=== PATIENT | male | born 1960 | race Caucasian/White ===

== ENCOUNTER 2022-10-19 16:14 | Inpatient (IN) ==
--- NOTE | 2022-10-19 17:02 | XRay Report ---
XR chest 1V portable HISTORY: 61 years-old Male SOB acute chest pain with shortness of breath COMPARISON: Chest CT 09/19/2022 TECHNIQUE: AP view of the chest FINDINGS: Cardiomediastinal and hilar silhouettes are unchanged. Large right perihilar/right upper lobe mass re demonstrated. There is progressively worsened mixed interstitial and alveolar opacities throughout th e right lung. Emphysema. Mild reticular nodular densities of the left lung are also again noted. Dege nerative changes of the shoulders and spine. IMPRESSION: 1. Large right perihilar/right upper lobe mass redemonstrated. 2. Progressively worsened mixed interstitial and alveolar opacities throughout the right lung likely represents postobstructive pneumonitis. Progressive metastatic disease could appear similarly. 3. Emphysema with mild reticular nodular opacities throughout the left lung again noted. ACT 112: Negative or not required by law. The above report was generated using voice recognition software. It may contain grammatical, syntax o r spelling errors. Electronically signed by: Jose Miguel Tineo M.D. 10/19/2022 5:00 PM
[2022-10-19 17:18] LABS: Basophils # (auto) 0.08 K/uL (0-0.2); Basophils % (auto) 0.6 %; Eosinophils # (auto) 0.04 K/uL (0-0.50); Eosinophils % (auto) 0.3 %; Hemoglobin 15.4 g/dl (14.0-18.0); Immature Granulocytes # (auto) 0.22 K/uL (0.01-0.20); Immature Granulocytes % (auto) 1.7 %; Lymphocytes # (auto) 2.09 K/uL (1.2-3.4); Lymphocytes % (auto) 15.9 %; Mean Corpuscular Hemoglobin 29.2 pg (25.0-34.0); Mean Corpuscular Hgb Conc 32.8 g/dL (32.0-36.0); Mean Corpuscular Volume 89.2 fL (80.0-100.0); Mean Platelet Volume 8.4 fL (9.4-12.4); Monocytes # (auto) 1.19 K/uL (0.11-0.59); Neutrophils # (auto) 9.53 K/uL (1.40-6.50); Neutrophils % (auto) 72.5 %; Platelet Count 378 K/uL (130-400); RDW Coefficient of Variation 13.9 % (11.5-14.5); RDW Standard Deviation 44.7 fL (36.4-46.3); Red Blood Count 5.27 M/uL (4.70-6.10); White Blood Count 13.15 K/ul (4.8-10.8)
[2022-10-19 17:29] LABS: Partial Thromboplastin Ratio 1.1; Prothrombin Time 10.7 Seconds (9.0-12.0)
[2022-10-19 17:32] LABS: Albumin Level 3.4 gm/dl (3.4-5.0); Anion Gap 8 (3-11); Bilirubin,Total 0.3 mg/dl (0.2-1.0); Calcium 9.2 mg/dl (8.5-10.1); Carbon Dioxide 28 mmol/L (21-32); Chloride 107 mmol/L (98-107); Potassium 3.9 mmol/L (3.5-5.1); Sodium 143 mmol/L (136-145)
[2022-10-19 17:34] LABS: Troponin I High Sensitivity 19.7 pg/ml (0-20)
[2022-10-19 17:38] LABS: Alanine Aminotransferase 24 U/L (7-52); Alkaline Phosphatase 116 U/L (34-104); Aspartate Aminotransferase 21 U/L (13-39); BUN Creatinine Ratio 20.3 (10-20); Blood Urea Nitrogen 16 mg/dl (6-23); Est GFR (African American) 112.3 ml/min; Est GFR (Non-African American) 96.9 ml/min; Globulin 3.5 gm/dl (2.5-4.0); Glucose 97 mg/dl (70-99(Fasting)); Total Protein 6.9 gm/dl (6.0-8.3)
[2022-10-19 17:41] LABS: Influenza A virus by PCR Negative (Neg); Influenza B virus by PCR Negative (Neg); RSV by PCR Negative (Neg); SARS CoV2 RNA(COVID-19) Ceph NEGATIVE (Negative)
--- NOTE | 2022-10-19 18:33 | Emergency Department Note ---
Impression & Plan Hypoxia, Abnormal CT scan of lung ED Provider Note NAME: ONDINA RODRÍGUEZ AGE: 61 SEX: M : 1960 ARRIVES VIA: Walk-In INFORMANT: Patient ED PROVIDER(S): Evans Bermeo DO CHIEF COMPLAINT: SOB HPI: Patient is a 61-year-old male with a past medical history of COPD and media stinal adenopathy who presents the ER for shortness of breath. He has had upper respiratory symptoms since August. Has been on antibiotics. Denies any headache or change in vision. No chest pain but does have significant shortness of breath with any kind of movement. Does not wear oxygen at home. Referred in by pulmonology. Has been using his nebulizer at home. Denies any belly pain, nausea, vomiting, or diarrhea. No dysuria, urgency, or frequency. No other exacerbating or remitting factors. He does have a cough and runny nose. He has been taking [id number] medications to help try him up due to the secretions. PAST MEDICAL HISTORY:See Below PAST SURGICAL HISTORY:See Below FAMILY HISTORY:See Below SOCIAL HISTORY:See Below HOME MEDICATIONS:See Below ALLERGIES:See Below VITALS:See Below PHYSICAL EXAMINATION: GENERAL: Sitting up in bed, alert,, slightly ill-appearing, disheveled on nasal cannula EYE EXAM: normal conjunctiva. OROPHARYNX: no exudate, no erythema, lips, buccal mucosa, and tongue normal and mucous membranes are moist NECK: supple, no nuchal rigidity, no adenopathy, non-tender LUNGS: Mild wheezing bilaterally. Normal chest wall mechanics HEART: no murmurs, S1 normal and S2 normal ABDOMEN: abdomen soft, non-tender, normo-active bowel sounds, no masses, no rebound or guarding. UPPER EXTREMITIES: upper extremities are grossly normal. LOWER EXTREMITIES: No pitting edema. Calves are equal bilateral NEURO EXAM: Normal sensorium, cranial nerves II-XII grossly intact, normal sp eech, no gross weakness of arms, no gross weakness of legs. MEDICAL DECISION MAKING: Patient is a 61 male who presents ER for shortness of breath. Upon presentation was found to be hypoxic at 87%. Placed on 2 L nasal cannula. IV was established blood work was obtained. He was given neb treatments. He was given steroids. Labs show leukocytosis 13,000. No significant anemia. INR unremarkable. BMP with LFTs bilirubin and troponin was negative. Flu COVID and RSV was negative. Chest x-ray with a large right infiltrate/mass per my read. Consequently obtained a CT of his chest to see if this is progressed any further. Question mass versus obstructive process with pneumonia and cannot be certain. Patient was covered with cefepime and vancomycin. Updated bedside. External records were reviewed. Discussed with Rosa Lizama for further evaluation admission and work-up. He did remain on 2 L nasal cannula throughout his stay in the ER. Triage Nursing notes reviewed. Limited review of prior medical records performed Vital Signs: reviewed and remarkable for hypoxia Differential diagnosis: Differential diagnoses includes but is not limited to pneumonia, bronchitis, COPD/Asthma exacerbation, pneumothorax, pulmonary embolism, congestive heart failure, acute coronary syndrome ER treatment provided: See below Diagnostics interpreted by me include EKG and cardiac monitoring as listed below: -Cardiac Monitoring: An order was placed for continuous cardiac monitoring. The monitor shows a rate of 101 with sinus rhythm. -ECG: Sinus tachycardia rate of 104 Normal axis No PVCs QTC 415 -Laboratory studies:Interpreted by me as stated above in MDM and shown below. Imaging studies: Xrays: As interpreted by me: Portable AP upright 1 view chest shows large right chest infiltrate/mass CTs show: CT angio of the chest shows a large right mass/infiltrate Consultation(s): Discussed with Dr. Rosa Lizama for further evaluation and preethi tment Procedures:none Critical Care: I have personally spent 32 minutes of critical care time in the direct management of this patient. This includes bedside care, interpretation of diagnostic studies, and testing, discussion with consultants, patient, and family members, and other required patient management activities. This 32 minutes is in excess of all separately billable procedures. Past Med/Surg History Medical History (Updated 10/19/22 @ 21:45 by Evans Bermeo DO) Arthritis COPD (chronic obstructive pulmonary disease) Edema Hypercholesteremia Mass of lung Palpitations Patellofemoral instability of both knees with pain Reflex sympathetic dystrophy Spinal stenosis Surgical History Hx of right knee surgery Social History Smoking Status: Current every day smoker Feels Safe at Home: Yes Allergies Allergies Allergy/AdvReac Type Severity Reaction Status Date / Time cocoa Allergy Mild Rash Verified 10/19/22 20:06 petrolatum,white Allergy Mild Rash Verified 10/19/22 20:06 tetracycline AdvReac Severe Anaphylaxis Verified 10/19/22 20:06 hydrocodone AdvReac Intermediate Hives Verified 10/19/22 20:06 BELLADONNA Allergy Intermediate Hives Uncoded 10/19/22 20:06 OXYCODEONE AdvReac Intermediate Hives Uncoded 10/19/22 20:06 Home Meds Home Medications Medication Instructions Recorded Confirmed alendronate 70 mg tablet 70 mg PO Q7D 09/29/22 10/19/22 atorvastatin 40 mg tablet (Lipitor) 80 mg PO DAILY 09/29/22 10/19/22 bupropion HCl 300 mg 24 hr tablet, 300 mg PO QAM 09/29/22 10/19/22 extended release calcium carbonate 600 mg calcium 600 mg PO DAILY 09/29/22 10/19/22 (1,500 mg) tablet cholecalciferol (vitamin D3) 25 25 mcg PO DAILY 09/29/22 10/19/22 mcg (1,000 unit) capsule gabapentin 100 mg capsule 100 mg PO DAILY 09/29/22 10/19/22 meclizine 25 mg tablet 25 mg PO DAILY PRN .dizzy 09/29/22 10/19/22 omeprazole 40 mg capsule,delayed 40 mg PO DAILY PRN Acid Reflux 09/29/22 10/19/22 release tramadol 50 mg tablet 50 - 100 mg PO Q12 PRN Pain 10/19/22 10/19/22 Results & Data (ED) Vital Signs Vital Signs - 24 hr 10/19/22 16:19 10/19/22 19:43 10/19/22 20:00 Temperature 36.6 C Temperature Source Temporal Artery Scan Pulse Rate 100 H 100 H 101 H Pulse Rate from SpO2 Sensor 92 H 96 H Respiratory Rate 24 22 22 Respiratory Effort / Characteristics Spontaneous Respiratory Depth Normal Blood Pressure 113/51 L 109/65 109/90 Blood Pressure Mean 71 79 96 Pulse Oximetry 88 L 96 92 Oxygen Delivery Method Room Air Nasal Cannula Nasal Cannula Oxygen Flow Rate 5 5 Sepsis Recent Fever Within 48 Hours No Sepsis New/Unexplained Change in Mental Status No Sepsis Action Taken by Nursing No Action Required 10/19/22 20:30 10/19/22 21:01 Temperature Temperature Source Pulse Rate 91 H 101 H Pulse Rate from SpO2 Sensor 86 99 H Respiratory Rate 30 H 26 H Respiratory Effort / Characteristics Respiratory Depth Blood Pressure 106/74 104/81 Blood Pressure Mean 84 88 Pulse Oximetry 91 91 Oxygen Delivery Method Nasal Cannula Nasal Cannula Oxygen Flow Rate 5 5 Sepsis Recent Fever Within 48 Hours Sepsis New/Unexplained Change in Mental Status Sepsis Action Taken by Nursing Laboratory Data 10/19/22 16:47 10/19/22 16:47 Lab Results 10/19/22 10/19/22 10/19/22 Range/Units 16:47 16:47 16:47 WBC 13.15 H (4.8-10.8) K/ul RBC 5.27 (4.70-6.10) M/uL Hgb 15.4 (14.0-18.0) g/dl Hct 47.0 (42.0-52.0) % MCV 89.2 (80.0-100.0) fL MCH 29.2 (25.0-34.0) pg MCHC 32.8 (32.0-36.0) g/dL RDW Std Deviation 44.7 (36.4-46.3) fL RDW Coeff of Kishore 13.9 (11.5-14.5) % Plt Count 378 (130-400) K/uL MPV 8.4 L (9.4-12.4) fL Immature Gran % (Auto) 1.7 % Neut % (Auto) 72.5 % Lymph % (Auto) 15.9 % Bremer % (Auto) 9.0 % Eos % (Auto) 0.3 % Baso % (Auto) 0.6 % Neut # (Auto) 9.53 H (1.40-6.50) K/uL Lymph # (Auto) 2.09 (1.2-3.4) K/uL Bremer # (Auto) 1.19 H (0.11-0.59) K/uL Eos # (Auto) 0.04 (0-0.50) K/uL Baso # (Auto) 0.08 (0-0.2) K/uL Immature Gran # (Auto) 0.22 H (0.01-0.20) K/uL PT 10.7 (9.0-12.0) Seconds INR 1.0 (0.9-1.1) APTT 29.0 (21.0-31.0) Seconds PTT Ratio 1.1 Sodium 143 (136-145) mmol/L Potassium 3.9 (3.5-5.1) mmol/L Chloride 107 (98-107) mmol/L Carbon Dioxide 28 (21-32) mmol/L Anion Gap 8 (3-11) BUN 16 (6-23) mg/dl Creatinine 0.79 (0.6-1.4) mg/dl Est Cr Clr Drug Dosing Not Reportable Est GFR ( Amer) 112.3 ml/min Est GFR (Non-Af Amer) 96.9 ml/min BUN/Creatinine Ratio 20.3 H (10-20) Glucose 97 (70-99(Fasting)) mg/dl Calcium 9.2 (8.5-10.1) mg/dl Magnesium 2.0 (1.7-2.4) mg/dl Total Bilirubin 0.3 (0.2-1.0) mg/dl AST 21 (13-39) U/L ALT 24 (7-52) U/L Alkaline Phosphatase 116 H (34-104) U/L Troponin I High Sens 19.7 (0-20) pg/ml Total Protein 6.9 (6.0-8.3) gm/dl Albumin 3.4 (3.4-5.0) gm/dl Globulin 3.5 (2.5-4.0) gm/dl Albumin/Globulin Ratio 1.0 (0.9-2) SARS-CoV-2 (PCR) (Negative) Influenza Type A (PCR) (Neg) Influenza Type B (PCR) (Neg) RSV (RT-PCR) (Neg) 10/19/22 Range/Units 16:47 WBC (4.8-10.8) K/ul RBC (4.70-6.10) M/uL Hgb (14.0-18.0) g/dl Hct (42.0-52.0) % MCV (80.0-100.0) fL MCH (25.0-34.0) pg MCHC (32.0-36.0) g/dL RDW Std Deviation (36.4-46.3) fL RDW Coeff of Kishore (11.5-14.5) % Plt Count (130-400) K/uL MPV (9.4-12.4) fL Immature Gran % (Auto) % Neut % (Auto) % Lymph % (Auto) % Bremer % (Auto) % Eos % (Auto) % Baso % (Auto) % Neut # (Auto) (1.40-6.50) K/uL Lymph # (Auto) (1.2-3.4) K/uL Bremer # (Auto) (0.11-0.59) K/uL Eos # (Auto) (0-0.50) K/uL Baso # (Auto) (0-0.2) K/uL Immature Gran # (Auto) (0.01-0.20) K/uL PT (9.0-12.0) Seconds INR (0.9-1.1) APTT (21.0-31.0) Seconds PTT Ratio Sodium (136-145) mmol/L Potassium (3.5-5.1) mmol/L Chloride (98-107) mmol/L Carbon Dioxide (21-32) mmol/L Anion Gap (3-11) BUN (6-23) mg/dl Creatinine (0.6-1.4) mg/dl Est Cr Clr Drug Dosing Est GFR ( Amer) ml/min Est GFR (Non-Af Amer) ml/min BUN/Creatinine Ratio (10-20) Glucose (70-99(Fasting)) mg/dl Calcium (8.5-10.1) mg/dl Magnesium (1.7-2.4) mg/dl Total Bilirubin (0.2-1.0) mg/dl AST (13-39) U/L ALT (7-52) U/L Alkaline Phosphatase (34-104) U/L Troponin I High Sens (0-20) pg/ml Total Protein (6.0-8.3) gm/dl Albumin (3.4-5.0) gm/dl Globulin (2.5-4.0) gm/dl Albumin/Globulin Ratio (0.9-2) SARS-CoV-2 (PCR) NEGATIVE (Negative) Influenza Type A (PCR) Negative (Neg) Influenza Type B (PCR) Negative (Neg) RSV (RT-PCR) Negative (Neg) Administered Medications Discontinued Medications Albuterol (Albuterol 0.083% Nebu Soln 3 Ml Vial) 2.5 mg NEB NOW STA; Protocol Stop: 01/26/23 18:38 Last Admin: 10/19/22 19:37 Dose: 2.5 mg Documented By: MICAELA Cefepime HCl (Maxipime) 2,000 mg in 20 mls @ 5 mls/min IV NOW STA; Protocol Stop: 10/19/22 18:38 Last Admin: 10/19/22 19:37 Dose: 5 mls/min Documented By: MICAELA Ioversol (Optiray 320 500ml) 110 ml IV ONCE ONE Stop: 10/19/22 19:10 Last Admin: 10/19/22 19:09 Dose: 110 ml Documented By: SOL Methylprednisolone (Methylprednisolone 40 Mg/Ml Vial) 40 mg IV NOW STA Stop: 10/19/22 18:38 Last Admin: 10/19/22 19:37 Dose: 40 mg Documented By: MICAELA Imaging Data Radiologist's Impression: Chest X-Ray 10/19/22 16:23 XR chest 1V portable HISTORY: 61 years-old Male SOB acute chest pain with shortness of breath COMPARISON: Chest CT 09/19/2022 TECHNIQUE: AP view of the chest FINDINGS: Cardiomediastinal and hilar silhouettes are unchanged. Large right perihila r/right upper lobe mass redemonstrated. There is progressively worsened mixed interstitial and alveolar opacities throughout the right lung. Emphysema. Mild reticular nodular densities of the left lung are also again noted. Degenerative changes of the shoulders and spine. IMPRESSION: 1. Large right perihilar/right upper lobe mass redemonstrated. 2. Progressively worsened mixed interstitial and alveolar opacities throughout the right lung likely represents postobstructive pneumonitis. Progressive metastatic disease could appear similarly. 3. Emphysema with mild reticular nodular opacities throughout the left lung again noted. ACT 112: Negative or not required by law. The above report was generated using voice recognition software. It may contain grammatical, syntax or spelling errors. Electronically signed by: Jose Miguel Tineo M.D. 10/19/2022 5:00 PM Chest CTA 10/19/22 18:35 CHEST CTA for PULMONARY ARTERIES CT DOSE: 466.98 mGy.cm HISTORY: Severe shortness of breath. TECHNIQUE: Multiaxial CT images of the chest were performed following the intravenous administration of contrast to evaluate the pulmonary arteries. Maximal intensity projection images were also obtained. A dose lowering technique was utilized adhering to the principles of ALARA. COMPARISON STUDY: Outside hospital chest CT 09/19/2022. FINDINGS: Limited views of the upper abdomen demonstrate a normal liver and spleen. Prior cholecystectomy. Normal right adrenal gland. A 1.8 cm left adrenal gland nodule is similar to the prior study. There is a new trace right pleural effusion. No pericardial effusion. Mild circumferential thickening of the esophagus. The ascending thoracic aorta measures up to 4 cm in diameter. This remains unchanged. No mediastinal or left hilar lymphadenopathy. The heart is normal in size. The bilateral lower lobe subsegmental pulmonary arteries are nondiagnostic due to the respiratory motion artifact. Otherwise, no filling defects within the remaining pulmonary arteries to suggest a pulmonary embolus. There is mild mass effect within the central right pulmonary arteries. No suspicious lytic or blastic osseous lesions. No pneumothorax. Mild diffuse narrowing and bronchial wall thickening within the proximal right bronchi. The left bronchi appear patent. Emphysema. There are few stable subpleural nodular densities within the left lung with the largest in the left lower lobe on image 122 measuring 3 mm. There is a new 4 mm subpleural nodule within the left lower lobe in image 137. Right lung groundglass and consolidative airspace opacities have progressed. There is also mild interstitial thickening within the right lung. Similar-appearing focal area of consolidation within the right upper lobe on image 186 measuring 6 cm. This could represent a right upper lobe mass. However, this is difficult to characterize due to the extensive right lung consolidation. There is mild soft tissue thickening within the right hilum which surrounds the right central bronchi and right mainstem bronchus. This is similar to the prior study. IMPRESSION: 1. A 6 cm focal area of consolidation within the right upper lobe with soft tissue thickening within the right hilum and surrounding the right mainstem bronchus. This is similar to the prior study and could represent the patient's known lung mass. However, this is difficult to characterize due to the extensive surrounding airspace opacities within the right lung which have progressed. This could be due to posttreatment changes, superimposed pneumonia, or less likely asymmetric pulmonary edema. 2. There is a new trace right pleural effusion. 3. A new 4 mm subpleural nodule within the left lower lobe. Additional subcentimeter nodular densities within the left lung remain stable. 4. Emphysema. 5. Stable 18 mm left adrenal gland nodule. 6. No evidence for a pulmonary embolus. 7. Additional findings as described above. ACT 112: Negative or not required by law. Electronically signed by: Herve Jarvis M.D. 10/19/2022 7:24 PM Discharge Plan Visit Data Chief Complaint: Referred by Doctor Stated Complaint: REF BY DOC, PULSE OX LOW, ED Provider: Evans Bermeo Discharge Problem: Hypoxia, Abnormal CT scan of lung Forms Stand Alone Forms: My [facility] Prescriptions Prescriptions: No Action gabapentin 100 mg capsule 100 mg PO DAILY meclizine 25 mg tablet 25 mg PO DAILY PRN (Reason: .dizzy) alendronate 70 mg tablet 70 mg PO Q7D atorvastatin [Lipitor] 40 mg tablet 80 mg PO DAILY calcium carbonate 600 mg calcium (1,500 mg) tablet 600 mg PO DAILY cholecalciferol (vitamin D3) 25 mcg (1,000 unit) capsule 25 mcg PO DAILY bupropion HCl 300 mg tablet extended release 24 hr 300 mg PO QAM omeprazole 40 mg capsule,delayed release(DR/EC) 40 mg PO DAILY PRN (Reason: Acid Reflux) tramadol 50 mg tablet 50 - 100 mg PO Q12 PRN (Reason: Pain) Referrals Referrals: PCP,NO [Primary Care Provider] -
[2022-10-19] MEDS ORDERED: CEFEPIME 2,000 MG/20 ML VIAL IV STA (18:35)
[2022-10-19] MEDS ORDERED: ALBUTEROL 0.083% NEBU SOLN 3 ML VIAL NEB STA (18:37)
[2022-10-19] MEDS ORDERED: OPTIRAY 320 500ml IV ONE (19:09)
--- NOTE | 2022-10-19 19:26 | CT Scan Report ---
CHEST CTA for PULMONARY ARTERIES CT DOSE: 466.98 mGy.cm HISTORY: Severe shortness of breath. TECHNIQUE: Multiaxial CT images of the chest were performed following the intravenous administration of contrast to evaluate the pulmonary arteries. Maximal intensity projection images were also obtaine d. A dose lowering technique was utilized adhering to the principles of ALARA. COMPARISON STUDY: Outside hospital chest CT 09/19/2022. FINDINGS: Limited views of the upper abdomen demonstrate a normal liver and spleen. Prior cholecystec teresita. Normal right adrenal gland. A 1.8 cm left adrenal gland nodule is similar to the prior study. T here is a new trace right pleural effusion. No pericardial effusion. Mild circumferential thickening of the esophagus. The ascending thoracic aorta measures up to 4 cm in diameter. This remains unchange d. No mediastinal or left hilar lymphadenopathy. The heart is normal in size. The bilateral lower lob e subsegmental pulmonary arteries are nondiagnostic due to the respiratory motion artifact. Otherwise , no filling defects within the remaining pulmonary arteries to suggest a pulmonary embolus. There is mild mass effect within the central right pulmonary arteries. No suspicious lytic or blastic osseous lesions. No pneumothorax. Mild diffuse narrowing and bronchial wall thickening within the proximal r ight bronchi. The left bronchi appear patent. Emphysema. There are few stable subpleural nodular dens ities within the left lung with the largest in the left lower lobe on image 122 measuring 3 mm. There is a new 4 mm subpleural nodule within the left lower lobe in image 137. Right lung groundglass and consolidative airspace opacities have progressed. There is also mild interstitial thickening within t he right lung. Similar-appearing focal area of consolidation within the right upper lobe on image 186 measuring 6 cm. This could represent a right upper lobe mass. However, this is difficult to characte rize due to the extensive right lung consolidation. There is mild soft tissue thickening within the r ight hilum which surrounds the right central bronchi and right mainstem bronchus. This is similar to the prior study. IMPRESSION: 1. A 6 cm focal area of consolidation within the right upper lobe with soft tissue thickening within the right hilum and surrounding the right mainstem bronchus. This is similar to the prior study and c ould represent the patient's known lung mass. However, this is difficult to characterize due to the e xtensive surrounding airspace opacities within the right lung which have progressed. This could be du e to posttreatment changes, superimposed pneumonia, or less likely asymmetric pulmonary edema. 2. There is a new trace right pleural effusion. 3. A new 4 mm subpleural nodule within the left lower lobe. Additional subcentimeter nodular densitie s within the left lung remain stable. 4. Emphysema. 5. Stable 18 mm left adrenal gland nodule. 6. No evidence for a pulmonary embolus. 7. Additional findings as described above. ACT 112: Negative or not required by law. Electronically signed by: Herve Jarvis M.D. 10/19/2022 7:24 PM
--- NOTE | 2022-10-19 19:56 | History & Physical Report ---
Date of Service October 19, 2022 Assessment & Plan (1) Hypoxia: Plan: 61-year-old male with likely COPD (given smoking history, symptoms, prior PFTs are not confirmatory), newly discovered lung mass presenting with progressive dyspnea, cough. Patient hypoxic on room air at 88% today. Does not wear oxygen at home. Presently saturating well at 92% on 5 L nasal cannula. Differential to include COPD exacerbation, pneumonia, right upper lobe lung mass with partial collapse. Admit to medical telemetry Continue supplemental oxygen as needed. Goal saturation 88 to 92% DuoNebs every 4 hours scheduled Albuterol every 2 hours as needed Solu-Medrol 40 mg IV 3 times daily Check procalcitonin Antibiotic coverage with Zosyn for now Flutter valve, incentive spirometry Pulmonary consultation appreciated We will keep patient n.p.o. after midnight in the event of possible procedure in the morning (2) Abnormal CT scan of lung: Plan: Concern for malignancy in the right upper lobe. Patient was scheduled to have a PET scan performed which was canceled due to the weather. He was rescheduled to have the study on 10/26/2022. Family is requesting that he has this performed while inpatient. Pulmonary consultation appreciated (3) Diarrhea: Plan: Patient reports watery diarrhea ongoing for the last several weeks. He was recently on antibiotics. Has a mild elevated white blood cell count = 13.15 Check stool for C. difficile Check stool PCR Hold antimotility agents for now (4) COPD (chronic obstructive pulmonary disease): Plan: Patient with likely COPD. No formal diagnosis as of yet. He does report a 33-39-cqiy-year history. Still actively smoking although has significantly cut down to 1 or 2 cigarettes/day. Patient congratulated on his progress and encouraged to quit tobacco entirely. He does have a nebulizer machine at home which he uses periodically. Does not use home oxygen. DuoNebs every 4 hours scheduled Albuterol every 2 hours as needed Steroids as above Smoking cessation counseling, nicotine patch ordered (5) Hypercholesteremia: Plan: Chronic. Stable on medications. Continue atorvastatin 80 mg p.o. daily (6) Reflex sympathetic dystrophy: Plan: Patient reports having an accident at work 20 years ago. Was diagnosed with reflux sympathetic dystrophy involving his left lower extremity. He has pain, spasms and discoloration intermittently. Continue gabapentin Continue tramadol as needed Patient additionally reports inability to move his right arm. He denies trauma. Has some point tenderness in the anterior shoulder. Check x-ray right shoulder (7) Back pain: Plan: Patient reports longstanding history of spinal stenosis. Does report worsening back pain over the last several weeks which she associates with his increased cough. No neurological deficits Warm compresses, Lidoderm patch Check lumbar x-ray Patient is to have a PET CT performed soon. Is some concern with worsening back pain, likely cancer diagnosis and mild elevation of alkaline phosphatase ( 116) F/E/NLR at 100 mL/h x 2 L, monitor electrolytes and replete as needed, regular diet as tolerated for dinner and n.p.o. after midnight Ppx:JIE stockings for now Codefull Dispoadmit to medical telemetry History of Present Illness Chief Complaint: Shortness of breath, hypoxia Primary Care Provider: NO PCP Anthony Grijalva is a 61-year-old male with history of hyperlipidemia, likely COPD and newly discovered right upper lobe spiculated lung mass presenting with several days of progressive shortness of breath. Patient reports becoming ill in August with URI symptoms which progressed to bronchitis/pneumonia. He was treated with a course of Augmentin and doxycycline as well as nebulizers, steroids and Mucinex. He had a CT scan of the chest performed on 09/19/2022 at [facility] (report is scanned into [employer]) which revealed a 5 cm masslike area of consolidation have suspicious for malignancy in the right hilar region and right upper lobe. Also with areas of postobstructive pneumonia distal to the central lesion involving upper, lower and to a lesser extent right middle lobe. Also noted have a 4.2 cm ascending aortic aneurysm. Patient was seen by pulmonary on 09/29/2022 for follow-up of the lung mass. A PET CT and formal PFTs were recommended. The patient did complete the PFTs at [facility] last week results are -scanned into system. Overall, poor study and repeat evaluation recommended. His PET scan was rescheduled due to the weather and he is to have it performed on 10/26/2022. Patient reports he has had progressive dyspnea on exertion and at times at rest since being ill in August. His dyspnea has been more persistent and severe over the last several days. He did have a doctor's appointment in [place] today and felt very short of breath all day. He took a neb treatment around 10:45 in the morning with no relief. Patient reports a persistent dry cough as well as wheeze and occasional chest tightness. He becomes dyspneic with ambulating short distances. He reports severe lower, right-sided back pain that has been exacerbated by his cough. He also reports persistent diarrhea with episodes of incontinence over the last month and occasional muscle cramps. He does endorse a 35 pound unintentional weight loss over the last 2 months. Additionally, patient reports that he is unable to lift his right arm. While this is troublesome, it has been ongoing for many months. No injury reported. In the ER patient afebrile, tachycardic with heart rate = 100 bpm, blood pressure stable, mildly tachypneic with respiratory rate of 24 saturating 88% on room air. He was placed on supplemental oxygen by nasal cannula presently at 5 L/min with saturations of 92 to 93%. ER course: Cefepime 2 g at 1937 Albuterol 2.5 mg neb Solu-Medrol 40 mg IV Allergies Allergy/AdvReac Type Severity Reaction Status Date / Time cocoa Allergy Mild Rash Verified 10/19/22 20:06 petrolatum,white Allergy Mild Rash Verified 10/19/22 20:06 tetracycline AdvReac Severe Anaphylaxis Verified 10/19/22 20:06 hydrocodone AdvReac Intermediate Hives Verified 10/19/22 20:06 BELLADONNA Allergy Intermediate Hives Uncoded 10/19/22 20:06 OXYCODEONE AdvReac Intermediate Hives Uncoded 10/19/22 20:06 Home Medications Medication Instructions Recorded Confirmed Type alendronate 70 mg tablet 70 mg PO Q7D 09/29/22 09/29/22 History atorvastatin 40 mg tablet (Lipitor) 80 mg PO DAILY 09/29/22 10/19/22 History bupropion HCl 300 mg 24 hr tablet, 300 mg PO QAM 09/29/22 10/19/22 History extended release calcium carbonate 600 mg calcium 600 mg PO DAILY 09/29/22 10/19/22 History (1,500 mg) tablet cholecalciferol (vitamin D3) 25 25 mcg PO DAILY 09/29/22 10/19/22 History mcg (1,000 unit) capsule gabapentin 100 mg capsule 100 mg PO DAILY 09/29/22 10/19/22 History meclizine 25 mg tablet 25 mg PO DAILY PRN .dizzy 09/29/22 10/19/22 History omeprazole 40 mg capsule,delayed 40 mg PO DAILY PRN Acid Reflux 09/29/22 10/19/22 History release tramadol 50 mg tablet 50 - 100 mg PO Q12 PRN Pain 10/19/22 10/19/22 History Past Med/Surg History Medical History (Updated 10/19/22 @ 21:13 by Pina Lizama DO) Arthritis COPD (chronic obstructive pulmonary disease) Edema Hypercholesteremia Mass of lung Palpitations Patellofemoral instability of both knees with pain Reflex sympathetic dystrophy Spinal stenosis Surgical History Hx of right knee surgery Social History Smoking Status: Current every day smoker Feels Safe at Home: Yes Review of Systems Review of Systems: All systems reviewed & are unremarkable except as noted in HPI & below Physical Exam Physical Exam: General: patient , ill in appearance NAD, non-toxic in appearance, AA&O x 4 Skin: warm, dry, intact, no rashes or lesions HEENT: NC/AT, PERRL, EOMI, anicteric sclera, conjunctiva without injection, external ear normal to inspection and nontender, nares patent, moist mucus membranes, dentition intact, no oropharyngeal lesions, neck supple, trachea midline, no LAD, no thyromegaly, no JVD Heart: +S1/S2, regular, no m/r/g Lungs: Diminished breath sounds bilaterally, diffuse end expiratory wheezing, crackles in right middle lung field Abd: +BS, soft, NT/ND, no masses/organomegaly/ascites Ext: warm, 2+ pulses in UE/LE bilaterally, no clubbing/cyanosis or edema Neuro: Patient unable to lift right arm above 90 degrees. No sensory deficits. Remainder of neurological exam unremarkable Results & Data Results & Data ([facility]) Vital Signs (Past 12 Hours) Vital Signs Temp Pulse Resp BP Pulse Ox O2 Del Method 10/19/22 16:19 36.6 C 100 H 24 113/51 L 88 L Room Air Laboratory Results Laboratory Results WBC 13.15 K/ul (4.8-10.8) H 10/19/22 16:47 RBC 5.27 M/uL (4.70-6.10) 10/19/22 16:47 Hgb 15.4 g/dl (14.0-18.0) 10/19/22 16:47 Hct 47.0 % (42.0-52.0) 10/19/22 16:47 MCV 89.2 fL (80.0-100.0) 10/19/22 16:47 MCH 29.2 pg (25.0-34.0) 10/19/22 16:47 MCHC 32.8 g/dL (32.0-36.0) 10/19/22 16:47 RDW Std Deviation 44.7 fL (36.4-46.3) 10/19/22 16:47 RDW Coeff of Kishore 13.9 % (11.5-14.5) 10/19/22 16:47 Plt Count 378 K/uL (130-400) 10/19/22 16:47 MPV 8.4 fL (9.4-12.4) L 10/19/22 16:47 Immature Gran % (Auto) 1.7 % 10/19/22 16:47 Neut % (Auto) 72.5 % 10/19/22 16:47 Lymph % (Auto) 15.9 % 10/19/22 16:47 [place] % (Auto) 9.0 % 10/19/22 16:47 Eos % (Auto) 0.3 % 10/19/22 16:47 Baso % (Auto) 0.6 % 10/19/22 16:47 Neut # (Auto) 9.53 K/uL (1.40-6.50) H 10/19/22 16:47 Lymph # (Auto) 2.09 K/uL (1.2-3.4) 10/19/22 16:47 [place] # (Auto) 1.19 K/uL (0.11-0.59) H 10/19/22 16:47 Eos # (Auto) 0.04 K/uL (0-0.50) 10/19/22 16:47 Baso # (Auto) 0.08 K/uL (0-0.2) 10/19/22 16:47 Immature Gran # (Auto) 0.22 K/uL (0.01-0.20) H 10/19/22 16:47 PT 10.7 Seconds (9.0-12.0) 10/19/22 16:47 INR 1.0 (0.9-1.1) 10/19/22 16:47 APTT 29.0 Seconds (21.0-31.0) 10/19/22 16:47 PTT Ratio 1.1 10/19/22 16:47 Sodium 143 mmol/L (136-145) 10/19/22 16:47 Potassium 3.9 mmol/L (3.5-5.1) 10/19/22 16:47 Chloride 107 mmol/L (98-107) 10/19/22 16:47 Carbon Dioxide 28 mmol/L (21-32) 10/19/22 16:47 Anion Gap 8 (3-11) 10/19/22 16:47 BUN 16 mg/dl (6-23) 10/19/22 16:47 Creatinine 0.79 mg/dl (0.6-1.4) 10/19/22 16:47 Est Cr Clr Drug Dosing Not Reportable 10/19/22 16:47 Est GFR ( Amer) 112.3 ml/min 10/19/22 16:47 Est GFR (Non-Af Amer) 96.9 ml/min 10/19/22 16:47 BUN/Creatinine Ratio 20.3 (10-20) H 10/19/22 16:47 Glucose 97 mg/dl (70-99(Fasting)) 10/19/22 16:47 Calcium 9.2 mg/dl (8.5-10.1) 10/19/22 16:47 Magnesium 2.0 mg/dl (1.7-2.4) 10/19/22 16:47 Total Bilirubin 0.3 mg/dl (0.2-1.0) 10/19/22 16:47 AST 21 U/L (13-39) 10/19/22 16:47 ALT 24 U/L (7-52) 10/19/22 16:47 Alkaline Phosphatase 116 U/L (34-104) H 10/19/22 16:47 Troponin I High Sens 19.7 pg/ml (0-20) 10/19/22 16:47 Total Protein 6.9 gm/dl (6.0-8.3) 10/19/22 16:47 Albumin 3.4 gm/dl (3.4-5.0) 10/19/22 16:47 Globulin 3.5 gm/dl (2.5-4.0) 10/19/22 16:47 Albumin/Globulin Ratio 1.0 (0.9-2) 10/19/22 16:47 SARS-CoV-2 (PCR) NEGATIVE (Negative) 10/19/22 16:47 Influenza Type A (PCR) Negative (Neg) 10/19/22 16:47 Influenza Type B (PCR) Negative (Neg) 10/19/22 16:47 RSV (RT-PCR) Negative (Neg) 10/19/22 16:47 Impressions Chest X-Ray 10/19/22 16:23 XR chest 1V portable HISTORY: 61 years-old Male SOB acute chest pain with shortness of breath COMPARISON: Chest CT 09/19/2022 TECHNIQUE: AP view of the chest FINDINGS: Cardiomediastinal and hilar silhouettes are unchanged. Large right perihilar/right upper lobe mass redemonstrated. There is progressively worsened mixed interstitial and alveolar opacities throughout the right lung. Emphysema. Mild reticular nodular densities of the left lung are also again noted. Degenerative changes of the shoulders and spine. IMPRESSION: 1. Large right perihilar/right upper lobe mass redemonstrated. 2. Progressively worsened mixed interstitial and alveolar opacities throughout the right lung likely represents postobstructive pneumonitis. Progressive metastatic disease could appear similarly. 3. Emphysema with mild reticular nodular opacities throughout the left lung again noted. ACT 112: Negative or not required by law. The above report was generated using voice recognition software. It may contain grammatical, syntax or spelling errors. Electronically signed by: Jose Miguel Tineo M.D. 10/19/2022 5:00 PM Chest CTA 10/19/22 18:35 CHEST CTA for PULMONARY ARTERIES CT DOSE: 466.98 mGy.cm HISTORY: Severe shortness of breath. TECHNIQUE: Multiaxial CT images of the chest were performed following the i ntravenous administration of contrast to evaluate the pulmonary arteries. Maximal intensity projection images were also obtained. A dose lowering technique was utilized adhering to the principles of ALARA. COMPARISON STUDY: Outside hospital chest CT 09/19/2022. FINDINGS: Limited views of the upper abdomen demonstrate a normal liver and spleen. Prior cholecystectomy. Normal right adrenal gland. A 1.8 cm left adrenal gland nodule is similar to the prior study. There is a new trace right pleural effusion. No pericardial effusion. Mild circumferential thickening of the esophagus. The ascending thoracic aorta measures up to 4 cm in diameter. This remains unchanged. No mediastinal or left hilar lymphadenopathy. The heart is normal in size. The bilateral lower lobe subsegmental pulmonary arteries are nondiagnostic due to the respiratory motion artifact. Otherwise, no filling defects within the remaining pulmonary arteries to suggest a pulmonary embolus. There is mild mass effect within the central right pulmonary arteries. No suspicious lytic or blastic osseous lesions. No pneumothorax. Mild diffuse narrowing and bronchial wall thickening within the proximal right bronchi. The left bronchi appear patent. Emphysema. There are few stable subpleural nodular densities within the left lung with the largest in the left lower lobe on image 122 measuring 3 mm. There is a new 4 mm subpleural nodule within the left lower lobe in image 137. Right lung groundglass and consolidative airspace opacities have progressed. There is also mild interstitial thickening within the right lung. Similar-appearing focal area of consolidation within the right upper lobe on image 186 measuring 6 cm. This could represent a right upper lobe mass. However, this is difficult to characterize due to the extensive right lung consolidation. There is mild soft tissue thickening within the right hilum which surrounds the right central bronchi and right mainstem bronchus. This is similar to the prior study. IMPRESSION: 1. A 6 cm focal area of consolidation within the right upper lobe with soft tissue thickening within the right hilum and surrounding the right mainstem bronchus. This is similar to the prior study and could represent the patient's known lung mass. However, this is difficult to characterize due to the extensive surrounding airspace opacities within the right lung which have progressed. This could be due to posttreatment changes, superimposed pneumonia, or less likely asymmetric pulmonary edema. 2. There is a new trace right pleural effusion. 3. A new 4 mm subpleural nodule within the left lower lobe. Additional subcentimeter nodular densities within the left lung remain stable. 4. Emphysema. 5. Stable 18 mm left adrenal gland nodule. 6. No evidence for a pulmonary embolus. 7. Additional findings as described above. ACT 112: Negative or not required by law. Electronically signed by: Herve Jarvis M.D. 10/19/2022 7:24 PM Code Status & VTE Plan VTE Prophylaxis Plan VTE Prophylaxis will be ordered: Yes PG Care Time/CCT Total # of Minutes Spent Total Time Spent with Patient: Total time spent is greater than 50% in coordination of care (as documented) at patient's floor/unit and/or counseling patient: Coding Level of Care Code 63144 INT INP/OBS CARE 3/75MIN Diagnoses Hypoxia R09.[address] scan of lung R91.8 Diarrhea R19.7 COPD (chronic obstructive pulmonary disease) J44.9 Hypercholesteremia E78.00 Reflex sympathetic dystrophy G90.50 Back pain M54.9
[2022-10-19] MEDS ORDERED: ONDANSETRON INJ 2 MG/ML 2 ML VIAL IV PRN (23:36)
[2022-10-19] MEDS ORDERED: ACETAMINOPHEN 325 MG TAB PO PRN (23:36)
[2022-10-20] MEDS ORDERED: PIPERACILLIN/TAZOBACTAM 3.375 GM in DEXTROSE 5% 100 ML IV STA (00:06)
[2022-10-20] MEDS: LACTATED RINGER'S 1,000 ML IV SCH ×2 (00:20→10:43)
[2022-10-20] MEDS: ALBUT/IPRATROP 3MG/0.5MG NEB 3 ML VIAL NEB SCH ×7 (00:24→22:07)
[2022-10-20] MEDS: PIPERACILLIN/TAZOBACTAM 3.375 GM in DEXTROSE 5% 100 ML IV SCH ×3 (06:20→22:03)
--- NOTE | 2022-10-20 07:37 | XRay Report ---
XR lumbar spine 2-3V CLINICAL HISTORY: Increased pain TECHNIQUE: 3 views of the lumbar spine were obtained. Comparison: None available at the time of this dictation. FINDINGS: There is no evidence of an acute fracture. Degenerative changes are seen in the lumbar spine. The ali gnment is normal. Vascular calcifications are noted. IMPRESSION: Degenerative changes as above without acute fracture or subluxation. ACT 112: Negative or not required by law. Electronically signed by: Maximino Erickson M.D. 10/20/2022 7:35 AM
--- NOTE | 2022-10-20 08:19 | XRay Report ---
XR shoulder RT min 2V routine HISTORY: 61 years-old Male unable to move acute pain of the right shoulder COMPARISON: Chest radiograph October 19, 2022 TECHNIQUE: 2 views the right shoulder FINDINGS: Emphysema with large right perihilar/right upper lobe mass and right lung consolidation redemonstrate d. Mild osteoarthritis of the right shoulder. No acute fracture, dislocation or osseous erosion ident ified. IMPRESSION: 1. No acute fracture or dislocation. 2. Please refer to yesterday's CTA of the chest for discussion of the additional intrathoracic findin gs. ACT 112: Negative or not required by law. The above report was generated using voice recognition software. It may contain grammatical, syntax o r spelling errors. Electronically signed by: Jose Miguel Tineo M.D. 10/20/2022 8:18 AM
[2022-10-20 09:02] LABS: Hematocrit (blood only) 38.6 % (42.0-52.0); Hemoglobin 12.7 g/dl (14.0-18.0); Mean Corpuscular Hemoglobin 29.3 pg (25.0-34.0); Mean Corpuscular Hgb Conc 32.9 g/dL (32.0-36.0); Mean Corpuscular Volume 88.9 fL (80.0-100.0); Mean Platelet Volume 8.4 fL (9.4-12.4); Platelet Count 279 K/uL (130-400); RDW Coefficient of Variation 13.7 % (11.5-14.5); RDW Standard Deviation 44.6 fL (36.4-46.3); Red Blood Count 4.34 M/uL (4.70-6.10); White Blood Count 8.34 K/ul (4.8-10.8)
[2022-10-20 09:34] LABS: Bilirubin Direct 0.1 mg/dl (0-0.2); Bilirubin,Total 0.3 mg/dl (0.2-1.0); Calcium 8.7 mg/dl (8.5-10.1); Potassium 3.8 mmol/L (3.5-5.1)
[2022-10-20 09:40] LABS: BUN Creatinine Ratio 20.3 (10-20); Creatinine Clr Calc Pharmacy 112.5 ml/min; Est GFR (African American) 122.5 ml/min; Est GFR (Non-African American) 105.7 ml/min
--- NOTE | 2022-10-20 09:57 | Pulmonary Consultation ---
Date of Consultation October 20, 2022 Assessment & Plan (1) Mass of right lung: We will proceed with bronchoscopy and EBUS to evaluate the mediastinal and hilar lymph nodes for malignancy. We will also perform washings of the right upper lobe to evaluate for infectious etiology. Will need outpatient PET scan. Patient understands the risks and benefits of bronchoscopy and willing to proceed. (2) Mediastinal adenopathy: EBUS planned for today as above. (3) COPD (chronic obstructive pulmonary disease): Continue ICS/LABA/LAMA. Continue as needed DuoNebs. Continue IV Solu-Medrol and transition to prednisone starting tomorrow for short course of 5 to 7 days. (4) Hypoxia: Wean O2 as able to maintain saturations above 90%. Suspect he likely has a chronic O2 need. History of Present Illness Reason for Consultation: Lung mass Attending Physician: Nikolas Leahy MD History of Present Illness 61-year-old male with a past medical history of extensive tobacco abuse who presented to the hospital due to increasing shortness of breath and cough. Patient normally sees Dr. Justice as an outpatient and last was seen September 29. Unfortunately his PET scan was canceled due to poor weather. Patient notes that he has had about a 40 pound weight loss over the past [address] chest this admission reveals a 6 cm focal area of consolidation in the upper lobe on the right and thickening in the right hilum. There is also subcarinal lymphadenopathy present. There does appear to be areas of superimposed pneumonia. Patient was started on Zosyn and methylprednisolone with some improvement of symptoms. MRSA screen negative on admission. Allergies Allergy/AdvReac Type Severity Reaction Status Date / Time belladonna alkaloids Allergy Intermediate Hives Verified 10/20/22 00:04 oxycodone Allergy Intermediate Hives Verified 10/20/22 00:04 cocoa Allergy Mild Rash Verified 10/19/22 20:06 petrolatum,white Allergy Mild Rash Verified 10/19/22 20:06 tetracycline AdvReac Severe Anaphylaxis Verified 10/19/22 20:06 hydrocodone AdvReac Intermediate Hives Verified 10/19/22 20:06 Home Medications Medication Instructions Recorded Confirmed Type alendronate 70 mg tablet 70 mg PO Q7D 09/29/22 10/19/22 History atorvastatin 40 mg tablet (Lipitor) 80 mg PO DAILY 09/29/22 10/19/22 History bupropion HCl 300 mg 24 hr tablet, 300 mg PO QAM 09/29/22 10/19/22 History extended release calcium carbonate 600 mg calcium 600 mg PO DAILY 09/29/22 10/19/22 History (1,500 mg) tablet cholecalciferol (vitamin D3) 25 25 mcg PO DAILY 09/29/22 10/19/22 History mcg (1,000 unit) capsule gabapentin 100 mg capsule 100 mg PO DAILY 09/29/22 10/19/22 History meclizine 25 mg tablet 25 mg PO DAILY PRN .dizzy 09/29/22 10/19/22 History omeprazole 40 mg capsule,delayed 40 mg PO DAILY PRN Acid Reflux 09/29/22 10/19/22 History release tramadol 50 mg tablet 50 - 100 mg PO Q12 PRN Pain 10/19/22 10/19/22 History Patient History Medical History (Updated 10/20/22 @ 10:20 by Nathaniel Birmingham MD) Arthritis COPD (chronic obstructive pulmonary disease) Edema Hypercholesteremia Mass of lung Mass of right lung Palpitations Patellofemoral instability of both knees with pain Reflex sympathetic dystrophy Spinal stenosis Surgical History Hx of right knee surgery Social History Smoking Status: Current every day smoker Cigarettes Per Day: 1; Hx Alcohol Use: No Hx Substance Use: No Preferred Language: Telugu Communication Ability: Effective Guest Attendant Required: No Beliefs That Will Affect Care: None Current Living Situation: Alone Feels Safe at Home: Yes Assistive Devices: Cane, Glasses and Walker Review of Systems 2 Review of Systems: All systems reviewed & are unremarkable except as noted in HPI & below Physical Exam Physical Exam: Constitutional: Patient appears to be of their stated age. Patient is in no apparent distress. Patient is well-developed. Eyes: Pupils are equal round and reactive to light. Conjunctivae are normal. Anicteric sclera. Ears nose, mouth and throat: Mallampati class 2. Normal posterior oropharynx. Uvula is midline. Neck: Trachea is midline. Visual inspection is normal. Respiratory: Rhonchorous in the right upper lobe. Mildly tachypneic. Cardiovascular: Regular rate and rhythm. No murmurs. No edema. Gastrointestinal: Normal bowel sounds, soft, nontender and nondistended. No hepatosplenomegaly noted. Musculoskeletal: No cyanosis. Patient is able to move all extremities. Strength is 5 out of 5 in the upper and lower extremities. Skin: No rashes, warm dry and intact. Neurologic: No obvious focal neurological deficits seen. Psychiatric: Alert and oriented x3 with a euthymic affect. Results & Data Results & Data ([facility]) Vital Signs (Past 12 Hours) Vital Signs Temp Pulse Pulse Pulse Resp BP BP 10/20/22 08:00 36.6 C 86 20 101/61 10/20/22 06:53 84 20 10/19/22 23:33 89 10/20/22 03:08 36.8 C 80 18 111/67 10/20/22 00:25 87 24 10/19/22 23:36 10/19/22 23:37 37.0 C 91 H 20 10/19/22 22:30 87 25 H 126/83 Pulse Ox O2 Del Method O2 Flow Rate 10/20/22 08:00 94 Nasal Cannula 3 10/20/22 06:53 96 Nasal Cannula 4 10/19/22 23:33 10/20/22 03:08 96 Nasal Cannula 3 10/20/22 00:25 97 Nasal Cannula 5 10/19/22 23:36 Nasal Cannula 5 10/19/22 23:37 96 Nasal Cannula 5 10/19/22 22:30 96 Nasal Cannula 6 PG Care Time/CCT Total # of Minutes Spent Total Time Spent with Patient: Total time spent is greater than 50% in coordination of care (as documented) at patient's floor/unit and/or counseling patient: Coding Level of Care Code INP/OBS CONSULT LVL 5, 80 MIN Diagnoses Mass of right lung R91.8 Mediastinal adenopathy R59.0 COPD (chronic obstructive pulmonary disease) J44.9 Hypoxia R09.02
[2022-10-20 10:20] LABS: Total Protein 5.9 gm/dl (6.0-8.3)
[2022-10-20] MEDS: GABAPENTIN 100 MG CAP PO SCH (10:28)
[2022-10-20] MEDS: NICOTINE 7 MG/24 HR TDSY TD SCH ×2 (10:28→16:40)
[2022-10-20] MEDS: buPROPion XL 300 MG TABCR PO SCH (10:28)
[2022-10-20] MEDS: ATORVASTATIN 40 MG TAB PO SCH (10:28)
[2022-10-20] MEDS: LIDOCAINE 5% 1 PATCH TD SCH (10:29)
[2022-10-20] MEDS: methylPREDNISolone 40 MG in SYRINGE 0 ML IV SCH ×3 (10:29→21:11)
[2022-10-20] MEDS ORDERED: LIDOCAINE 2% MPF LOCAL 5 ML VIAL INFIL ONE (13:13)
[2022-10-20] MEDS ORDERED: SUCCINYLCHOLINE 100MG/5ML SYR IV ONE (13:13)
[2022-10-20] MEDS ORDERED: PROPOFOL IV EMULSION 10 MG/ML 20 ML VIAL IV ONE (13:13)
[2022-10-20] MEDS ORDERED: ONDANSETRON INJ 2 MG/ML 2 ML VIAL ONE (13:13)
[2022-10-20] MEDS ORDERED: fentaNYL citrate 100 MCG/2 ML VIAL ONE (13:14)
[2022-10-20] MEDS ORDERED: MIDAZOLAM HCL 1 MG/ML 2ML VIAL ONE (13:14)
[2022-10-20] MEDS ORDERED: KETAMINE 50 MG/5 ML SYRINGE ONE (13:14)
--- NOTE | 2022-10-20 13:19 | History & Physical Bridge Note ---
Date of Service October 20, 2022 History & Physical Bridge Note I have examined the patient, reviewed the History & Physical and in the interval since the performance of the History & Physical I have noted the following changes of clinical significance: no changes noted
[2022-10-20] MEDS ORDERED: fentaNYL citrate 100 MCG/2 ML VIAL IV PRN (13:36)
[2022-10-20] MEDS ORDERED: NALOXONE HCL 0.4 MG/1 ML VIAL/CARP IV PRN (13:36)
[2022-10-20] MEDS ORDERED: PROMETHAZINE HCL 12.5 MG in SODIUM CHLORIDE 0.9% 50 ML IV PRN (13:36)
[2022-10-20] MEDS ORDERED: ONDANSETRON INJ 2 MG/ML 2 ML VIAL IV PRN (13:36)
[2022-10-20] MEDS ORDERED: ePHEDrine sulfate 50 MG/ML AMP IV PRN (13:36)
[2022-10-20] MEDS ORDERED: FLUMAZENIL 0.1 MG/1 ML 10 ML VIAL IV PRN (13:36)
--- NOTE | 2022-10-20 13:36 | Anesthesiology Consultation ---
Date of Service October 20, 2022 Assessment & Plan Chart Review Chart Review: Acceptable Risk for Surgery and Patient NOT seen in Pre Admission Testing Consults Requested medical ASA ASA4 Proposed Anesthesia Anesthesia Type: General Risk / Benefits Reviewed With: PT / POA / Parent / Guardian, Accepts Plan and Informed Consent Obtained History Surgery Operation Date: 10/20/22 09:45 Proposed Procedures p Endobronchial Ultrasound (EBUS) - Nathaniel Birmingham MD Height/Weight Height: 5 ft 7 in Weight: 65.6 kg Allergies Allergy/AdvReac Type Severity Reaction Status Date / Time belladonna alkaloids Allergy Intermediate Hives Verified 10/20/22 00:04 oxycodone Allergy Intermediate Hives Verified 10/20/22 00:04 cocoa Allergy Mild Rash Verified 10/19/22 20:06 petrolatum,white Allergy Mild Rash Verified 10/19/22 20:06 tetracycline AdvReac Severe Anaphylaxis Verified 10/19/22 20:06 hydrocodone AdvReac Intermediate Hives Verified 10/19/22 20:06 Medications Home Medications Medication Instructions Recorded Confirmed Last Taken alendronate 70 mg tablet 70 mg PO Q7D 09/29/22 10/19/22 Unknown atorvastatin 40 mg tablet (Lipitor) 80 mg PO DAILY 09/29/22 10/19/22 Unknown bupropion HCl 300 mg 24 hr tablet, 300 mg PO QAM 09/29/22 10/19/22 Unknown extended release calcium carbonate 600 mg calcium 600 mg PO DAILY 09/29/22 10/19/22 Unknown (1,500 mg) tablet cholecalciferol (vitamin D3) 25 25 mcg PO DAILY 09/29/22 10/19/22 Unknown mcg (1,000 unit) capsule gabapentin 100 mg capsule 100 mg PO DAILY 09/29/22 10/19/22 Unknown meclizine 25 mg tablet 25 mg PO DAILY PRN .dizzy 09/29/22 10/19/22 Unknown omeprazole 40 mg capsule,delayed 40 mg PO DAILY PRN Acid Reflux 09/29/22 10/19/22 Unknown release tramadol 50 mg tablet 50 - 100 mg PO Q12 PRN Pain 10/19/22 10/19/22 Unknown Active Medications Generic Name Dose Route Start Last Admin Trade Name Freq PRN Reason Stop Dose Admin Albuterol 3 ml 10/19/22 23:36 10/20/22 10:33 Albut/Ipratrop 3mg/0.5mg Neb 3 Ml Vial NEB 11/18/22 23:35 3 ml Q4R PRAVEEN Administration Protocol Atorvastatin Calcium 80 mg 10/20/22 09:00 10/20/22 10:28 Atorvastatin 40 Mg Tab PO 11/19/22 08:59 80 mg DAILY PRAVEEN Administration Bupropion HCl 300 mg 10/20/22 09:00 10/20/22 10:28 Bupropion Xl 300 Mg Tabcr PO 11/19/22 08:59 300 mg QAM PRAVEEN Administration Gabapentin 100 mg 10/20/22 09:00 10/20/22 10:28 Gabapentin 100 Mg Cap PO 11/19/22 08:59 100 mg DAILY PRAVEEN Administration Methylprednisolone 40 mg/ 0.64 mls @ 1.5 mls/min 10/20/22 09:00 10/20/22 10:29 Syringe IV 11/19/22 08:59 1.5 mls/min TID PRAVEEN Administration Lactated Ringer's 1,000 mls @ 100 mls/hr 10/19/22 23:36 10/20/22 10:43 Lr IV 10/20/22 19:35 100 mls/hr .Q10H PRAVEEN Administration Piperacillin Sod/Tazobactam 115 mls @ 28.75 mls/hr 10/20/22 06:00 10/20/22 06:20 Sod 3.375 gm/ Dextrose IV 10/27/22 05:59 28.8 mls/hr Q8H PRAVEEN Administration Protocol Lidocaine 1 patch 10/20/22 09:00 10/20/22 10:29 Lidocaine 5% 1 Patch TD 11/19/22 08:59 1 patch QAM PRAVEEN Administration Miscellaneous 1 each 10/20/22 08:59 10/20/22 10:30 Remove Nicoderm Patch N/A 11/19/22 08:58 1 each DAILY@0859 PRAVEEN Administration NPO Date Last Intake of Fluids: 10/19/22 Time Last Intake of Fluids: 20:00 Date Last Intake of Solids: 10/19/22 Time Last Intake of Solids: 20:00 Past Medical History Medical History Arthritis COPD (chronic obstructive pulmonary disease) Edema Hypercholesteremia Mass of lung Mass of right lung Palpitations Patellofemoral instability of both knees with pain Reflex sympathetic dystrophy Spinal stenosis Exercise / Class Metabolic Activity III < 4 Walking/Shop/Light housework Past Surgical History Surgical History Hx of right knee surgery Past Anesthesia History No Hx of Anesthesia Complications and No Family Hx of Anesthesia Complications History of PONV No Hx of PONV and No Hx of Motion Sickness Social History Smoking Status: Current every day smoker tobacco type: cigarettes Smoking cigarettes per day: 1 Do You Dip or Chew Tobacco: No Hx Alcohol Use: No Hx Substance Use: No Physical Exam Vital Signs Last Vital Signs Temp 36.8 C 10/20/22 13:09 Pulse 88 10/20/22 13:09 Resp 22 10/20/22 13:09 BP 118/57 L 10/20/22 13:09 Pulse Ox 63 L 10/20/22 13:09 O2 Del Method 10/20/22 13:09 O2 Flow Rate 3 10/20/22 13:09 Constitutional + cachectic; no acute distress ENMT Mouth: + dentition abnormality, + dental caries, + edentulous, + poor dentition and + loose teeth Thyromental Distance: > or= 3.5 Finger Breadths Mallampati Class: II Neck normal visual inspection, trachea midline and + facial hair; neck extension not limited Respiratory + uses accessory muscles Auscultation: + diminished lung sounds and + crackles coarse BS RUL Cardiovascular Rate/Rhythm: regular rate and regular rhythm Heart Sounds: no murmur Vessels: no carotid bruit Musculoskeletal Spine: normal cervical ROM and no pain with cervical ROM Extremities: + extremities abnormal to inspection (reflex sympathetic dystrophy RUE and B/L LE) and full ROM of extremities Neurologic moves all extremities Motor/Sensory: + sensory deficit (hyperesthetic RUE and B/L LE) Psychiatric Orientation: alert and oriented x 3 Testing Laboratory Results 10/20/22 08:21 10/20/22 08:21 PT 10.7 Seconds (9.0-12.0) 10/19/22 16:47 INR 1.0 (0.9-1.1) 10/19/22 16:47 APTT 29.0 Seconds (21.0-31.0) 10/19/22 16:47 Electrocardiogram Date: 10/19/22 Findings: + ST @ Chest X-Ray Date: 10/19/22 Findings: + other (large right perihilar/RUL mass;emphysema;left lung reticular nodular densities)
[2022-10-20] MEDS ORDERED: PHENYLEPHRINE 100MCG/ML 5ML SYR ONE (13:58)
[2022-10-20] MEDS ORDERED: ePHEDrine sulfate 50 MG/ML SYR ONE (13:58)
--- NOTE | 2022-10-20 14:31 | Procedure Note ---
Procedure Note: Bronchoscopy Procedure PREOPERATIVE DIAGNOSIS: Right hilar mass POSTOPERATIVE DIAGNOSIS: Right hilar mass consistent with malignancy PROCEDURE PERFORMED: Flexible fiberoptic bronchoscopy with bronchoalveolar lavage, transbronchial biopsies, washings of the right upper lobe and EBUS COMPLICATIONS: None. INDICATION: Evaluate for malignancy PROCEDURE: Informed consent obtained prior to the procedure. Timeout done directly prior to the procedure. The patient had a supraglottic airway inserted by the anesthesia staff in the OR and he was under general anesthesia with the OR staff monitoring. The diagnostic bronchoscope was inserted via the vocal cords. Trachea and tali were examined which appeared normal. Bilateral tracheobronchial tree inspection was performed. There appeared to be significant endobronchial tumor in all segments of the right upper lobe with intrinsic and extrinsic compression of the segmental branches. We used a forcep to biopsy this region x2. Rapid onsite pathology was positive for carcinoma. Adequate hemostasis was achieved with 40 mL of cold saline. And then wedged in the right upper lobe and performed a BAL with approximately 80 mL of saline. Approximately 30 mL of fluid was aspirated back. The diagnostic bronchoscope was removed and then the EBUS scope was inserted. I performed a survey of the hilar and mediastinal lymph nodes. The only significant adenopathy I could see was at station 4R and 10 R. I biopsied station 4R which was positive for malignant tissue consistent with metastatic carcinoma. No significant bleeding was encountered. The scope was completely withdrawn. Patient was extubated per anesthesia protocol. Recommendations: Rapid onsite pathology was positive for carcinoma from the right upper lobe mucosal biopsies and station 4R (right paratracheal lymph node) FNA passes. The right upper lobe appears to be infiltrated with tumor. I discussed the case with Dr. Stephanie Lamb of radiation/oncology. Medical oncology consult placed as well. Patient will need an MRI of his brain to evaluate for metastatic disease. Cultures from the bronchoscopy fluid will be sent as well. [facility] Procedure Codes (Charges) Pulmonary/Thoracic Procedure 1: Pulmonary and Thoracic: 16797 Bronchoscopy, w/EBUS 1 or 2 mediastinal Procedure 2: Pulmonary and Thoracic: 33019 Bronchoscopy w bronchial or endobronchial bx Procedure 3: Pulmonary and Thoracic: 65193 Dx bronchoscopy/BAL
[2022-10-20] MEDS: ALBUTEROL 0.083% NEBU SOLN 3 ML VIAL NEB PRN (14:38)
--- NOTE | 2022-10-20 14:52 | Anesthesiology Progress Note ---
Date of Service October 20, 2022 Anesthesia Post Procedure Vital Signs Vital Signs: Temp Pulse Pulse Pulse Resp BP BP 10/20/22 14:45 10/20/22 13:09 36.8 C 88 22 118/57 L 10/20/22 11:36 36.9 C 87 18 100/61 10/20/22 10:33 86 22 10/20/22 08:00 36.6 C 86 20 101/61 10/20/22 06:53 84 20 10/19/22 23:33 89 10/20/22 03:08 36.8 C 80 18 111/67 10/20/22 00:25 87 24 10/19/22 23:36 10/19/22 23:37 37.0 C 91 H 20 10/19/22 22:30 87 25 H 126/83 10/19/22 21:01 101 H 26 H 104/81 10/19/22 20:30 91 H 30 H 106/74 10/19/22 20:00 101 H 22 109/90 10/19/22 19:43 100 H 22 109/65 10/19/22 16:19 36.6 C 100 H 24 113/51 L Pulse Ox O2 Del Method O2 Flow Rate 10/20/22 14:45 Mechanical Vent 10/20/22 13:09 63 L Nasal Cannula 3 10/20/22 11:36 91 Nasal Cannula 3 10/20/22 10:33 94 Nasal Cannula 3 10/20/22 08:00 94 Nasal Cannula 3 10/20/22 06:53 96 Nasal Cannula 4 10/19/22 23:33 10/20/22 03:08 96 Nasal Cannula 3 10/20/22 00:25 97 Nasal Cannula 5 10/19/22 23:36 Nasal Cannula 5 10/19/22 23:37 96 Nasal Cannula 5 10/19/22 22:30 96 Nasal Cannula 6 10/19/22 21:01 91 Nasal Cannula 5 10/19/22 20:30 91 Nasal Cannula 5 10/19/22 20:00 92 Nasal Cannula 5 10/19/22 19:43 96 Nasal Cannula 5 10/19/22 16:19 88 L Room Air Pain Intensity Back: Pain Intensity: 5 Transfer of Care Handoff Completed per policy Notes Mental Status: alert / awake / arousable Patient Amnestic to Procedure: Yes Nausea / Vomiting: adequately controlled Pain: adequately controlled Airway Patency, RR, SpO2: see Notes below (patient has chronic hypoxia 2ndary to his severe COPD and now w/ post obstructive RUL pneumonia 2ndary to cancerous tumor) BP & HR: stable & adequate Hydration State: stable & adequate Anesthetic Complications: no major complications apparent
--- NOTE | 2022-10-20 14:52 | Radiation OncologyConsultation ---
Date of Consultation October 20, 2022 Assessment & Plan (1) Lung cancer: Plan Assessment: Mr. Grijalva is a 61-year-old gentleman who presents with very locally advanced lung cancer ([id number], stage IIIC). The patient is currently symptomatic some shortness of breath and cough. The patient underwent a bronchoscopy today with EBUS FNA and the preliminary diagnosis is for non-small cell lung carcinoma favoring adenocarcinoma as per Dr. Birmingham. MRI of the brain is still pending. We will asked to evaluate the patient with role of external beam radiation therapy. Treatment Options: 1. Definitive chemotherapy and radiation therapy if disease felt to be localized with no evidence of metastatic disease. Less likely option given radiology/pulomonary medicine more leaning to patient having lymphangitic spread. 2. Palliative radiation therapy followed by systemic chemotherapy. 3. Systemic chemotherapy alone. 4. Best supportive care. Plan: 1. Follow-up with patient and biopsy results on Sunday. Anticipate bringing patient down for CT simulation on Sunday if all providers in agreement to proceed with palliative radiation therapy. 2. Appreciate medical oncology input. 3. MRI of Brain. 4. Bone Scan. 5. PET/CT in outpatient setting if staging not complete while patient admitted. 6. Respiratory care as per pulmonary medicine. 7. Patient/medical team instructed to call if any further questions/concerns. History of Present Illness Reason for Consultation: Lung cancer Attending Physician: Nikolas Leahy MD History of Present Illness Patient initially presents with progressive cough. Increase shortness of breath. 09/19/2022. Chest x-ray. Ill-defined area of dense consolidation in the right hilar region suspicious for mass with postobstructive pneumonia in the right upper lobe and right lower lobe. 09/19/2022. CT chest with contrast. 5 cm masslike area of consolidation highly suspicious for malignant disease in the right hilar region and right upper lobe. There are areas of postobstructive pneumonia distal to the central lesion involving upper, lower and to a lesser extent right middle lobe. 4.2 cm ascending aortic aneurysm. 09/19/2022. CT of abdomen/pelvis. No dominant mass or definite metastatic disease in the abdomen or pelvis. There is single short segment narrowing in the transverse colon without obstruction probably peristalsis. Occlusion of right iliac artery at the origin due to chronic atherosclerosis disease. 10/19/2022. Patient admitted to [facility] due to increased shortness of breath. 10/19/2022. Chest x-ray. 1. Large right perihilar/right upper lobe mass redem onstrated. 2. Progressively worsened mixed interstitial and alveolar opacities throughout the right lung likely represents postobstructive pneumonitis. Progressive metastatic disease could appear similarly. 3. Emphysema with mild reticular nodular opacities throughout the left lung again noted. 10/19/2022. Chest CTA. 1. A 6 cm focal area of consolidation within the right upper lobe with soft tissue thickening within the right hilum and surrounding the right mainstem bronchus. This is similar to the prior study and could represent the patient's known lung mass. However, this is difficult to ch aracterize due to the extensive surrounding airspace opacities within the right lung which have progressed. This could be due to posttreatment changes, superimposed pneumonia, or less likely asymmetric pulmonary edema. 2. There is a new trace right pleural effusion. 3. A new 4 mm subpleural nodule within the left lower lobe. Additional subcentimeter nodular densities within the left lung remain stable. 4. Emphysema. 5. Stable 18 mm left adrenal gland nodule. 6. No evidence for a pulmonary embolus. 7. Additional findings as described above. 10/19/2022. Lumbar x-ray. Degenerative changes as above without acute fracture or subluxation. 10/19/2022. Shoulder x-ray. 1. No acute fracture or dislocation. 2. Please refer to yesterday's CTA of the chest for discussion of the additional intrathoracic findings. 10/20/2022. Bronchoscopy with EBUS FNA. "Rapid onsite pathology was positive for carcinoma from the right upper lobe mucosal biopsies and station 4R (right paratracheal lymph node) FNA passes. The right upper lobe appears to be infiltrated with tumor. " Allergies Allergy/AdvReac Type Severity Reaction Status Date / Time belladonna alkaloids Allergy Intermediate Hives Verified 10/20/22 00:04 oxycodone Allergy Intermediate Hives Verified 10/20/22 00:04 cocoa Allergy Mild Rash Verified 10/19/22 20:06 petrolatum,white Allergy Mild Rash Verified 10/19/22 20:06 tetracycline AdvReac Severe Anaphylaxis Verified 10/19/22 20:06 hydrocodone AdvReac Intermediate Hives Verified 10/19/22 20:06 Home Medications Medication Instructions Recorded Confirmed Type alendronate 70 mg tablet 70 mg PO Q7D 09/29/22 10/19/22 History atorvastatin 40 mg tablet (Lipitor) 80 mg PO DAILY 09/29/22 10/19/22 History bupropion HCl 300 mg 24 hr tablet, 300 mg PO QAM 09/29/22 10/19/22 History extended release calcium carbonate 600 mg calcium 600 mg PO DAILY 09/29/22 10/19/22 History (1,500 mg) tablet cholecalciferol (vitamin D3) 25 25 mcg PO DAILY 09/29/22 10/19/22 History mcg (1,000 unit) capsule gabapentin 100 mg capsule 100 mg PO DAILY 09/29/22 10/19/22 History meclizine 25 mg tablet 25 mg PO DAILY PRN .dizzy 09/29/22 10/19/22 History omeprazole 40 mg capsule,delayed 40 mg PO DAILY PRN Acid Reflux 09/29/22 10/19/22 History release tramadol 50 mg tablet 50 - 100 mg PO Q12 PRN Pain 10/19/22 10/19/22 History Patient History Medical History (Updated 10/20/22 @ 14:50 by Tala Lamb MD) Arthritis COPD (chronic obstructive pulmonary disease) Edema Hypercholesteremia Lung cancer Mass of lung Mass of right lung Palpitations Patellofemoral instability of both knees with pain Reflex sympathetic dystrophy Spinal stenosis Surgical History Hx of right knee surgery Social History Smoking Status: Current every day smoker Cigarettes Per Day: 1; Hx Alcohol Use: No Hx Substance Use: No Preferred Language: Romanian Communication Ability: Effective Res Counselor Required: No Beliefs That Will Affect Care: None Current Living Situation: Alone Feels Safe at Home: Yes Assistive Devices: Cane and Nebulizer Review of Systems Review of Systems: Shortness of breath with exertion at rest. Cough. No hemoptysis. Physical Exam Constitutional: WD/WN, vitals as above Respiratory: Auscultation: + breath sounds absent and + diminished lung sounds Skin: no rashes, warm and dry Psychiatric: A+Ox3, euthymic affect
--- NOTE | 2022-10-20 15:08 | Electrocardiogram Report ---
Test Reason : Blood Pressure : / mmHG Vent. Rate : 104 BPM Atrial Rate : 104 BPM P-R Int : 182 ms QRS Dur : 092 ms QT Int : 316 ms P-R-T Axes : 049 014 044 degrees QTc Int : 415 ms Poor data quality, interpretation may be adversely affected Sinus tachycardia Otherwise normal ECG No previous ECGs available Confirmed by Jose Elias Avendaño ([id number]) on 10/20/2022 3:07:29 PM Referred By: REFERRED SELF Confirmed By:Siddhartha Avendaño
--- NOTE | 2022-10-20 18:15 | Hospitalist Progress Note ---
Date of Service October 20, 2022 Assessment & Plan (1) Hypoxia: Plan: 61-year-old male with likely COPD (given smoking history, symptoms, prior PFTs are not confirmatory), newly discovered lung mass presenting with progressive dyspnea, cough. Patient hypoxic on room air at 88% today. Does not wear oxygen at home. Presently saturating well at 92% on 5 L nasal cannula. Differential to include COPD exacerbation, pneumonia, right upper lobe lung mass with partial collapse. Admit to medical telemetry Continue supplemental oxygen as needed. Goal saturation 88 to 92% DuoNebs every 4 hours scheduled Albuterol every 2 hours as needed Solu-Medrol 40 mg IV 3 times daily Check procalcitonin Antibiotic coverage with Zosyn for now Flutter valve, incentive spirometry Pulmonary consultation appreciated He was going for EBUS bronchoscopy for biopsy tomorrow (2) Abnormal CT scan of lung: (3) Diarrhea: Plan: Patient reports watery diarrhea ongoing for the last several weeks. He was recently on antibiotics. Has a mild elevated white blood cell count = 13.15 Check stool for C. difficile Check stool PCR Hold antimotility agents for now (4) COPD (chronic obstructive pulmonary disease): Plan: Patient with likely COPD. No formal diagnosis as of yet. He does report a 39-94-mtlq-year history. Still actively smoking although has significantly cut down to 1 or 2 cigarettes/day. Patient congratulated on his progress and encouraged to quit tobacco entirely. He does have a nebulizer machine at home which he uses periodically. Does not use home oxygen. DuoNebs every 4 hours scheduled Albuterol every 2 hours as needed Steroids as above Smoking cessation counseling, nicotine patch ordered (5) Hypercholesteremia: Plan: Chronic. Stable on medications. Continue atorvastatin 80 mg p.o. daily (6) Reflex sympathetic dystrophy: Plan: Patient reports having an accident at work 20 years ago. Was diagnosed with reflux sympathetic dystrophy involving his left lower extremity. He has pain, spasms and discoloration intermittently. Continue gabapentin Continue tramadol as needed Patient additionally reports inability to move his right arm. He denies trauma. Has some point tenderness in the anterior shoulder. Check x-ray right shoulder (7) Back pain: Plan: Patient reports longstanding history of spinal stenosis. Does report worsening back pain over the last several weeks which she associates with his increased cough. No neurological deficits Warm compresses, Lidoderm patch Check lumbar x-ray Patient is to have a PET CT performed soon. Is some concern with worsening back pain, likely cancer diagnosis and mild elevation of alkaline phosphatase (116) F/E/NLR at 100 mL/h x 2 L, monitor electrolytes and replete as needed, regular diet as tolerated for dinner and n.p.o. after midnight Ppx:JIE stockings for now Codefull Dispoadmit to medical telemetry Admission and Anticipated Discharge Date Admission Date: October 19, 2022 Subjective Patient feels slightly better, combination of possible postobstructive pneumonia and COPD, patient is going for EUS bronchoscopy tomorrow and Physical Exam Physical Exam: General: patient , ill in appearance NAD, non-toxic in appearance, AA&O x 4 Skin: warm, dry, intact, no rashes or lesions HEENT: NC/AT, PERRL, EOMI, anicteric sclera, conjunctiva without injection, external ear normal to inspection and nontender, nares patent, moist mucus membranes, dentition intact, no oropharyngeal lesions, neck supple, trachea midline, no LAD, no thyromegaly, no JVD Heart: +S1/S2, regular, no m/r/g Lungs: Diminished breath sounds bilaterally, diffuse end expiratory wheezing, crackles in right middle lung field Abd: +BS, soft, NT/ND, no masses/organomegaly/ascites Ext: warm, 2+ pulses in UE/LE bilaterally, no clubbing/cyanosis or edema Neuro: Patient unable to lift right arm above 90 degrees. No sensory deficits. Remainder of neurological exam unremarkable Results & Data Results & Data ([facility]) Vital Signs (Past 12 Hours) Vital Signs Temp Pulse Pulse Pulse Pulse Resp BP 10/20/22 17:42 100 H 14 91/56 L 10/20/22 09:38 10/20/22 17:14 98 H 18 103/57 L 10/20/22 16:29 99 H 16 102/58 L 10/20/22 16:34 10/20/22 16:30 36.6 C 97 H 16 114/60 10/20/22 16:28 97 H 10/20/22 15:50 37 C 95 H 22 93/51 L 10/20/22 15:35 101 H 21 90/59 L 10/20/22 15:25 100 H 22 98/53 L 10/20/22 15:05 101 H 21 108/63 10/20/22 14:55 95 H 19 107/63 10/20/22 14:45 97 H 20 114/62 10/20/22 15:15 102 H 21 90/58 L 10/20/22 14:35 88 16 115/62 10/20/22 14:25 36.2 C L 87 17 115/62 10/20/22 14:45 10/20/22 13:09 36.8 C 88 22 118/57 L 10/20/22 11:36 36.9 C 87 18 100/61 10/20/22 10:33 86 22 10/20/22 08:00 36.6 C 86 20 101/61 10/20/22 06:53 84 20 Pulse Ox O2 Del Method O2 Flow Rate 10/20/22 17:42 93 Nasal Cannula 4 10/20/22 09:38 Nasal Cannula 2.5 10/20/22 17:14 91 Nasal Cannula 4 10/20/22 16:29 93 Nasal Cannula 4 10/20/22 16:34 Nasal Cannula 4 10/20/22 16:30 91 Nasal Cannula 3 10/20/22 16:28 10/20/22 15:50 92 Nasal Cannula 4 10/20/22 15:35 93 Nasal Cannula 4 10/20/22 15:25 96 Oxymask 7 10/20/22 15:05 94 Oxymask 11 10/20/22 14:55 92 Oxymask 11 10/20/22 14:45 89 L Nebulizer 10 10/20/22 15:15 95 Oxymask 9 10/20/22 14:35 92 Nasal Cannula 4 10/20/22 14:25 92 Nasal Cannula 4 10/20/22 14:45 Mechanical Vent 10/20/22 13:09 63 L Nasal Cannula 3 10/20/22 11:36 91 Nasal Cannula 3 10/20/22 10:33 94 Nasal Cannula 3 10/20/22 08:00 94 Nasal Cannula 3 10/20/22 06:53 96 Nasal Cannula 4 PG Care Time/CCT Total # of Minutes Spent Total Time Spent with Patient: Total time spent is greater than 50% in coordination of care (as documented) at patient's floor/unit and/or counseling patient: Coding Diagnoses Hypoxia R09.[address] scan of lung R91.8 Diarrhea R19.7 COPD (chronic obstructive pulmonary disease) J44.9 Hypercholesteremia E78.00 Reflex sympathetic dystrophy G90.50 Back pain M54.9
[2022-10-20] MEDS ORDERED: LORazepam 2 MG/1 ML VIAL IV STA (18:39)
[2022-10-20] MEDS ORDERED: GADOBUTROL 65ML VIAL IV ONE (20:26)
[2022-10-20] MEDS ORDERED: COUGH DROP (SUGAR FREE) LOZ 24 LOZ/1 BOX BUCCAL PRN (21:15)
[2022-10-20] MEDS ORDERED: COUGH DROP (SUGAR FREE) LOZ 24 LOZ/1 BOX BUCCAL ONE (21:21)
[2022-10-21] MEDS: ALBUT/IPRATROP 3MG/0.5MG NEB 3 ML VIAL NEB SCH ×4 (02:19→15:10)
[2022-10-21] MEDS: ALBUTEROL 0.083% NEBU SOLN 3 ML VIAL NEB PRN (04:34)
[2022-10-21] MEDS: PIPERACILLIN/TAZOBACTAM 3.375 GM in DEXTROSE 5% 100 ML IV SCH ×3 (05:22→22:01)
[2022-10-21 08:02] LABS: Hematocrit (blood only) 35.9 % (42.0-52.0); Hemoglobin 11.7 g/dl (14.0-18.0); Mean Corpuscular Hemoglobin 29.5 pg (25.0-34.0); Mean Corpuscular Hgb Conc 32.6 g/dL (32.0-36.0); Mean Corpuscular Volume 90.4 fL (80.0-100.0); Mean Platelet Volume 8.5 fL (9.4-12.4); Platelet Count 277 K/uL (130-400); RDW Coefficient of Variation 13.8 % (11.5-14.5); RDW Standard Deviation 45.4 fL (36.4-46.3); Red Blood Count 3.97 M/uL (4.70-6.10); White Blood Count 13.96 K/ul (4.8-10.8)
[2022-10-21 08:31] LABS: Adenovirus F 40/41 PCR Not Detected (NotDetected); Astrovirus PCR Not Detected (NotDetected); Campylobacter PCR Not Detected (NotDetected); Cryptosporidium PCR Not Detected (NotDetected); Cyclospora cayetanensis PCR Not Detected (NotDetected); Entamoeba histolytica PCR Not Detected (NotDetected); Enteroaggregative E.coli(EAEC) Not Detected (NotDetected); Enteropathogenic E.coli (EPEC) Not Detected (NotDetected); Enterotoxigenic E.coli (ETEC) Not Detected (NotDetected); Giardia lamblia PCR Not Detected (NotDetected); Norovirus GI/GII PCR Not Detected (NotDetected); Plesiomonas shigelloides PCR Not Detected (NotDetected); Rotavirus A PCR Not Detected (NotDetected); Salmonella PCR Not Detected (NotDetected); Sapovirus PCR Not Detected (NotDetected); Shiga-like Toxin E.coli (STEC) Not Detected (NotDetected); Shigella/Enteroinvasive E.coli Not Detected (NotDetected); Vibrio cholerae PCR Not Detected (NotDetected); Vibrio species PCR Not Detected (NotDetected); Yersinia enterocolitica PCR Not Detected (NotDetected)
[2022-10-21 08:35] LABS: Calcium 8.6 mg/dl (8.5-10.1); Potassium 3.8 mmol/L (3.5-5.1)
[2022-10-21 08:41] LABS: BUN Creatinine Ratio 21.8 (10-20); Creatinine Clr Calc Pharmacy 92.3 ml/min; Est GFR (African American) 112.9 ml/min; Est GFR (Non-African American) 97.4 ml/min
--- NOTE | 2022-10-21 08:44 | Oncology Consultation ---
Date of Consultation October 21, 2022 Assessment & Plan (1) Lung cancer: (2) Mediastinal adenopathy: (3) Brain metastasis: Plan Pleasant 61-year-old gentleman with right lung mass who presented with worsening shortness of breath and cough. Preliminary pathology from bronchoscopy/EBUS with biopsy concerning for adenocarcinoma of the lungs. Based on CT chest findings, he appears to have extensive disease with mild pleural effusion, left lung nodule. Also, brain MRI from yesterday revealed temporal lobe lesion suggestive of metastasis.He has been evaluated by radiation oncology with plan for possible palliative radiation to the chest to help alleviate respiratory symptoms. -Agree with plan from radiation oncology for palliative chest radiation. May also benefit from RT to solitary brain lesion. -Outpatient PET/CT as scheduled on 10/26/2022. -Will await results from molecular/PD-L1 testing on tumor sample which will determine appropriate treatment options in the setting of stage IV disease Thank you for this consult. Oncology will continue following patient while in the hospital. Please feel free to call if you have any further questions History of Present Illness Reason for Consultation: Lung cancer Attending Physician: Nikolas Leahy MD History of Present Illness Very pleasant 61-year-old gentleman who was recently diagnosed with adenocarcinoma of the lung and presented to the ER at [facility] on 10/19/2022 with complaints of worsening shortness of breath. He states that he developed cough and shortness of breath around August, for which she was evaluated by his PCP who obtained chest x-ray on 09/19/2022 which revealed ill-defined area of dense consolidation in the right hilar region suspicious for mass with postobstructive pneumonia in the right upper lobe and right lower lobe. CT chest on 09/19/2022 revealed 5 cm masslike area of consolidation highly suspicious for malignant disease in the right hilar region and right upper lobe. CT abdomen and pelvis on 09/19/2022 revealed 1 cm low- density nodule in the left adrenal gland presumably adenoma with no dominant mass or definite metastatic disease in the abdomen or pelvis. He presented to the ER at [facility] on 10/19/2022 with worsening shortness of breath. CTA chest on 10/19/2022 revealed 6 cm focal area of consolidation within right upper lobe with soft tissue thickening within the right hilum and surrounding mainstem bronchus, new trace right pleural effusion, new 4 mm subpleural nodule within left lower lobe, additional subcentimeter nodular densities, stable 80 mm left adrenal gland nodule. Bronchoscopy/EBUS was performed on 10/20/2022 with preliminary pathology suggestive of adenocarcinoma of the lung. Brain MRI obtained on 10/20/2022 revealed 1 cm enhancing focus within the cortex of the left temporal lobe with associated vasogenic edema. Complains of cough and shortness of breath. Also complains of occasional chest discomfort and weight loss. He denies abdominal pain, nausea, vomiting, headaches, dizziness, blurry vision or any other issues Allergies Allergy/AdvReac Type Severity Reaction Status Date / Time belladonna alkaloids Allergy Intermediate Hives Verified 10/20/22 00:04 oxycodone Allergy Intermediate Hives Verified 10/20/22 00:04 cocoa Allergy Mild Rash Verified 10/19/22 20:06 petrolatum,white Allergy Mild Rash Verified 10/19/22 20:06 tetracycline AdvReac Severe Anaphylaxis Verified 10/19/22 20:06 hydrocodone AdvReac Intermediate Hives Verified 10/19/22 20:06 Home Medications Medication Instructions Recorded Confirmed Type alendronate 70 mg tablet 70 mg PO Q7D 09/29/22 10/19/22 History atorvastatin 40 mg tablet (Lipitor) 80 mg PO DAILY 09/29/22 10/19/22 History bupropion HCl 300 mg 24 hr tablet, 300 mg PO QAM 09/29/22 10/19/22 History extended release calcium carbonate 600 mg calcium 600 mg PO DAILY 09/29/22 10/19/22 History (1,500 mg) tablet cholecalciferol (vitamin D3) 25 25 mcg PO DAILY 09/29/22 10/19/22 History mcg (1,000 unit) capsule gabapentin 100 mg capsule 100 mg PO DAILY 09/29/22 10/19/22 History meclizine 25 mg tablet 25 mg PO DAILY PRN .dizzy 09/29/22 10/19/22 History omeprazole 40 mg capsule,delayed 40 mg PO DAILY PRN Acid Reflux 09/29/22 10/19/22 History release tramadol 50 mg tablet 50 - 100 mg PO Q12 PRN Pain 10/19/22 10/19/22 History Patient History Medical History (Updated 10/21/22 @ 10:33 by Irina Diaz MD) Arthritis COPD (chronic obstructive pulmonary disease) Edema Hypercholesteremia Lung cancer Mass of lung Mass of right lung Metabolic brain disease Palpitations Patellofemoral instability of both knees with pain Reflex sympathetic dystrophy Spinal stenosis Surgical History Hx of right knee surgery Social History Smoking Status: Current every day smoker Cigarettes Per Day: 1; Hx Alcohol Use: No Hx Substance Use: No Preferred Language: Libyan Communication Ability: Effective Pecan Picker Required: No Beliefs That Will Affect Care: None Current Living Situation: Alone Feels Safe at Home: Yes Assistive Devices: Cane and Nebulizer Review of Systems Review of Systems: All systems reviewed & are unremarkable except as noted in HPI & below Physical Exam Constitutional: WD/WN, vitals as above Eyes: PERRL, conjunctivae normal, anicteric sclerae ENMT: external ear and nose normal, oropharynx normal Respiratory: Crepitations in the entire right lung. Cardiovascular: RRR, no murmur, no edema Musculoskeletal: no cyanosis or clubbing, extremities motor strength 5/5 Results & Data ([facility]) Vital Signs (Past 12 Hours) Vital Signs Temp Pulse Pulse Resp BP Pulse Ox O2 Del Method 10/21/22 07:39 36.6 C 95 H 23 101/58 L 95 Nasal Cannula 10/21/22 07:17 81 10/21/22 07:08 84 16 93 Nasal Cannula 10/21/22 04:00 36.8 C 84 18 104/59 L 94 Nasal Cannula 10/21/22 04:35 96 H 93 Nasal Cannula 10/20/22 23:40 91 H 10/20/22 23:23 16 10/20/22 23:15 36.8 C 97 H 22 102/64 95 Nasal Cannula 10/20/22 21:15 Nasal Cannula O2 Flow Rate 10/21/22 07:39 10/21/22 07:17 10/21/22 07:08 4 10/21/22 04:00 4 10/21/22 04:35 4 10/20/22 23:40 10/20/22 23:23 10/20/22 23:15 3.0 10/20/22 21:15 3
--- NOTE | 2022-10-21 09:04 | Magnetic Resonance Report ---
MRI OF THE BRAIN WITHOUT AND WITH IV CONTRAST CLINICAL HISTORY: Lung cancer. Evaluate for metastatic disease. COMPARISON STUDY: No previous studies for comparison. TECHNIQUE: Utilizing a 1.5 Juliane magnet and dedicated coil, multiplanar, multiecho imaging of the br ain was performed pre and postcontrast administration. IV administration of 6.5 mL of Gadavist contr ast was uneventful. Thin cut T1 post contrast imaging was performed. FINDINGS: There are no foci of restricted diffusion to suggest acute infarct. No acute intracranial h emorrhage, midline shift or mass effect is present. Ventricular system is unremarkable. Basal cistern s are patent. There are no extra-axial collections. Flow-voids for the major intracranial vessels are present. There is a 1 cm subpleural parenchymal nodule within the atrium of the left lateral ventric le on axial T1 postcontrast image 53 of 134. This does not enhance. This follows signal characteristi cs of toscano matter and favors a focus of toscano matter heterotopia. Note is made of a 1 cm enhancing foc us within the cortex of the left temporal lobe on axial image 38 of 134. There is an associated 1.6 c m focus of vasogenic edema. No additional enhancing lesions are identified. Small white matter T2 hyp erintense foci favor mild small vessel disease. 2 cm T1 hypointense focus within the superior medial left parietal bone shown on sagittal T1 sequence image 14 of 22 is noted. This is indeterminate. IMPRESSION: 1. 1 cm enhancing focus within the cortex of the left temporal lobe with associated vasogenic edema. Given the clinical history, a metastasis is favored. A primary brain neoplasm is also within the diff erential although considered less likely. 2. No additional enhancing intracranial lesions. 3. No evidence for acute infarct. ACT 112: Negative or not required by law. Electronically signed by: Preston Barber M.D. 10/21/2022 9:02 AM
[2022-10-21] MEDS: LIDOCAINE 5% 1 PATCH TD SCH (09:06)
[2022-10-21] MEDS: NICOTINE 7 MG/24 HR TDSY TD SCH (09:06)
[2022-10-21] MEDS: buPROPion XL 300 MG TABCR PO SCH (09:07)
[2022-10-21] MEDS: GABAPENTIN 100 MG CAP PO SCH (09:07)
[2022-10-21] MEDS: methylPREDNISolone 40 MG in SYRINGE 0 ML IV SCH ×2 (09:07→14:53)
[2022-10-21] MEDS: ATORVASTATIN 40 MG TAB PO SCH (09:07)
--- NOTE | 2022-10-21 10:30 | Pulmonology Progress Note ---
Date of Service October 21, 2022 Assessment & Plan (1) Mass of right lung: Plan: Status post bronchoscopy and EBUS 10/20/2022. Prelim pathology concerning for non-small cell lung cancer with metastatic disease to the right paratracheal lymph node. He effectively has N2 disease. Radiation oncology and medical oncology consults placed. MRI brain concerning for a 1 cm enhancing lesion within the cortex of the left temporal lobe associated with vasogenic edema. Patient already on systemic corticosteroids. Will inform medical oncology of these findings. I do not feel that he is a surgical candidate for resection, but will work-up will be needed as an outpatient including complete PFTs and PET/CT. (2) Mediastinal adenopathy: Plan: Station 4R lymph node positive for malignancy. (3) COPD (chronic obstructive pulmonary disease): Plan: Continue ICS/LABA/LAMA. Continue as needed DuoNebs. Continue short course of steroids. (4) Hypoxia: Plan: Wean O2 as able to maintain saturations above 90%. Suspect he likely has a chronic O2 need. (5) Metabolic brain disease: Plan: Area of vasogenic edema and 1 cm lesion noted in the left temporal lobe. Continue IV steroids. Recommend palliative care consultation. Plan No further input from pulmonology at this time. Will need follow-up with medical oncology, radiation oncology and palliative care as an outpatient. Admission and Anticipated Discharge Date Admission Date: October 19, 2022 Subjective Patient seen and examined. He seems to have a worsening tremor. He notes that he has had trouble sleeping the past 2 days. He does have a cough, but does not bring up any phlegm. He denies any fevers or chills. No chest pain. No hemoptysis. Review of Systems Review of Systems: All systems reviewed & are unremarkable except as noted in HPI & below Physical Exam Physical Exam: Constitutional: Patient appears to be of their stated age. Patient is in no apparent distress. Patient is well-developed. Eyes: Pupils are equal round and reactive to light. Conjunctivae are normal. Anicteric sclera. Ears nose, mouth and throat: Mallampati class 2. Normal posterior oropharynx. Uvula is midline. Neck: Trachea is midline. Visual inspection is normal. Respiratory: Rhonchorous in the right upper lobe. Mildly tachypneic. Cardiovascular: Regular rate and rhythm. No murmurs. No edema. Gastrointestinal: Normal bowel sounds, soft, nontender and nondistended. No hepatosplenomegaly noted. Musculoskeletal: No cyanosis. Patient is able to move all extremities. Strength is 5 out of 5 in the upper and lower extremities. Skin: No rashes, warm dry and intact. Neurologic: No obvious focal neurological deficits seen. Psychiatric: Alert and oriented x3 with a euthymic affect. Results & Data Results & Data ([facility]) Vital Signs (Past 12 Hours) Vital Signs Temp Pulse Pulse Resp BP Pulse Ox O2 Del Method 10/21/22 07:12 Nasal Cannula 10/21/22 07:39 36.6 C 95 H 23 101/58 L 95 Nasal Cannula 10/21/22 07:17 81 10/21/22 07:08 84 16 93 Nasal Cannula 10/21/22 04:00 36.8 C 84 18 104/59 L 94 Nasal Cannula 10/21/22 04:35 96 H 93 Nasal Cannula 10/20/22 23:40 91 H 10/20/22 23:23 16 10/20/22 23:15 36.8 C 97 H 22 102/64 95 Nasal Cannula O2 Flow Rate 10/21/22 07:12 3 10/21/22 07:39 10/21/22 07:17 10/21/22 07:08 4 10/21/22 04:00 4 10/21/22 04:35 4 10/20/22 23:40 10/20/22 23:23 10/20/22 23:15 3.0 PG Care Time/CCT Total # of Minutes Spent Total Time Spent with Patient: Total time spent is greater than 50% in coordination of care (as documented) at patient's floor/unit and/or counseling patient: Coding Level of Care Code 85288 SUB INP/OBS CARE 3/50MIN Diagnoses Mass of right lung R91.8 Mediastinal adenopathy R59.0 COPD (chronic obstructive pulmonary disease) J44.9 Hypoxia R09.02 Metabolic brain disease G93.41
--- NOTE | 2022-10-21 18:12 | Hospitalist Progress Note ---
Date of Service October 21, 2022 Assessment & Plan (1) Non-small cell cancer of right lung: Plan: Right upper lobe lung mass status post bronchoscopy and EBUS with biopsy With COPD, postobstructive pneumonia and hypoxic respiratory failure Preliminary pathology report is consistent with non-small cell cancer on right lung Left lung has a subpleural nodule, moreover patient has mediastinal lymphadenopathy CT of brain showed left temporal lobe possible metastasis with vasogenic edema Patient not a candidate for curative treatment including surgery, patient is to go with palliative treatment, discussed with hematology oncology patient needs to follow-up for outpatient PET scan Patient is going for the simulation CT on Sunday for radiation treatment (2) Brain metastasis: Plan: Plan as mentioned above (3) COPD (chronic obstructive pulmonary disease): Plan: COPD. No formal diagnosis as of yet. He does report a 85-30-cjrn-year history. Still actively smoking although has significantly cut down to 1 or 2 cigarettes/day No wheezing on exam, switch to DuoNebs to as needed switch to oral steroids (4) Diarrhea: Plan: Improving (5) Reflex sympathetic dystrophy: Plan: Patient reports having an accident at work 20 years ago. Was diagnosed with reflux sympathetic dystrophy involving his left lower extremity. He has pain, spasms and discoloration intermittently. Continue gabapentin Continue tramadol as needed Present on Admission?: Yes (6) Back pain: Plan: Patient reports longstanding history of spinal stenosis. Does report worsening back pain over the last several weeks which she associates with his increased cough. No neurological deficits Warm compresses, Lidoderm patch Spoke with forestry consultant oncologist there is no need for MRI if the pain is not severe and patient does not have focal weakness, PET scan which will be performed outpatient cardiac Admission and Anticipated Discharge Date Admission Date: October 19, 2022 Subjective Status post bronchoscopy and EBUS on 10/20 2022 preliminary pathology is consistent for non-small cell lung cancer with mediastinal lymphadenopathy and metastatic disease to right paratracheal lymph node, MRI of the brain is concerning for a 1 cm enhancing lesion with the cortex of the left temporal lobe associated with vasogenic edema Physical Exam Constitutional: WD/WN, vitals as above + cachectic; no acute distress Eyes: PERRL, conjunctivae normal, anicteric sclerae ENMT: Mouth: + dentition abnormality, + dental caries, + edentulous, + poor dentition and + loose teeth Mallampati Class: II Neck: normal visual inspection, trachea midline and + facial hair; neck extension not limited Respiratory: + uses accessory muscles Auscultation: + breath sounds absent, + diminished lung sounds and + crackles Cardiovascular: RRR, no murmur, no edema Rate/Rhythm: regular rate and regular rhythm Heart Sounds: no murmur Vessels: no carotid bruit Musculoskeletal: no cyanosis or clubbing, extremities motor strength 5/5 Spine: normal cervical ROM and no pain with cervical ROM Extremities: + extremities abnormal to inspection (reflex sympathetic dystrophy RUE and B/L LE) and full ROM of extremities Skin: no rashes, warm and dry Neurologic: moves all extremities Motor/Sensory: + sensory deficit (hyperesthetic RUE and B/L LE) Psychiatric: A+Ox3, euthymic affect Orientation: alert and oriented x 3 Results & Data Results & Data ([facility]) Vital Signs (Past 12 Hours) Vital Signs Temp Pulse Pulse Resp BP Pulse Ox O2 Del Method 10/21/22 15:02 86 10/21/22 15:59 36.7 C 84 24 118/56 L 92 Nasal Cannula 10/21/22 15:11 83 20 93 Nasal Cannula 10/21/22 12:12 36.6 C 90 17 117/59 L 95 Nasal Cannula 10/21/22 11:30 79 20 92 Nasal Cannula 10/21/22 07:12 Nasal Cannula 10/21/22 07:39 36.6 C 95 H 23 101/58 L 95 Nasal Cannula 10/21/22 07:17 81 10/21/22 07:08 84 16 93 Nasal Cannula O2 Flow Rate 10/21/22 15:02 10/21/22 15:59 10/21/22 15:11 4 10/21/22 12:12 10/21/22 11:30 4 10/21/22 07:12 3 10/21/22 07:39 10/21/22 07:17 10/21/22 07:08 4 PG Care Time/CCT Total # of Minutes Spent Total Time Spent with Patient: Total time spent is greater than 50% in coordination of care (as documented) at patient's floor/unit and/or counseling patient: Coding Level of Care Code 12980 SUB INP/OBS CARE 3/50MIN Diagnoses Non-small cell cancer of right lung C34.91 Brain metastasis C79.31 COPD (chronic obstructive pulmonary disease) J44.9 Diarrhea R19.7 Reflex sympathetic dystrophy G90.50 Back pain M54.9
[2022-10-21] MEDS ORDERED: ALBUT/IPRATROP 3MG/0.5MG NEB 3 ML VIAL NEB PRN (18:26)
[2022-10-21] MEDS: dexAMETHasone 4 MG TAB PO SCH (19:42)
[2022-10-22] MEDS: dexAMETHasone 4 MG TAB PO SCH ×5 (00:23→23:11)
[2022-10-22] MEDS: MELATONIN 3 MG TAB PO PRN ×2 (01:04→22:26)
[2022-10-22] MEDS: traMADol HCL 50 MG TABLET PO PRN (03:44)
[2022-10-22] MEDS: DICLOFENAC SOD 1% GEL 100 GM TUBE EXT SCH ×4 (04:54→20:49)
[2022-10-22] MEDS: PIPERACILLIN/TAZOBACTAM 3.375 GM in DEXTROSE 5% 100 ML IV SCH ×2 (06:02→13:35)
[2022-10-22] MEDS: NICOTINE 7 MG/24 HR TDSY TD SCH (07:51)
[2022-10-22 08:09] LABS: Hemoglobin 12.1 g/dl (14.0-18.0); Mean Corpuscular Hemoglobin 29.4 pg (25.0-34.0); Mean Corpuscular Hgb Conc 32.7 g/dL (32.0-36.0); Mean Platelet Volume 8.4 fL (9.4-12.4); Platelet Count 276 K/uL (130-400); RDW Standard Deviation 46.4 fL (36.4-46.3); Red Blood Count 4.11 M/uL (4.70-6.10); White Blood Count 14.73 K/ul (4.8-10.8)
[2022-10-22] MEDS: buPROPion XL 300 MG TABCR PO SCH (08:25)
[2022-10-22] MEDS: GABAPENTIN 100 MG CAP PO SCH (08:25)
[2022-10-22] MEDS: LIDOCAINE 5% 1 PATCH TD SCH (08:25)
[2022-10-22] MEDS: ATORVASTATIN 40 MG TAB PO SCH (08:25)
--- NOTE | 2022-10-22 09:42 | Hematology/Oncology Prog Note ---
Date of Service October 22, 2022 Assessment & Plan (1) Non-small cell cancer of right lung: (2) Brain metastasis: (3) COPD (chronic obstructive pulmonary disease): Plan -Given his complaints of lower back pain, would recommend either bone scan or MRI lumbar spine to rule out metastatic disease as he would benefit from palliative radiation treatment if he is found to have metastatic disease in the spine -Continue steroids for brain metastasis -Follow-up with radiation oncology tomorrow palliative radiation treatment to the chest as well as possible palliative RT to brain lesion -Await results of molecular/PD-L1 testing which will determine systemic treatment options -PET/CT outpatient as scheduled on 10/28/2022 Admission and Anticipated Discharge Date Admission Date: October 19, 2022 Subjective Complaining of lower back pain. Otherwise denies any new issues Review of Systems Review of Systems: All systems reviewed & are unremarkable except as noted in Subjective Results & Data ([facility]) Vital Signs (Past 12 Hours) Vital Signs Temp Pulse Pulse Resp BP Pulse Ox O2 Del Method 10/22/22 07:44 Nasal Cannula 10/22/22 08:10 36.7 C 84 18 98/60 L 92 Nasal Cannula 10/22/22 07:00 73 10/22/22 03:04 36.6 C 78 20 124/59 L 97 Nasal Cannula 10/21/22 23:09 77 10/21/22 22:56 36.8 C 75 16 114/60 96 Nasal Cannula O2 Flow Rate 10/22/22 07:44 3 10/22/22 08:10 3 10/22/22 07:00 10/22/22 03:04 4 10/21/22 23:09 10/21/22 22:56 2
[2022-10-22 11:17] LABS: BUN Creatinine Ratio 22.7 (10-20); Calcium 8.7 mg/dl (8.5-10.1); Creatinine Clr Calc Pharmacy 109.9 ml/min; Est GFR (African American) 120.9 ml/min; Est GFR (Non-African American) 104.3 ml/min; Potassium 4.2 mmol/L (3.5-5.1)
--- NOTE | 2022-10-22 17:08 | Hospitalist Progress Note ---
Date of Service October 22, 2022 Assessment & Plan (1) Non-small cell cancer of right lung: Plan: Right upper lobe lung mass status post bronchoscopy and EBUS with biopsy With COPD, postobstructive pneumonia and hypoxic respiratory failure Preliminary pathology report is consistent with non-small cell cancer on right lung Left lung has a subpleural nodule, moreover patient has mediastinal lymphadenopathy CT of brain showed left temporal lobe possible metastasis with vasogenic edema Patient not a candidate for curative treatment including surgery, palliative treatment, discussed with hematology oncology patient needs to follow-up for outpatient PET scan Severe back pain discussed with oncology recommend to proceed with bone scan, order placed Patient is going for the simulation CT on Sunday for radiation treatment provides optimum set-up accuracy for patients who will be receiving radiation therapy. Patient seems very anxious started on Xanax, patient lives by himself, he supports only include 2 sisters, his son lives in [place] but no contact due to family issues, first passed second (2) Brain metastasis: Plan: Plan as mentioned above Will discuss with oncology tomorrow about vasogenic edema and how long patient needs to be on Decadron (3) COPD (chronic obstructive pulmonary disease): Plan: COPD. No formal diagnosis as of yet. He does report a 81-38-mfav-year history. Still actively smoking although has significantly cut down to 1 or 2 cigarettes/day No wheezing on exam, switch to DuoNebs to as needed switch to oral steroids DC telemetry, downgrade to MedSurg (4) Diarrhea: Plan: Improving (5) Reflex sympathetic dystrophy: Plan: Patient reports having an accident at work 20 years ago. Was diagnosed with reflux sympathetic dystrophy involving his left lower extremity. He has pain, spasms and discoloration intermittently. Continue gabapentin Continue tramadol as needed (6) Back pain: Plan: Patient reports longstanding history of spinal stenosis. Does report worsening back pain over the last several weeks which she associates with his increased cough. No neurological deficits Warm compresses, Lidoderm patch -Discussed with leadership development consultant oncologist recommend to proceed with bone scan orders placed Admission and Anticipated Discharge Date Admission Date: October 19, 2022 Subjective Complaining of lower back pain as well as chest palpitation patient significantly anxious and nervous Physical Exam Constitutional: WD/WN, vitals as above + cachectic; no acute distress Eyes: PERRL, conjunctivae normal, anicteric sclerae ENMT: Mouth: + dentition abnormality, + dental caries, + edentulous, + poor dentition and + loose teeth Mallampati Class: II Neck: normal visual inspection, trachea midline and + facial hair; neck extension not limited Respiratory: + uses accessory muscles Auscultation: + breath sounds absent, + diminished lung sounds and + crackles Cardiovascular: RRR, no murmur, no edema Rate/Rhythm: regular rate and regular rhythm Heart Sounds: no murmur Vessels: no carotid bruit Musculoskeletal: no cyanosis or clubbing, extremities motor strength 5/5 Spine: normal cervical ROM and no pain with cervical ROM Extremities: + extremities abnormal to inspection (reflex sympathetic dystrophy RUE and B/L LE) and full ROM of extremities Skin: no rashes, warm and dry Neurologic: moves all extremities Motor/Sensory: + sensory deficit (hyperesthetic RUE and B/L LE) Psychiatric: A+Ox3, euthymic affect Orientation: alert and oriented x 3 Results & Data Results & Data ([facility]) Vital Signs (Past 12 Hours) Vital Signs Temp Pulse Pulse Resp BP Pulse Ox O2 Del Method 10/22/22 16:28 96 H 10/22/22 15:45 36.7 C 89 23 93/66 L 92 Nasal Cannula 10/22/22 13:48 86 20 93 Nasal Cannula 10/22/22 11:46 36.6 C 93 H 19 104/53 L 91 Nasal Cannula 10/22/22 07:44 Nasal Cannula 10/22/22 08:10 36.7 C 84 18 98/60 L 92 Nasal Cannula 10/22/22 07:00 73 O2 Flow Rate 10/22/22 16:28 10/22/22 15:45 3 10/22/22 13:48 3 10/22/22 11:46 10/22/22 07:44 3 10/22/22 08:10 3 10/22/22 07:00 PG Care Time/CCT Total # of Minutes Spent Total Time Spent with Patient: Total time spent is greater than 50% in coordination of care (as documented) at patient's floor/unit and/or counseling patient: Coding Level of Care Code 33872 SUB INP/OBS CARE 3/50MIN Diagnoses Non-small cell cancer of right lung C34.91 Brain metastasis C79.31 COPD (chronic obstructive pulmonary disease) J44.9 Diarrhea R19.7 Reflex sympathetic dystrophy G90.50 Back pain M54.9
[2022-10-22] MEDS: ALPRAZolam 0.5 MG TABLET PO PRN (22:26)
[2022-10-23] MEDS: traMADol HCL 50 MG TABLET PO PRN (00:09)
[2022-10-23] MEDS: dexAMETHasone 4 MG TAB PO SCH ×4 (06:03→23:08)
[2022-10-23] MEDS: AMOXICILLIN/CLAVULANATE 875 MG TAB PO SCH ×2 (08:02→17:10)
[2022-10-23] MEDS: ATORVASTATIN 40 MG TAB PO SCH (08:03)
[2022-10-23] MEDS: GABAPENTIN 100 MG CAP PO SCH (08:03)
[2022-10-23] MEDS: buPROPion XL 300 MG TABCR PO SCH (08:03)
[2022-10-23] MEDS: LIDOCAINE 5% 1 PATCH TD SCH (08:03)
[2022-10-23] MEDS: NICOTINE 7 MG/24 HR TDSY TD SCH (08:04)
[2022-10-23] MEDS: DICLOFENAC SOD 1% GEL 100 GM TUBE EXT SCH ×3 (08:04→20:58)
--- NOTE | 2022-10-23 08:27 | Radiation Oncology Progress Nt ---
Date of Service October 23, 2022 Assessment & Plan (1) Non-small cell cancer of right lung: Plan Mr. Rodríguez is a 61-year-old gentleman who presents with very locally advanced lung cancer ([id number], stage IIIC). The patient is improved today in regards to shortness of breath and cough. The patient underwent a bronchoscopy today with EBUS FNA and the preliminary diagnosis is for non-small cell lung carcinoma favoring adenocarcinoma as per Dr. Birmingham. Final path report is pending. MRI of the brain revealed a 9 mm lesion of the left temporal lobe. We discussed CT simulation to begin urgent treatment to the chest. Patient is in favor of proceeding with treatment to the chest. We discussed sequential treatment then to leave brain lesion. We will schedule him for CT simulation today. Consent will be obtained by Dr. Lamb when he comes to our office. CT without contrast. ATTENDING ADDENDUM: I agree with the note documented by the midlevel provider. Also, please refer to my initial consultation from last week. Assessment: Mr. Rodríguez is a 61-year-old gentleman who presents with metastatic lung cancer. He has very advanced disease involving the right lung with likely lymphangitic spread and is currently symptomatic with cough and shortness of breath. Additionally, he was found to have a solitary brain metastasis. The rest of his work-up is currently being completed. The patient was seen by medical oncology was discussed completion of staging work-up and consideration for systemic therapy. Plan: 1. CT simulation for treatment planning for palliative radiation therapy to right chest. Plan for 5 fractions. First fraction to be delivered tomorrow. 2. Plan for fractionated stereotactic radiosurgery for treatment of brain metastasis following completion of radiation therapy to chest. CT simulation to follow. 3. We will follow-up on the results from bone scan and staging work-up. If patient does have metastatic disease corresponding to an area of pain, this can be treated with palliative radiation therapy. 4. Appreciate medical oncology input. 5. We will continue to follow the patient and document as needed. 6. Please call us with any further questions or concerns. Admission and Anticipated Discharge Date Admission Date: October 19, 2022 Subjective Patient is sitting comfortably in bed today. Currently is not experiencing any cough. He stated that he was to have a CT of the abdomen pelvis on Sunday and that was canceled. He stated that for his chest CT there was an IV infiltrate. He also felt warm when iodine was placed. He is scheduled to have a bone scan today. MRI of the brain has revealed a lesion in the left caodaism 9 mm in size. He has had follow-up with medical oncology. Due to lower back pain and MRI of the lumbar spine has been ordered. Review of Systems Review of Systems: As previous. With movement discomfort of the lower back. Physical Exam Constitutional: WD/WN, vitals as above Respiratory: Auscultation: + breath sounds absent and + diminished lung sounds Skin: no rashes, warm and dry Psychiatric: A+Ox3, euthymic affect Results & Data ([facility]) Vital Signs (Past 12 Hours) Vital Signs Temp Pulse Resp BP Pulse Ox O2 Del Method O2 Flow Rate 10/23/22 07:53 36.5 C 78 18 124/62 95 Nasal Cannula 3 10/22/22 23:00 Nasal Cannula 3 10/22/22 22:19 36.7 C 93 H 18 122/73 94 Nasal Cannula Diagnostic Findings [facility], [id number] Magnetic Resonance Report Patient: ONDINA RODRÍGUEZAdmit Date: 10/19/22#: [id number]: [id number] Z[address] STAcct ID:[id number]: Date: 1960[facility] Zip: [place] [address]Fnu: 61Location: 2ESex: MRoom/Bed: [id number] Phy: Nikolas Leahy, MDDiagnosis: SOBPri Phy: Mary Fay Date: 10/20/22Fa Phy:Interpreting Phy: Preston Barber [facility] Phy: Pina Lizama D.O. Ordering Phy: Nathaniel Birmingham MD cc: ~ MRI OF THE BRAIN WITHOUT AND WITH IV CONTRAST CLINICAL HISTORY: Lung cancer. Evaluate for metastatic disease. COMPARISON STUDY: No previous studies for comparison. TECHNIQUE: Utilizing a 1.5 Juliane magnet and dedicated coil, multiplanar, multiecho imaging of the brain was performed pre and postcontrast administration . IV administration of 6.5 mL of Gadavist contrast was uneventful. Thin cut T1 post contrast imaging was performed. FINDINGS: There are no foci of restricted diffusion to suggest acute infarct. No acute intracranial hemorrhage, midline shift or mass effect is present. Ventricular system is unremarkable. Basal cisterns are patent. There are no extra-axial collections. Flow-voids for the major intracranial vessels are present. There is a 1 cm subpleural parenchymal nodule within the atrium of the left lateral ventricle on axial T1 postcontrast image 53 of 134. This does not enhance. This follows signal characteristics of toscano matter and favors a focus of toscano matter heterotopia. Note is made of a 1 cm enhancing focus within the cortex of the left temporal lobe on axial image 38 of 134. There is an associated 1.6 cm focus of vasogenic edema. No additional enhancing lesions are identified. Small white matter T2 hyperintense foci favor mild small vessel disease. 2 cm T1 hypointense focus within the superior medial left parietal bone shown on sagittal T1 sequence image 14 of 22 is noted. This is indeterminate. IMPRESSION: 1. 1 cm enhancing focus within the cortex of the left temporal lobe with associated vasogenic edema. Given the clinical history, a metastasis is favored. A primary brain neoplasm is also within the differential although considered less likely. 2. No additional enhancing intracranial lesions. 3. No evidence for acute infarct. ACT 112: Negative or not required by law. Electronically signed by: Preston Barber M.D. 10/21/2022 9:02 AM Dictated: 10/20/222040Transcribed: 10/20/222050 I spent [15] minutes in preparation for this follow up evaluation including reviewing all the clinical records, reviewing laboratory studies, pathology reports and imaging results. I spent [20] minutes with direct face to face interaction with the patient and/or family including performing a physical exam and answering all questions. I spent [10] minutes documenting this patient's visit.
--- NOTE | 2022-10-23 14:17 | Nuclear Medicine Report ---
NM bone scan whole body HISTORY: 61 years-old Male back pain to evaluate for metastasis screening study in a patient with ba ck pain and history of lung cancer COMPARISON: Brain MRI 10/20/2022, CT chest 10/19/2022 TECHNIQUE: Anterior and posterior whole body planar scintigraphic bone scan images were obtained foll owing the intravenous administration of 22.04 mCi technetium 99 MDP administered via the left upper e xtremity. FINDINGS: Physiologic distribution of tracer activity within the kidneys, renal collecting systems, urinary leilani dder and soft tissues. Mild degenerative multifocal periarticular uptake. Soft tissue uptake within t he left forearm may be artifactual or secondary to injection site. No scintigraphic evidence of skele feliciano metastasis. IMPRESSION: No scintigraphic evidence of skeletal metastasis. ACT 112: Negative or not required by law. The above report was generated using voice recognition software. It may contain grammatical, syntax o r spelling errors. Electronically signed by: Jose Miguel Tineo M.D. 10/23/2022 2:16 PM
[2022-10-23] MEDS: MELATONIN 3 MG TAB PO PRN (20:58)
--- NOTE | 2022-10-23 22:44 | Hospitalist Progress Note ---
Date of Service October 23, 2022 Assessment & Plan (1) Non-small cell cancer of right lung: Plan: Right upper lobe lung mass status post bronchoscopy and EBUS with biopsy With COPD, postobstructive pneumonia and hypoxic respiratory failure Preliminary pathology report is consistent with non-small cell cancer on right lung Left lung has a subpleural nodule, moreover patient has mediastinal lymphadenopathy CT of brain showed left temporal lobe possible metastasis with vasogenic edema Patient not a candidate for curative treatment including surgery, palliative treatment, discussed with hematology oncology patient needs to follow-up for outpatient PET scan Severe back pain discussed with oncology recommend to proceed with bone scan, order placed s/p simulation CT on Sunday for radiation treatment provides optimum set-up accuracy for patients who will be receiving radiation therapy. Patient seems very anxious started on Xanax, patient lives by himself, he supports only include 2 sisters, his son lives in [place] but no contact due to family issues, first passed second -status post bone scan negative (2) Brain metastasis: Plan: Plan as mentioned above Continue oral Decadron (3) COPD (chronic obstructive pulmonary disease): Plan: COPD. No formal diagnosis as of yet. He does report a 57-81-zjfx-year history. Still actively smoking although has significantly cut down to 1 or 2 cigarettes/day No wheezing on exam, switch to DuoNebs to as needed switch to oral steroids DC telemetry, downgrade to MedSurg (4) Diarrhea: Plan: Improving (5) Reflex sympathetic dystrophy: Plan: Patient reports having an accident at work 20 years ago. Was diagnosed with reflux sympathetic dystrophy involving his left lower extremity. He has pain, spasms and discoloration intermittently. Continue gabapentin Continue tramadol as needed (6) Back pain: Plan: Patient reports longstanding history of spinal stenosis. Does report worsening back pain over the last several weeks which she associates with his increased cough. No neurological deficits Warm compresses, Lidoderm patch -Bone scan no evidence of metastasis, no focal weakness on exam Admission and Anticipated Discharge Date Admission Date: October 19, 2022 Subjective Bone scan showed no evidence of metastasis, patient had CT simulation today, pending PT /OT, possible discharge tomorrow Physical Exam Constitutional: WD/WN, vitals as above + cachectic; no acute distress Eyes: PERRL, conjunctivae normal, anicteric sclerae ENMT: Mouth: + dentition abnormality, + dental caries, + edentulous, + poor dentition and + loose teeth Mallampati Class: II Neck: normal visual inspection, trachea midline and + facial hair; neck extension not limited Respiratory: + uses accessory muscles Auscultation: + breath sounds absent, + diminished lung sounds and + crackles Cardiovascular: RRR, no murmur, no edema Rate/Rhythm: regular rate and regular rhythm Heart Sounds: no murmur Vessels: no carotid bruit Musculoskeletal: no cyanosis or clubbing, extremities motor strength 5/5 Spine: normal cervical ROM and no pain with cervical ROM Extremities: + extremities abnormal to inspection (reflex sympathetic dystrophy RUE and B/L LE) and full ROM of extremities Skin: no rashes, warm and dry Neurologic: moves all extremities Motor/Sensory: + sensory deficit (hyperesthetic RUE and B/L LE) Psychiatric: A+Ox3, euthymic affect Orientation: alert and oriented x 3 Results & Data Results & Data ([facility]) Vital Signs (Past 12 Hours) Vital Signs Temp Pulse Pulse Resp BP Pulse Ox O2 Del Method 10/23/22 22:08 36.5 C 81 18 127/64 97 Nasal Cannula 10/23/22 20:31 Nasal Cannula 10/23/22 15:44 36.6 C 92 H 18 143/78 H 93 Nasal Cannula 10/23/22 11:01 Nasal Cannula O2 Flow Rate 10/23/22 22:08 3 10/23/22 20:31 3 10/23/22 15:44 3 10/23/22 11:01 3 PG Care Time/CCT Total # of Minutes Spent Total Time Spent with Patient: Total time spent is greater than 50% in coordination of care (as documented) at patient's floor/unit and/or counseling patient: Coding Level of Care Code 87497 SUB INP/OBS CARE 2/35MIN Diagnoses Non-small cell cancer of right lung C34.91 Brain metastasis C79.31 COPD (chronic obstructive pulmonary disease) J44.9 Diarrhea R19.7 Reflex sympathetic dystrophy G90.50 Back pain M54.9
[2022-10-24] MEDS: dexAMETHasone 4 MG TAB PO SCH ×4 (05:49→23:31)
[2022-10-24] MEDS: LIDOCAINE 5% 1 PATCH TD SCH (09:03)
[2022-10-24] MEDS: buPROPion XL 300 MG TABCR PO SCH (09:06)
[2022-10-24] MEDS: GABAPENTIN 100 MG CAP PO SCH (09:06)
[2022-10-24] MEDS: AMOXICILLIN/CLAVULANATE 875 MG TAB PO SCH ×2 (09:06→17:19)
[2022-10-24] MEDS: DICLOFENAC SOD 1% GEL 100 GM TUBE EXT SCH ×3 (09:07→20:30)
[2022-10-24] MEDS: NICOTINE 7 MG/24 HR TDSY TD SCH (09:07)
[2022-10-24] MEDS: ATORVASTATIN 40 MG TAB PO SCH (09:07)
[2022-10-24] MEDS: ALPRAZolam 0.5 MG TABLET PO PRN (13:31)
--- NOTE | 2022-10-24 17:43 | Hematology/Oncology Prog Note ---
Date of Service October 24, 2022 Assessment & Plan (1) Non-small cell cancer of right lung: (2) Brain metastasis: Plan Pleasant gentleman recently diagnosed with adenocarcinoma of the lung with brain metastasis. Recently started palliative radiation treatment to the lung. We will plan to see him in oncology clinic upon discharge from hospital to discuss systemic treatment options Admission and Anticipated Discharge Date Admission Date: October 19, 2022 Subjective He denies any new complaints. Bone scan was negative for metastatic disease in the bone. Started palliative radiation treatment to the chest today Review of Systems Review of Systems: All systems reviewed & are unremarkable except as noted in Subjective Results & Data ([facility]) Vital Signs (Past 12 Hours) Vital Signs Temp Pulse Resp BP Pulse Ox O2 Del Method O2 Flow Rate 10/24/22 15:54 36.5 C 93 H 18 100/62 92 Nasal Cannula 3 10/24/22 11:18 36.8 C 95 H 14 137/88 95 Nasal Cannula 3 10/24/22 08:50 Nasal Cannula 3 10/24/22 07:46 36.8 C 83 12 136/67 96 Nasal Cannula
--- NOTE | 2022-10-24 17:44 | Hospitalist Progress Note ---
Date of Service October 24, 2022 Assessment & Plan (1) Non-small cell cancer of right lung: Plan: Right upper lobe lung mass status post bronchoscopy and EBUS with biopsy With COPD, postobstructive pneumonia and hypoxic respiratory failure Preliminary pathology report is consistent with non-small cell cancer on right lung Left lung has a subpleural nodule, moreover patient has mediastinal lymphadenopathy CT of brain showed left temporal lobe possible metastasis with vasogenic edema Patient not a candidate for curative treatment including surgery, palliative treatment, discussed with hematology oncology patient needs to follow-up for outpatient PET scan Severe back pain discussed with oncology recommend to proceed with bone scan, order placed s/p simulation CT on Sunday for radiation treatment provides optimum set-up accuracy for patients who will be receiving radiation therapy. Patient seems very anxious started on Xanax, patient lives by himself, he supports only include 2 sisters, his son lives in [place] but no contact due to family issues, first passed second -status post bone scan negative, the patient had his first radiation therapy today, refused working with PT and OT today requested to come back tomorrow, challenging case in terms of placement and simultaneously continue diagnostic work-up and follow-up therapeutic treatment (2) Brain metastasis: Plan: Plan as mentioned above Continue oral Decadron (3) COPD (chronic obstructive pulmonary disease): Plan: COPD. No formal diagnosis as of yet. He does report a 22-45-qwtd-year history. Still actively smoking although has significantly cut down to 1 or 2 cigarettes/day No wheezing on exam, switch to DuoNebs to as needed switch to oral steroids DC telemetry, downgrade to MedSurg (4) Diarrhea: Plan: Improving (5) Reflex sympathetic dystrophy: Plan: Patient reports having an accident at work 20 years ago. Was diagnosed with reflux sympathetic dystrophy involving his left lower extremity. He has pain, spasms and discoloration intermittently. Continue gabapentin Continue tramadol as needed (6) Back pain: Plan: Patient reports longstanding history of spinal stenosis. Does report worsening back pain over the last several weeks which she associates with his increased cough. No neurological deficits Warm compresses, Lidoderm patch -Bone scan no evidence of metastasis, no focal weakness on exam Patient had MRI of the LS spine report a year ago and according to him showed a spinal stenosis Admission and Anticipated Discharge Date Admission Date: October 19, 2022 Subjective The patient has first set of radiation therapy today, patient is ready to be discharged pending OT and PT evaluation, apparently he refused working with PT and OT, discussed with the case therapist at this is a challenging case given patient lives alone has currently multiple comorbidity extremely weak and most likely need rehab placement, however rehab placement can interfere with his cancer management/treatment, Physical Exam Constitutional: WD/WN, vitals as above + cachectic; no acute distress Eyes: PERRL, conjunctivae normal, anicteric sclerae ENMT: Mouth: + dentition abnormality, + dental caries, + edentulous, + poor de ntition and + loose teeth Mallampati Class: II Neck: normal visual inspection, trachea midline and + facial hair; neck extension not limited Respiratory: + uses accessory muscles Auscultation: + breath sounds absent, + diminished lung sounds and + crackles Cardiovascular: RRR, no murmur, no edema Rate/Rhythm: regular rate and regular rhythm Heart Sounds: no murmur Vessels: no carotid bruit Musculoskeletal: no cyanosis or clubbing, extremities motor strength 5/5 Spine: normal cervical ROM and no pain with cervical ROM Extremities: + extremities abnormal to inspection (reflex sympathetic dystrophy RUE and B/L LE) and full ROM of extremities Skin: no rashes, warm and dry Neurologic: moves all extremities Motor/Sensory: + sensory deficit (hyperesthetic RUE and B/L LE) Psychiatric: A+Ox3, euthymic affect Orientation: alert and oriented x 3 Results & Data Results & Data ([facility]) Vital Signs (Past 12 Hours) Vital Signs Temp Pulse Resp BP Pulse Ox O2 Del Method O2 Flow Rate 10/24/22 15:54 36.5 C 93 H 18 100/62 92 Nasal Cannula 3 10/24/22 11:18 36.8 C 95 H 14 137/88 95 Nasal Cannula 3 10/24/22 08:50 Nasal Cannula 3 10/24/22 07:46 36.8 C 83 12 136/67 96 Nasal Cannula PG Care Time/CCT Total # of Minutes Spent Total Time Spent with Patient: Total time spent is greater than 50% in coordination of care (as documented) at patient's floor/unit and/or counseling patient: Coding Level of Care Code 20891 SUB INP/OBS CARE 3/50MIN Diagnoses Non-small cell cancer of right lung C34.91 Brain metastasis C79.31 COPD (chronic obstructive pulmonary disease) J44.9 Diarrhea R19.7 Reflex sympathetic dystrophy G90.50 Back pain M54.9
[2022-10-25] MEDS: dexAMETHasone 4 MG TAB PO SCH ×2 (05:26→13:29)
[2022-10-25] MEDS: ATORVASTATIN 40 MG TAB PO SCH (07:50)
[2022-10-25] MEDS: GABAPENTIN 100 MG CAP PO SCH (07:50)
[2022-10-25] MEDS: NICOTINE 7 MG/24 HR TDSY TD SCH (07:51)
[2022-10-25] MEDS: DICLOFENAC SOD 1% GEL 100 GM TUBE EXT SCH (07:52)
[2022-10-25] MEDS: buPROPion XL 300 MG TABCR PO SCH (07:54)
[2022-10-25] MEDS: AMOXICILLIN/CLAVULANATE 875 MG TAB PO SCH (09:27)
[2022-10-25] MEDS: LIDOCAINE 5% 1 PATCH TD SCH (09:30)
--- NOTE | 2022-10-25 17:09 | Discharge Summary ---
Date of Service October 25, 2022 Admission HPI Per Admitting Provider Anthony Grijalva is a 61-year-old male with history of hyperlipidemia, likely COPD and newly discovered right upper lobe spiculated lung mass presenting with several days of progressive shortness of breath. Patient reports becoming ill in August with URI symptoms which progressed to bronchitis/pneumonia. He was treated with a course of Augmentin and doxycycline as well as nebulizers, steroids and Mucinex. He had a CT scan of the chest performed on 09/19/2022 at [facility] (report is scanned into [employer]) which revealed a 5 cm masslike area of consolidation have suspicious for malignancy in the right hilar region and right upper lobe. Also with areas of postobstructive pneumonia distal to the central lesion involving upper, lower and to a lesser extent right middle lobe. Also noted have a 4.2 cm ascending aortic aneurysm. Patient was seen by pulmonary on 09/29/2022 for follow-up of the lung mass. A PET CT and formal PFTs were recommended. The patient did complete the PFTs at [facility] last week results are -scanned into system. Overall, poor study and repeat evaluation recommended. His PET scan was rescheduled due to the weather and he is to have it performed on 10/26/2022. Patient reports he has had progressive dyspnea on exertion and at times at rest since being ill in August. His dyspnea has been more persistent and severe over the last several days. He did have a doctor's appointment in [place] today and felt very short of breath all day. He took a neb treatment around 10:45 in the morning with no relief. Patient reports a persistent dry cough as well as wheeze and occasional chest tightness. He becomes dyspneic with ambulating short distances. He reports severe lower, right-sided back pain that has been exacerbated by his cough. He also reports persistent diarrhea with episodes of incontinence over the last month and occasional muscle cramps. He does endorse a 35 pound unintentional weight loss over the last 2 months. Additionally, patient reports that he is unable to lift his right arm. While this is troublesome, it has been ongoing for many months. No injury reported. In the ER patient afebrile, tachycardic with heart rate = 100 bpm, blood pressure stable, mildly tachypneic with respiratory rate of 24 saturating 88% on room air. He was placed on supplemental oxygen by nasal cannula presently at 5 L/min with saturations of 92 to 93%. ER course: Cefepime 2 g at 1937 Albuterol 2.5 mg neb Solu-Medrol 40 mg IV Principal Diagnosis metastatic lung cancer Discharge Exam The patient is awake, alert and oriented 3, well developed and well nourished, normocephalic and atraumatic, lying in bed and in no acute distress. HEENT--PERRL, EOMI, mucous membranes and oropharynx mildly dry Neck--supple. No JVD. No bruits. Thyroid normal, trachea midline, no adenopathy. Heart--normal S1 and S2. No murmurs, rubs or gallops. Lungs--clear bilaterally, no respiratory distress, no accessory muscle use. Abdomen--normal bowel sounds and soft. Mild epigastric and left sided abdominal pain Extremities--no cyanosis or clubbing. No edema. Dermatologic--normal skin turgor, normal color, no abnormal lymph nodes, no rash. Neurologic--cranial nerves II through XII grossly intact. Rheumatologic--normal range of motion. Psychiatric--normal affect. Discharge Data Allergies Allergy/AdvReac Type Severity Reaction Status Date / Time belladonna alkaloids Allergy Intermediate Hives Verified 10/20/22 00:04 oxycodone Allergy Intermediate Hives Verified 10/20/22 00:04 cocoa Allergy Mild Rash Verified 10/19/22 20:06 petrolatum,white Allergy Mild Rash Verified 10/19/22 20:06 tetracycline AdvReac Severe Anaphylaxis Verified 10/19/22 20:06 hydrocodone AdvReac Intermediate Hives Verified 10/19/22 20:06 Consultations 10/19/22 18:37 ED Decision to Admit Stat 10/19/22 23:36 Consult Pulmonology Routine 10/20/22 14:20 Consult Oncology Routine Consult Radiation Oncology Routine Procedures Performed Operation Date: 10/20/22 09:45 Actual Procedures p Endobronchial Ultrasound, Bronchoscopy with biopsy, Transbronchial Needle Aspiration - Nathaniel Birmingham MD Ordered Studies 10/19/22 18:35 CT angio chest PE protocol Stat 10/20/22 16:23 MR brain wo/w con Routine 10/23/22 08:31 CT guide rad therapy chest Routine Hospital Course (1) Non-small cell cancer of right lung: Right upper lobe lung mass status post bronchoscopy and EBUS with biopsy With COPD, postobstructive pneumonia and hypoxic respiratory failure Preliminary pathology report is consistent with non-small cell cancer on right lung Left lung has a subpleural nodule, moreover patient has mediastinal lymphadenopathy CT of brain showed left temporal lobe possible metastasis with vasogenic edema Patient not a candidate for curative treatment including surgery, palliative treatment, discussed with hematology oncology patient needs to follow-up for outpatient PET scan Severe back pain discussed with oncology recommend to proceed with bone scan, order placed s/p simulation CT on Sunday for radiation treatment provides optimum set-up accuracy for patients who will be receiving radiation therapy. Patient seems very anxious started on Xanax, patient lives by himself, he supports only include 2 sisters, his son lives in [place] but no contact due to family issues, first passed second -status post bone scan negative, the patient had his first radiation therapy He will continue his palliative radiation therapy outpatient (2) Brain metastasis: Plan as mentioned above Continue oral Decadron (3) COPD (chronic obstructive pulmonary disease): COPD. No formal diagnosis as of yet. He does report a 56-78-giaj-year history. Still actively smoking although has significantly cut down to 1 or 2 cigarettes/day No wheezing on exam, switch to DuoNebs to as needed switch to oral steroids DC telemetry, downgrade to MedSurg (4) Diarrhea: Improving (5) Reflex sympathetic dystrophy: Patient reports having an accident at work 20 years ago. Was diagnosed with reflux sympathetic dystrophy involving his left lower extremity. He has pain, spasms and discoloration intermittently. Continue gabapentin Continue tramadol as needed (6) Back pain: Patient reports longstanding history of spinal stenosis. Does report worsening back pain over the last several weeks which she associates with his increased cough. No neurological deficits Warm compresses, Lidoderm patch -Bone scan no evidence of metastasis, no focal weakness on exam Patient had MRI of the LS spine report a year ago and according to him showed a spinal stenosis Plan d/c home Total Time Total Time Spent Total Time Spent (In Minutes): 35 Discharge Plan Discharge Items Patient Disposition: Home - Self-Care Reason For Visit: SOB Discharge Diagnosis: metastatic lung cancer Activity: Resume your previous activity Non-emergency contact: Primary Care Provider and Oncologist Call non-emergency contact if: you have any medication questions Follow-up/Referrals: Landry Fay [Other] Irina Diaz MD [Physician] - 11/06/22 1:30 pm Diet: Regular Addtl Attending Provider Instructions: please make appointment to follow up with your oncologist Pending Studies at Discharge: No Stand-Alone Forms: My [facility], Smoking Cessation Medications and DC Order Prescriptions: New amoxicillin-pot clavulanate 875-125 mg Tablet 1 tab PO BIDM 10 Days Qty: 20 0RF Continued gabapentin 100 mg capsule 100 mg PO QPM alendronate 70 mg tablet 70 mg PO Q7D atorvastatin [Lipitor] 40 mg tablet 80 mg PO QPM calcium carbonate 600 mg calcium (1,500 mg) tablet 600 mg PO BID cholecalciferol (vitamin D3) 25 mcg (1,000 unit) capsule 25 mcg PO DAILY bupropion HCl 300 mg tablet extended release 24 hr 450 mg PO QAM Rx Instructions: patient states he has been weaning his dose down R/T side effects omeprazole 40 mg capsule,delayed release(DR/EC) 40 mg PO DAILY prednisone 10 mg tablet 50 mg PO DAILY meloxicam 15 mg tablet 15 mg PO DAILY Mucinex 1,200 mg tablet extended release 12hr 1,200 mg PO BID Discontinued meclizine 25 mg tablet 25 mg PO DAILY PRN (Reason: .dizzy) tramadol 50 mg tablet 50 - 100 mg PO Q12 PRN (Reason: Pain) Discharge Orders: Discharge Order (Routine); Ordered 10/25/22 Ordered By: Alexandro Gilbert/Other Patient Handouts: Radiation Therapy Treatment, Radiation Short Term Side Effects, Radiation Therapy: Your Daily Life Admission Data Admit Date/Time: 10/19/22 19:55 Attending Provider: Alexandro Dinero Admit Provider: Pina Lizama Primary Care Provider: Landry Fay Other Providers: Pina Lizama ; Nathaniel Birmingham ; Irina Diaz ; Tala Lamb Other Interventions: Discharge Summary Assessment (RN) Last Done: 10/25/22 12:38 Coding Level of Care Code HOSP INP/OBS DISCH >30 MIN Diagnoses Non-small cell cancer of right lung C34.91 Brain metastasis C79.31 COPD (chronic obstructive pulmonary disease) J44.9 Diarrhea R19.7 Reflex sympathetic dystrophy G90.50 Back pain M54.9 Time Spent (min) 35
== END 2022-10-25 13:31 | disposition home or self-care (01) | DRG 167 ==
LOC: ED 16:14 → SUATTDRO 19:55 → 2W 19:55 → 2E 10-20 16:10 → 3W 10-22 22:12

== ENCOUNTER 2022-10-30 16:34 | Observation (INO) ==
--- NOTE | 2022-10-30 16:57 | History & Physical Report ---
Date of Service October 30, 2022 Assessment & Plan (1) Non-small cell cancer of right lung: Plan: Confusion, tachycardia suspect 2/2 taking 10 mg cyclobenzaprine twice for the first time - leukocytosis 16.47 - chest x-ray: Mass redemonstrated consistent with known neoplasm. Reticular nodular thickening in right lung? Lymphangitic spread versus asymmetric pulmonary edema versus posttreatment change No sodium, potassium, creatinine derangements. Creatinine at baseline is normal and admitting creatinine 0.89 TSH normal COVID test pending Procalcitonin pending Afebrile UA pending EKG: Sinus tachycardia, nonspecific ST segment changes in lateral leads. Clinically without chest pain. QTc 434. High-sensitivity troponin trended normal on admission, given EKG changes will trend. Clinically without chest pain in ER Spinal stenosis, chronic back pain, reflex dystrophy Patient had a episode of reflux and pathetic dystrophy of left lower extremity following a work accident 20 years ago. He continues to have pain, spasms, and intermittent discoloration. Patient reports that he does not think he has had a lumbar MRI recently. Has had multiple MRIs as outpatient has discussed an epidural pain pump, has had injections in the past and has been able to defer the pump but pain has been worsening Patient does endorse some leg weakness and a history of spinal stenosis as well. No MRI of the lumbar spine is available for review, will reobtain for concern of worsening stenosis contributing to spasm/pain/weakness rating down through the legs Consult pain management Continue gabapentin, tramadol Hold cyclobenzaprine given code purple and episode of confusion shortly after taking Lidoderm Warm compresses as needed No bony metastasis noted on prior imaging Lovenox for DVT prophylaxis temporarily delayed in case epidural injection can be pursued the patient's severe Estephania Non-small cell cancer of the right lung with brain metastasis - 10/20/22 RUL Endobronchial Biopsy: Non-small cell lung cancer, 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 FISH/IHC pending - Bone Scan 10/23/22: No scintigraphic evidence of skeletal metastasis. - MRI-B: 1. 1 cm enhancing focus within the cortex of the left temporal lobe with associated vasogenic edema. Given the clinical history, a metastasis is favored. A primary brain neoplasm is also within the differential although considered less likely. 2. No additional enhancing intracranial lesions. 3. No evidence for acute infarct. - CTA Chest 10/19/22: 1. A 6 cm focal area of consolidation within the right upper lobe with soft tissue thickening within the right hilum and surrounding the right mainstem bronchus. This is similar to the prior study and could represent the patient's known lung mass. However, this is difficult to characterize due to the extensive surrounding airspace opacities within the right lung which have progressed. This could be due to posttreatment changes, superimposed pneumonia, or less likely asymmetric pulmonary edema. 2. There is a new trace right pleural effusion. 3. A new 4 mm subpleural nodule within the left lower lobe. Additional subcentimeter nodular densities within the left lung remain stable. 4. Emphysema. 5. Stable 18 mm left adrenal gland nodule. 6. No evidence for a pulmonary embolus. Could not get smiluation due to pain today per pt - NOt on dexamethasone or prednisone since last discharge COPD Presumed, no formal PFTs. Is with a 11-91-vptz-year history DuoNebs as needed DVT PPx: Lovenox after epidural inj eval CODE STATUS: Full Diet: Regular Dispo: Med/Tele, St changes (2) Brain metastasis: (3) Hypercholesteremia: (4) COPD (chronic obstructive pulmonary disease): (5) Mediastinal adenopathy: History of Present Illness Primary Care Provider: NO PCP Mr. Grijalva is a 61-year-old male with a past medical history of hyperlipidemia, COPD, non-small cell cancer of the right lung recently admitted for shortness of breath discharged 10/25/2022 after a right upper lobe mass status post bronchoscopy and EBUS showed an S CC. Patient presented to the [facility] for simulation and radiation treatment; SEGUN was called at that time as patient was tachycardic, confused, and disoriented after taking 2 doses of cyclobenzaprine 10 mg that morning. Patient continued his session following initial evaluation at the [facility], but due to continuing to feel poorly was not able to return home. Took gabapentin last night, made him feel sleepy/a little loopy last night. Tried cyclobenzaprine this mornign 10mg x2, very confused. Reports he subsequently felt better as the day went on and no longer feels confused. He notes his memory is poor at baseline. 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 He reports he also has spinal stenosis and has discussed a spinal stimulator in the past, but had not yet pursued this. He feels his spasms are similar to prior, but much worse than they normally are. He also has low mid back pain at time of presentation. He reports his strength is okay in both feet, but the spasms cause him a lot of pain and can make ambulation difficult. He thinks he feels a little weaker than normal today. He has not had any infectious symptoms including fever, chills, sweats, dysuria, cough. He reports his main concern is the pain from his spasms. He reports because of this he took the gabapentin last night and cyclobenzaprine twice, and did not have a therapeutic effect let alone the confusion caused. Patient is seen at bedside, family has gone home for the evening at time of discussion. Had a long discussion regarding CODE STATUS, patient notes he has jokingly said that staff could use the practice and has been full code, and he knows that this is what his sisters would want for him. Reflecting on his current level of illness and life he reports that he has lived a good 61 years, but has a lot of illness and pain currently. He reports that if he were to become so ill he would rather may be brought straight to the premature" then necessarily have CPR performed. Discussed that CPR has an approximate 20% success rate, and generally requires at least temporary intubation although beyond that the picture of success is difficult to predict. Patient reports he understands this, and knows that while his sister is disagree and would probably want something different for him but he would prefer not to have resuscitation performed if he were to become so ill that he clinically /his heart and or breathing stopped. With this in mind we will reflect DNR/DNI status. While intermittently forgetful patient does expressed a good understanding of his medical condition and illness, treatment options moving forward, expresses an understanding of the risk/benefits of certain treatments and has capacity for decision-making at bedside. Allergies Allergy/AdvReac Type Severity Reaction Status Date / Time belladonna alkaloids Allergy Intermediate Hives Verified 10/30/22 15:16 oxycodone Allergy Intermediate Hives Verified 10/30/22 15:16 cocoa Allergy Mild Rash Verified 10/30/22 15:16 petrolatum,white Allergy Mild Rash Verified 10/30/22 15:16 tetracycline AdvReac Severe Anaphylaxis Verified 10/30/22 15:16 hydrocodone AdvReac Intermediate Hives Verified 10/30/22 15:16 Home Medications Medication Instructions Recorded Confirmed Type bupropion HCl 300 mg 24 hr tablet, 450 mg PO QAM 09/29/22 10/30/22 History extended release alendronate 70 mg tablet 70 mg PO Q7D 10/30/22 10/30/22 History amoxicillin 875 mg-potassium 1 tab PO BIDM 10/30/22 History clavulanate 125 mg tablet atorvastatin 80 mg tablet 80 mg PO QPM 10/30/22 10/30/22 History bupropion HCl 150 mg 24 hr tablet, 150 mg PO QAM 10/30/22 10/30/22 History extended release calcium carbonate 600 mg calcium 600 mg PO BID 10/30/22 10/30/22 History (1,500 mg) tablet cholecalciferol (vitamin D3) 25 25 mcg PO DAILY 10/30/22 10/30/22 History mcg (1,000 unit) capsule gabapentin 100 mg capsule 100 mg PO QPM 10/30/22 10/30/22 History guaifenesin 1,200 mg tablet, 1,200 mg PO BID 10/30/22 10/30/22 History extended release 12 hr (Mucinex) meloxicam 15 mg tablet 15 mg PO DAILY 10/30/22 10/30/22 History omeprazole 40 mg capsule,delayed 40 mg PO DAILY 10/30/22 10/30/22 History release prednisone 10 mg tablet 50 mg PO DAILY 10/30/22 10/30/22 History Past Med/Surg History Medical History (Updated 10/30/22 @ 00:07 by Erika Zuñiga) Arthritis COPD (chronic obstructive pulmonary disease) Edema Hypercholesteremia Lung cancer Mass of lung Mass of right lung Metabolic brain disease Palpitations Patellofemoral instability of both knees with pain Reflex sympathetic dystrophy Spinal stenosis Surgical History Hx of right knee surgery Social History Smoking Status: Current every day smoker Tobacco Type: Cigarettes Cigarettes Per Day: 1; Hx Alcohol Use: No Hx Substance Use: No Preferred Language: Pashto Communication Ability: Effective [employer] Required: No Beliefs That Will Affect Care: None Current Living Situation: Alone Feels Safe at Home: Yes Assistive Devices: Cane and Nebulizer Review of Systems Review of Systems: All systems reviewed & are unremarkable except as noted in HPI & below Physical Exam 2 Physical Exam: General: A&Ox3. NAD. Cooperative. Frail, cachectic. HEENT: Atraumatic, normocephalic. Vision/hearing grossly intact. Pulm: CTAB A&P. -wheezes, -rales, -rhonchi. Symmetrical chest rise. No increased work of breathing. No respiratory distress. Cardiac: Regular, tachycardic. Radial pulses intact and symmetrical. Abdominal: Nontender, nonditended, soft. BS present. Extremities: Hip flexion 4/5 bilaterally, ankle dorsiflexion/plantarflexion intact. Intermittent spasms. Tender palpation at the midline lumbar spine, frequently curling into hip flexed position to help reduce pain. Sensation to soft touch is intact in his feet bilaterally. PG Care Time/CCT Total # of Minutes Spent Total Time Spent with Patient: Total time spent is greater than 50% in coordination of care (as documented) at patient's floor/unit and/or counseling patient: Coding Level of Care Code 95809 INT INP/OBS CARE MIN Diagnoses Non-small cell cancer of right lung C34.91 Brain metastasis C79.31 Hypercholesteremia E78.00 COPD (chronic obstructive pulmonary disease) J44.9 Mediastinal adenopathy R59.0
--- NOTE | 2022-10-30 17:29 | Emergency Department Note ---
Impression & Plan Non-small cell cancer of right lung, Reflex sympathetic dystrophy, Breathlessness, Muscle spasm of back ED Provider Note Provider: Landry Guy MD DATE OF SERVICE: 10/30/2022 CHIEF COMPLAINT: Spasms, shortness of breath HISTORY OF PRESENT ILLNESS: Patient is a 61-year-old gentleman history of recently diagnosed lung cancer longtime smoker presenting here today after a code purple outside the cancer center. Patient was coming for radiation treatment today. Was here in the hospital last week. Has been having some difficulty at home and having worsening spasms. Reports underlying history of reflux sympathetic dystrophy and has chronic spasm issues but he states now that seems to be worsening. Had some improvement with epidural injections in the back done by a pain group out of [place]. Denies recent trauma. Denies significant fever but states he had worsening spasms gets very short of breath with this. Denies significant chest pain or significant abdominal pain though states he does try to get in a good position when the spasms happen now but more recently involving the left leg over the past year rather than several decades of pain mainly just in the right leg. Patient and patient's sister is at bedside endorse the patient's been undergoing a lot of stress and anxiety regarding the recent cancer diagnosis as well. Has missed some radiation treatments related to this. Did try some baclofen earlier which did not seem to affect symptoms much. There are some question if he was a little bit confused earlier during the midst of one of the spasms. No significant trauma reported. PAST MEDICAL HISTORY: As noted above MEDICATIONS: Reviewed home medications currently receiving radiation therapy SOCIAL HISTORY: Smoker PHYSICAL EXAM: GENERAL: alert and oriented in no acute distress on stretcher although intermittently anxious on the bed Head: normocephalic and atraumatic EYES: No injection, discharge or icterus. NECK: Trachea midline. Supple. ENT: Mucous membranes pink and moist. LUNGS: Airway patent. No retractions. Breath sounds clear with good air entry bilaterally. HEART: Regular tachycardic rate and rhythm. No chest wall tenderness ABDOMEN: Soft and non-tender, without guarding or rebound. SKIN: Acyanotic, warm, dry, without rashes EXTREMITIES: Without swelling, tenderness or deformity NEUROLOGICAL: No focal deficits. Some longstanding mild chronic aphasia. No facial droop or slurred speech. Normal strength and tone in the extremities. Sensation to gross touch normal. Intermittently with spasms causing him to tense up on the bed in the position. EK bpm sinus tachycardia. No PVC. No acute ST segment elevation or depression with a QTc of 434. CONTINUOUS CARDIAC MONITORING: was ordered and showed a heart rate of 100s-120s bpm in sinus tachycardia Patient's laboratory studies and imaging reviewed. Differential includes Vasovagal event, dehydration, infection, hypoglycemia, electrolyte abnormalities, cardiac sources, intracerebral event, pulmonary embolism, seizure, toxicologic, neurologic, as well as other pathologies. IMPRESSION/MEDICAL DECISION MAKIN-year-old gentleman history of recently diagnosed lung cancer coming after having back spasms and some transient confusion with reported shortness of breath outside the cancer center when coming for radiation treatment today. Recently diagnosed and recently hospital reviewed the recent records. Patient evidently not doing so well at home and having worsening spasms. History of reflex sympathetic dystrophy and states has had chronic issues over the past year more in the left leg but chronically in the right leg. Has been worsening recently. Baclofen did not help much prior to arrival though he is not the best historian. Has some underlying aphasia at times and word blocking which family states has been an ongoing issue, worsened recently with the stress and anxiety of his cancer diagnosis. No significant trauma reported. Denies other significant drug usage. Basic labs obtained here as well as chest x-ray. Labs not indicative of large pneumonia and the chest x-ray my review and radiology report question some radiation changes to the right upper lung mass but in this clinical context I doubt a significant pneumonia. Somewhat tachycardic here some decreased intake has been reported. Negative COVID. TSH within normal limits. No significant transaminitis. Normal renal function. No anemia. Slight leukocytosis but recently on steroids. Patient does report that he had some transient hallucinations with the steroids. Did review recent brain MRI from the recent admission with evidence of a mass noted on this likely related to his cancer. Again do not see evidence of acute CVA at this time. Blood pressure has been somewhat tenuous but again believe likely related to decreased intake. Not having new significant focal deficit moving his lower extremities at this point. Intermittently having some spasms of the leg and the back. Symptoms are improving on reevaluation and low suspicion that he is suffering from an acute PE given the reported history and his improvement in. Troponins negative and I doubt acute ACS. Question if the spasms and pain exacerbated by his recent illness and the radiation treatment. Breathing again is improved at this time as the spasms have abated some. Given that has not been doing well and having missed treatments due to these for symptom control discussed further care here at the hospital. Hospitalist was contacted. DIAGNOSIS: Non-small cell lung cancer, reflux sympathetic dystrophy, spasms, shortness of breath DISPOSITION: Hospitalist will evaluate Patient was agreeable with this plan. Past Med/Surg History Medical History (Updated 10/30/22 @ 21:00 by Landry Guy M.D.) Arthritis COPD (chronic obstructive pulmonary disease) Edema Hypercholesteremia Lung cancer Mass of lung Mass of right lung Metabolic brain disease Palpitations Patellofemoral instability of both knees with pain Reflex sympathetic dystrophy Spinal stenosis Surgical History Hx of right knee surgery Social History Smoking Status: Current every day smoker Tobacco Type: Cigarettes Cigarettes Per Day: 1; Hx Alcohol Use: No Hx Substance Use: No Preferred Language: Ukrainian Communication Ability: Effective Nutrition Services Aide Required: No Beliefs That Will Affect Care: None Current Living Situation: Alone Feels Safe at Home: Yes Assistive Devices: Cane and Nebulizer Allergies Allergies Allergy/AdvReac Type Severity Reaction Status Date / Time belladonna alkaloids Allergy Intermediate Hives Verified 10/30/22 15:16 oxycodone Allergy Intermediate Hives Verified 10/30/22 15:16 cocoa Allergy Mild Rash Verified 10/30/22 15:16 petrolatum,white Allergy Mild Rash Verified 10/30/22 15:16 tetracycline AdvReac Severe Anaphylaxis Verified 10/30/22 15:16 hydrocodone AdvReac Intermediate Hives Verified 10/30/22 15:16 Home Meds Home Medications Medication Instructions Recorded Confirmed bupropion HCl 300 mg 24 hr tablet, 300 mg PO QAM 09/29/22 10/30/22 extended release alendronate 70 mg tablet 70 mg PO Q7D 10/30/22 10/30/22 atorvastatin 80 mg tablet 80 mg PO QPM 10/30/22 10/30/22 bupropion HCl 150 mg 24 hr tablet, 150 mg PO QAM 10/30/22 10/30/22 extended release calcium carbonate 600 mg calcium 600 mg PO BID 10/30/22 10/30/22 (1,500 mg) tablet cholecalciferol (vitamin D3) 25 25 mcg PO DAILY 10/30/22 10/30/22 mcg (1,000 unit) capsule gabapentin 100 mg capsule 100 mg PO QPM 10/30/22 10/30/22 meloxicam 15 mg tablet 15 mg PO DAILY 10/30/22 10/30/22 omeprazole 40 mg capsule,delayed 40 mg PO DAILY 10/30/22 10/30/22 release Results & Data (ED) Vital Signs Vital Signs - 24 hr 10/30/22 16:50 10/30/22 19:15 Temperature 36.7 C Temperature Source Temporal Artery Scan Pulse Rate 113 H Pulse Rate [Apical] 107 H Respiratory Rate 18 20 Respiratory Effort / Characteristics Non-Labored Spontaneous Respiratory Depth Normal Respiratory Pattern Regular Blood Pressure 97/57 L Blood Pressure [Left Arm] 87/64 L Blood Pressure Mean 70 Blood Pressure Mean [Left Arm] 71 Pulse Oximetry 91 91 Oxygen Delivery Method Room Air Room Air Sepsis Recent Fever Within 48 Hours No Sepsis New/Unexplained Change in Mental Status No Sepsis Action Taken by Nursing No Action Required Laboratory Data 10/30/22 17:35 10/30/22 17:35 Lab Results 10/30/22 10/30/22 10/30/22 Range/Units 17:35 17:35 17:35 WBC 16.47 H (4.8-10.8) K/ul RBC 5.50 (4.70-6.10) M/uL Hgb 16.3 (14.0-18.0) g/dl Hct 49.0 (42.0-52.0) % MCV 89.1 (80.0-100.0) fL MCH 29.6 (25.0-34.0) pg MCHC 33.3 (32.0-36.0) g/dL RDW Std Deviation 47.8 H (36.4-46.3) fL RDW Coeff of Kishore 14.8 H (11.5-14.5) % Plt Count 303 (130-400) K/uL MPV 8.7 L (9.4-12.4) fL Immature Gran % (Auto) 1.4 % Neut % (Auto) 73.3 % Lymph % (Auto) 10.1 % Hodgeman % (Auto) 14.6 % Eos % (Auto) 0.2 % Baso % (Auto) 0.4 % Neut # (Auto) 12.08 H (1.40-6.50) K/uL Lymph # (Auto) 1.67 (1.2-3.4) K/uL Hodgeman # (Auto) 2.40 H (0.11-0.59) K/uL Eos # (Auto) 0.03 (0-0.50) K/uL Baso # (Auto) 0.06 (0-0.2) K/uL Immature Gran # (Auto) 0.23 H (0.01-0.20) K/uL Sodium 139 (136-145) mmol/L Potassium 4.2 (3.5-5.1) mmol/L Chloride 106 (98-107) mmol/L Carbon Dioxide 24 (21-32) mmol/L Anion Gap 9 (3-11) BUN 17 (6-23) mg/dl Creatinine 0.89 (0.6-1.4) mg/dl Est Cr Clr Drug Dosing Not Reportable Est GFR ( Amer) 107.0 ml/min Est GFR (Non-Af Amer) 92.3 ml/min BUN/Creatinine Ratio 19.1 (10-20) Glucose 106 H (70-99(Fasting)) mg/dl Calcium 9.1 (8.5-10.1) mg/dl Magnesium 1.9 (1.7-2.4) mg/dl Total Bilirubin 0.5 (0.2-1.0) mg/dl AST 24 (13-39) U/L ALT 45 (7-52) U/L Alkaline Phosphatase 110 H (34-104) U/L Total Creatine Kinase 43 (30-223) U/L Troponin I High Sens 10.5 (0-20) pg/ml Total Protein 6.8 (6.0-8.3) gm/dl Albumin 3.3 L (3.4-5.0) gm/dl Globulin 3.5 (2.5-4.0) gm/dl Albumin/Globulin Ratio 0.9 (0.9-2) TSH 2.419 (0.300-4.500) uIu/ml SARS-CoV-2, RNA, NAAT (NEGATIVE) 10/30/22 Range/Units Unknown WBC (4.8-10.8) K/ul RBC (4.70-6.10) M/uL Hgb (14.0-18.0) g/dl Hct (42.0-52.0) % MCV (80.0-100.0) fL MCH (25.0-34.0) pg MCHC (32.0-36.0) g/dL RDW Std Deviation (36.4-46.3) fL RDW Coeff of Kishore (11.5-14.5) % Plt Count (130-400) K/uL MPV (9.4-12.4) fL Immature Gran % (Auto) % Neut % (Auto) % Lymph % (Auto) % Hodgeman % (Auto) % Eos % (Auto) % Baso % (Auto) % Neut # (Auto) (1.40-6.50) K/uL Lymph # (Auto) (1.2-3.4) K/uL Hodgeman # (Auto) (0.11-0.59) K/uL Eos # (Auto) (0-0.50) K/uL Baso # (Auto) (0-0.2) K/uL Immature Gran # (Auto) (0.01-0.20) K/uL Sodium (136-145) mmol/L Potassium (3.5-5.1) mmol/L Chloride (98-107) mmol/L Carbon Dioxide (21-32) mmol/L Anion Gap (3-11) BUN (6-23) mg/dl Creatinine (0.6-1.4) mg/dl Est Cr Clr Drug Dosing Est GFR ( Amer) ml/min Est GFR (Non-Af Amer) ml/min BUN/Creatinine Ratio (10-20) Glucose (70-99(Fasting)) mg/dl Calcium (8.5-10.1) mg/dl Magnesium (1.7-2.4) mg/dl Total Bilirubin (0.2-1.0) mg/dl AST (13-39) U/L ALT (7-52) U/L Alkaline Phosphatase (34-104) U/L Total Creatine Kinase (30-223) U/L Troponin I High Sens (0-20) pg/ml Total Protein (6.0-8.3) gm/dl Albumin (3.4-5.0) gm/dl Globulin (2.5-4.0) gm/dl Albumin/Globulin Ratio (0.9-2) TSH (0.300-4.500) uIu/ml SARS-CoV-2, RNA, NAAT NEGATIVE (NEGATIVE) Administered Medications Tramadol HCl (Tramadol Hcl 50 Mg Tablet) 50 mg PO Q6H PRN PRN Reason: Pain Stop: 11/29/22 19:16 Last Admin: 10/30/22 20:45 Dose: 50 mg Documented By: KT Imaging Data Radiologist's Impression: Chest X-Ray 10/30/22 17:18 XR chest 1V portable CLINICAL HISTORY: Weakness. Lung cancer. COMPARISON STUDY: Chest CT October 19, 2022. FINDINGS: Right upper lobe mass-like opacity is again noted. Asymmetric reticulonodular interstitial thickening within the right lung has mildly progressed. There is right lung volume loss with elevation of the right hemidiaphragm. This is unchanged. No consolidation within the left lung is present. No pneumothorax or pleural effusion is identified. IMPRESSION: 1. Redemonstration of the right upper lobe mass-like opacity consistent with known neoplasm. 2. Increase in reticulonodular interstitial thickening within the right lung. This could reflect lymphangitic spread of tumor, asymmetric pulmonary edema or posttreatment change. ACT 112: Negative or not required by law. Electronically signed by: Preston Barber M.D. 10/30/2022 6:21 PM Discharge Plan Visit Data Chief Complaint: Anxiety Stated Complaint: UNCONTROL PAIN,ANXIETY, REF BY DOC ED Provider: Landry Guy Discharge Problem: Non-small cell cancer of right lung, Reflex sympathetic dystrophy, Breathlessness, Muscle spasm of back Patient Disposition: Being Evaluated by Hospitalist Forms Stand Alone Forms: My [facility], Suicide Prevention Resources Prescriptions Prescriptions: No Action bupropion HCl 300 mg tablet extended release 24 hr 300 mg PO QAM Rx Instructions: patient states he has been weaning his dose down R/T side effects alendronate 70 mg tablet 70 mg PO Q7D Label Comments: has not been taking calcium carbonate 600 mg calcium (1,500 mg) tablet 600 mg PO BID Label Comments: has not been taking cholecalciferol (vitamin D3) 25 mcg (1,000 unit) capsule 25 mcg PO DAILY Label Comments: has not been taking gabapentin 100 mg capsule 100 mg PO QPM Label Comments: has not been taking as prescribed omeprazole 40 mg capsule,delayed release(DR/EC) 40 mg PO DAILY Label Comments: has not been taking meloxicam 15 mg tablet 15 mg PO DAILY Label Comments: has not been taking atorvastatin 80 mg tablet 80 mg PO QPM bupropion HCl 150 mg tablet extended release 24 hr 150 mg PO QAM Rx Instructions: take along with 300mg Referrals Referrals: PCP,NO [Primary Care Provider] -
[2022-10-30 17:57] LABS: Basophils # (auto) 0.06 K/uL (0-0.2); Basophils % (auto) 0.4 %; Eosinophils # (auto) 0.03 K/uL (0-0.50); Eosinophils % (auto) 0.2 %; Hemoglobin 16.3 g/dl (14.0-18.0); Immature Granulocytes # (auto) 0.23 K/uL (0.01-0.20); Immature Granulocytes % (auto) 1.4 %; Lymphocytes # (auto) 1.67 K/uL (1.2-3.4); Lymphocytes % (auto) 10.1 %; Mean Corpuscular Hemoglobin 29.6 pg (25.0-34.0); Mean Corpuscular Hgb Conc 33.3 g/dL (32.0-36.0); Mean Corpuscular Volume 89.1 fL (80.0-100.0); Mean Platelet Volume 8.7 fL (9.4-12.4); Monocytes % (auto) 14.6 %; Neutrophils # (auto) 12.08 K/uL (1.40-6.50); Neutrophils % (auto) 73.3 %; Platelet Count 303 K/uL (130-400); RDW Coefficient of Variation 14.8 % (11.5-14.5); RDW Standard Deviation 47.8 fL (36.4-46.3); White Blood Count 16.47 K/ul (4.8-10.8)
[2022-10-30 18:14] LABS: Alanine Aminotransferase 45 U/L (7-52); Albumin Globulin Ratio 0.9 (0.9-2); Albumin Level 3.3 gm/dl (3.4-5.0); Alkaline Phosphatase 110 U/L (34-104); Anion Gap 9 (3-11); Aspartate Aminotransferase 24 U/L (13-39); BUN Creatinine Ratio 19.1 (10-20); Bilirubin,Total 0.5 mg/dl (0.2-1.0); Blood Urea Nitrogen 17 mg/dl (6-23); Calcium 9.1 mg/dl (8.5-10.1); Carbon Dioxide 24 mmol/L (21-32); Chloride 106 mmol/L (98-107); Creatine Kinase 43 U/L (30-223); Est GFR (Non-African American) 92.3 ml/min; Globulin 3.5 gm/dl (2.5-4.0); Glucose 106 mg/dl (70-99(Fasting)); Magnesium 1.9 mg/dl (1.7-2.4); Potassium 4.2 mmol/L (3.5-5.1); Sodium 139 mmol/L (136-145); Total Protein 6.8 gm/dl (6.0-8.3)
[2022-10-30 18:18] LABS: Troponin I High Sensitivity 10.5 pg/ml (0-20)
--- NOTE | 2022-10-30 18:23 | XRay Report ---
XR chest 1V portable CLINICAL HISTORY: Weakness. Lung cancer. COMPARISON STUDY: Chest CT October 19, 2022. FINDINGS: Right upper lobe mass-like opacity is again noted. Asymmetric reticulonodular interstitial thickening within the right lung has mildly progressed. There is right lung volume loss with elevatio n of the right hemidiaphragm. This is unchanged. No consolidation within the left lung is present. No pneumothorax or pleural effusion is identified. IMPRESSION: 1. Redemonstration of the right upper lobe mass-like opacity consistent with known neoplasm. 2. Increase in reticulonodular interstitial thickening within the right lung. This could reflect lymp hangitic spread of tumor, asymmetric pulmonary edema or posttreatment change. ACT 112: Negative or not required by law. Electronically signed by: Preston Barber M.D. 10/30/2022 6:21 PM
[2022-10-30] MEDS: traMADol HCL 50 MG TABLET PO PRN (20:45)
[2022-10-30] MEDS ORDERED: LACTATED RINGER'S 500 ML IV SCH (21:48)
[2022-10-30] MEDS: ACETAMINOPHEN 325 MG TAB PO SCH (22:27)
[2022-10-30] MEDS: LIDOCAINE 5% 1 PATCH TD SCH (22:29)
[2022-10-30] MEDS: GABAPENTIN 100 MG CAP PO SCH (22:35)
[2022-10-30] MEDS ORDERED: BENZONATATE 100 MG CAPSULE PO PRN (23:10)
[2022-10-30] MEDS: hydrOXYzine HCl 25 MG TAB PO PRN (23:45)
[2022-10-31] MEDS: ACETAMINOPHEN 325 MG TAB PO SCH ×4 (06:38→23:42)
[2022-10-31] MEDS: traMADol HCL 50 MG TABLET PO PRN ×3 (06:39→20:34)
[2022-10-31] MEDS: buPROPion XL 150 MG TABCR PO SCH (07:46)
--- NOTE | 2022-10-31 08:12 | Electrocardiogram Report ---
Test Reason : Blood Pressure : / mmHG Vent. Rate : 121 BPM Atrial Rate : 121 BPM P-R Int : 168 ms QRS Dur : 090 ms QT Int : 306 ms P-R-T Axes : 055 018 068 degrees QTc Int : 434 ms Sinus tachycardia Biatrial enlargement Abnormal ECG When compared with ECG of 19-OCT-2022 16:40, HR has increased by 17 bpm Confirmed by Felipe Sharpe ([id number]) on 10/31/2022 8:11:57 AM Referred By: Provider Outside Confirmed By:Felipe Sharpe
--- NOTE | 2022-10-31 09:17 | Magnetic Resonance Report ---
MR OF THE LUMBAR SPINE WITHOUT IV CONTRAST CLINICAL HISTORY: Low back pain. Lower extremity muscle spasms. Spinal stenosis. History of lung canc er. COMPARISON STUDY: Lumbar spine radiographs dated 10/19/2022. Abdominal CT dated 09/19/2022. TECHNIQUE: MRI of the lumbar spine is performed utilizing various T1 and T2-weighted sequences in the axial and sagittal planes. IV contrast was not administered for this examination. FINDINGS: Lumbar spine: There is a mild acute to subacute superior endplate compression deformity of L3 with as sociated marrow edema. No retropulsed fragments are seen. Vertebral body height is otherwise maintain ed throughout the lumbar spine. Alignment is preserved. There is straightening of the lumbar lordosis . Small anterior osteophytes are seen throughout. Ill-defined T1 hypointense lesions with mild marrow edema are seen in the L1 and L2 vertebral bodies. These measure up to 2.3 cm and are highly suspicio us for metastatic disease. There is also a lesion within the right lamina of L1 seen on axial image # 14. A T1 hyperintense lesion within the body of T12 may represent a hemangioma. The transverse and sp inous processes appear intact. There is no evidence of spondylolysis. Intervertebral discs: Degenerative disc desiccation is seen throughout the lumbar spine. There is mil [id number] loss of height at L5-S1. Spinal cord: The visualized spinal cord is normal in morphology and signal intensity. The conus medul ramandeep terminates at the L1-L2 interspace. The nerve roots of the cauda equina are normal in morpholog y. L1-L2: Unremarkable. L2-L3: The central canal is clear. Predominantly facet arthropathy contributes to mild right neural f oraminal stenosis. L3-L4: Unremarkable. L4-L5: There is minimal posterior disc bulge. The central canal is clear. Mild facet arthropathy is o f no consequence. The neural foramina are patent. L5-S1: There is broad-based posterior disc bulge which abuts the transiting nerve roots. Lateral disc bulge contributes to bilateral subarticular stenosis and may abut the exiting bilateral L5 nerve zeeshan ts. In conjunction with facet arthropathy there is mild left and [id number] right neural forami nal stenosis. Sacrum: The visualized sacrum is normal in morphology and signal intensity. Soft tissues: The paraspinous soft tissues are normal as imaged. The retroperitoneal structures are g rossly unremarkable but incompletely evaluated. IMPRESSION: 1. There are ill-defined T1 hypointense lesions within the bodies of L1 and L2. Given the cancer hist ory these are highly suspicious for metastatic disease. There is also a lesion within the right jossue a of L1. 2. There is an acute to subacute mild superior endplate compression fracture of L3 with associated ma rrow edema. Given suspected metastatic disease this may be pathologic. 3. There are no retropulsed fragments or central canal stenosis. 4. Mild spondylotic change as above. See discussion for detailed level by level analysis. Dictated: 10/31/2022 8:49 AM Transcribed: 10/31/2022 9:11 AM Clementina [id number] Electronically signed by: Aniket Ryan M.D. 10/31/2022 9:14 AM
--- NOTE | 2022-10-31 14:10 | Consultation ---
Date of Consultation October 31, 2022 Assessment & Plan (1) Lumbar compression fracture: Dr. Rose has reviewed imaging. Ondina Is a 61-year-old gentleman with non- small cell lung carcinoma with metastatic disease at the lumbar L1 and L2 levels and acute L3 superior endplate compression fracture most likely pathologic. We Have discussed his acute L3 compression fracture with the patient. We have discussed options including conservative treatment which will be bracing and a weight lifting restriction of 5 pounds. The other option would be surgical intervention in the form of an L3 kyphoplasty. Risk, benefits, pros cons and alternatives were outlined for both. He would like to discuss with his family. He will let us know later on and how he would like to proceed. He understands surgical intervention would not address his known RSD affecting his lower extremities, degenerative disc disease, spinal stenosis. It is purely for pain control of his lower back pain. History of Present Illness Reason for Consultation: L3 fracture Attending Physician: Alexandro Dinero MD History of Present Illness This is a 61-year-old gentleman with non-small cell lung carcinoma with that we are asked to see in consultation regarding L3 superior endplate fracture possibly pathologic. He states he has had back pain for several weeks. No specific accident, trauma, fall. No new radicular pain, paresthesia, numbness. He has known RSD of the right lower extremity and now since the summer is about affecting his left lower extremity. Typically at home he ambulates with a cane. Denies any bowel or bladder changes. He currently describes severe spasms in his lower back. Allergies Allergy/AdvReac Type Severity Reaction Status Date / Time belladonna alkaloids Allergy Intermediate Hives Verified 10/30/22 15:16 oxycodone Allergy Intermediate Hives Verified 10/30/22 15:16 cocoa Allergy Mild Rash Verified 10/30/22 15:16 petrolatum,white Allergy Mild Rash Verified 10/30/22 15:16 tetracycline AdvReac Severe Anaphylaxis Verified 10/30/22 15:16 hydrocodone AdvReac Intermediate Hives Verified 10/30/22 15:16 Home Medications Medication Instructions Recorded Confirmed Type bupropion HCl 300 mg 24 hr tablet, 300 mg PO QAM 09/29/22 10/30/22 History extended release alendronate 70 mg tablet 70 mg PO Q7D 10/30/22 10/30/22 History atorvastatin 80 mg tablet 80 mg PO QPM 10/30/22 10/30/22 History bupropion HCl 150 mg 24 hr tablet, 150 mg PO QAM 10/30/22 10/30/22 History extended release calcium carbonate 600 mg calcium 600 mg PO BID 10/30/22 10/30/22 History (1,500 mg) tablet cholecalciferol (vitamin D3) 25 25 mcg PO DAILY 10/30/22 10/30/22 History mcg (1,000 unit) capsule gabapentin 100 mg capsule 100 mg PO QPM 10/30/22 10/30/22 History meloxicam 15 mg tablet 15 mg PO DAILY 10/30/22 10/30/22 History omeprazole 40 mg capsule,delayed 40 mg PO DAILY 10/30/22 10/30/22 History release Patient History Medical History Arthritis COPD (chronic obstructive pulmonary disease) Edema Hypercholesteremia Lung cancer Mass of lung Mass of right lung Metabolic brain disease Palpitations Patellofemoral instability of both knees with pain Reflex sympathetic dystrophy Spinal stenosis Surgical History Hx of right knee surgery Social History Smoking Status: Current some day smoker Tobacco Type: Cigarettes Cigarettes Per Day: 1; Hx Alcohol Use: No Hx Substance Use: No Preferred Language: Macedonian Communication Ability: Effective 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 Beliefs That Will Affect Care: None Current Living Situation: Alone Current Living Situation Comment: Lives on 1st floor of [facility] Feels Safe at Home: Yes Safety Concerns: Feels Safe At This Time Assistive Devices: Cane and Walker Review of Systems Review of Systems: All systems reviewed & are unremarkable except as noted in HPI & below Physical Exam Physical Exam: He sitting in bed in no acute distress Alert and orient x3 Negative tension signs bilaterally Negative logrolling bilaterally Motor testing is 5/5 bilateral EHL, dorsiflexion, plantarflexion, quad sets, hamstrings, hip flexors, hip abductor's and hip adductor's Modest tenderness to palpation at the midline lower lumbar spine Constitutional: + thin Eyes: normal visual wallis by confrontation ENMT: external ear and nose normal, oropharynx normal Neck: normal visual inspection Respiratory: normal respiratory effort Cardiovascular: Extremities: normal capillary refill Gastrointestinal (Abdomen): Inspection/Auscultation: abdomen normal to inspection Musculoskeletal: Extremities: extremities normal to inspection Skin: no rashes, warm and dry Neurologic: normal touch/pain/proprioception and moves all extremities Psychiatric: A+Ox3, euthymic affect Results & Data ([facility]) Vital Signs (Past 12 Hours) Vital Signs Temp Pulse Resp BP Pulse Ox O2 Del Method O2 Flow Rate 10/31/22 11:13 35.6 C L 94 H 18 92/53 L 93 Nasal Cannula 1 10/31/22 08:15 Nasal Cannula 1 10/31/22 04:00 36.7 C 85 18 106/65 96 Nasal Cannula 2 Diagnostic Findings [place], [place] [phone] Magnetic Resonance Report Patient:ONDINA RODRÍGUEZ Admit Date:10/30/22 MR#:[id number] Address1:[address] [place] [address] Acct ID:[id number] Address2: Date:[address] [facility] Zip:[place] [address] Age:61 Location: Sex:M Room/Bed:[facility] Att Phy:Alexandro Dinero MD Diagnosis:BACK PAIN Thais Phy:PCP,NO Service Date:10/30/22 Fam Phy: Interpreting Phy:Aniket Ryan MDAdmit Phy:Fred Beckford MD Ordering Phy:Fred Beckford MD cc: ~ MR OF THE LUMBAR SPINE WITHOUT IV CONTRAST CLINICAL HISTORY: Low back pain. Lower extremity muscle spasms. Spinal stenosis. History of lung cancer. COMPARISON STUDY: Lumbar spine radiographs dated 10/19/2022. Abdominal CT dated 09/19/2022. TECHNIQUE: MRI of the lumbar spine is performed utilizing various T1 and T2-w eighted sequences in the axial and sagittal planes. IV contrast was not administered for this examination. FINDINGS: Lumbar spine: There is a mild acute to subacute superior endplate compression deformity of L3 with associated marrow edema. No retropulsed fragments are seen. Vertebral body height is otherwise maintained throughout the lumbar spine. Alignment is preserved. There is straightening of the lumbar lordosis. Small anterior osteophytes are seen throughout. Ill-defined T1 hypointense lesions with mild marrow edema are seen in the L1 and L2 vertebral bodies. These measure up to 2.3 cm and are highly suspicious for metastatic disease. There is also a lesion within the right lamina of L1 seen on axial image #14. A T1 hyperintense lesion within the body of T12 may represent a hemangioma. The transverse and spinous processes appear intact. There is no evidence of spondylolysis. Intervertebral discs: Degenerative disc desiccation is seen throughout the lumbar spine. There is mtja-el-cgnvjxwu loss of height at L5-S1. Spinal cord: The visualized spinal cord is normal in morphology and signal intensity. The conus medullaris terminates at the L1-L2 interspace. The nerve roots of the cauda equina are normal in morphology. L1-L2: Unremarkable. L2-L3: The central canal is clear. Predominantly facet arthropathy contributes to mild right neural foraminal stenosis. L3-L4: Unremarkable. L4-L5: There is minimal posterior disc bulge. The central canal is clear. Mild facet arthropathy is of no consequence. The neural foramina are patent. L5-S1: There is broad-based posterior disc bulge which abuts the transiting nerve roots. Lateral disc bulge contributes to bilateral subarticular stenosis and may abut the exiting bilateral L5 nerve roots. In conjunction with facet arthropathy there is mild left and bnrm-gg-ymsohrdu right neural foraminal stenosis. Sacrum: The visualized sacrum is normal in morphology and signal intensity. Soft tissues: The paraspinous soft tissues are normal as imaged. The retroperitoneal structures are grossly unremarkable but incompletely evaluated. IMPRESSION: 1. There are ill-defined T1 hypointense lesions within the bodies of L1 and L2. Given the cancer history these are highly suspicious for metastatic disease. There is also a lesion within the right lamina of L1. 2. There is an acute to subacute mild superior endplate compression fracture of L3 with associated marrow edema. Given suspected metastatic disease this may be pathologic. 3. There are no retropulsed fragments or central canal stenosis. 4. Mild spondylotic change as above. See discussion for detailed level by level analysis. Dictated: 10/31/2022 8:49 AM Transcribed: 10/31/2022 9:11 AM Clementina [id number] Darling Electronically signed by: Aniket Ryan M.D. 10/31/2022 9:14 AM Dictated:10/31/22 0849 Transcribed: 10/31/22 0911 [facility] [place] [phone] Nuclear Medicine Report Patient:ONDINA RODRÍGUEZ Admit Date:10/19/22 MR#:[id number] Address1:[address] [facility] Acct ID:[id number] Address2: Date:[address] [facility] Zip:[place] [address] Age:61 Location:3W Sex:M Room/Bed:[facility] Att Phy:Nikolas Leahy MD Diagnosis:SOB Thais Phy:Landry Fay Service Date:10/23/22 Fam Phy: Interpreting Phy:Jose Miguel TineoAdmit Phy:Pina Lizama D.O. Ordering Phy:Nikolas Leahy MD cc: ~ NM bone scan whole body HISTORY: 61 years-old Male back pain to evaluate for metastasis screening study in a patient with back pain and history of lung cancer COMPARISON: Brain MRI 10/20/2022, CT chest 10/19/2022 TECHNIQUE: Anterior and posterior whole body planar scintigraphic bone scan images were obtained following the intravenous administration of 22.04 mCi technetium 99 MDP administered via the left upper extremity. FINDINGS: Physiologic distribution of tracer activity within the kidneys, renal collecting systems, urinary bladder and soft tissues. Mild degenerative multifocal periarticular uptake. Soft tissue uptake within the left forearm may be artifactual or secondary to injection site. No scintigraphic evidence of sk eletal metastasis. IMPRESSION: No scintigraphic evidence of skeletal metastasis. ACT 112: Negative or not required by law. The above report was generated using voice recognition software. It may contain grammatical, syntax or spelling errors. Electronically signed by: Jose Miugel Tineo M.D. 10/23/2022 2:16 PM Dictated:10/23/221412 Transcribed: 10/23/22 141
--- NOTE | 2022-10-31 15:29 | Hospitalist Progress Note ---
Date of Service October 31, 2022 Assessment & Plan (1) Non-small cell cancer of right lung: Plan: (Non-small cell cancer of right lung: Right upper lobe lung mass status post bronchoscopy and EBUS with biopsy Preliminary pathology report is consistent with non-small cell cancer on right lung Left lung has a subpleural nodule, moreover patient has mediastinal lymphadenopathy CT of brain showed left temporal lobe possible metastasis with vasogenic edema Patient not a candidate for curative treatment including surgery, palliative treatment, discussed with hematology oncology patient needs to follow-up for outpatient PET scan Severe back pain discussed with oncology recommend to proceed with bone scan, order placed Currently undergoing palliative radiation therapy Presented to the hospital according rad onc because he couldnt toerated therapy yesterday Patient denied he was confused (2) Lumbar compression fracture: Plan: Patient has a long history of back pain from lunbar stenosis, however complanied of worsening back pain and spasm This made him take extra doses of flexeril without relief MRI shows evidence of L3 compression fracture and also likley metastsic lesions on L1 and L2 Spine surgery on consult, may need brace (3) Brain metastasis: (4) Hypercholesteremia: (5) COPD (chronic obstructive pulmonary disease): (6) Mediastinal adenopathy: (7) Muscle spasm of back: Plan continue hospitalization DNR/DNI Admission and Anticipated Discharge Date Admission Date: October 30, 2022 Subjective patient seen and examined, alert, oriented Review of Systems Review of Systems: All systems reviewed are negative, apart from the ones contained in the history. Physical Exam Physical Exam: The patient is awake, alert and oriented 3, well developed and well nourished, normocephalic and atraumatic, lying in bed and in no acute distress. HEENT--PERRL, EOMI, mucous membranes and oropharynx mildly dry Neck--supple. No JVD. No bruits. Thyroid normal, trachea midline, no adenopathy. Heart--normal S1 and S2. No murmurs, rubs or gallops. Lungs--clear bilaterally, no respiratory distress, no accessory muscle use. Abdomen--normal bowel sounds and soft. Mild epigastric and left sided abdominal pain Extremities--no cyanosis or clubbing. No edema. Dermatologic--normal skin turgor, normal color, no abnormal lymph nodes, no rash. Neurologic--cranial nerves II through XII grossly intact. Rheumatologic--normal range of motion. Psychiatric--normal affect. Results & Data Results & Data ([facility]) Vital Signs (Past 12 Hours) Vital Signs Temp Pulse Resp BP Pulse Ox O2 Del Method O2 Flow Rate 10/31/22 11:13 96.1 F L 94 H 18 92/53 L 93 Nasal Cannula 1 10/31/22 08:15 Nasal Cannula 1 10/31/22 04:00 98.1 F 85 18 106/65 96 Nasal Cannula 2 PG Care Time/CCT Total # of Minutes Spent Total Time Spent with Patient: Total time spent is greater than 50% in coordination of care (as documented) at patient's floor/unit and/or counseling patient: Coding Level of Care Code 22292 SUB INP/OBS CARE 2/35MIN Diagnoses Non-small cell cancer of right lung C34.91 Lumbar compression fracture S32.000A Brain metastasis C79.31 Hypercholesteremia E78.00 COPD (chronic obstructive pulmonary disease) J44.9 Mediastinal adenopathy R59.0 Muscle spasm of back M62.830 Time Spent (min) 35
[2022-10-31] MEDS: LIDOCAINE 5% 1 PATCH TD SCH (20:35)
[2022-10-31] MEDS: GABAPENTIN 100 MG CAP PO SCH (20:35)
[2022-11-01 00:15] LABS: Appearance Urine Clear (Clear); Bilirubin Urine Negative (Negative); Blood Urine Negative (Negative); Color Urine Dark Yellow; Glucose Urine UA Negative (Negative); Ketones Urine Negative (Negative); Leukocyte Esterase Urine Negative (Negative); Nitrite Urine Negative (Negative); Protein Urine Negative (Negative); Specific Gravity Urine 1.028 (1.000-1.030); Urobilinogen Urine Negative (Negative); pH Urine 5.5 (4.5-7.5)
[2022-11-01] MEDS: traMADol HCL 50 MG TABLET PO PRN ×4 (05:15→23:09)
[2022-11-01] MEDS: ACETAMINOPHEN 325 MG TAB PO SCH ×4 (05:16→23:23)
[2022-11-01] MEDS: buPROPion XL 150 MG TABCR PO SCH (07:35)
[2022-11-01 09:15] LABS: Hematocrit (blood only) 44.8 % (42.0-52.0); Hemoglobin 14.8 g/dl (14.0-18.0); Mean Corpuscular Hemoglobin 29.5 pg (25.0-34.0); Mean Corpuscular Volume 89.4 fL (80.0-100.0); Mean Platelet Volume 8.5 fL (9.4-12.4); Platelet Count 266 K/uL (130-400); RDW Coefficient of Variation 14.9 % (11.5-14.5); RDW Standard Deviation 47.9 fL (36.4-46.3); Red Blood Count 5.01 M/uL (4.70-6.10); White Blood Count 13.83 K/ul (4.8-10.8)
[2022-11-01 09:32] LABS: BUN Creatinine Ratio 19.4 (10-20); Calcium 8.7 mg/dl (8.5-10.1); Creatinine Clr Calc Pharmacy 94.9 ml/min; Est GFR (African American) 116.7 ml/min; Est GFR (Non-African American) 100.7 ml/min; Potassium 4.3 mmol/L (3.5-5.1)
--- NOTE | 2022-11-01 11:56 | Hospitalist Progress Note ---
Date of Service November 01, 2022 Assessment & Plan (1) Non-small cell cancer of right lung: Plan: (Non-small cell cancer of right lung: Right upper lobe lung mass status post bronchoscopy and EBUS with biopsy Preliminary pathology report is consistent with non-small cell cancer on right lung Left lung has a subpleural nodule, moreover patient has mediastinal lymphadenopathy CT of brain showed left temporal lobe possible metastasis with vasogenic edema Patient not a candidate for curative treatment including surgery, palliative treatment, discussed with hematology oncology patient needs to follow-up for outpatient PET scan Severe back pain discussed with oncology recommend to proceed with bone scan, order placed Currently undergoing palliative radiation therapy (2) Lumbar compression fracture: Plan: Patient has a long history of back pain from lunbar stenosis, however complanied of worsening back pain and spasm This made him take extra doses of flexeril without relief MRI shows evidence of L3 compression fracture and also likley metastsic lesions on L1 and L2 Spine surgery on consult, may need TLSO brace The lesions may also need to be biopsied for definitive diagnosis He was scheduled for outpatient PET/Scan on 10/26 ,but couldnt do it since he is getting radiation therapy (3) Brain metastasis: Plan: A solitary met was seen on brain MRI Oncology aware awaiting molecular study reslt regarding modality of treatment may benefit from palliative radiation. Will start him on dexa because of suggestion of surrounding vasogenic edema (4) Hypercholesteremia: (5) COPD (chronic obstructive pulmonary disease): (6) Mediastinal adenopathy: (7) Muscle spasm of back: Plan continue hospitalization DNR/DNI Admission and Anticipated Discharge Date Admission Date: October 30, 2022 Subjective patient seen and examined, alert, oriented Review of Systems Review of Systems: All systems reviewed are negative, apart from the ones contained in the history. Physical Exam Physical Exam: The patient is awake, alert and oriented 3, well developed and well nourished, normocephalic and atraumatic, lying in bed and in no acute distress. HEENT--PERRL, EOMI, mucous membranes and oropharynx mildly dry Neck--supple. No JVD. No bruits. Thyroid normal, trachea midline, no adenopathy. Heart--normal S1 and S2. No murmurs, rubs or gallops. Lungs--clear bilaterally, no respiratory distress, no accessory muscle use. Abdomen--normal bowel sounds and soft. Mild epigastric and left sided abdominal pain Extremities--no cyanosis or clubbing. No edema. Dermatologic--normal skin turgor, normal color, no abnormal lymph nodes, no rash. Neurologic--cranial nerves II through XII grossly intact. Rheumatologic--normal range of motion. Psychiatric--normal affect. Results & Data Results & Data ([facility]) Vital Signs (Past 12 Hours) Vital Signs Temp Pulse Pulse Resp BP BP Pulse Ox 11/01/22 11:32 98.1 F 107 H 19 98/66 L 92 11/01/22 10:55 11/01/22 10:55 11/01/22 08:00 97.9 F 86 20 95/66 L 94 11/01/22 07:57 84 11/01/22 04:16 108/66 11/01/22 02:58 98.1 F 66 16 94/63 L 91 10/31/22 23:58 103 H O2 Del Method O2 Flow Rate 11/01/22 11:32 Nasal Cannula 2 11/01/22 10:55 Room Air 11/01/22 10:55 Nasal Cannula 2 11/01/22 08:00 Room Air 11/01/22 07:57 11/01/22 04:16 11/01/22 02:58 Nasal Cannula 1 10/31/22 23:58 PG Care Time/CCT Total # of Minutes Spent Total Time Spent with Patient: Total time spent is greater than 50% in coordination of care (as documented) at patient's floor/unit and/or counseling patient: Coding Level of Care Code 31896 SUB INP/OBS CARE 2/35MIN Diagnoses Non-small cell cancer of right lung C34.91 Lumbar compression fracture S32.000A Brain metastasis C79.31 Hypercholesteremia E78.00 COPD (chronic obstructive pulmonary disease) J44.9 Mediastinal adenopathy R59.0 Muscle spasm of back M62.830 Time Spent (min) 35
--- NOTE | 2022-11-01 12:00 | Orthopedic Progress Note ---
Date of Service November 01, 2022 Assessment & Plan (1) Lumbar compression fracture: Plan: Again I have reviewed conservative options i.e. bracing versus surgical intervention in the form of kyphoplasty with Mr. Grijalva. He is still wavering on which avenue to proceed with. We have discussed then to start with conservative treatment. I have ordered an LSO brace to be worn at all times except for bathing and when in a seated position. No lifting greater than 5 p ounds. Ambulate ad rancho. with the brace on. My understanding is they are considering considering radiation therapy to the lesions found in his lumbar spine. Bone scans and PET scans are at the discre tion of the oncology team. Admission and Anticipated Discharge Date Admission Date: October 30, 2022 Subjective Patient's back pain is unchanged. He has discussed options with his family. No decision has been made. Review of Systems Review of Systems: All systems reviewed & are unremarkable except as noted in HPI & below Physical Exam Physical Exam: Alert and orient x3 No acute distress Tender to palpation of the midline lower lumbar spine Results & Data ([facility]) Vital Signs (Past 12 Hours) Vital Signs Temp Pulse Pulse Resp BP BP Pulse Ox 11/01/22 11:32 36.7 C 107 H 19 98/66 L 92 11/01/22 10:55 11/01/22 10:55 11/01/22 08:00 36.6 C 86 20 95/66 L 94 11/01/22 07:57 84 11/01/22 04:16 108/66 11/01/22 02:58 36.7 C 66 16 94/63 L 91 10/31/22 23:58 103 H O2 Del Method O2 Flow Rate 11/01/22 11:32 Nasal Cannula 2 11/01/22 10:55 Room Air 11/01/22 10:55 Nasal Cannula 2 11/01/22 08:00 Room Air 11/01/22 07:57 11/01/22 04:16 11/01/22 02:58 Nasal Cannula 1 10/31/22 23:58
[2022-11-01] MEDS: GABAPENTIN 100 MG CAP PO SCH (20:47)
[2022-11-01] MEDS: LIDOCAINE 5% 1 PATCH TD SCH (20:48)
[2022-11-01] MEDS: ALBUT/IPRATROP 3MG/0.5MG NEB 3 ML VIAL NEB PRN (23:46)
[2022-11-01] MEDS ORDERED: POLYETHYLENE (MIRALAX) 17 GM PACK PO PRN (23:51)
[2022-11-01] MEDS ORDERED: DOCUSATE SODIUM/SENNA 50/8.6MG TAB PO PRN (23:52)
[2022-11-02] MEDS: ACETAMINOPHEN 325 MG TAB PO SCH ×4 (05:34→22:45)
[2022-11-02 07:31] LABS: Hematocrit (blood only) 44.5 % (42.0-52.0); Hemoglobin 14.9 g/dl (14.0-18.0); Mean Corpuscular Hemoglobin 29.9 pg (25.0-34.0); Mean Corpuscular Hgb Conc 33.5 g/dL (32.0-36.0); Mean Corpuscular Volume 89.4 fL (80.0-100.0); Mean Platelet Volume 8.8 fL (9.4-12.4); Platelet Count 243 K/uL (130-400); RDW Standard Deviation 48.2 fL (36.4-46.3); Red Blood Count 4.98 M/uL (4.70-6.10); White Blood Count 12.48 K/ul (4.8-10.8)
[2022-11-02 08:06] LABS: BUN Creatinine Ratio 17.2 (10-20); Calcium 8.8 mg/dl (8.5-10.1); Creatinine Clr Calc Pharmacy 78.2 ml/min; Est GFR (Non-African American) 93.2 ml/min; Potassium 4.6 mmol/L (3.5-5.1)
[2022-11-02] MEDS: buPROPion HCl 75 MG TABLET PO SCH (08:29)
[2022-11-02] MEDS ORDERED: DOCUSATE SODIUM/SENNA 50/8.6MG TAB PO SCH (09:00)
--- NOTE | 2022-11-02 13:11 | Hospitalist Progress Note ---
Date of Service November 02, 2022 Assessment & Plan (1) Non-small cell cancer of right lung: Plan: (Non-small cell cancer of right lung: Right upper lobe lung mass status post bronchoscopy and EBUS with biopsy Preliminary pathology report is consistent with non-small cell cancer on right lung Left lung has a subpleural nodule, moreover patient has mediastinal lymphadenopathy CT of brain showed left temporal lobe possible metastasis with vasogenic edema Patient not a candidate for curative treatment including surgery, palliative treatment, discussed with hematology oncology patient needs to follow-up for outpatient PET scan Severe back pain discussed with oncology recommend to proceed with bone scan, order placed Currently undergoing palliative radiation therapy (2) Lumbar compression fracture: Plan: Patient has a long history of back pain from lumbar stenosis, however complained of worsening back pain and spasm This made him take extra doses of flexeril without relief MRI shows evidence of L3 compression fracture and also likely metastasis lesions on L1 and L2 Spine surgery on consult Will also consult Oncology in view of the new lumbar lesions He was offered Kyphoplasty or Brace. patient still hasn't made up his mind If he wants Kyphoplasty, then spine surgery will take a biopsy of the new lesions seen on L1 ans L2 He was scheduled for outpatient PET/Scan on 10/26 ,but couldn't do it since he is getting radiation therapy (3) Brain metastasis: Plan: A solitary met was seen on brain MRI Oncology aware awaiting molecular study reslt regarding modality of treatment may benefit from palliative radiation. Will start him on dexa because of suggestion of surrounding vasogenic edema (4) Hypercholesteremia: (5) COPD (chronic obstructive pulmonary disease): (6) Mediastinal adenopathy: (7) Muscle spasm of back: Plan continue hospitalization DNR/DNI Admission and Anticipated Discharge Date Admission Date: October 30, 2022 Subjective patient seen and examined, still undecided if he wants conservative LTSO brace of kyphoplasty Review of Systems Review of Systems: All systems reviewed are negative, apart from the ones contained in the history. Physical Exam Physical Exam: The patient is awake, alert and oriented 3, well developed and well nourished, normocephalic and atraumatic, lying in bed and in no acute distress. HEENT--PERRL, EOMI, mucous membranes and oropharynx mildly dry Neck--supple. No JVD. No bruits. Thyroid normal, trachea midline, no adenopathy. Heart--normal S1 and S2. No murmurs, rubs or gallops. Lungs--clear bilaterally, no respiratory distress, no accessory muscle use. Abdomen--normal bowel sounds and soft. Mild epigastric and left sided abdominal pain Extremities--no cyanosis or clubbing. No edema. Dermatologic--normal skin turgor, normal color, no abnormal lymph nodes, no rash. Neurologic--cranial nerves II through XII grossly intact. Rheumatologic--normal range of motion. Psychiatric--normal affect. Results & Data Results & Data ([facility]) Vital Signs (Past 12 Hours) Vital Signs Temp Pulse Pulse Resp BP BP Pulse Ox 11/02/22 11:40 97.7 F 96 H 18 95/64 L 93 11/02/22 11:09 89 11/02/22 11:05 11/02/22 08:27 97.9 F 95 H 18 96/63 L 91 11/02/22 03:08 106/70 11/02/22 03:00 98.1 F 98 H 18 86/58 L 93 O2 Del Method O2 Flow Rate 11/02/22 11:40 Nasal Cannula 2 11/02/22 11:09 11/02/22 11:05 Nasal Cannula 2 11/02/22 08:27 Nasal Cannula 2 11/02/22 03:08 11/02/22 03:00 Nasal Cannula 2 PG Care Time/CCT Total # of Minutes Spent Total Time Spent with Patient: Total time spent is greater than 50% in coordination of care (as documented) at patient's floor/unit and/or counseling patient: Coding Level of Care Code 58071 SUB INP/OBS CARE 2/35MIN Diagnoses Non-small cell cancer of right lung C34.91 Lumbar compression fracture S32.000A Brain metastasis C79.31 Hypercholesteremia E78.00 COPD (chronic obstructive pulmonary disease) J44.9 Mediastinal adenopathy R59.0 Muscle spasm of back M62.830 Time Spent (min) 35
[2022-11-02] MEDS: guaiFENesin/DEXTROM SYRUP 200MG/20MG 10ML UDC PO PRN (16:39)
[2022-11-02] MEDS: traMADol HCL 50 MG TABLET PO PRN ×2 (17:34→23:57)
[2022-11-02] MEDS: ALBUT/IPRATROP 3MG/0.5MG NEB 3 ML VIAL NEB PRN (19:58)
[2022-11-02] MEDS: GABAPENTIN 100 MG CAP PO SCH (20:12)
[2022-11-02] MEDS: LIDOCAINE 5% 1 PATCH TD SCH (20:16)
[2022-11-03] MEDS: ACETAMINOPHEN 325 MG TAB PO SCH ×4 (04:17→23:10)
[2022-11-03] MEDS: traMADol HCL 50 MG TABLET PO PRN (05:59)
--- NOTE | 2022-11-03 06:07 | Consultation ---
Date of Consultation November 02, 2022 Assessment & Plan (1) Non-small cell cancer of right lung: Patient has significant disease just within the thorax including his primary mass, pathologic adenopathy and what may already be lymphangitic spread within the lung parenchyma. This is accompanied by [employer] metastasis and now what appears to be lumbar metastatic disease despite the negative bone scan. Staging is cT4 cN2 cM1c / IVB. Histology is adenosquamous. [employer] indicate PD-L1 score 0% and no genomic alterations of Garcia-TRK or HER2 With multiorgan metastases he is certainly not a candidate for attempted "curative" therapy and with poor performance status there would be some question as to whether it is appropriate to proceed with anything more than pure palliative therapy. Hopefully, however, his performance status is somewhat reversible with treatment of the acute discomfort and back issues he has. Nevertheless, approach to his overall care would need to be more one focused on disease and symptom stabilization carefully balancing the toxicities of therapy against what may be somewhat limited returns in the long run. In that context, it was determined that sequential radiation and then potential systemic therapy was more appropriate than combined chemoradiation. He has just completed radiation to the chest and has relatively stable pulmonary function and symptomatology. He will require Stabilizing SRS to the brain but this can be delivered in only 3 fractions and that will begin this week. I have asked radiation oncology to review his lumbar spine as I think he would be a good candidate for hypofractionated stabilizing radiation to that as well especially since he has trouble wearing back brace. I would anticipate no more than 10 fractions for that though final determination of appropriate treatment will be determined by Dr. Lamb As to systemic therapy options, I will defer to Dr. Diaz for final determination. With the limited genomics available there are no targeted therapy options and he would not be a candidate for monotherapy with ICI. Although good performance status patients might still be treated with a combination of immune checkpoint hypnotherapy with dual cytotoxic therapy, it is not clear that his performance status can improve to that level and even if so, with PDL1 0% disease the contribution of ICI is somewhat more marginal. If he can get to a performance status 2 level, he could be considered for dual cytotoxic's. Given the mixed adenosquamous histology, Taxol/carboplatinum combinations might be a choice that would offer efficacy for both subtypes. (2) Metabolic brain disease: Mental status changes with that she presented see more likely pharmacologic induced to the relatively limited metastatic disease there. They have already improved with streamlining of medications. SRS to the brain will be given soon Plan 1. Immediate issues are to optimize his pain management and back stabilization. He may have trouble wearing the back brace, palliative radiation may be particularly important 2. There are no indications for acute systemic therapy. Rather, he should complete radiation as an in- or outpatient as appropriate and then reassess with Dr. Diaz as to what his performance status would tolerate along with philosophical discussion of what he would like terms of parameters. He is scheduled to see her in our offices next week and if discharged can follow then Otherwise I will ask her to touch base with him as an inpatient if he is still in the hospital when she returns 3. Palliative care consultation might help to integrate optimal medication management with some of those fundamental discussions about parameters of care 4 Ongoing input from orthopedics can optimize incorporation of bracing, vertebroplasty, or other stabilizing options as indicated. 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 Recently diagnosed non-small cell lung cancer presenting as right mass, mediastinal adenopathy, [employer] metastasis, and now what appears to be lumbar spine metastases. Bronchoscopic biopsy shows a histology consistent with an adenosquamous cell carcinoma. Specimen was limited but sufficient to indicate that this process is PDL1 0% and does not express Garcia-TRK or HER2 genomic alterations. There is currently insufficient tissue to do other testing. Patient has just completed palliative chest radiation which was the initial plan of care. He was readmitted with mental status changes and acute back discomfort. Imaging of the latter does show changes consistent with metastatic disease despite a recently negative bone scan. Currently the patient seems to have recovered good mental status, he still is in some moderate pain and is having some trouble wearing his back brace. He is able to ambulate to the restroom. Allergies Allergy/AdvReac Type Severity Reaction Status Date / Time belladonna alkaloids Allergy Intermediate Hives Verified 10/30/22 15:16 oxycodone Allergy Intermediate Hives Verified 10/30/22 15:16 cocoa Allergy Mild Rash Verified 10/30/22 15:16 petrolatum,white Allergy Mild Rash Verified 10/30/22 15:16 tetracycline AdvReac Severe Anaphylaxis Verified 10/30/22 15:16 hydrocodone AdvReac Intermediate Hives Verified 10/30/22 15:16 Home Medications Medication Instructions Recorded Confirmed Type bupropion HCl 300 mg 24 hr tablet, 300 mg PO QAM 09/29/22 10/30/22 History extended release alendronate 70 mg tablet 70 mg PO Q7D 10/30/22 10/30/22 History atorvastatin 80 mg tablet 80 mg PO QPM 10/30/22 10/30/22 History bupropion HCl 150 mg 24 hr tablet, 150 mg PO QAM 10/30/22 10/30/22 History extended release calcium carbonate 600 mg calcium 600 mg PO BID 10/30/22 10/30/22 History (1,500 mg) tablet cholecalciferol (vitamin D3) 25 25 mcg PO DAILY 10/30/22 10/30/22 History mcg (1,000 unit) capsule gabapentin 100 mg capsule 100 mg PO QPM 10/30/22 10/30/22 History meloxicam 15 mg tablet 15 mg PO DAILY 10/30/22 10/30/22 History omeprazole 40 mg capsule,delayed 40 mg PO DAILY 10/30/22 10/30/22 History release Patient History Medical History Arthritis COPD (chronic obstructive pulmonary disease) Edema Hypercholesteremia Lung cancer Mass of lung Mass of right lung Metabolic brain disease Palpitations Patellofemoral instability of both knees with pain Reflex sympathetic dystrophy Spinal stenosis Surgical History Hx of right knee surgery Social History Smoking Status: Current some day smoker Tobacco Type: Cigarettes Cigarettes Per Day: 1; Hx Alcohol Use: No Hx Substance Use: No Preferred Language: Gabonese Communication Ability: Effective Card Stripper Required: No Beliefs That Will Affect Care: None Current Living Situation: Alone Current Living Situation Comment: Lives on 1st floor of 2 story house Feels Safe at Home: Yes Assistive Devices: Cane and Walker Physical Exam Physical Exam: Patient is in bed, ECOG performance status is 3, pain level is still 5 out of 10. He is alert and seems appropriate in responses. Vital signs are stable. He is not tachypneic and lung seems stable at this time without stridor cardiac rhythm is regular He has at least he has at least moderately preserved strength in the lower extremities Results & Data ([facility]) Vital Signs (Past 12 Hours) Vital Signs Temp Pulse Pulse Resp BP Pulse Ox O2 Del Method 11/03/22 04:00 36.6 C 89 18 99/59 L 96 Nasal Cannula 11/02/22 22:50 37.0 C 99 H 18 101/63 93 Nasal Cannula 11/02/22 23:13 104 H 11/02/22 19:58 110 H 18 92 Nasal Cannula 11/02/22 20:09 36.7 C 110 H 18 104/67 92 Nasal Cannula O2 Flow Rate 11/03/22 04:00 2 11/02/22 22:50 2 11/02/22 23:13 11/02/22 19:58 2 11/02/22 20:09 2 Laboratory Results Laboratory Results - last 24 hr 11/02/22 11/02/22 06:57 06:57 WBC 12.48 H RBC 4.98 Hgb 14.9 Hct 44.5 MCV 89.4 MCH 29.9 MCHC 33.5 RDW Std Deviation 48.2 H RDW Coeff of Kishore 15.0 H Plt Count 243 MPV 8.8 L Sodium 141 Potassium 4.6 Chloride 107 Carbon Dioxide 28 Anion Gap 6 BUN 15 Creatinine 0.87 Est Cr Clr Drug Dosing 78.2 Est GFR ( Amer) 108.0 Est GFR (Non-Af Amer) 93.2 BUN/Creatinine Ratio 17.2 Glucose 86 Calcium 8.8 Diagnostic Findings Chest X-Ray 10/30/22 17:18 XR chest 1V portable CLINICAL HISTORY: Weakness. Lung cancer. COMPARISON STUDY: Chest CT October 19, 2022. FINDINGS: Right upper lobe mass-like opacity is again noted. Asymmetric reticulonodular interstitial thickening within the right lung has mildly progressed. There is right lung volume loss with elevation of the right hemidiaphragm. This is unchanged. No consolidation within the left lung is present. No pneumothorax or pleural effusion is identified. IMPRESSION: 1. Redemonstration of the right upper lobe mass-like opacity consistent with known neoplasm. 2. Increase in reticulonodular interstitial thickening within the right lung. This could reflect lymphangitic spread of tumor, asymmetric pulmonary edema or posttreatment change. ACT 112: Negative or not required by law. Electronically signed by: Preston Barber M.D. 10/30/2022 6:21 PM Lumbar Spine MRI 10/30/22 21:48 MR OF THE LUMBAR SPINE WITHOUT IV CONTRAST CLINICAL HISTORY: Low back pain. Lower extremity muscle spasms. Spinal stenosis. History of lung cancer. COMPARISON STUDY: Lumbar spine radiographs dated 10/19/2022. Abdominal CT dated 09/19/2022. TECHNIQUE: MRI of the lumbar spine is performed utilizing various T1 and T2- weighted sequences in the axial and sagittal planes. IV contrast was not administered for this examination. FINDINGS: Lumbar spine: There is a mild acute to subacute superior endplate compression deformity of L3 with associated marrow edema. No retropulsed fragments are seen. Vertebral body height is otherwise maintained throughout the lumbar spine. Alignment is preserved. There is straightening of the lumbar lordosis. Small anterior osteophytes are seen throughout. Ill-defined T1 hypointense lesions with mild marrow edema are seen in the L1 and L2 vertebral bodies. These measure up to 2.3 cm and are highly suspicious for metastatic disease. There is also a lesion within the right lamina of L1 seen on axial image #14. A T1 hyperintense lesion within the body of T12 may represent a hemangioma. The transverse and spinous processes appear intact. There is no evidence of spondylolysis. Intervertebral discs: Degenerative disc desiccation is seen throughout the lumbar spine. There is efuf-[id number]-[id number] loss of height at L5-S1. Spinal cord: The visualized spinal cord is normal in morphology and signal intensity. The conus medullaris terminates at the L1-L2 interspace. The nerve roots of the cauda equina are normal in morphology. L1-L2: Unremarkable. L2-L3: The central canal is clear. Predominantly facet arthropathy contributes to mild right neural foraminal stenosis. L3-L4: Unremarkable. L4-L5: There is minimal posterior disc bulge. The central canal is clear. Mild facet arthropathy is of no consequence. The neural foramina are patent. L5-S1: There is broad-based posterior disc bulge which abuts the transiting nerve roots. Lateral disc bulge contributes to bilateral subarticular stenosis and may abut the exiting bilateral L5 nerve roots. In conjunction with facet arthropathy there is mild left and [id number] right neural foraminal stenosis. Sacrum: The visualized sacrum is normal in morphology and signal intensity. Soft tissues: The paraspinous soft tissues are normal as imaged. The retroperitoneal structures are grossly unremarkable but incompletely evaluated. IMPRESSION: 1. There are ill-defined T1 hypointense lesions within the bodies of L1 and L2. Given the cancer history these are highly suspicious for metastatic disease. There is also a lesion within the right lamina of L1. 2. There is an acute to subacute mild superior endplate compression fracture of L3 with associated marrow edema. Given suspected metastatic disease this may be pathologic. 3. There are no retropulsed fragments or central canal stenosis. 4. Mild spondylotic change as above. See discussion for detailed level by level analysis. Dictated: 10/31/2022 8:49 AM Transcribed: 10/31/2022 9:11 AM Clementina [id number] [email or web address] Electronically signed by: Aniket Ryan M.D. 10/31/2022 9:14 AM PG Care Time/CCT Total # of Minutes Spent Total Time Spent with Patient: Total time spent is greater than 50% in coordination of care (as documented) at patient's floor/unit and/or counseling patient: Coding Level of Care Code INP/OBS CONSULT LVL 3, 45 MIN Diagnoses Non-small cell cancer of right lung C34.91 Metabolic brain disease G93.41
[2022-11-03 07:15] LABS: Hematocrit (blood only) 42.5 % (42.0-52.0); Hemoglobin 14.4 g/dl (14.0-18.0); Mean Corpuscular Hemoglobin 29.8 pg (25.0-34.0); Mean Corpuscular Hgb Conc 33.9 g/dL (32.0-36.0); Mean Platelet Volume 8.5 fL (9.4-12.4); Platelet Count 248 K/uL (130-400); RDW Standard Deviation 47.5 fL (36.4-46.3); Red Blood Count 4.83 M/uL (4.70-6.10); White Blood Count 10.35 K/ul (4.8-10.8)
[2022-11-03 07:34] LABS: Calcium 8.7 mg/dl (8.5-10.1); Potassium 4.3 mmol/L (3.5-5.1)
[2022-11-03 07:40] LABS: BUN Creatinine Ratio 16.7 (10-20); Creatinine Clr Calc Pharmacy 88.2 ml/min; Est GFR (African American) 112.9 ml/min; Est GFR (Non-African American) 97.4 ml/min
--- NOTE | 2022-11-03 08:25 | Radiation OncologyConsultation ---
Date of Consultation November 03, 2022 Assessment & Plan (1) Metastatic adenocarcinoma to bone: This is a 61-year-old gentleman with known metastatic adenocarcinoma of the lung. 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 ([id number]. Stage IV) he was hospitalized due to shortness of breath and cough. He underwent bronchoscopy with EBUS. FNA showed a diagnosis of non-small cell carcinoma favoring adenocarcinoma. He had an MRI which showed a solitary lesion of the left temporal lobe. 10/24/2022-11/01/2022. 5 fractions of palliative radiation therapy were given to the chest. He received 2000 cGy. While on treatment he developed intractable pain was admitted. Metastatic disease has been found in the lumbar spine as well as compression fracture. We will have him brought to our office for CT simulation with plans to give palliative treatment to the lumbar spine. Plan for 5 fractions. We will then simulate him for treatment to the brain lesion. This will be SBRT and will be given in 3 fractions. This has been reviewed with the patient. He is in agreement to undergo his CT simulation. Pending review of our schedule this will be today or Sunday. CT simulation of the lumbar spine. He will begin treatment when the treatment plans are complete. Plan to begin urgently for palliation of pain. Plan ATTENDING ADDENDUM: Assessment: Mr. Rodríguez is a 61-year-old gentleman who presents with metastatic lung cancer. The patient has locally advanced disease involving his lung for which he recently completed a course of palliative radiation therapy (2000 cGy, 5 fractions, 11/01/2022). Unfortunately, the patient was readmitted to the hospital due to multiple medical issues including lower back pain. The patient did have an MRI of the lumbar spine which does reveal metastatic disease involving the lumbar spine. Additionally, the patient does have a known solitary brain metastasis. Dr. Scott from medical oncology has evaluated the patient and has recommended consideration for palliative radiation therapy for his lumbar spine and brain. Dr. Scott does plan to consider systemic therapy in the outpatient setting. We have been asked to evaluate the patient regarding further palliative radiation therapy. Recommendation: Sequential treatment for the lumbar spine (5 fractions) followed by SBRT for his brain metastasis (3 fractions). Plan: 1. CT simulation today for treatment planning for radiation therapy. Plan to start radiation therapy for treatment of lumbar spine on Sunday. Patient does not need to remain in the hospital for radiation therapy however he will be brought down for treatment if he is still admitted to the hospital. 2. Following completion of radiation therapy lumbar spine, we will consider CT simulation for treatment planning for his brain metastasis. Treatment planning and treatment delivery for brain metastasis can be done concurrently as systemic therapy. 3. Follow-up with medical oncology in the outpatient setting. 4. Continue current pain management as per primary medical team. 5. Patient and family encouraged to call us with any further questions or concerns. Rationale/Explanation of Treatment: I have explained the indications, alternatives, benefits, risks and side effects of radiation therapy to the abdomen. I have explained the most common side effects including but are not limited to skin erythema, skin break down, hair loss, fibrosis, telengectesia, adhesion development, radiation pneumonitis, rib and bone fracture, renal failure, kidney disease, liver disease, liver failure, bowel obstruction, bowel perforation, urinary symptoms, nausea, vomiting, diarrhea, spinal cord myelopathy, anemia, fatigue and development of secondary malignancy. I also discussed that male patients may have issues with erections (potency) and infertility issues depending on their age and area of treatment. I have explained the CT simulation process and treatment planning. I explained what to expect before, during and after treatment on a regular basis. I have explained to the patient that there is an increased risk of overlap from the previous course of radiation therapy and the current course of radiation therapy which can increase the risk of all acute and late side effects of radiation therapy. History of Present Illness Reason for Consultation: Recommendations for radiation therapy to the lumbar spine. Requesting Physician: Dr. Dinero/Dr. Scott Attending Physician: Aelxandro Dinero MD History of Present Illness Patient initially presents with progressive cough. Increase shortness of breath. 09/19/2022. Chest x-ray. Ill-defined area of dense consolidation in the right hilar region suspicious for mass with postobstructive pneumonia in the right upper lobe and right lower lobe. 09/19/2022. CT chest with contrast. 5 cm masslike area of consolidation highly suspicious for malignant disease in the right hilar region and right upper lobe. There are areas of postobstructive pneumonia distal to the central lesion involving upper, lower and to a lesser extent right middle lobe. 4.2 cm ascending aortic aneurysm. 09/19/2022. CT of abdomen/pelvis. No dominant mass or definite metastatic disease in the abdomen or pelvis. There is single short segment narrowing in the transverse colon without obstruction probably peristalsis. Occlusion of right iliac artery at the origin due to chronic atherosclerosis disease. 10/19/2022. Patient admitted to [facility] due to increased shortness of breath. 10/19/2022. Chest x-ray. 1. Large right perihilar/right upper lobe mass redemonstrated. 2. Progressively worsened mixed interstitial and alveolar opacities throughout the right lung likely represents postobstructive pneumonitis. Progressive metastatic disease could appear similarly. 3. Emphysema with mild reticular nodular opacities throughout the left lung again noted. 10/19/2022. Chest CTA. 1. A 6 cm focal area of consolidation within the right upper lobe with soft tissue thickening within the right hilum and surrounding the right mainstem bronchus. This is similar to the prior study and could represent the patient's known lung mass. However, this is difficult to characterize due to the extensive surrounding airspace opacities within the right lung which have progressed. This could be due to posttreatment changes, superimposed pneumonia, or less likely asymmetric pulmonary edema. 2. There is a new trace right pleural effusion. 3. A new 4 mm subpleural nodule within the left lower lobe. Additional subcentimeter nodular densities within the left lung remain stable. 4. Emphysema. 5. Stable 18 mm left adrenal gland nodule. 6. No evidence for a pulmonary embolus. 7. Additional findings as described above. 10/19/2022. Lumbar x-ray. Degenerative changes as above without acute fracture or subluxation. 10/19/2022. Shoulder x-ray. 1. No acute fracture or dislocation. 2. Please refer to CTA of the chest for discussion of the additional intrathoracic findings. 10/20/2022. MRI of the brain. 1 cm enhancing focus within the cortex of the left temporal lobe with associated vasogenic edema. Given the clinical history, a metastasis is favored. Primary brain lesion considered less likely. 10/20/2022. Bronchoscopy with EBUS FNA. "Rapid onsite pathology was positive for carcinoma from the right upper lobe mucosal biopsies and station 4R (right paratracheal lymph node) FNA passes. The right upper lobe appears to be infiltrated with tumor. " 10/24/2022-11/01/2022. 5 fractions of palliative radiation therapy to the chest. 10/25/2022. Hospital discharge. 10/30/2022. Readmission due to intractable back pain. Patient was in our office and unable to receive his treatment on 10/30/2022. He was having severe back pain with spasms. He had spoke to the primary care provider who phoned in a prescription for Flexeril. He took 1 and 2 hours later took another at their direction. When he came into our office he had difficulty getting out of the car and a code purple was initiated. He was able to get out of the car. In our office he continued to have frequent back spasms. He was confused and agitated. He was therefore taken to the emergency room. 10/30/2022. MRI of the lumbar spine. There are ill-defined T1 hypointense lesions within the bodies of L1 and L2. Highly suspicious of metastatic disease. There is also lesion in the right lamina of L1. There is an acute to subacute mild superior endplate compression fracture of L3 with associated marrow edema. Suspected metastatic disease. Patient completed his radiation therapy to the chest as an inpatient. Dr. Scott spoke with Dr. Lamb about the sequence of treatment. To help improve with his back discomfort. We will plan for palliative radiation therapy to the lumbar spine. He continues to have significant pain giving a pain level of 10 in the lower back. Allergies Allergy/AdvReac Type Severity Reaction Status Date / Time belladonna alkaloids Allergy Intermediate Hives Verified 10/30/22 15:16 oxycodone Allergy Intermediate Hives Verified 10/30/22 15:16 cocoa Allergy Mild Rash Verified 10/30/22 15:16 petrolatum,white Allergy Mild Rash Verified 10/30/22 15:16 tetracycline AdvReac Severe Anaphylaxis Verified 10/30/22 15:16 hydrocodone AdvReac Intermediate Hives Verified 10/30/22 15:16 Home Medications Medication Instructions Recorded Confirmed Type bupropion HCl 300 mg 24 hr tablet, 300 mg PO QAM 09/29/22 10/30/22 History extended release alendronate 70 mg tablet 70 mg PO Q7D 10/30/22 10/30/22 History atorvastatin 80 mg tablet 80 mg PO QPM 10/30/22 10/30/22 History bupropion HCl 150 mg 24 hr tablet, 150 mg PO QAM 10/30/22 10/30/22 History extended release calcium carbonate 600 mg calcium 600 mg PO BID 10/30/22 10/30/22 History (1,500 mg) tablet cholecalciferol (vitamin D3) 25 25 mcg PO DAILY 10/30/22 10/30/22 History mcg (1,000 unit) capsule gabapentin 100 mg capsule 100 mg PO QPM 10/30/22 10/30/22 History meloxicam 15 mg tablet 15 mg PO DAILY 10/30/22 10/30/22 History omeprazole 40 mg capsule,delayed 40 mg PO DAILY 10/30/22 10/30/22 History release Patient History Medical History Arthritis COPD (chronic obstructive pulmonary disease) Edema Hypercholesteremia Lung cancer Mass of lung Mass of right lung Metabolic brain disease Palpitations Patellofemoral instability of both knees with pain Reflex sympathetic dystrophy Spinal stenosis Surgical History Hx of right knee surgery Social History Smoking Status: Current some day smoker Tobacco Type: Cigarettes Cigarettes Per Day: 1; Hx Alcohol Use: No Hx Substance Use: No Preferred Language: Puerto Rican Communication Ability: Effective Import Coordinator Required: No Beliefs That Will Affect Care: None Current Living Situation: Alone Current Living Situation Comment: Lives on 1st floor of 2 story house Feels Safe at Home: Yes Assistive Devices: Cane and Walker Review of Systems Constitutional: + fatigue Eyes: no diplopia and no discharge Respiratory: + cough and + dyspnea (With exertion.) Cardiovascular: no chest pain at rest Gastrointestinal: + constipation Genitourinary: no dysuria Musculoskeletal: See history of present illness Neurologic: History of present illness Psychiatric: + anxiety (Improved compared to day of admission) Physical Exam Constitutional: WD/WN, vitals as above ENMT: Ears: no hearing impairment Neck: trachea midline, no thyromegaly Respiratory: no respiratory distress Auscultation: + diminished lung sounds; no wheezes Cardiovascular: RRR, no murmur, no edema Gastrointestinal (Abdomen): normal bowel sounds, soft, nontender, no hepatospl enomegaly Musculoskeletal: Tenderness of lower back. Skin: no rashes, warm and dry Neurologic: Good strength and coordination of upper and lower extremities. Psychiatric: A+Ox3, euthymic affect Results (Rad Onc) Pathology Results: were reviewed and pertinent findings noted in HPI [facility], [id number] Magnetic Resonance Report Patient: ONDINA RODRÍGUEZAdmit Date: 10/30/22MR#: [id number]: [id number] STAcct ID:[id number]: Date: 1960[facility] Zip: [place], [place] [address]Kod: 61Location: 2NSex: MRoom/Bed: [id number] Phy: Alexandro Dinero, MDDiagnosis: BACK PAINPri Phy: PCP,NOService Date: 10/30/22Fam Phy:Interpreting Phy: Aniket Ryan MDAdmit Phy: Fred Beckford MD Ordering Phy: Fred Beckford MD cc: ~ MR OF THE LUMBAR SPINE WITHOUT IV CONTRAST CLINICAL HISTORY: Low back pain. Lower extremity muscle spasms. Spinal stenosis. History of lung cancer. COMPARISON STUDY: Lumbar spine radiographs dated 10/19/2022. Abdominal CT dated 09/19/2022. TECHNIQUE: MRI of the lumbar spine is performed utilizing various T1 and T2- weighted sequences in the axial and sagittal planes. IV contrast was not administered for this examination. FINDINGS: Lumbar spine: There is a mild acute to subacute superior endplate compression deformity of L3 with associated marrow edema. No retropulsed fragments are seen. Vertebral body height is otherwise maintained throughout the lumbar spine. Alignment is preserved. There is straightening of the lumbar lordosis. Small anterior osteophytes are seen throughout. Ill-defined T1 hypointense lesions with mild marrow edema are seen in the L1 and L2 vertebral bodies. These measure up to 2.3 cm and are highly suspicious for metastatic disease. There is also a lesion within the right lamina of L1 seen on axial image #14. A T1 hyperintense lesion within the body of T12 may represent a hemangioma. The transverse and spinous processes appear intact. There is no evidence of spondylolysis. Intervertebral discs: Degenerative disc desiccation is seen throughout the lumbar spine. There is blas-yh-vkajhvxz loss of height at L5-S1. Spinal cord: The visualized spinal cord is normal in morphology and signal intensity. The conus medullaris terminates at the L1-L2 interspace. The nerve roots of the cauda equina are normal in morphology. L1-L2: Unremarkable. L2-L3: The central canal is clear. Predominantly facet arthropathy contributes to mild right neural foraminal stenosis. L3-L4: Unremarkable. L4-L5: There is minimal posterior disc bulge. The central canal is clear. Mild facet arthropathy is of no consequence. The neural foramina are patent. L5-S1: There is broad-based posterior disc bulge which abuts the transiting nerve roots. Lateral disc bulge contributes to bilateral subarticular stenosis and may abut the exiting bilateral L5 nerve roots. In conjunction with facet arthropathy there is mild left and [id number]-gw-[id number] right neural foraminal stenosis. Sacrum: The visualized sacrum is normal in morphology and signal intensity. Soft tissues: The paraspinous soft tissues are normal as imaged. The retroperitoneal structures are grossly unremarkable but incompletely evaluated. IMPRESSION: 1. There are ill-defined T1 hypointense lesions within the bodies of L1 and L2. Given the cancer history these are highly suspicious for metastatic disease. There is also a lesion within the right lamina of L1. 2. There is an acute to subacute mild superior endplate compression fracture of L3 with associated marrow edema. Given suspected metastatic disease this may be pathologic. 3. There are no retropulsed fragments or central canal stenosis. 4. Mild spondylotic change as above. See discussion for detailed level by level analysis. Dictated: 10/31/2022 8:49 AM Transcribed: 10/31/2022 9:11 AM Clementina [id number] [email or web address]_Jagruti Electronically signed by: Aniket Ryan M.D. 10/31/2022 9:14 AM Time Spent Midlevel I spent [10] minutes in preparation for this follow up evaluation including reviewing all the clinical records, reviewing laboratory studies, pathology reports and imaging results. I spent [20] minutes with direct face to face interaction with the patient and/or family including performing a physical exam and answering all questions. I spent [15] minutes documenting this patient's visit. Attending I spent 5 minutes in preparation for this follow up evaluation including reviewing all the clinical records, reviewing laboratory studies, pathology reports and imaging results. I spent 10 minutes with direct face to face interaction with the patient and/or family including performing a physical exam and answering all questions. I spent 5 minutes documenting this patient's visit.
[2022-11-03] MEDS: buPROPion HCl 75 MG TABLET PO SCH (08:59)
--- NOTE | 2022-11-03 11:40 | Hospitalist Progress Note ---
Date of Service November 03, 2022 Assessment & Plan (1) Non-small cell cancer of right lung: Plan: (Non-small cell cancer of right lung: Right upper lobe lung mass status post bronchoscopy and EBUS with biopsy Preliminary pathology report is consistent with non-small cell cancer on right lung Left lung has a subpleural nodule, moreover patient has mediastinal lymphadenopathy CT of brain showed left temporal lobe possible metastasis with vasogenic edema Patient not a candidate for curative treatment including surgery, palliative treatment, discussed with hematology oncology patient needs to follow-up for outpatient PET scan Currently undergoing palliative radiation therapy (2) Lumbar compression fracture: Plan: Patient has a long history of back pain from lumbar stenosis, however complained of worsening back pain and spasm This made him take extra doses of flexeril without relief, so he presented to the hospital MRI shows evidence of L3 compression fracture and also likely metastasis lesions on L1 and L2 Spine surgery and Oncology on consult, appreciate recs He was offered Kyphoplasty or Brace. patient still hasn't made up his mind If he wants Kyphoplasty, then spine surgery will take a biopsy of the new lesions seen on L1 ans L2 He was scheduled for outpatient PET/Scan on 10/26 ,but couldn't do it since he is getting radiation therapy Rad onc has been consulted, plan for palliative radiation (3) Brain metastasis: Plan: A solitary met was seen on brain MRI Oncology aware awaiting molecular study reslt regarding modality of treatment may benefit from palliative radiation. Will start him on dexa because of suggestion of surrounding vasogenic edema Rad onc consulted, plan for palliative radiation (4) Acute encephalopathy: Plan: Likely acute metabolic encephalopathy due to the effect of medication Patient now back to baseline (5) Hypercholesteremia: (6) COPD (chronic obstructive pulmonary disease): (7) Mediastinal adenopathy: (8) Muscle spasm of back: Plan continue hospitalization DNR/DNI Admission and Anticipated Discharge Date Admission Date: October 30, 2022 Subjective patient seen and examined, still undecided if he wants conservative LTSO brace of kyphoplasty, but his confusion has lifted Review of Systems Review of Systems: All systems reviewed are negative, apart from the ones contained in the history. Physical Exam Physical Exam: The patient is awake, alert and oriented 3, well developed and well nourished, normocephalic and atraumatic, lying in bed and in no acute distress. HEENT--PERRL, EOMI, mucous membranes and oropharynx mildly dry Neck--supple. No JVD. No bruits. Thyroid normal, trachea midline, no adenopathy. Heart--normal S1 and S2. No murmurs, rubs or gallops. Lungs--clear bilaterally, no respiratory distress, no accessory muscle use. Abdomen--normal bowel sounds and soft. Mild epigastric and left sided abdominal pain Extremities--no cyanosis or clubbing. No edema. Dermatologic--normal skin turgor, normal color, no abnormal lymph nodes, no rash. Neurologic--cranial nerves II through XII grossly intact. Rheumatologic--normal range of motion. Psychiatric--normal affect. Results & Data Results & Data ([facility]) Vital Signs (Past 12 Hours) Vital Signs Temp Pulse Pulse Resp BP BP Pulse Ox 11/03/22 11:16 97.0 F L 100 H 18 89/53 L 92 11/03/22 09:21 11/03/22 07:26 91 H 11/03/22 07:24 97.9 F 89 18 92/58 L 92 11/03/22 04:00 97.9 F 89 18 99/59 L 96 O2 Del Method O2 Flow Rate 11/03/22 11:16 Nasal Cannula 1 11/03/22 09:21 Nasal Cannula 2 11/03/22 07:26 11/03/22 07:24 Nasal Cannula 3 11/03/22 04:00 Nasal Cannula 2 PG Care Time/CCT Total # of Minutes Spent Total Time Spent with Patient: Total time spent is greater than 50% in coordination of care (as documented) at patient's floor/unit and/or counseling patient: Coding Level of Care Code 51581 SUB INP/OBS CARE 2/35MIN Diagnoses Non-small cell cancer of right lung C34.91 Lumbar compression fracture S32.000A Brain metastasis C79.31 Acute encephalopathy G93.40 Hypercholesteremia E78.00 COPD (chronic obstructive pulmonary disease) J44.9 Mediastinal adenopathy R59.0 Muscle spasm of back M62.830 Time Spent (min) 35
[2022-11-03] MEDS: guaiFENesin/DEXTROM SYRUP 200MG/20MG 10ML UDC PO PRN (12:19)
[2022-11-03] MEDS: MIDODRINE HCL 2.5 MG TAB PO SCH (16:58)
[2022-11-03] MEDS: LIDOCAINE 5% 1 PATCH TD SCH (20:08)
[2022-11-04] MEDS: ACETAMINOPHEN 325 MG TAB PO SCH ×4 (05:52→23:20)
[2022-11-04] MEDS: MIDODRINE HCL 2.5 MG TAB PO SCH ×3 (08:40→17:56)
[2022-11-04] MEDS: buPROPion HCl 75 MG TABLET PO SCH (08:40)
[2022-11-04] MEDS: traMADol HCL 50 MG TABLET PO PRN ×2 (08:43→19:46)
[2022-11-04] MEDS: guaiFENesin/DEXTROM SYRUP 200MG/20MG 10ML UDC PO PRN (08:46)
[2022-11-04 09:38] LABS: Hematocrit (blood only) 42.9 % (42.0-52.0); Hemoglobin 14.2 g/dl (14.0-18.0); Mean Corpuscular Hemoglobin 29.5 pg (25.0-34.0); Mean Corpuscular Hgb Conc 33.1 g/dL (32.0-36.0); Mean Corpuscular Volume 89.2 fL (80.0-100.0); Mean Platelet Volume 8.8 fL (9.4-12.4); Platelet Count 240 K/uL (130-400); RDW Coefficient of Variation 14.8 % (11.5-14.5); RDW Standard Deviation 47.8 fL (36.4-46.3); Red Blood Count 4.81 M/uL (4.70-6.10); White Blood Count 10.16 K/ul (4.8-10.8)
[2022-11-04 09:57] LABS: BUN Creatinine Ratio 15.7 (10-20); Calcium 8.6 mg/dl (8.5-10.1); Creatinine Clr Calc Pharmacy 100.3 ml/min; Est GFR (African American) 118.1 ml/min; Est GFR (Non-African American) 101.9 ml/min; Potassium 3.7 mmol/L (3.5-5.1)
--- NOTE | 2022-11-04 11:42 | Hospitalist Progress Note ---
Date of Service November 04, 2022 Assessment & Plan (1) Non-small cell cancer of right lung: Plan: (Non-small cell cancer of right lung: Right upper lobe lung mass status post bronchoscopy and EBUS with biopsy Preliminary pathology report is consistent with non-small cell cancer on right lung Left lung has a subpleural nodule, moreover patient has mediastinal lymphadenopathy CT of brain showed left temporal lobe possible metastasis with vasogenic edema Patient not a candidate for curative treatment including surgery Currently undergoing palliative radiation therapy He will follow his oncologist outpatient (2) Lumbar compression fracture: Plan: Patient has a long history of back pain from lumbar stenosis, however complained of worsening back pain and spasm This made him take extra doses of flexeril without relief, so he presented to the hospital MRI shows evidence of L3 compression fracture and also likely metastasis lesions on L1 and L2 Spine surgery and Oncology on consult, appreciate recs He was offered Kyphoplasty or Brace. patient still hasn't made up his mind If he wants Kyphoplasty, then spine surgery will take a biopsy of the new lesions seen on L1 ans L2 He was scheduled for outpatient PET/Scan on 10/26 ,but couldn't do it since he is getting radiation therapy Rad onc has been consulted, plan for palliative radiation to his spine He will follow his oncologist outpatient (3) Brain metastasis: Plan: A solitary met was seen on brain MRI Oncology aware awaiting molecular study reslt regarding modality of treatment may benefit from palliative radiation. Will start him on dexa because of suggestion of surrounding vasogenic edema Rad onc consulted, plan for palliative radiation (4) Acute encephalopathy: Plan: Likely acute metabolic encephalopathy due to the effect of medication Patient now back to baseline (5) Hypercholesteremia: (6) COPD (chronic obstructive pulmonary disease): (7) Mediastinal adenopathy: (8) Muscle spasm of back: Plan continue hospitalization DNR/DNI Admission and Anticipated Discharge Date Admission Date: October 30, 2022 Subjective patient seen and examined, still undecided if he wants conservative LTSO brace or kyphoplasty, he is open to palliative radiation to his spine Review of Systems Review of Systems: All systems reviewed are negative, apart from the ones contained in the history. Physical Exam Physical Exam: The patient is awake, alert and oriented 3, well developed and well nourished, normocephalic and atraumatic, lying in bed and in no acute distress. HEENT--PERRL, EOMI, mucous membranes and oropharynx mildly dry Neck--supple. No JVD. No bruits. Thyroid normal, trachea midline, no adenopathy. Heart--normal S1 and S2. No murmurs, rubs or gallops. Lungs--clear bilaterally, no respiratory distress, no accessory muscle use. Abdomen--normal bowel sounds and soft. Mild epigastric and left sided abdominal pain Extremities--no cyanosis or clubbing. No edema. Dermatologic--normal skin turgor, normal color, no abnormal lymph nodes, no rash. Neurologic--cranial nerves II through XII grossly intact. Rheumatologic--normal range of motion. Psychiatric--normal affect. Results & Data Results & Data ([facility]) Vital Signs (Past 12 Hours) Vital Signs Temp Pulse Pulse Resp BP BP Pulse Ox 11/04/22 11:26 104 H 11/04/22 08:00 11/04/22 07:45 97.7 F 91 H 20 107/67 94 11/04/22 07:19 92 H 11/04/22 02:40 98.4 F 89 16 98/61 L 98 O2 Del Method O2 Flow Rate 11/04/22 11:26 11/04/22 08:00 Nasal Cannula 2 11/04/22 07:45 Nasal Cannula 3 11/04/22 07:19 11/04/22 02:40 Nasal Cannula 2 PG Care Time/CCT Total # of Minutes Spent Total Time Spent with Patient: Total time spent is greater than 50% in coordination of care (as documented) at patient's floor/unit and/or counseling patient: Coding Level of Care Code 71300 SUB INP/OBS CARE 2/35MIN Diagnoses Non-small cell cancer of right lung C34.91 Lumbar compression fracture S32.000A Brain metastasis C79.31 Acute encephalopathy G93.40 Hypercholesteremia E78.00 COPD (chronic obstructive pulmonary disease) J44.9 Mediastinal adenopathy R59.0 Muscle spasm of back M62.830 Time Spent (min) 35
[2022-11-04] MEDS: LIDOCAINE 5% 1 PATCH TD SCH (19:46)
[2022-11-04] MEDS: hydrOXYzine HCl 25 MG TAB PO PRN (20:47)
[2022-11-05] MEDS: ACETAMINOPHEN 325 MG TAB PO SCH ×4 (05:37→22:27)
[2022-11-05] MEDS: MIDODRINE HCL 2.5 MG TAB PO SCH ×3 (07:42→15:55)
[2022-11-05] MEDS: buPROPion HCl 75 MG TABLET PO SCH (07:42)
--- NOTE | 2022-11-05 12:02 | Hospitalist Progress Note ---
Date of Service November 05, 2022 Assessment & Plan (1) Non-small cell cancer of right lung: Plan: (Non-small cell cancer of right lung: Right upper lobe lung mass status post bronchoscopy and EBUS with biopsy Preliminary pathology report is consistent with non-small cell cancer on right lung Left lung has a subpleural nodule, moreover patient has mediastinal lymphadenopathy CT of brain showed left temporal lobe possible metastasis with vasogenic edema Patient not a candidate for curative treatment including surgery Currently undergoing palliative radiation therapy He will follow his oncologist outpatient (2) Lumbar compression fracture: Plan: Patient has a long history of back pain from lumbar stenosis, however complained of worsening back pain and spasm This made him take extra doses of flexeril without relief, so he presented to the hospital MRI shows evidence of L3 compression fracture and also likely metastasis lesions on L1 and L2 Spine surgery and Oncology on consult, appreciate recs He was offered Kyphoplasty or Brace. patient still hasn't made up his mind If he wants Kyphoplasty, then spine surgery will take a biopsy of the new lesions seen on L1 ans L2 He was scheduled for outpatient PET/Scan on 10/26 ,but couldn't do it since he is getting radiation therapy Rad onc has been consulted, plan for palliative radiation to his spine Said his pain is under good control He will follow his oncologist outpatient, has an appointment on Monday 11/06 (3) Brain metastasis: Plan: A solitary met was seen on brain MRI Oncology aware awaiting molecular study reslt regarding modality of treatment may benefit from palliative radiation. Will start him on dexa because of suggestion of surrounding vasogenic edema Rad onc consulted, plan for palliative radiation (4) Acute encephalopathy: Plan: Likely acute metabolic encephalopathy due to the effect of medication Patient now back to baseline (5) Hypercholesteremia: (6) COPD (chronic obstructive pulmonary disease): (7) Mediastinal adenopathy: (8) Muscle spasm of back: Plan hopefully d/c tomorrow DNR/DNI Admission and Anticipated Discharge Date Admission Date: October 30, 2022 Subjective patient seen and examined, still undecided if he wants conservative LTSO brace or kyphoplasty, he is open to palliative radiation to his spine, said his pain is under good control Review of Systems Review of Systems: All systems reviewed are negative, apart from the ones contained in the history. Physical Exam Physical Exam: The patient is awake, alert and oriented 3, well developed and well nourished, normocephalic and atraumatic, lying in bed and in no acute distress. HEENT--PERRL, EOMI, mucous membranes and oropharynx mildly dry Neck--supple. No JVD. No bruits. Thyroid normal, trachea midline, no adenopathy. Heart--normal S1 and S2. No murmurs, rubs or gallops. Lungs--clear bilaterally, no respiratory distress, no accessory muscle use. Abdomen--normal bowel sounds and soft. Mild epigastric and left sided abdominal pain Extremities--no cyanosis or clubbing. No edema. Dermatologic--normal skin turgor, normal color, no abnormal lymph nodes, no rash. Neurologic--cranial nerves II through XII grossly intact. Rheumatologic--normal range of motion. Psychiatric--normal affect. Results & Data Results & Data ([facility]) Vital Signs (Past 12 Hours) Vital Signs Temp Pulse Pulse Resp BP Pulse Ox O2 Del Method 11/05/22 11:31 97.9 F 96 H 18 100/63 94 Nasal Cannula 11/05/22 07:23 Nasal Cannula 11/05/22 07:16 98.2 F 96 H 18 98/64 L 90 Nasal Cannula 11/05/22 07:03 95 H O2 Flow Rate 11/05/22 11:31 3 11/05/22 07:23 2 11/05/22 07:16 3 11/05/22 07:03 PG Care Time/CCT Total # of Minutes Spent Total Time Spent with Patient: Total time spent is greater than 50% in coordination of care (as documented) at patient's floor/unit and/or counseling patient: Coding Level of Care Code 32679 SUB INP/OBS CARE 2/35MIN Diagnoses Non-small cell cancer of right lung C34.91 Lumbar compression fracture S32.000A Brain metastasis C79.31 Acute encephalopathy G93.40 Hypercholesteremia E78.00 COPD (chronic obstructive pulmonary disease) J44.9 Mediastinal adenopathy R59.0 Muscle spasm of back M62.830 Time Spent (min) 35
[2022-11-05] MEDS: LIDOCAINE 5% 1 PATCH TD SCH (19:27)
[2022-11-05] MEDS: traMADol HCL 50 MG TABLET PO PRN (19:28)
[2022-11-05] MEDS: hydrOXYzine HCl 25 MG TAB PO PRN (19:28)
[2022-11-06 06:01] LABS: Hematocrit (blood only) 44.8 % (42.0-52.0); Mean Corpuscular Hemoglobin 29.6 pg (25.0-34.0); Mean Corpuscular Hgb Conc 33.5 g/dL (32.0-36.0); Mean Corpuscular Volume 88.5 fL (80.0-100.0); Mean Platelet Volume 8.5 fL (9.4-12.4); Platelet Count 211 K/uL (130-400); RDW Coefficient of Variation 14.6 % (11.5-14.5); RDW Standard Deviation 46.8 fL (36.4-46.3); Red Blood Count 5.06 M/uL (4.70-6.10); White Blood Count 9.73 K/ul (4.8-10.8)
[2022-11-06] MEDS: ACETAMINOPHEN 325 MG TAB PO SCH ×2 (06:06→11:54)
[2022-11-06 06:13] LABS: BUN Creatinine Ratio 19.5 (10-20); Calcium 8.7 mg/dl (8.5-10.1); Creatinine Clr Calc Pharmacy 87.5 ml/min; Est GFR (African American) 113.5 ml/min; Est GFR (Non-African American) 97.9 ml/min; Potassium 4.1 mmol/L (3.5-5.1)
[2022-11-06] MEDS: MIDODRINE HCL 2.5 MG TAB PO SCH ×3 (09:01→17:14)
[2022-11-06] MEDS: buPROPion HCl 75 MG TABLET PO SCH (09:01)
[2022-11-06] MEDS: traMADol HCL 50 MG TABLET PO PRN (10:06)
--- NOTE | 2022-11-06 13:39 | Discharge Summary ---
Date of Service November 06, 2022 Admission HPI Per Admitting Provider Mr. Grijalva is a 61-year-old male with a past medical history of hyperlipidemia, COPD, non-small cell cancer of the right lung recently admitted for shortness of breath discharged 10/25/2022 after a right upper lobe mass status post bronchoscopy and EBUS showed an S CC. Patient presented to the [facility] for simulation and radiation treatment; COVID was called at that time as patient was tachycardic, confused, and disoriented after taking 2 doses of cyclobenzaprine 10 mg that morning. Patient continued his session [facility], but due to cont inuing to feel poorly was not able to return home. Took gabapentin last night, made him feel sleepy/a little loopy last night. Tried cyclobenzaprine this mornign 10mg x2, very confused. Reports he s ubsequently felt better as the day went on and no longer feels confused. He notes his memory is poor at baseline. 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 He reports he also has spinal stenosis and has discussed a spinal stimulator in the past, but had not yet pursued this. He feels his spasms are similar to prior, but much worse than they normally are. He also has low mid back pain at time of presentation. He reports his strength is okay in both feet, but the spasms cause him a lot of pain and can make ambulation difficult. He thinks he feels a little weaker than normal today. He has not had any infectious symptoms including fever, chills, sweats, dysuria, cough. He reports his main concern is the pain from his spasms. He reports because of this he took the gabapentin last night and cyclobenzaprine twice, and did not have a therapeutic effect let alone the confusion caused. Patient is seen at bedside, family has gone home for the evening at time of discussion. Had a long discussion regarding CODE STATUS, patient notes he has jokingly said that staff could use the practice and has been full code, and he knows that this is what his sisters would want for him. Reflecting on his current level of illness and life he reports that he has lived a good 61 years, but has a lot of illness and pain currently. He reports that if he were to become so ill he would rather may be brought straight to the premature" then necessarily have CPR performed. Discussed that CPR has an approximate 20% success rate, and generally requires at least temporary intubation although beyond that the picture of success is difficult to predict. Patient reports he understands this, and knows that while his sister is disagree and would probably want something different for him but he would prefer not to have resuscitation performed if he were to become so ill that he clinically /his heart and or breathing stopped. With this in mind we will reflect DNR/DNI status. While intermittently forgetful patient does expressed a good understanding of his medical condition and illness, treatment options moving forward, expresses an understanding of the risk/benefits of certain treatments and has capacity for decision-making at bedside. Principal Diagnosis back pain, metastatic cancer Discharge Exam The patient is awake, alert and oriented 3, well developed and well nourished, normocephalic and atraumatic, lying in bed and in no acute distress. HEENT--PERRL, EOMI, mucous membranes and oropharynx mildly dry Neck--supple. No JVD. No bruits. Thyroid normal, trachea midline, no adeno adal. Heart--normal S1 and S2. No murmurs, rubs or gallops. Lungs--clear bilaterally, no respiratory distress, no accessory muscle use. Abdomen--normal bowel sounds and soft. Mild epigastric and left sided abdominal pain Extremities--no cyanosis or clubbing. No edema. Dermatologic--normal skin turgor, normal color, no abnormal lymph nodes, no rash. Neurologic--cranial nerves II through XII grossly intact. Rheumatologic--normal range of motion. Psychiatric--normal affect. Discharge Data Allergies Allergy/AdvReac Type Severity Reaction Status Date / Time belladonna alkaloids Allergy Intermediate Hives Verified 10/30/22 15:16 oxycodone Allergy Intermediate Hives Verified 10/30/22 15:16 cocoa Allergy Mild Rash Verified 10/30/22 15:16 petrolatum,white Allergy Mild Rash Verified 10/30/22 15:16 tetracycline AdvReac Severe Anaphylaxis Verified 10/30/22 15:16 hydrocodone AdvReac Intermediate Hives Verified 10/30/22 15:16 Consultations 10/30/22 19:01 ED Decision to Admit Stat 10/31/22 09:30 Consult Orthopedic Surgery Routine 11/02/22 11:30 Consult Oncology Routine 11/03/22 08:20 Consult Radiation Oncology Routine Ordered Studies 10/30/22 21:48 MR lumbar spine wo con Urgent 11/03/22 09:57 CT guide rad therapy chest Routine Hospital Course (1) Non-small cell cancer of right lung: (Non-small cell cancer of right lung: Right upper lobe lung mass status post bronchoscopy and EBUS with biopsy Preliminary pathology report is consistent with non-small cell cancer on right lung Left lung has a subpleural nodule, moreover patient has mediastinal lymphadenopathy CT of brain showed left temporal lobe possible metastasis with vasogenic edema Patient not a candidate for curative treatment including surgery Currently undergoing palliative radiation therapy He will follow his oncologist outpatient (2) Lumbar compression fracture: Patient has a long history of back pain from lumbar stenosis, however complained of worsening back pain and spasm This made him take extra doses of flexeril without relief, so he presented to the hospital MRI shows evidence of L3 compression fracture and also likely metastasis lesions on L1 and L2 Spine surgery and Oncology on consult, appreciate recs He was offered Kyphoplasty or Brace. patient still hasn't made up his mind If he wants Kyphoplasty, then spine surgery will take a biopsy of the new lesions seen on L1 ans L2 He was scheduled for outpatient PET/Scan on 10/26 ,but couldn't do it since he is getting radiation therapy Rad onc has been consulted, plan for palliative radiation to his spine Said his pain is under good control He will follow his oncologist outpatient, has an appointment on Monday 11/06 (3) Brain metastasis: A solitary met was seen on brain MRI Oncology aware awaiting molecular study reslt regarding modality of treatment may benefit from palliative radiation. Will start him on dexa because of suggestion of surrounding vasogenic edema Rad onc consulted, plan for palliative radiation (4) Acute encephalopathy: Likely acute metabolic encephalopathy due to the effect of medication Patient now back to baseline (5) Hypercholesteremia: (6) COPD (chronic obstructive pulmonary disease): (7) Mediastinal adenopathy: (8) Muscle spasm of back: Plan d/c today to follow up with oncology tomorrow DNR/DNI Total Time Total Time Spent Total Time Spent (In Minutes): 35 Discharge Plan Discharge Items Patient Disposition: Home - Self-Care Reason For Visit: BACK PAIN Discharge Diagnosis: back pain, metastatic cancer Activity: Per Instructions section Lifting: Gradually increase as tolerated Non-emergency contact: Primary Care Provider and Oncologist Call non-emergency contact if: you have any medication questions Follow-up/Referrals: Tala Lamb MD [Physician] - (Please return to Radiation Oncology on February 14, 2023 at 2:15pm for a follow up regarding the radiation that you received. To change follow up date/time, please call [phone]) PCP,NO [Primary Care Provider] - Diet: Regular Addtl Attending Provider Instructions: please follow up with your Oncology appointment tomorrow. Also follow up with radiation oncology Pending Studies at Discharge: No Stand-Alone Forms: My [employer], Smoking Cessation Medications and DC Order Prescriptions: New bupropion HCl 75 mg Tablet 75 mg PO QAM 30 Days Qty: 30 0RF midodrine 2.5 mg Tablet 5 mg PO TID@0800,1200,1700 30 Days Qty: 30 0RF Continued alendronate 70 mg tablet 70 mg PO Q7D Label Comments: has not been taking calcium carbonate 600 mg calcium (1,500 mg) tablet 600 mg PO BID Label Comments: has not been taking cholecalciferol (vitamin D3) 25 mcg (1,000 unit) capsule 25 mcg PO DAILY Label Comments: has not been taking gabapentin 100 mg capsule 100 mg PO QPM Label Comments: has not been taking as prescribed omeprazole 40 mg capsule,delayed release(DR/EC) 40 mg PO DAILY Label Comments: has not been taking meloxicam 15 mg tablet 15 mg PO DAILY Label Comments: has not been taking atorvastatin 80 mg tablet 80 mg PO QPM Discontinued bupropion HCl 300 mg tablet extended release 24 hr 300 mg PO QAM Rx Instructions: patient states he has been weaning his dose down R/T side effects bupropion HCl 150 mg tablet extended release 24 hr 150 mg PO QAM Rx Instructions: take along with 300mg Discharge Orders: Discharge Order (Routine); Ordered 11/06/22 Ordered By: Alexandro Dinero Admission Data Admit Date/Time: 10/30/22 19:16 Attending Provider: Alexandro Dinero Admit Provider: Fred Beckford Primary Care Provider: PCP,NO Other Providers: Fred Beckford ; Prosper Rose ; Walter Sctot ; Bruno Lamb. Other Interventions: Discharge Summary Assessment (RN) Last Done: 11/06/22 11:28 Coding Level of Care Code HOSP INP/OBS DISCH >30 MIN Diagnoses Non-small cell cancer of right lung C34.91 Lumbar compression fracture S32.000A Brain metastasis C79.31 Acute encephalopathy G93.40 Hypercholesteremia E78.00 COPD (chronic obstructive pulmonary disease) J44.9 Mediastinal adenopathy R59.0 Muscle spasm of back M62.830 Time Spent (min) 35
[2022-11-06] MEDS ORDERED: ONDANSETRON INJ 2 MG/ML 2 ML VIAL IV STA (13:56)
== END 2022-11-06 17:45 | disposition home or self-care (01) | DRG 542 ==
LOC: ED 16:34 → 2N 19:16 → SUATTDRO 19:16 → INTOOBSV 19:16 → 2N 21:03

== ENCOUNTER 2022-11-30 14:52 | Inpatient (IN) ==
[2022-11-30] MEDS ORDERED: ALBUTEROL 0.083% NEBU SOLN 3 ML VIAL NEB STA (15:05)
[2022-11-30] MEDS ORDERED: SODIUM CHLORIDE 0.9% 1000ML 2,000 ML IV ONE (15:14)
[2022-11-30] MEDS ORDERED: CEFEPIME 2,000 MG/20 ML VIAL IV STA (15:14)
--- NOTE | 2022-11-30 15:17 | XRay Report ---
XR chest 1V portable CLINICAL HISTORY: Sepsis TECHNIQUE: Single frontal radiograph of the chest was obtained. Comparison: Comparison is made to chest radiograph 11/07/[address] radiation therapy 10/23/2022 FINDINGS: No lines and tubes are seen. Calcified aortic knob is seen. Atelectasis is seen in the right lung. Pr eviously noted alveolar opacities appear somewhat improved however interstitial opacities remain. Rig ht upper lobe mass is better seen on CT. IMPRESSION: Right lung interstitial opacities are seen. Overall airspace opacities are improved from prior radiog raph. The left lung is clear. ACT 112: Negative or not required by law. Electronically signed by: Maximino Erickson M.D. 11/30/2022 3:16 PM
[2022-11-30 15:37] LABS: iSTAT Creatinine 0.7 mg/dl (0.6-1.3)
[2022-11-30 15:49] LABS: Basophils # (auto) 0.03 K/uL (0-0.2); Basophils % (auto) 0.3 %; Eosinophils # (auto) 0.01 K/uL (0-0.50); Eosinophils % (auto) 0.1 %; Hemoglobin 14.1 g/dl (14.0-18.0); Immature Granulocytes # (auto) 0.08 K/uL (0.01-0.20); Immature Granulocytes % (auto) 0.8 %; Lymphocytes # (auto) 0.63 K/uL (1.2-3.4); Lymphocytes % (auto) 6.6 %; Mean Corpuscular Hemoglobin 29.7 pg (25.0-34.0); Mean Corpuscular Hgb Conc 33.6 g/dL (32.0-36.0); Mean Corpuscular Volume 88.4 fL (80.0-100.0); Mean Platelet Volume 8.6 fL (9.4-12.4); Monocytes # (auto) 1.65 K/uL (0.11-0.59); Monocytes % (auto) 17.2 %; Neutrophils # (auto) 7.21 K/uL (1.40-6.50); Platelet Count 183 K/uL (130-400); RDW Coefficient of Variation 15.2 % (11.5-14.5); RDW Standard Deviation 49.1 fL (36.4-46.3); Red Blood Count 4.75 M/uL (4.70-6.10); White Blood Count 9.61 K/ul (4.8-10.8)
--- NOTE | 2022-11-30 15:49 | Emergency Department Note ---
Impression & Plan Respiratory failure, Mass of right lung, Sepsis, COVID-19, Acute hypotension ED Provider Note NAME: ONDINA RODRÍGUEZ AGE: 62 SEX: M : 1960 ARRIVES VIA: Walk-In INFORMANT: Patient ED PROVIDER(S): Evans Bermeo DO CHIEF COMPLAINT: shortness of breath and fever HPI: Patient is a 62-year-old male who presents the ER with a past medical history of metastatic adenocarcinoma cough, congestion, shortness of breath and a fever. He was scheduled to have chemo tomorrow and was referred and when talking with him with fevers as high as 102. Denies any belly pain, nausea, vomiting, or diarrhea. No dysuria, urgency, or frequency. No swelling of the legs. No other exacerbating or remitting factors. He does admit to a runny nose as well which just started over the past couple days with the congestion PAST MEDICAL HISTORY:See Below PAST SURGICAL HISTORY:See Below FAMILY HISTORY:See Below SOCIAL HISTORY:See Below HOME MEDICATIONS:See Below ALLERGIES:See Below VITALS:See Below PHYSICAL EXAMINATION: GENERAL: Sitting up in bed, alert, Ill-appearing, cachectic on nasal cannula EYE EXAM: normal conjunctiva. OROPHARYNX: mucous membranes are dry NECK: supple, no nuchal rigidity, no adenopathy, non-tender LUNGS: diminished bilaterally. Normal chest wall mechanics HEART: tachycardic, S1 normal and S2 normal ABDOMEN: abdomen soft, non-tender, normo-active bowel sounds, no masses, no rebound or guarding. UPPER EXTREMITIES: upper extremities are grossly normal. LOWER EXTREMITIES: No pitting edema. calfs are equal bilaterally NEURO EXAM: Normal sensorium, cranial nerves II-XII grossly intact, normal speech, no gross weakness of arms, no gross weakness of legs. MEDICAL DECISION MAKING: patient is a 62-year-old male with a past medical history of metastatic lung cancer who has not received chemo therapy yet who presents to the ER for fevers of 102 at home. IVs were established blood work was obtained. He was found to be tachycardic with a heart rate in the 120s, hypotensive with systolics in the 70s and hypoxic with a pulse ox of 80%. Labs showed no significant leukocytosis or anemia. VBG with a pH of 7.4 and a CO2 of 37. BMP with a mild hyponatremia at 134. Creatinine at 0.79. Lactate was significantly elevated at 5. Mild transaminitis. Bilirubin was appropriate. Troponin and Pro-Justice normal. Bio fire positive for COVID. CT angio of the chest was performed and actually shows some improvement in comparison to previous. He was given 3 L of IV fluids while in the ER in combination with IV cefepime upon arrival initially as he was hypotensive hypoxic tachycardic with a fever at home. Case was discussed with Dr. True Green. Systolic pressures did improve to the 90s. Upon review of his previous chart this does appear to be his baseline. External records reviewed. Patient was admitted to the hospital for further work-up. he remained on 10 L via OxyMask throughout his stay in the ER. Heart rate fif trend down to the 90s and he was feeling better. Triage Nursing notes reviewed. Limited review of prior medical records performed Vital Signs: reviewed and remarkable for tachycardic, hypotensive, hypoxic Differential diagnosis: Differential diagnoses includes but is not limited to pneumonia, bronchitis, COPD/Asthma exacerbation, pneumothorax, pulmonary embolism, congestive heart failure, acute coronary syndrome ER treatment provided: See below Diagnostics interpreted by me include EKG and cardiac monitoring as listed below: -Cardiac Monitoring: An order was placed for continuous cardiac monitoring. The monitor shows a rate of 122 with sinus rhythm. -ECG: sinus tachycardia rate of 123 Normal axis Poor baseline QTc 432 -Laboratory studies:Interpreted by me as stated above in MDM and shown below. Imaging studies: Xrays: As interpreted by me: portable AP upright 1 view of the chest shows right lung infiltrate CTs show: CT angio of the chest shows no PE and improving infiltrates Consultation(s): As described in [facility] Procedures:none Critical Care: I have personally spent 55 minutes of critical care time in the direct management of this patient. This includes bedside care, interpretation of diagnostic studies, and testing, discussion with consultants, patient, and family members, and other required patient management activities. This 55 minutes is in excess of all separately billable procedures. 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 Reflex sympathetic dystrophy Spinal stenosis Surgical History Hx of right knee surgery Social History Smoking Status: Former smoker Tobacco Type: Cigarettes Cigarettes Per Day: 1; Hx Alcohol Use: No Hx Substance Use: No Preferred Language: Slovak Communication Ability: Effective Visual Impairment: No Limitations Service Liaison Representative Required: No Beliefs That Will Affect Care: None Current Living Situation: Alone Current Living Situation Comment: Lives on 1st floor of 2 story house Feels Safe at Home: Yes Assistive Devices: Cane and Walker Allergies Allergies Allergy/AdvReac Type Severity Reaction Status Date / Time tetracycline Allergy Severe Anaphylaxis Verified 11/30/22 15:31 belladonna alkaloids Allergy Intermediate Hives Verified 11/30/22 15:31 cocoa Allergy Intermediate Rash Verified 11/30/22 15:31 hydrocodone Allergy Intermediate Hives Verified 11/30/22 15:31 oxycodone Allergy Intermediate Hives Verified 11/30/22 15:31 petrolatum,white Allergy Intermediate Rash Verified 11/30/22 15:31 Home Meds Home Medications Medication Instructions Recorded Confirmed alendronate 70 mg tablet 70 mg PO Q7D 10/30/22 11/30/22 atorvastatin 80 mg tablet 80 mg PO QPM 10/30/22 11/30/22 calcium carbonate 600 mg calcium 600 mg PO BID 10/30/22 11/30/22 (1,500 mg) tablet cholecalciferol (vitamin D3) 25 25 mcg PO DAILY 10/30/22 11/30/22 mcg (1,000 unit) capsule gabapentin 100 mg capsule 100 mg PO QPM 10/30/22 11/30/22 meloxicam 15 mg tablet 15 mg PO DAILY 10/30/22 11/30/22 omeprazole 40 mg capsule,delayed 40 mg PO DAILY 10/30/22 11/30/22 release bupropion HCl 300 mg 24 hr tablet, 300 mg PO DAILY 11/30/22 11/30/22 extended release dexamethasone 4 mg tablet 4 mg PO BID 11/30/22 11/30/22 folic acid 1 mg tablet 1 mg PO DAILY 11/30/22 11/30/22 meclizine 25 mg chewable tablet 25 mg PO BID PRN Dizziness 11/30/22 11/30/22 olanzapine 2.5 mg tablet 2.5 mg PO DAILY 11/30/22 11/30/22 ondansetron HCl 8 mg tablet 8 mg PO Q8H PRN NAUSEA/VOMITING 11/30/22 11/30/22 prochlorperazine maleate 10 mg 10 mg PO Q6H PRN NAUSEA/VOMITING 11/30/22 11/30/22 tablet tramadol 50 mg tablet 50 - 100 mg PO TID PRN Pain 11/30/22 11/30/22 Previous Rx's Medication Instructions Recorded midodrine 2.5 mg tablet 5 mg PO TID@0800,1200,1700 30 days 11/06/22 #30 tabs Oxygen Home #1 ea 11/20/22 Results & Data (ED) Vital Signs Vital Signs - 24 hr 11/30/22 14:54 11/30/22 15:14 11/30/22 15:16 Temperature 36.5 C 36.4 C Temperature Source Temporal Artery Scan Oral Pulse Rate 120 H Pulse Rate [Apical] 118 H Pulse Rhythm [Apical] Regular Respiratory Rate 30 H 30 H Respiratory Effort / Characteristics Spontaneous Labored Short of Breath Respiratory Depth Deep Respiratory Pattern Tachypnea Blood Pressure 94/57 L Blood Pressure [Right Arm] 95/71 L Blood Pressure Mean 69 Blood Pressure Mean [Right Arm] 79 Blood Pressure Position Sitting Blood Pressure Position [Right Arm] Lying Pulse Oximetry 92 90 90 Oxygen Delivery Method Nasal Cannula Oxymask Oxymask Oxygen Flow Rate 10 11 11 Sepsis Recent Fever Within 48 Hours Yes Sepsis New/Unexplained Change in Mental Status No Sepsis Action Taken by Nursing No Action Required 11/30/22 15:17 11/30/22 16:05 11/30/22 16:39 Temperature Temperature Source Pulse Rate 114 H Pulse Rate [Apical] 103 H 104 H Pulse Rhythm [Apical] Respiratory Rate 20 25 H Respiratory Effort / Characteristics Non-Labored Spontaneous Labored SOB on Exertion Respiratory Depth Deep Respiratory Pattern Tachypnea Blood Pressure Blood Pressure [Right Arm] 82/46 L Blood Pressure Mean Blood Pressure Mean [Right Arm] 58 Blood Pressure Position Blood Pressure Position [Right Arm] Lying Pulse Oximetry 93 96 Oxygen Delivery Method Oxymask Nebulizer Oxygen Flow Rate 8 7 Sepsis Recent Fever Within 48 Hours Sepsis New/Unexplained Change in Mental Status Sepsis Action Taken by Nursing 11/30/22 18:15 Temperature Temperature Source Pulse Rate Pulse Rate [Apical] 95 H Pulse Rhythm [Apical] Respiratory Rate 23 Respiratory Effort / Characteristics Spontaneous Respiratory Depth Normal Respiratory Pattern Tachypnea Blood Pressure Blood Pressure [Right Arm] 82/43 L Blood Pressure Mean Blood Pressure Mean [Right Arm] 56 Blood Pressure Position Blood Pressure Position [Right Arm] Pulse Oximetry 98 Oxygen Delivery Method Oxymask Oxygen Flow Rate 11 Sepsis Recent Fever Within 48 Hours Sepsis New/Unexplained Change in Mental Status Sepsis Action Taken by Nursing Laboratory Data 11/30/22 15:24 11/30/22 15:24 Lab Results 11/30/22 11/30/22 11/30/22 Range/Units 15:24 15:24 15:24 WBC 9.61 (4.8-10.8) K/ul RBC 4.75 (4.70-6.10) M/uL Hgb 14.1 (14.0-18.0) g/dl POC Hgb (14.0-18.0) g/dl Hct 42.0 (42.0-52.0) % POC Hct (42-52) % MCV 88.4 (80.0-100.0) fL MCH 29.7 (25.0-34.0) pg MCHC 33.6 (32.0-36.0) g/dL RDW Std Deviation 49.1 H (36.4-46.3) fL RDW Coeff of Kishore 15.2 H (11.5-14.5) % Plt Count 183 (130-400) K/uL MPV 8.6 L (9.4-12.4) fL Immature Gran % (Auto) 0.8 % Neut % (Auto) 75.0 % Lymph % (Auto) 6.6 % Russell % (Auto) 17.2 % Eos % (Auto) 0.1 % Baso % (Auto) 0.3 % Neut # (Auto) 7.21 H (1.40-6.50) K/uL Lymph # (Auto) 0.63 L (1.2-3.4) K/uL Russell # (Auto) 1.65 H (0.11-0.59) K/uL Eos # (Auto) 0.01 (0-0.50) K/uL Baso # (Auto) 0.03 (0-0.2) K/uL Immature Gran # (Auto) 0.08 (0.01-0.20) K/uL VBG pH (7.36-7.41) VBG pCO2 (38-50) mmHg VBG pO2 mmHg VBG HCO3 mmol/L VBG O2 Saturation % VBG Base Excess mEq/L POC Sodium (135-144) mmol/L Sodium 134 L (136-145) mmol/L POC Potassium (3.3-5.0) mmol/L Potassium 4.0 (3.5-5.1) mmol/L POC Chloride (101-112) mmol/L Chloride 100 (98-107) mmol/L Carbon Dioxide 24 (21-32) mmol/L POC Total CO2 (24-31) mmol/L Anion Gap 10 (3-11) POC Anion Gap (16-25) mmol/L POC BUN (7-18) mg/dl BUN 19 (6-23) mg/dl Creatinine 0.79 (0.6-1.4) mg/dl POC Creatinine (0.6-1.3) mg/dl Est Cr Clr Drug Dosing 92.4 ml/min Est GFR ( Amer) 111.5 ml/min Est GFR (Non-Af Amer) 96.2 ml/min BUN/Creatinine Ratio 24.1 H (10-20) Glucose 105 H (70-99(Fasting)) mg/dl POC Glucose (other) (70-99) mg/dl Lactate 5.1 H* (0.4-2.0) mmol/L Calcium 8.8 (8.5-10.1) mg/dl POC Ioniz Calcium Ruth Ann (1.12-1.32) mmol/l Magnesium 1.9 (1.7-2.4) mg/dl Total Bilirubin 0.8 (0.2-1.0) mg/dl Direct Bilirubin 0.1 (0-0.2) mg/dl AST 49 H (13-39) U/L ALT 69 H (7-52) U/L Alkaline Phosphatase 109 H (34-104) U/L Troponin I High Sens 9.5 (0-20) pg/ml Total Protein 7.0 (6.0-8.3) gm/dl Albumin 3.3 L (3.4-5.0) gm/dl Procalcitonin (0-0.5) ng/ml Adenovirus (PCR) (NotDetected) B. pertussis DNA (PCR) (NotDetected) B.parapertussis DNA PCR (NotDetected) C. pneumoniae DNA (PCR) (NotDetected) Coronavirus OC43 (PCR) (NotDetected) Coronavirus HKU1 (PCR) (NotDetected) Coronavirus 229E (PCR) (NotDetected) SARS-CoV-2 (PCR) (NotDetected) Coronavirus NL63 (PCR) (NotDetected) Human Metapneumovir PCR (NotDetected) Influenza Type A (PCR) (NotDetected) Influenza Type B (PCR) (NotDetected) M. pneumoniae (PCR) (NotDetected) Parainfluenza 1 (PCR) (NotDetected) Parainfluenza 2 (PCR) (NotDetected) Parainfluenza 3 (PCR) (NotDetected) Parainfluenza 4 (PCR) (NotDetected) RSV (PCR) (NotDetected) Entero/Rhino (PCR) (NotDetected) 11/30/22 11/30/22 11/30/22 Range/Units 15:24 15:25 15:26 WBC (4.8-10.8) K/ul RBC (4.70-6.10) M/uL Hgb (14.0-18.0) g/dl POC Hgb 15.0 (14.0-18.0) g/dl Hct (42.0-52.0) % POC Hct 44 (42-52) % MCV (80.0-100.0) fL MCH (25.0-34.0) pg MCHC (32.0-36.0) g/dL RDW Std Deviation (36.4-46.3) fL RDW Coeff of Kishore (11.5-14.5) % Plt Count (130-400) K/uL MPV (9.4-12.4) fL Immature Gran % (Auto) % Neut % (Auto) % Lymph % (Auto) % Russell % (Auto) % Eos % (Auto) % Baso % (Auto) % Neut # (Auto) (1.40-6.50) K/uL Lymph # (Auto) (1.2-3.4) K/uL Russell # (Auto) (0.11-0.59) K/uL Eos # (Auto) (0-0.50) K/uL Baso # (Auto) (0-0.2) K/uL Immature Gran # (Auto) (0.01-0.20) K/uL VBG pH 7.42 H (7.36-7.41) VBG pCO2 37 L (38-50) mmHg VBG pO2 27 mmHg VBG HCO3 24 mmol/L VBG O2 Saturation < 60.0 % VBG Base Excess -0.2 mEq/L POC Sodium 134 L (135-144) mmol/L Sodium (136-145) mmol/L POC Potassium 4.0 (3.3-5.0) mmol/L Potassium (3.5-5.1) mmol/L POC Chloride 99 L (101-112) mmol/L Chloride (98-107) mmol/L Carbon Dioxide (21-32) mmol/L POC Total CO2 20 L (24-31) mmol/L Anion Gap (3-11) POC Anion Gap 20.0 (16-25) mmol/L POC BUN 19 H (7-18) mg/dl BUN (6-23) mg/dl Creatinine (0.6-1.4) mg/dl POC Creatinine 0.7 (0.6-1.3) mg/dl Est Cr Clr Drug Dosing ml/min Est GFR ( Amer) ml/min Est GFR (Non-Af Amer) ml/min BUN/Creatinine Ratio (10-20) Glucose (70-99(Fasting)) mg/dl POC Glucose (other) 109 H (70-99) mg/dl Lactate (0.4-2.0) mmol/L Calcium (8.5-10.1) mg/dl POC Ioniz Calcium Ruth Ann 1.00 L (1.12-1.32) mmol/l Magnesium (1.7-2.4) mg/dl Total Bilirubin (0.2-1.0) mg/dl Direct Bilirubin (0-0.2) mg/dl AST (13-39) U/L ALT (7-52) U/L Alkaline Phosphatase (34-104) U/L Troponin I High Sens (0-20) pg/ml Total Protein (6.0-8.3) gm/dl Albumin (3.4-5.0) gm/dl Procalcitonin 0.30 (0-0.5) ng/ml Adenovirus (PCR) (NotDetected) B. pertussis DNA (PCR) (NotDetected) B.parapertussis DNA PCR (NotDetected) C. pneumoniae DNA (PCR) (NotDetected) Coronavirus OC43 (PCR) (NotDetected) Coronavirus HKU1 (PCR) (NotDetected) Coronavirus 229E (PCR) (NotDetected) SARS-CoV-2 (PCR) (NotDetected) Coronavirus NL63 (PCR) (NotDetected) Human Metapneumovir PCR (NotDetected) Influenza Type A (PCR) (NotDetected) Influenza Type B (PCR) (NotDetected) M. pneumoniae (PCR) (NotDetected) Parainfluenza 1 (PCR) (NotDetected) Parainfluenza 2 (PCR) (NotDetected) Parainfluenza 3 (PCR) (NotDetected) Parainfluenza 4 (PCR) (NotDetected) RSV (PCR) (NotDetected) Entero/Rhino (PCR) (NotDetected) 11/30/22 11/30/22 Range/Units 17:42 Unknown WBC (4.8-10.8) K/ul RBC (4.70-6.10) M/uL Hgb (14.0-18.0) g/dl POC Hgb (14.0-18.0) g/dl Hct (42.0-52.0) % POC Hct (42-52) % MCV (80.0-100.0) fL MCH (25.0-34.0) pg MCHC (32.0-36.0) g/dL RDW Std Deviation (36.4-46.3) fL RDW Coeff of Kishore (11.5-14.5) % Plt Count (130-400) K/uL MPV (9.4-12.4) fL Immature Gran % (Auto) % Neut % (Auto) % Lymph % (Auto) % Russell % (Auto) % Eos % (Auto) % Baso % (Auto) % Neut # (Auto) (1.40-6.50) K/uL Lymph # (Auto) (1.2-3.4) K/uL Russell # (Auto) (0.11-0.59) K/uL Eos # (Auto) (0-0.50) K/uL Baso # (Auto) (0-0.2) K/uL Immature Gran # (Auto) (0.01-0.20) K/uL VBG pH (7.36-7.41) VBG pCO2 (38-50) mmHg VBG pO2 mmHg VBG HCO3 mmol/L VBG O2 Saturation % VBG Base Excess mEq/L POC Sodium (135-144) mmol/L Sodium (136-145) mmol/L POC Potassium (3.3-5.0) mmol/L Potassium (3.5-5.1) mmol/L POC Chloride (101-112) mmol/L Chloride (98-107) mmol/L Carbon Dioxide (21-32) mmol/L POC Total CO2 (24-31) mmol/L Anion Gap (3-11) POC Anion Gap (16-25) mmol/L POC BUN (7-18) mg/dl BUN (6-23) mg/dl Creatinine (0.6-1.4) mg/dl POC Creatinine (0.6-1.3) mg/dl Est Cr Clr Drug Dosing ml/min Est GFR ( Amer) ml/min Est GFR (Non-Af Amer) ml/min BUN/Creatinine Ratio (10-20) Glucose (70-99(Fasting)) mg/dl POC Glucose (other) (70-99) mg/dl Lactate 3.7 H* (0.4-2.0) mmol/L Calcium (8.5-10.1) mg/dl POC Ioniz Calcium Ruth Ann (1.12-1.32) mmol/l Magnesium (1.7-2.4) mg/dl Total Bilirubin (0.2-1.0) mg/dl Direct Bilirubin (0-0.2) mg/dl AST (13-39) U/L ALT (7-52) U/L Alkaline Phosphatase (34-104) U/L Troponin I High Sens (0-20) pg/ml Total Protein (6.0-8.3) gm/dl Albumin (3.4-5.0) gm/dl Procalcitonin (0-0.5) ng/ml Adenovirus (PCR) Not Detected (NotDetected) B. pertussis DNA (PCR) Not Detected (NotDetected) B.parapertussis DNA PCR Not Detected (NotDetected) C. pneumoniae DNA (PCR) Not Detected (NotDetected) Coronavirus OC43 (PCR) Not Detected (NotDetected) Coronavirus HKU1 (PCR) Not Detected (NotDetected) Coronavirus 229E (PCR) Not Detected (NotDetected) SARS-CoV-2 (PCR) DETECTED A* (NotDetected) Coronavirus NL63 (PCR) Not Detected (NotDetected) Human Metapneumovir PCR Not Detected (NotDetected) Influenza Type A (PCR) Not Detected (NotDetected) Influenza Type B (PCR) Not Detected (NotDetected) M. pneumoniae (PCR) Not Detected (NotDetected) Parainfluenza 1 (PCR) Not Detected (NotDetected) Parainfluenza 2 (PCR) Not Detected (NotDetected) Parainfluenza 3 (PCR) Not Detected (NotDetected) Parainfluenza 4 (PCR) Not Detected (NotDetected) RSV (PCR) Not Detected (NotDetected) Entero/Rhino (PCR) Not Detected (NotDetected) Administered Medications Discontinued Medications Albuterol (Albuterol 0.083% Nebu Soln 3 Ml Vial) 10 mg NEB NOW STA; Protocol Stop: 11/30/22 15:06 Last Admin: 11/30/22 16:02 Dose: 10 mg Documented By: AMIE Sodium Chloride (Nss 1000ml) 2,000 mls @ 999 mls/hr IV .Q2H1M ONE Stop: 11/30/22 17:14 Last Infusion: 11/30/22 17:51 Dose: 0 mls/hr Documented By: Admin: 11/30/22 15:49 Dose: 999 mls/hr Documented By: NEAL Cefepime HCl (Maxipime) 2,000 mg in 20 mls @ 5 mls/min IV NOW STA; Protocol Stop: 11/30/22 15:17 Last Admin: 11/30/22 15:50 Dose: 5 mls/min Documented By: NEAL Sodium Chloride (Nss 1000ml) 1,000 mls @ 999 mls/hr IV .Q1H1M ONE Stop: 11/30/22 17:59 Last Admin: 11/30/22 17:36 Dose: 999 mls/hr Documented By: NEAL Ioversol (Optiray 320 500ml) 105 ml IV ONCE ONE Stop: 11/30/22 17:29 Last Admin: 11/30/22 17:28 Dose: 105 ml Documented By: GLEN Methylprednisolone (Methylprednisolone 40 Mg/Ml Vial) 40 mg IV NOW STA Stop: 11/30/22 15:06 Last Admin: 11/30/22 15:50 Dose: 40 mg Documented By: NEAL Imaging Data Radiologist's Impression: Chest X-Ray 11/30/22 15:04 XR chest 1V portable CLINICAL HISTORY: Sepsis TECHNIQUE: Single frontal radiograph of the chest was obtained. Comparison: Comparison is made to chest radiograph 11/07/[address] radiation therapy 10/23/2022 FINDINGS: No lines and tubes are seen. Calcified aortic knob is seen. Atelectasis is seen in the right lung. Previously noted alveolar opacities appear somewhat improved however interstitial opacities remain. Right upper lobe mass is better seen on CT. IMPRESSION: Right lung interstitial opacities are seen. Overall airspace opacities are improved from prior radiograph. The left lung is clear. ACT 112: Negative or not required by law. Electronically signed by: Maximino Erickson M.D. 11/30/2022 3:16 PM Chest CTA 11/30/22 16:13 CT angio chest PE protocol CLINICAL HISTORY: hypoxic tachy sob TECHNIQUE: Multidetector row helical CT of the chest was performed with angiographic protocol. Coronal and sagittal reformations were obtained. Coronal and sagittal MIPS were obtained from the axial data set and were submitted for review. Automated dose lowering techniques and/or adjustment according to patient size were utilized for this exam. CT DOSE: 360.82 mGy.cm Comparison: Comparison is made to CT radiation therapy 10/19/2022 FINDINGS: Lungs and pleura: Marked emphysema is seen. There are numerous foci of consolidation and interstitial thickening. Previously noted right upper lung mass appears somewhat less masslike on today's exam, measuring 21 mm in craniocaudal dimension, compared to 36 mm in prior exam. There is also a 10 mm pulmonary nodule in the left lower lobe which previously measured 3 mm. There is a small right pleural effusion which may be reactive. Heart and pericardium: Heart size is normal. No pericardial effusion. Vessels: No evidence of pulmonary embolism. Ascending aorta measures 42 mm in diameter, enlarged from prior exam. Mediastinum and hugo: There is a 9 mm left lower paratracheal lymph node which was not well-seen on prior exam. Chest wall and lower neck: Unremarkable. Abdomen: There is thickening of the left adrenal gland which is similar to prior exam. Patient is status post cholecystectomy. Bones: Degenerative changes in the thoracic spine. IMPRESSION: 1. No pulmonary embolus is seen. 2. Prominent consolidation with post radiation changes. The large masslike lesion in the right upper lobe appears somewhat decreased in size from prior exam. Consolidation in the right lower lobe is unchanged as is interstitial thickening of the right lung. 3. There is a 2 mm pulmonary nodule in the left lower lobe, enlarged from prior, metastatic disease cannot be excluded. 4. New 9 mm left lower paratracheal lymph node. 5. Additional findings as above. ACT 112: Negative or not required by law. Electronically signed by: Maximino Erickson M.D. 11/30/2022 5:55 PM Discharge Plan Visit Data Chief Complaint: Referred by Doctor Stated Complaint: LOW O2, REF BY CHEMO/RADIATION,FEVER ED Provider: Evans Bermeo Discharge Problem: Respiratory failure, Mass of right lung, Sepsis, COVID-19, Acute hypotension Forms Stand Alone Forms: [facility] Prescriptions Prescriptions: No Action (DME) Oxygen Home Liters Per Minute See Rx Instructions .MEDSUPPLY Qty: 1 0RF Rx Instructions: Face mask, humidification alendronate 70 mg tablet 70 mg PO Q7D Patient Comments: has not been taking calcium carbonate 600 mg calcium (1,500 mg) tablet 600 mg PO BID Patient Comments: has not been taking cholecalciferol (vitamin D3) 25 mcg (1,000 unit) capsule 25 mcg PO DAILY Patient Comments: has not been taking gabapentin 100 mg capsule 100 mg PO QPM Patient Comments: has not been taking as prescribed omeprazole 40 mg capsule,delayed release(DR/EC) 40 mg PO DAILY Patient Comments: has not been taking meloxicam 15 mg tablet 15 mg PO DAILY Patient Comments: has not been taking Rx Instructions: REFILLED 10/12/22 FOR 30 TABS/30 DAYS. atorvastatin 80 mg tablet 80 mg PO QPM midodrine 2.5 mg Tablet 5 mg PO TID@0800,1200,1700 30 Days Qty: 30 0RF Rx Instructions: 11/06/22 ORDERED FOR 5 DAYS, NOT SURE STILL ON THIS MED ondansetron HCl 8 mg tablet 8 mg PO Q8H PRN (Reason: NAUSEA/VOMITING) prochlorperazine maleate 10 mg tablet 10 mg PO Q6H PRN (Reason: NAUSEA/VOMITING) olanzapine 2.5 mg tablet 2.5 mg PO DAILY Rx Instructions: ORDERED 11/28/22 FOR 16 DAYS/16 TABLETS tramadol 50 mg tablet 50 - 100 mg PO TID PRN (Reason: Pain) dexamethasone 4 mg tablet 4 mg PO BID Rx Instructions: DID NOT START YET. folic acid 1 mg tablet 1 mg PO DAILY Rx Instructions: DID NOT START YET meclizine 25 mg tablet,chewable 25 mg PO BID PRN (Reason: Dizziness) bupropion HCl 300 mg tablet extended release 24 hr 300 mg PO DAILY Referrals Referrals: Evans Ro MD [Primary Care Provider] -
[2022-11-30 15:53] LABS: Base Excess VBG -0.2 mEq/L; HCO3 VBG 24 mmol/L; Oxygen Saturation VBG < 60.0 %; PCO2 VBG 37 mmHg (38-50); PO2 VBG 27 mmHg; pH VBG 7.42 (7.36-7.41)
[2022-11-30 16:01] LABS: Albumin Level 3.3 gm/dl (3.4-5.0); BUN Creatinine Ratio 24.1 (10-20); Bilirubin Direct 0.1 mg/dl (0-0.2); Bilirubin,Total 0.8 mg/dl (0.2-1.0); Calcium 8.8 mg/dl (8.5-10.1); Creatinine Clr Calc Pharmacy 92.4 ml/min; Est GFR (African American) 111.5 ml/min; Est GFR (Non-African American) 96.2 ml/min; Magnesium 1.9 mg/dl (1.7-2.4)
[2022-11-30 16:06] LABS: Troponin I High Sensitivity 9.5 pg/ml (0-20)
[2022-11-30] MEDS ORDERED: SODIUM CHLORIDE 0.9% 1000ML 1,000 ML IV ONE (16:59)
[2022-11-30] MEDS ORDERED: OPTIRAY 320 500ml IV ONE (17:28)
--- NOTE | 2022-11-30 17:57 | CT Scan Report ---
CT angio chest PE protocol CLINICAL HISTORY: hypoxic tachy sob TECHNIQUE: Multidetector row helical CT of the chest was performed with angiographic protocol. Ta l and sagittal reformations were obtained. Coronal and sagittal MIPS were obtained from the axial lucretia a set and were submitted for review. Automated dose lowering techniques and/or adjustment according to patient size were utilized for this exam. CT DOSE: 360.82 mGy.cm Comparison: Comparison is made to CT radiation therapy 10/19/2022 FINDINGS: Lungs and pleura: Marked emphysema is seen. There are numerous foci of consolidation and interstitial thickening. Previously noted right upper lung mass appears somewhat less masslike on today's exam, m easuring 21 mm in craniocaudal dimension, compared to 36 mm in prior exam. There is also a 10 mm pulm onary nodule in the left lower lobe which previously measured 3 mm. There is a small right pleural ef fusion which may be reactive. Heart and pericardium: Heart size is normal. No pericardial effusion. Vessels: No evidence of pulmonary embolism. Ascending aorta measures 42 mm in diameter, enlarged from prior exam. Mediastinum and hugo: There is a 9 mm left lower paratracheal lymph node which was not well-seen on p rior exam. Chest wall and lower neck: Unremarkable. Abdomen: There is thickening of the left adrenal gland which is similar to prior exam. Patient is sta tus post cholecystectomy. Bones: Degenerative changes in the thoracic spine. IMPRESSION: 1. No pulmonary embolus is seen. 2. Prominent consolidation with post radiation changes. The large masslike lesion in the right upper lobe appears somewhat decreased in size from prior exam. Consolidation in the right lower lobe is un changed as is interstitial thickening of the right lung. 3. There is a 2 mm pulmonary nodule in the left lower lobe, enlarged from prior, metastatic disease cannot be excluded. 4. New 9 mm left lower paratracheal lymph node. 5. Additional findings as above. ACT 112: Negative or not required by law. Electronically signed by: Maximino Erickson M.D. 11/30/2022 5:55 PM
[2022-11-30] MEDS ORDERED: VANCOMYCIN CONSULT ACTIVE PRN (18:07)
[2022-11-30 18:11] LABS: Adenovirus PCR Not Detected (NotDetected); Bordetella parapertussis PCR Not Detected (NotDetected); Bordetella pertussis PCR Not Detected (NotDetected); Chlamydia pneumoniae PCR Not Detected (NotDetected); Coronavirus 229E PCR Not Detected (NotDetected); Coronavirus HKU1 PCR Not Detected (NotDetected); Coronavirus NL63 PCR Not Detected (NotDetected); Coronavirus OC43PCR Not Detected (NotDetected); Human Metapneumovirus PCR Not Detected (NotDetected); Influenza A PCR Not Detected (NotDetected); Influenza B PCR Not Detected (NotDetected); Mycoplasma pneumoniae PCR Not Detected (NotDetected); Parainfluenza Virus 1 PCR Not Detected (NotDetected); Parainfluenza Virus 2 PCR Not Detected (NotDetected); Parainfluenza Virus 3 PCR Not Detected (NotDetected); Parainfluenza Virus 4 PCR Not Detected (NotDetected); Respiratory Syncytial VirusPCR Not Detected (NotDetected); Rhinovirus/Enterovirus PCR Not Detected (NotDetected)
[2022-11-30] MEDS ORDERED: VANCOMYCIN HCL 1,250 MG in SODIUM CHLORIDE 0.9% 500 ML IV ONE (18:15)
--- NOTE | 2022-11-30 18:17 | History & Physical Report ---
Date of Service November 30, 2022 Assessment & Plan (1) Hypotension: Plan: -Admit to the ICU -The patient is currently afebrile, hypotensive, and currently stable on 11L/min on oxymask -The patient's initial workup in the ED was without an obvious source of infection, lactate elevated at 5 with repeat at 3.7 after 3L NSS bolus, found to be Covid 19 positive on full respiratory biofire -UA is currently in process along with random cortisol level -Will obtain CT of the abd/pelvis w/IV con for further evaluation as he has been constipated for a week -S/P Cefepime in the ED, will continue Cefepime and add Vancomycin and Flagyl for now until his workup is complete -Follow-up with UA which is currently in process -Will give 10 mg midodrine STAT -Will have nursing staff place Olivo cath for better I's and O's -Continue to monitor on tele and pulse oximetry -BL SCD's for DVT PPX at this time until CT of the abd/pelvis is complete (2) COVID-19: Plan: -Found to be positive on full resp biofire obtained in the ED -S/P 40 mg IV methylprednisolone which is equivalent to 7.5 mg Dexamethasone >Will defer continued steroid treatment to the ICU at this time but the patient is currently covered today for Covid 19 pneumonia -S/P 10 mg Albuterol nebulizer treatment, continue with DuoNebs scheduled QID -Incentive spirometry, flutter therapy, robitussin for cough -Prn O2 to keep SpO2 between 88-92% (3) Lactate blood increase: Plan: -Initial lactate elevated at 5.1, down to 3.7 S/P 3L NSS bolus -Likely due to his hypotension and poor perfusion -Will order repeat lactate with reflex if still greater than 2 (4) Elevated LFTs: Plan: -AST at 49, ALT at 69, Alk phos at 109, all increased compared to 11/28/22 -Unclear etiology at this time but the differential includes the beginning of shock liver, his acute viral illness, hepatitis, or possible new mets to the liver -FU on CT of the abd/pelvis w/con for further assessment (5) Acute on chronic respiratory failure with hypoxia: Plan: -See Covid-19 (6) Non-small cell cancer of right lung: Plan: -With mets to the brain and lumbar spine -Currently receiving radiation therapy to the chest and spine with plans to start on brain mets in the near future -Currently seeing Oncology to coordinate chemotherapy but has not yet started or received a Mediport (7) Reflex sympathetic dystrophy: Plan: -Stable -Will defer continuing Gabapentin and tramadol to the ICU as he is currently unstable Plan The patient was discussed with Dr. Green at the time of the admission History of Present Illness Chief Complaint: SOB and fever Primary Care Provider: Evans Ro MD Mr. Grijalva is a 61-year-old male with a past medical history of non-small cell cancer of the right lung with metastases to the brain and lumbar spine S/P radiation therapy to the chest with plans to initiate chemotherapy in the near future, hyperlipidemia, COPD on baseline 3L NC, and reflex sympathetic dystrophy, who presented to the [facility] ED on 11/30/22 with complaints of fevers, chills, and increased SOB. In the ED the patient was found to be afebrile, with soft BP's of 94/57, and hypoxic on his baseline 3L NC. Labs were remarkable for a WBC WNL, neutrophil count of 7.21, platelets of 183, initial VBG showing a pH of 7.42, pCO2 of 37, and pO2 of 27, stable cr of 0.79 with sodium of 134, glucose of 105, AG of 10 wit bicarb of 20, initial lactate of 5.1, ionized calcium of 1.00, AST of 49, ALT of 69, alk phos of 109 (all increased since 11/28/22), procal of 0.30, and covid 19 positive. UA and random cortisol were in process at the time of the admission. Chest xray was read as "Right lung interstitial opacities are seen. Overall airspace opacities are improved from prior radiograph. The left lung is clear.". CTA of the chest was read as "1. No pulmonary embolus is seen. 2. Prominent consolidation with post radiation changes. The large masslike lesion in the right upper lobe appears somewhat decreased in size from prior exam. Consolidation in the right lower lobe is unchanged as is interstitial thickening of the right lung. 3. There is a 2 mm pulmonary nodule in the left lower lobe, enlarged from prior, metastatic disease cannot be excluded. 4. New 9 mm left lower paratracheal lymph node. 5. Additional findings as above.". In the ED the patient received an initial 2L NSS bolus and was then given a 3rd prior to admission, cefepime, albuterol, and 40 mg IV methylprednisolone. After initial treatment in the ED the patient's BP initially remained stable and his repeat lactate was noted to be 3.7. At the time of admission the patient's blood pressure began to fall with systolics in the 80's. At the time of the exam the patient was lying in bed in no acute distress but appears acutely ill. He states that last night he started to develop fevers as high as 101, chills, and increased SOB and oxygen requirements. He states that he has yet to start chemotherapy but is in the process of starting the process, he has received radiation therapy to his chest and spine. He is in the process of setting up radiation therapy for his brain metastases. He is unsure of his new medications as his sisters mainly help organize them. He denies recent sick contacts, chest pain, change in sputum production dysuria, hematuria, LE swelling and recent trauma. When asked, he states that he has not urinated since arriving to the ED around noon. He has not had a bowel movement in the past week and feels as though his abdomen is full but denies severe abdominal pain. We had another long discussion regarding code status. While he thinks his sisters will be upset with his decision he still wishes to be a DNR/DNI. However, he would want a trial of vasopressors if needed. We discussed the patient with the sugar boiler extrusion operator (Dr. Birmingham) who accepted the patient to the ICU. Please refer to Dr. Green's attestation for any changes to the treatment plan Allergies Allergy/AdvReac Type Severity Reaction Status Date / Time tetracycline Allergy Severe Anaphylaxis Verified 11/30/22 15:31 belladonna alkaloids Allergy Intermediate Hives Verified 11/30/22 15:31 cocoa Allergy Intermediate Rash Verified 11/30/22 15:31 hydrocodone Allergy Intermediate Hives Verified 11/30/22 15:31 oxycodone Allergy Intermediate Hives Verified 11/30/22 15:31 petrolatum,white Allergy Intermediate Rash Verified 11/30/22 15:31 Home Medications Medication Instructions Recorded Confirmed Type alendronate 70 mg tablet 70 mg PO Q7D 10/30/22 11/30/22 History atorvastatin 80 mg tablet 80 mg PO QPM 10/30/22 11/30/22 History calcium carbonate 600 mg calcium 600 mg PO BID 10/30/22 11/30/22 History (1,500 mg) tablet cholecalciferol (vitamin D3) 25 25 mcg PO DAILY 10/30/22 11/30/22 History mcg (1,000 unit) capsule gabapentin 100 mg capsule 100 mg PO QPM 10/30/22 11/30/22 History meloxicam 15 mg tablet 15 mg PO DAILY 10/30/22 11/30/22 History omeprazole 40 mg capsule,delayed 40 mg PO DAILY 10/30/22 11/30/22 History release midodrine 2.5 mg tablet 5 mg PO TID@0800,1200,1700 30 days 11/06/22 11/30/22 Rx #30 tabs Oxygen Home #1 ea 11/20/22 Rx bupropion HCl 300 mg 24 hr tablet, 300 mg PO DAILY 11/30/22 11/30/22 History extended release dexamethasone 4 mg tablet 4 mg PO BID 11/30/22 11/30/22 History folic acid 1 mg tablet 1 mg PO DAILY 11/30/22 11/30/22 History meclizine 25 mg chewable tablet 25 mg PO BID PRN Dizziness 11/30/22 11/30/22 History olanzapine 2.5 mg tablet 2.5 mg PO DAILY 11/30/22 11/30/22 History ondansetron HCl 8 mg tablet 8 mg PO Q8H PRN NAUSEA/VOMITING 11/30/22 11/30/22 History prochlorperazine maleate 10 mg 10 mg PO Q6H PRN NAUSEA/VOMITING 11/30/22 11/30/22 History tablet tramadol 50 mg tablet 50 - 100 mg PO TID PRN Pain 11/30/22 11/30/22 History Past Med/Surg History Medical History (Updated 12/01/22 @ 08:36 by Nathaniel Birmingham MD) Adrenal insufficiency Arthritis COPD (chronic obstructive pulmonary disease) Edema Hypercholesteremia Lung cancer Mass of lung Mass of right lung Metabolic brain disease Palpitations Patellofemoral instability of both knees with pain Reflex sympathetic dystrophy Spinal stenosis Surgical History Hx of right knee surgery Social History Smoking Status: Former smoker Tobacco Type: Cigarettes Cigarettes Per Day: 1; Hx Alcohol Use: No Hx Substance Use: No Preferred Language: Maltese Communication Ability: Effective Visual Impairment: No Limitations Medical Sales Consultant Required: No Beliefs That Will Affect Care: None Current Living Situation: Alone Current Living Situation Comment: Lives on 1st floor of 2 story house Other Information That Helps Us Care for You: No Feels Safe at Home: Yes Safety Concerns: Feels Safe At This Time Assistive Devices: Cane and Walker Review of Systems Review of Systems: Denies current headache, changes in vision, hearing, taste, and smell, chest pain, abdominal pain, nausea, vomiting, hematemesis, melena, dysuria, hematuria, and recent falls. All systems have been reviewed and are otherwise negative. Physical Exam Physical Exam: Physical Exam: General: In no acute distress, cachectic, the patient appears ill HEENT: Normocephalic, atraumatic, no scleral icterus, pupils around round, symmetrical, and reactive to light, dry mucus membranes, trachea midline, no thyromegaly Chest/Pulm: No respiratory distress symmetrical chest expansion, Rhonchi noted in the right upper and lower lobes, expiratory wheezing noted in all other lung wlalis Cardiac: Tachycardic rate, regular rhythm, no murmurs noted Abdomen: Negative for ascites and bruising, hyperactive bowel sounds, soft, non-tender to palpation throughout Musculoskeletal: No acute trauma, baseline spasticity of the upper and lower extremities noted Extremities: Radial, dorsalis pedis, and posterior tibial pulses are intact and symmetrical, no edema noted in the BL LE's Skin: Warm, dry, no rashes , lesions, or scars noted Neuro: Alert and oriented to person, place, month, year, and president, no focal defects, CN II-XII tested and intact, Psych: No acute distress, calm and cooperative during the exam Results & Data Results & Data ([facility]) Vital Signs (Past 12 Hours) Vital Signs Temp Pulse Pulse Resp BP BP Pulse Ox 11/30/22 16:39 104 H 25 H 82/46 L 96 11/30/22 16:05 103 H 20 93 11/30/22 15:17 114 H 11/30/22 15:16 36.4 C 118 H 30 H 95/71 L 90 11/30/22 15:14 90 11/30/22 14:54 36.5 C 120 H 30 H 94/57 L 92 O2 Del Method O2 Flow Rate 11/30/22 16:39 Nebulizer 7 11/30/22 16:05 Oxymask 8 11/30/22 15:17 11/30/22 15:16 Oxymask 11 11/30/22 15:14 Oxymask 11 11/30/22 14:54 Nasal Cannula 10 Laboratory Results Abnormal lab results 11/30/22 11/30/22 11/30/22 Range/Units 15:24 15:24 15:24 RDW Std Deviation 49.1 H (36.4-46.3) fL RDW Coeff of Kishore 15.2 H (11.5-14.5) % MPV 8.6 L (9.4-12.4) fL Neut # (Auto) 7.21 H (1.40-6.50) K/uL Lymph # (Auto) 0.63 L (1.2-3.4) K/uL [place] # (Auto) 1.65 H (0.11-0.59) K/uL VBG pH (7.36-7.41) VBG pCO2 (38-50) mmHg POC Sodium (135-144) mmol/L Sodium 134 L (136-145) mmol/L POC Chloride (101-112) mmol/L POC Total CO2 (24-31) mmol/L POC BUN (7-18) mg/dl BUN/Creatinine Ratio 24.1 H (10-20) Glucose 105 H (70-99(Fasting)) mg/dl POC Glucose (other) (70-99) mg/dl Lactate 5.1 H* (0.4-2.0) mmol/L POC Ioniz Calcium Ruth Ann (1.12-1.32) mmol/l AST 49 H (13-39) U/L ALT 69 H (7-52) U/L Alkaline Phosphatase 109 H (34-104) U/L Albumin 3.3 L (3.4-5.0) gm/dl SARS-CoV-2 (PCR) (NotDetected) 11/30/22 11/30/22 11/30/22 Range/Units 15:24 15:25 17:42 RDW Std Deviation (36.4-46.3) fL RDW Coeff of Kishore (11.5-14.5) % MPV (9.4-12.4) fL Neut # (Auto) (1.40-6.50) K/uL Lymph # (Auto) (1.2-3.4) K/uL [place] # (Auto) (0.11-0.59) K/uL VBG pH 7.42 H (7.36-7.41) VBG pCO2 37 L (38-50) mmHg POC Sodium 134 L (135-144) mmol/L Sodium (136-145) mmol/L POC Chloride 99 L (101-112) mmol/L POC Total CO2 20 L (24-31) mmol/L POC BUN 19 H (7-18) mg/dl BUN/Creatinine Ratio (10-20) Glucose (70-99(Fasting)) mg/dl POC Glucose (other) 109 H (70-99) mg/dl Lactate 3.7 H* (0.4-2.0) mmol/L POC Ioniz Calcium Ruth Ann 1.00 L (1.12-1.32) mmol/l AST (13-39) U/L ALT (7-52) U/L Alkaline Phosphatase (34-104) U/L Albumin (3.4-5.0) gm/dl SARS-CoV-2 (PCR) (NotDetected) 11/30/22 Range/Units Unknown RDW Std Deviation (36.4-46.3) fL RDW Coeff of Kishore (11.5-14.5) % MPV (9.4-12.4) fL Neut # (Auto) (1.40-6.50) K/uL Lymph # (Auto) (1.2-3.4) K/uL [place] # (Auto) (0.11-0.59) K/uL VBG pH (7.36-7.41) VBG pCO2 (38-50) mmHg POC Sodium (135-144) mmol/L Sodium (136-145) mmol/L POC Chloride (101-112) mmol/L POC Total CO2 (24-31) mmol/L POC BUN (7-18) mg/dl BUN/Creatinine Ratio (10-20) Glucose (70-99(Fasting)) mg/dl POC Glucose (other) (70-99) mg/dl Lactate (0.4-2.0) mmol/L POC Ioniz Calcium Ruth Ann (1.12-1.32) mmol/l AST (13-39) U/L ALT (7-52) U/L Alkaline Phosphatase (34-104) U/L Albumin (3.4-5.0) gm/dl SARS-CoV-2 (PCR) DETECTED A* (NotDetected) Diagnostic Findings Chest X-Ray 11/30/22 15:04 XR chest 1V portable CLINICAL HISTORY: Sepsis TECHNIQUE: Single frontal radiograph of the chest was obtained. Comparison: Comparison is made to chest radiograph 11/07/[address] radiation therapy 10/23/2022 FINDINGS: No lines and tubes are seen. Calcified aortic knob is seen. Atelectasis is seen in the right lung. Previously noted alveolar opacities appear somewhat improved however interstitial opacities remain. Right upper lobe mass is better seen on CT. IMPRESSION: Right lung interstitial opacities are seen. Overall airspace opacities are improved from prior radiograph. The left lung is clear. ACT 112: Negative or not required by law. Electronically signed by: Maximino Erickson M.D. 11/30/2022 3:16 PM Chest CTA 11/30/22 16:13 CT angio chest PE protocol CLINICAL HISTORY: hypoxic tachy sob TECHNIQUE: Multidetector row helical CT of the chest was performed with angiographic protocol. Coronal and sagittal reformations were obtained. Coronal and sagittal MIPS were obtained from the axial data set and were submitted for review. Automated dose lowering techniques and/or adjustment according to patient size were utilized for this exam. CT DOSE: 360.82 mGy.cm Comparison: Comparison is made to CT radiation therapy 10/19/2022 FINDINGS: Lungs and pleura: Marked emphysema is seen. There are numerous foci of consolidation and interstitial thickening. Previously noted right upper lung mass appears somewhat less masslike on today's exam, measuring 21 mm in craniocaudal dimension, compared to 36 mm in prior exam. There is also a 10 mm pulmonary nodule in the left lower lobe which previously measured 3 mm. There is a small right pleural effusion which may be reactive. Heart and pericardium: Heart size is normal. No pericardial effusion. Vessels: No evidence of pulmonary embolism. Ascending aorta measures 42 mm in diameter, enlarged from prior exam. Mediastinum and hugo: There is a 9 mm left lower paratracheal lymph node which was not well-seen on prior exam. Chest wall and lower neck: Unremarkable. Abdomen: There is thickening of the left adrenal gland which is similar to prior exam. Patient is status post cholecystectomy. Bones: Degenerative changes in the thoracic spine. IMPRESSION: 1. No pulmonary embolus is seen. 2. Prominent consolidation with post radiation changes. The large masslike lesion in the right upper lobe appears somewhat decreased in size from prior exam. Consolidation in the right lower lobe is unchanged as is interstitial thickening of the right lung. 3. There is a 2 mm pulmonary nodule in the left lower lobe, enlarged from prior, metastatic disease cannot be excluded. 4. New 9 mm left lower paratracheal lymph node. 5. Additional findings as above. ACT 112: Negative or not required by law. Electronically signed by: Maximino Erickson M.D. 11/30/2022 5:55 PM ECG Additional Comments: Poor data quality, interpretation may be adversely affected Sinus tachycardia Right atrial enlargement Nonspecific ST abnormality Abnormal ECG When compared with ECG of 07-NOV-2022 14:21, ST now depressed in Anterior leads Code Status & VTE Plan Code Status DNR/DNI VTE Prophylaxis Plan VTE Prophylaxis will be ordered: Yes Supervising Physician Co-Signing Physician Notes I personally saw and examined the patient. I verified all marshall points and agree with Presley Gutierres PA-C with the following exceptions and/or additions: 62 year old male with metastatic non-small cell lung cancer presents to the ER with fever, worsening shortness of breath and hypoxia. O/E HS1+2, no murmurs, RRR, Chest wheezing throughout right lung both inspiratory and expiratory, crackles left sided, Abdo SNT, no CVA tenderness A/P COVID-19 - suspect this is the cause of his worsening hypoxia and fever. CXR actually appears remarkably improved. No port to suggest bacteremia although he is severely malnourished therefore will cover empirically with cefepime and vancomycin pending blood culture results. CT A/P to assess for alternative source of infection. Hypotension - adequately fluid resuscitated at this time in the ER with MAP 56. Will give midodrine 10mg PO now. Random cortisol level stat. Despite his low MAP his lactate is improving and he is mentating normally. Discussed with sugar boiler and patient will be transferred to the ICU for consideration of vasopressors. PG Care Time/CCT Total # of Minutes Spent Total Time Spent with Patient: Total time spent is greater than 50% in coordination of care (as documented) at patient's floor/unit and/or counseling patient: [place] [address] INT INP/OBS CARE 3/75MIN Patient Type Established Medical Decision Making High Complexity Diagnoses Hypotension I95.9 COVID-19 U07.1 Lactate blood increase R79.89 Elevated LFTs R79.89 Acute on chronic respiratory failure with hypoxia J96.21 Non-small cell cancer of right lung C34.91 Reflex sympathetic dystrophy G90.50
[2022-11-30 18:28] LABS: Coronavirus CoV-2 (COVID19)PCR DETECTED (NotDetected)
[2022-11-30] MEDS ORDERED: MIDODRINE HCL 2.5 MG TAB PO STA (18:43)
[2022-11-30] MEDS ORDERED: MIDODRINE HCL 10 MG TAB PO STA (18:46)
[2022-11-30 19:22] LABS: Appearance Urine Cloudy (Clear); Bacteria Urine Automated Negative (Negative); Bilirubin Urine Negative (Negative); Blood Urine Negative (Negative); Color Urine Dark Yellow; Epithelial Cell Urine Auto 20-30 /lpf (0-5); Glucose Urine UA Negative (Negative); Ketones Urine Negative (Negative); Leukocyte Esterase Urine Negative (Negative); Nitrite Urine Negative (Negative); Protein Urine Negative (Negative); Specific Gravity Urine > 1.045 (1.000-1.030); Urobilinogen Urine Negative (Negative)
[2022-11-30] MEDS ORDERED: metroNIDAZOLE 500 MG/100 ML BAG IV SCH (21:00)
[2022-11-30] MEDS: ICU Protocol for HYPERglycemia SCH (21:08)
[2022-11-30] MEDS ORDERED: HYDROCORTISONE SOD 50 MG in SYRINGE 0 ML IV STA (21:19)
[2022-11-30] MEDS: GABAPENTIN 100 MG CAP PO SCH (21:25)
--- NOTE | 2022-11-30 21:35 | Critical Care Consultation ---
Date of Consultation November 30, 2022 Assessment & Plan (1) Acute on chronic respiratory failure with hypoxia: Impression: 62-year-old male with metastatic lung cancer presents to the ICU with acute on chronic respiratory failure with hypoxia and hypotension Neuro - Depressioncontinue Wellbutrin Cardiac - Hypotensionsepsis versus adrenal insufficiency Patient recently on dexamethasone. Cortisol low for stress response. Received 40 mg Solu-Medrol in the ED -Continue with 6 mg dexamethasone daily dose for dual purpose with adrenal insufficiency and COVID-19 -Increase midodrine dose to 10 mg 3 times daily -Maintain maps greater than 60. Consider pressors if needed -Troponin within normal limits, no ST elevation on EKG - Continuous monitoring on telemetry in ICU Respiratory - Acute on chronic hypoxic respiratory failurepatient with metastatic lung cancer undergoing radiation therapy (no chemo), and diagnosis of COPD -Cannot rule out infectious process at this time and currently undergoing broad-spectrum antibiotics, see below -Chest CTA negative for PE -Hold on diuresis as patient is hypotensive -Wean oxygen as tolerated, continuous pulse ox monitor GI - Advance diet as tolerated Transaminitistrend LFTs for now RENAL/LYTES - Creatinine within normal limits, monitor routine BMP and replete electrolytes as indicated - Strict I's and O's ENDO - No history of diabetes or thyroid disease, ICU hyperglycemic protocol HEME - H&H stable, monitor routine CBC ID - Sepsis?Possible pulmonary source, mild leukocytosis and initially elevated lactate. Procalcitonin however within normal limits and afebrile -Patient is positive COVID-19. Continue with dexamethasone 6 mg daily and supportive care. Hold on remdesivir and Tocilizumab given LFTs -Nasal MRSA negative, discontinue vancomycin -Blood cultures and sputum culture pending -Continue with cefepime LINES/IV ACCESS - Peripheral IV DVT PROPHYLAXIS - SCDs, Lovenox Thank you for allowing us to participate in the care of this patient. Please refer to my attending physician's documentation for any further recommendations. (2) Hypotension: (3) COVID-19: (4) Sepsis: (5) Metastatic adenocarcinoma to bone: (6) Lumbar compression fracture: (7) Hypercholesteremia: (8) COPD (chronic obstructive pulmonary disease): (9) Lactate blood increase: (10) Elevated LFTs: History of Present Illness Attending Physician: True Green MD History of Present Illness Patient 62-year-old male with past medical history of COPD, HLD, and metastatic lung cancer (not undergoing chemotherapy) brought to the emergency department after having fevers at home. Patient was found to be tachycardic, hypotensive and hypoxic. Patient had elevated lactic acid and bio fire positive for COVID. Patient had been on dexamethasone as outpatient and he received 40 Solu-Medrol in the ED. He was transferred to ICU for management of hypotension. He is currently on 10 L oxy mask. CTA chest negative for PE, prominent consolidation with postradiation changes, enlarged 2 mm pulmonary nodule in the left lower lobe, new 9 mm left lower lobe paratracheal lymph node. Marked emphysema noted with numerous foci of consolidation and interstitial thickening. Blood pressures now improve to what appears to be the patient's baseline following administration of IV steroids and midodrine. Lactate now improved. Patient now presents to the ICU alert and oriented, no acute distress. Pressures remain soft but he is currently maintaining MAP of 65 or greater. Patient reports dizziness, chronic cough, shortness of breath, malaise. He denies headache, sore throat or congestion, chest pain or palpitations, abdominal pain, nausea vomiting or diarrhea, swelling in hands or feet. Patient to remain in ICU for further management at this time. Allergies Allergy/AdvReac Type Severity Reaction Status Date / Time tetracycline Allergy Severe Anaphylaxis Verified 11/30/22 15:31 belladonna alkaloids Allergy Intermediate Hives Verified 11/30/22 15:31 cocoa Allergy Intermediate Rash Verified 11/30/22 15:31 hydrocodone Allergy Intermediate Hives Verified 11/30/22 15:31 oxycodone Allergy Intermediate Hives Verified 11/30/22 15:31 petrolatum,white Allergy Intermediate Rash Verified 11/30/22 15:31 Home Medications Medication Instructions Recorded Confirmed Type alendronate 70 mg tablet 70 mg PO Q7D 10/30/22 11/30/22 History atorvastatin 80 mg tablet 80 mg PO QPM 10/30/22 11/30/22 History calcium carbonate 600 mg calcium 600 mg PO BID 10/30/22 11/30/22 History (1,500 mg) tablet cholecalciferol (vitamin D3) 25 25 mcg PO DAILY 10/30/22 11/30/22 History mcg (1,000 unit) capsule gabapentin 100 mg capsule 100 mg PO QPM 10/30/22 11/30/22 History meloxicam 15 mg tablet 15 mg PO DAILY 10/30/22 11/30/22 History omeprazole 40 mg capsule,delayed 40 mg PO DAILY 10/30/22 11/30/22 History release midodrine 2.5 mg tablet 5 mg PO TID@0800,1200,1700 30 days 11/06/22 11/30/22 Rx #30 tabs Oxygen Home #1 ea 11/20/22 Rx bupropion HCl 300 mg 24 hr tablet, 300 mg PO DAILY 11/30/22 11/30/22 History extended release dexamethasone 4 mg tablet 4 mg PO BID 11/30/22 11/30/22 History folic acid 1 mg tablet 1 mg PO DAILY 11/30/22 11/30/22 History meclizine 25 mg chewable tablet 25 mg PO BID PRN Dizziness 11/30/22 11/30/22 History olanzapine 2.5 mg tablet 2.5 mg PO DAILY 11/30/22 11/30/22 History ondansetron HCl 8 mg tablet 8 mg PO Q8H PRN NAUSEA/VOMITING 11/30/22 11/30/22 History prochlorperazine maleate 10 mg 10 mg PO Q6H PRN NAUSEA/VOMITING 11/30/22 11/30/22 History tablet tramadol 50 mg tablet 50 - 100 mg PO TID PRN Pain 11/30/22 11/30/22 History Patient History Medical History Arthritis COPD (chronic obstructive pulmonary disease) Edema Hypercholesteremia Lung cancer Mass of lung Mass of right lung Metabolic brain disease Palpitations Patellofemoral instability of both knees with pain Reflex sympathetic dystrophy Spinal stenosis Surgical History Hx of right knee surgery Social History Smoking Status: Former smoker Tobacco Type: Cigarettes Cigarettes Per Day: 1; Hx Alcohol Use: No Hx Substance Use: No Preferred Language: Kosovan Communication Ability: Effective Visual Impairment: No Limitations Caterer'S Aide Required: No Beliefs That Will Affect Care: None Current Living Situation: Alone Current Living Situation Comment: Lives on 1st floor of [facility] Other Information That Helps Us Care for You: No Feels Safe at Home: Yes Safety Concerns: Feels Safe At This Time Assistive Devices: Cane and Walker Review of Systems Review of Systems: All systems reviewed & are unremarkable except as noted in HPI & below Physical Exam Constitutional: WD/WN, vitals as above Eyes: PERRL, conjunctivae normal, anicteric sclerae ENMT: external ear and nose normal, oropharynx normal Neck: trachea midline, no thyromegaly Respiratory: No labored breathing or use of accessory muscles, no respiratory distress, symmetrical chest wall movement. Diminished lung sounds auscultated in the left lobe. Right lobe clear to auscultation Cardiovascular: RRR, no murmur, no edema Heart Sounds: normal S1 and normal S2; no murmur Gastrointestinal (Abdomen): normal bowel sounds, soft, nontender, no hepatosplenomegaly Musculoskeletal: no cyanosis or clubbing, extremities motor strength 5/5 Skin: no rashes, warm and dry Neurologic: PERRL, EOMI, accommodation nl, no face palsy, no dysarthria Psychiatric: A+Ox3, euthymic affect Results & Data Results & Data ([place]) Vital Signs (Past 12 Hours) Vital Signs Temp Pulse Pulse Resp BP BP Pulse Ox 11/30/22 20:40 79 16 96 11/30/22 20:30 82 19 94 11/30/22 20:20 83 20 96 11/30/22 20:15 82 16 11/30/22 19:50 85 25 H 11/30/22 19:40 88 25 H 98 11/30/22 19:30 90 23 97 11/30/22 19:20 90 27 H 97 11/30/22 19:10 91 H 24 97 11/30/22 19:00 91 H 17 97 11/30/22 18:50 92 H 26 H 98 11/30/22 18:40 92 H 26 H 98 11/30/22 18:34 86/49 L 11/30/22 18:34 94 H 25 H 98 11/30/22 18:30 93 H 24 97 11/30/22 18:20 96 H 23 99 11/30/22 18:10 94 H 25 H 99 11/30/22 18:00 96 H 27 H 98 11/30/22 17:50 96 H 17 99 11/30/22 17:40 100 H 23 98 11/30/22 17:35 80/41 L 11/30/22 17:35 97 11/30/22 17:33 99 11/30/22 17:33 79/51 L 11/30/22 17:31 75/43 L 11/30/22 17:15 107 H 11/30/22 17:10 105 H 26 H 98 11/30/22 17:00 105 H 22 99 11/30/22 16:50 106 H 19 98 11/30/22 16:40 104 H 29 H 96 11/30/22 16:30 107 H 23 94 11/30/22 16:20 111 H 29 H 95 11/30/22 16:10 103 H 24 94 11/30/22 16:00 108 H 32 H 92 11/30/22 15:50 107 H 23 94 11/30/22 15:40 107 H 24 94 11/30/22 15:30 115 H 23 11/30/22 15:20 114 H 21 11/30/22 15:10 119 H 32 H 91 11/30/22 15:05 114 H 25 H 88 L 11/30/22 18:42 91 H 11/30/22 18:15 95 H 23 82/43 L 98 11/30/22 16:39 104 H 25 H 82/46 L 96 11/30/22 16:05 103 H 20 93 11/30/22 15:17 114 H 11/30/22 15:16 36.4 C 118 H 30 H 95/71 L 90 11/30/22 15:14 90 11/30/22 14:54 36.5 C 120 H 30 H 94/57 L 92 O2 Del Method O2 Flow Rate 11/30/22 20:40 11/30/22 20:30 11/30/22 20:20 11/30/22 20:15 11/30/22 19:50 11/30/22 19:40 11/30/22 19:30 11/30/22 19:20 11/30/22 19:10 11/30/22 19:00 11/30/22 18:50 11/30/22 18:40 11/30/22 18:34 11/30/22 18:34 11/30/22 18:30 11/30/22 18:20 11/30/22 18:10 11/30/22 18:00 11/30/22 17:50 11/30/22 17:40 11/30/22 17:35 11/30/22 17:35 11/30/22 17:33 11/30/22 17:33 11/30/22 17:31 11/30/22 17:15 11/30/22 17:10 11/30/22 17:00 11/30/22 16:50 11/30/22 16:40 11/30/22 16:30 11/30/22 16:20 11/30/22 16:10 11/30/22 16:00 11/30/22 15:50 11/30/22 15:40 11/30/22 15:30 11/30/22 15:20 11/30/22 15:10 11/30/22 15:05 11/30/22 18:42 11/30/22 18:15 Oxymask 11 11/30/22 16:39 Nebulizer 7 11/30/22 16:05 Oxymask 8 11/30/22 15:17 11/30/22 15:16 Oxymask 11 11/30/22 15:14 Oxymask 11 11/30/22 14:54 Nasal Cannula 10 Coding Level of Care Code 99660 IN/OBS CONSULT LVL 3,45M Diagnoses Acute on chronic respiratory failure with hypoxia J96.21 Hypotension I95.9 COVID-19 U07.1 Sepsis A41.9 Metastatic adenocarcinoma to bone C79.51 Lumbar compression fracture S32.000A Hypercholesteremia E78.00 COPD (chronic obstructive pulmonary disease) J44.9 Lactate blood increase R79.89 Elevated LFTs R79.89 Time Spent (min) 58
[2022-11-30] MEDS ORDERED: HYDROCORTISONE SOD 50 MG in SYRINGE 0 ML IV SCH (22:00)
[2022-11-30] MEDS ORDERED: dexAMETHasone 6 MG in SYRINGE 0 ML IV SCH (22:00)
[2022-11-30] MEDS ORDERED: dexAMETHasone 6 MG in SYRINGE 0 ML IV ONE (22:18)
[2022-11-30] MEDS: CEFEPIME 2,000 MG in SYRINGE 0 ML IV SCH (22:22)
[2022-11-30 22:56] LABS: C Reactive Protein 5.88 mg/dl (0-0.5)
[2022-12-01] MEDS ORDERED: VANCOMYCIN HCL 1,500 MG in SODIUM CHLORIDE 0.9% 500 ML IV SCH (01:00)
[2022-12-01 06:21] LABS: Albumin Level 2.6 gm/dl (3.4-5.0); BUN Creatinine Ratio 22.2 (10-20); Bilirubin Direct 0.1 mg/dl (0-0.2); Bilirubin,Total 0.4 mg/dl (0.2-1.0); Calcium 7.9 mg/dl (8.5-10.1); Creatinine Clr Calc Pharmacy 127.8 ml/min; Est GFR (African American) 130.4 ml/min; Est GFR (Non-African American) 112.5 ml/min; Magnesium 1.9 mg/dl (1.7-2.4); Phosphorus 4.7 mg/dl (2.5-4.9); Potassium 4.1 mmol/L (3.5-5.1); Total Protein 5.3 gm/dl (6.0-8.3)
[2022-12-01 06:36] LABS: Hematocrit (blood only) 31.2 % (42.0-52.0); Hemoglobin 10.7 g/dl (14.0-18.0); Immature Granulocytes # (auto) 0.03 K/uL (0.01-0.20); Immature Granulocytes % (auto) 0.7 %; Lymphocytes # (auto) 0.25 K/uL (1.2-3.4); Lymphocytes % (auto) 5.9 %; Mean Corpuscular Hemoglobin 30.3 pg (25.0-34.0); Mean Corpuscular Hgb Conc 34.3 g/dL (32.0-36.0); Mean Corpuscular Volume 88.4 fL (80.0-100.0); Mean Platelet Volume 8.6 fL (9.4-12.4); Monocytes # (auto) 0.38 K/uL (0.11-0.59); Neutrophils # (auto) 3.55 K/uL (1.40-6.50); Neutrophils % (auto) 84.4 %; Platelet Count 132 K/uL (130-400); RDW Coefficient of Variation 15.4 % (11.5-14.5); RDW Standard Deviation 49.6 fL (36.4-46.3); Red Blood Count 3.53 M/uL (4.70-6.10); White Blood Count 4.21 K/ul (4.8-10.8)
[2022-12-01] MEDS ORDERED: MAGNESIUM SULFATE / D5W 1 GM/100 ML BAG IV ONE (06:45)
[2022-12-01] MEDS: ALBUT/IPRATROP 3MG/0.5MG NEB 3 ML VIAL NEB SCH ×4 (07:30→19:27)
--- NOTE | 2022-12-01 08:39 | Critical Care Progress Note ---
Date of Service December 01, 2022 Assessment & Plan (1) Acute on chronic respiratory failure with hypoxia: Plan: Impression: 62-year-old male with metastatic lung cancer presents to the ICU with acute on chronic respiratory failure with hypoxia and hypotension Neuro - Depressioncontinue Wellbutrin Cardiac - Hypotensionlikely adrenal insufficiency. Obtain CT abdomen and pelvis with contrast to evaluate for adrenal mets. Start Florinef in addition to midodrine. Transition from dexamethasone to hydrocortisone 50 every 6. Respiratory - Acute on chronic hypoxic respiratory failurepatient with metastatic lung cancer undergoing radiation therapy (no chemo), and diagnosis of COPD -Cannot rule out infectious process at this time and currently undergoing broad-spectrum antibiotics, see below -Chest CTA negative for PE -Hold on diuresis as patient is hypotensive -Wean oxygen as tolerated, continuous pulse ox monitor GI - Advance diet as tolerated Transaminitistrend LFTs for now RENAL/LYTES - Creatinine within normal limits, monitor routine BMP and replete electrolytes as indicated - Strict I's and O's ENDO - -Florinef, midodrine and hydrocortisone. CT abdomen to evaluate adrenal glands. HEME - H&H stable, monitor routine CBC. Hemodilutional anemia. ID - Sepsis?Possible pulmonary source, mild leukocytosis and initially elevated lactate. Procalcitonin however within normal limits and afebrile -Patient is positive COVID-19. No signs of viral pneumonia. No indication to treat COVID pneumonia at this time. -Nasal MRSA negative -Blood cultures and sputum culture pending -Continue with cefepime LINES/IV ACCESS - Peripheral IV DVT PROPHYLAXIS - SCDs, Lovenox Thank you for allowing us to participate in the care of this patient. Stable for downgrade to PCU. ICU team to sign off. Please call with questions. (2) Hypotension: (3) COVID-19: (4) Sepsis: (5) Metastatic adenocarcinoma to bone: (6) Lumbar compression fracture: (7) Hypercholesteremia: (8) COPD (chronic obstructive pulmonary disease): (9) Lactate blood increase: (10) Elevated LFTs: (11) Adrenal insufficiency: Admission and Anticipated Discharge Date Admission Date: November 30, 2022 Subjective Patient denies any significant chest pain, shortness of breath or abdominal pain. He notes that he has been constipated for the past week and has not had a bowel movement. He does endorse some mild dizziness. Review of Systems Review of Systems: All systems reviewed & are unremarkable except as noted in HPI & below Physical Exam Constitutional: WD/WN, vitals as above Eyes: PERRL, conjunctivae normal, anicteric sclerae ENMT: external ear and nose normal, oropharynx normal Neck: trachea midline, no thyromegaly Respiratory: No labored breathing or use of accessory muscles, no respiratory distress, symmetrical chest wall movement. Diminished right lung sounds. Cardiovascular: RRR, no murmur, no edema Heart Sounds: normal S1 and normal S2; no murmur Gastrointestinal (Abdomen): normal bowel sounds, soft, nontender, no hepatosplenomegaly Musculoskeletal: no cyanosis or clubbing, extremities motor strength 5/5 Skin: no rashes, warm and dry Neurologic: PERRL, EOMI, accommodation nl, no face palsy, no dysarthria Psychiatric: A+Ox3, euthymic affect Results & Data Results & Data ([facility]) Vital Signs (Past 12 Hours) Vital Signs Temp Pulse Pulse Resp BP Pulse Ox O2 Del Method 12/01/22 07:30 73 16 97 Oxymask 12/01/22 01:58 67 12/01/22 01:34 36.7 C 11/30/22 21:00 36.6 C 12/01/22 01:30 63 18 98 12/01/22 01:20 64 19 96 12/01/22 01:10 66 17 12/01/22 01:10 90/49 L 12/01/22 01:00 68 17 98 12/01/22 00:50 66 18 97 12/01/22 00:40 64 17 97 12/01/22 00:30 66 19 96 12/01/22 00:20 75 17 96 12/01/22 00:10 74 17 97 12/01/22 00:00 72 18 96 12/01/22 00:00 86/48 L 11/30/22 23:50 67 20 98 11/30/22 23:40 66 20 98 11/30/22 23:30 67 19 98 11/30/22 23:20 67 33 H 98 11/30/22 23:10 67 19 94 11/30/22 23:00 68 16 97 11/30/22 23:00 85/50 L 11/30/22 22:50 70 19 91 11/30/22 22:40 73 23 96 11/30/22 22:30 75 19 94 11/30/22 22:20 68 22 96 11/30/22 22:10 66 20 97 11/30/22 22:00 71 21 97 11/30/22 22:00 73/45 L 11/30/22 21:50 70 23 95 11/30/22 21:40 74 20 96 11/30/22 21:30 70 21 96 11/30/22 21:20 75 26 H 96 11/30/22 21:10 67 22 97 11/30/22 21:00 77 24 96 11/30/22 21:00 95/57 L 11/30/22 20:50 81 21 98 11/30/22 21:00 Oxymask 11/30/22 20:40 79 16 96 O2 Flow Rate 12/01/22 07:30 7 12/01/22 01:58 12/01/22 01:34 11/30/22 21:00 12/01/22 01:30 12/01/22 01:20 12/01/22 01:10 12/01/22 01:10 12/01/22 01:00 12/01/22 00:50 12/01/22 00:40 12/01/22 00:30 12/01/22 00:20 12/01/22 00:10 12/01/22 00:00 12/01/22 00:00 11/30/22 23:50 11/30/22 23:40 11/30/22 23:30 11/30/22 23:20 11/30/22 23:10 11/30/22 23:00 11/30/22 23:00 11/30/22 22:50 11/30/22 22:40 11/30/22 22:30 11/30/22 22:20 11/30/22 22:10 11/30/22 22:00 11/30/22 22:00 11/30/22 21:50 11/30/22 21:40 11/30/22 21:30 11/30/22 21:20 11/30/22 21:10 11/30/22 21:00 11/30/22 21:00 11/30/22 20:50 11/30/22 21:00 7 11/30/22 20:40 Coding Level of Care Code 40014 SUB INP/OBS CARE 3/50MIN Diagnoses Acute on chronic respiratory failure with hypoxia J96.21 Hypotension I95.9 COVID-19 U07.1 Sepsis A41.9 Metastatic adenocarcinoma to bone C79.51 Lumbar compression fracture S32.000A Hypercholesteremia E78.00 COPD (chronic obstructive pulmonary disease) J44.9 Lactate blood increase R79.89 Elevated LFTs R79.89 Adrenal insufficiency E27.40
[2022-12-01] MEDS: ICU Protocol for HYPERglycemia SCH ×2 (08:54→09:29)
[2022-12-01] MEDS ORDERED: methylPREDNISolone 50 MG in SYRINGE 0 ML IV SCH (09:00)
[2022-12-01] MEDS: MIDODRINE HCL 10 MG TAB PO SCH ×3 (09:28→16:58)
[2022-12-01] MEDS: buPROPion XL 300 MG TABCR PO SCH (09:28)
[2022-12-01] MEDS: FLUDROCORTISONE ACETATE 0.1 MG TAB PO SCH (09:28)
[2022-12-01] MEDS: CEFEPIME 2,000 MG in SYRINGE 0 ML IV SCH ×2 (09:28→15:06)
[2022-12-01] MEDS: HYDROCORTISONE SOD 50 MG in SYRINGE 0 ML IV SCH ×3 (09:29→20:49)
[2022-12-01 10:15] LABS: Basophils # (auto) 0.01 K/uL (0-0.2); Basophils % (auto) 0.2 %; Hematocrit (blood only) 32.2 % (42.0-52.0); Immature Granulocytes # (auto) 0.03 K/uL (0.01-0.20); Immature Granulocytes % (auto) 0.6 %; Lymphocytes # (auto) 0.42 K/uL (1.2-3.4); Lymphocytes % (auto) 8.3 %; Mean Corpuscular Hemoglobin 30.1 pg (25.0-34.0); Mean Corpuscular Hgb Conc 34.2 g/dL (32.0-36.0); Mean Platelet Volume 8.2 fL (9.4-12.4); Monocytes # (auto) 0.67 K/uL (0.11-0.59); Monocytes % (auto) 13.3 %; Neutrophils # (auto) 3.92 K/uL (1.40-6.50); Neutrophils % (auto) 77.6 %; Platelet Count 122 K/uL (130-400); RDW Coefficient of Variation 15.2 % (11.5-14.5); RDW Standard Deviation 49.3 fL (36.4-46.3); Red Blood Count 3.66 M/uL (4.70-6.10); White Blood Count 5.05 K/ul (4.8-10.8)
[2022-12-01] MEDS ORDERED: OPTIRAY 350 100ml IV ONE (11:03)
--- NOTE | 2022-12-01 12:03 | CT Scan Report ---
ABDOMEN AND PELVIS CT WITH IV CONTRAST CT DOSE: 442.13 mGy.cm HISTORY: Follow up study in a patient with known metastatic disease and right basilar consolidation. mets, including adrenal mets? TECHNIQUE: Multiaxial CT images of the abdomen and pelvis were performed following the IV administrat ion of 94 cc of Optiray, A dose lowering technique was utilized adhering to the principles of ALARA. COMPARISON STUDY: CTA chest of same day, MRI lumbar spine 10/30/2022, CTA chest 10/19/2022. FINDINGS: Small right pleural effusion. Reticular interstitial coarsening with intralobular septal th ickening and dense airspace consolidation within the right lung base, most pronounced in the right lo wer lobe. Emphysema. Solid nodules within the left lung measure up to 10 mm within the left lower lob e, image 7 series 3 which has increased in size from 10/19/2022. No pneumatosis or pneumoperitoneum. Unremarkable spleen. Left adrenal metastatic lesion measuring 2.4 x 2.0 cm, previously 1.8 x 1.5 cm on the 10/19/2022 exam. Unremarkable right adrenal gland. Mildly at rophic pancreas. Cholecystectomy. Unremarkable liver. Patency of the hepatic and portal veins. Nonobs tructing 3 mm calculus of the superior pole left kidney. No urolith or hydronephrosis. Excreted contr ast in the collecting systems and urinary bladder with urinary bladder distention. Atherosclerosis of the aorta. Chronic appearing occlusion of the proximal to mid aspects of the right common iliac bharti ry with reconstitution of flow at the iliac bifurcation. Prostamegaly. Pathologic periesophageal lymph nodes measure up to 1.8 x 1.2 cm. No bowel obstruction or bowel wall thickening. There is moderate colonic fecal retention. Appendix not visualized. Metastatic omental 1. 6 x 1.5 cm nodule within the left midabdomen on image 214 previously measured 1.6 cm on the 11/03/2022 radiation scan. 8 mm nodule adjacent to the stomach on image 179. Unremarkable soft tissues. Degener ative changes of the spine, pelvis and hips. Unchanged superior endplate L3 compression deformity. Th e previously noted probable bony metastatic lesions are not well visualized. IMPRESSION: 1. Small right pleural effusion with extensive right lung base pulmonary opacities redemonstrated. Th ere is progression of the left lower lobe pulmonary metastasis. Please refer to the chest CT of same day for additional findings. 2. Pathologic periesophageal lymph nodes with increased size of the left adrenal mass and omental nod ules compatible with progressive metastatic disease. 3. 30% superior endplate compression of the L3 vertebral body is unchanged. The suspected metastatic osseous lesions described on the 10/30/2022 MRI study are not well visualized by CT. 4. No bowel obstruction or bowel wall thickening. 5. Left nephrolithiasis. ACT 112: Negative or not required by law. The above report was generated using voice recognition software. It may contain grammatical, syntax o r spelling errors. Electronically signed by: Jose Miguel Tineo M.D. 12/01/2022 12:00 PM
--- NOTE | 2022-12-01 13:58 | Palliative Care Consultation ---
Date of Consultation December 01, 2022 Assessment & Plan (1) Palliative care encounter: I talked with Mr. Grijalva about how he is coping with his cancer diagnosis. He tells me that it has been difficult for him and he has had to process this in small doses. He has had numerous challenges prior to his diagnosis which are impacting his coping strategy. He is trying to remain centered and in the present and consequently has not given much thought to his goals for the future. We discussed whether there were any limits to what he would be willing to go through in terms of treatment and he told me that he hasn't really thought about that. We discussed importance of understanding his goals and wishes to know how best to approach his care. We also discussed a surrogate decision maker. He does not currently have a medical POA and told me that he is not sure who he would want to make decisions on his behalf if he were unable to do so. He has a complicated relationship with his sisters and is not sure who he would choose. We discussed a surrogate decision maker should be someone who is trusted to make the same decisions he would make if he were speaking for himself. He is willing to consider these issues but tells me that he is not comfortable making a decision at this time. History of Present Illness Reason for Consultation: goals of care Requesting Physician: Dr. 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 He has completed palliative radiation therapy. He was admitted with acute on chronic respiratory failure with positive covid 19 and elevated lactate. He had been hypotensive on admission and was in the ICU on for pressor support. He is near his baseline at this time, with chronically low blood pressure. CT shows small right pleural effusion, progression of left lower lobe metastases with increse in size of left adrenal mass and omental nodules. He has been evaluated by oncology and genomic testing revealed no ta rgeted therapy options. Allergies Allergy/AdvReac Type Severity Reaction Status Date / Time tetracycline Allergy Severe Anaphylaxis Verified 11/30/22 15:31 belladonna alkaloids Allergy Intermediate Hives Verified 11/30/22 15:31 cocoa Allergy Intermediate Rash Verified 11/30/22 15:31 hydrocodone Allergy Intermediate Hives Verified 11/30/22 15:31 oxycodone Allergy Intermediate Hives Verified 11/30/22 15:31 petrolatum,white Allergy Intermediate Rash Verified 11/30/22 15:31 Home Medications Medication Instructions Recorded Confirmed Type alendronate 70 mg tablet 70 mg PO Q7D 10/30/22 11/30/22 History atorvastatin 80 mg tablet 80 mg PO QPM 10/30/22 11/30/22 History calcium carbonate 600 mg calcium 600 mg PO BID 10/30/22 11/30/22 History (1,500 mg) tablet cholecalciferol (vitamin D3) 25 25 mcg PO DAILY 10/30/22 11/30/22 History mcg (1,000 unit) capsule gabapentin 100 mg capsule 100 mg PO QPM 10/30/22 11/30/22 History meloxicam 15 mg tablet 15 mg PO DAILY 10/30/22 11/30/22 History omeprazole 40 mg capsule,delayed 40 mg PO DAILY 10/30/22 11/30/22 History release midodrine 2.5 mg tablet 5 mg PO TID@0800,1200,1700 30 days 11/06/22 11/30/22 Rx #30 tabs Oxygen Home #1 ea 11/20/22 Rx bupropion HCl 300 mg 24 hr tablet, 300 mg PO DAILY 11/30/22 11/30/22 History extended release dexamethasone 4 mg tablet 4 mg PO BID 11/30/22 11/30/22 History folic acid 1 mg tablet 1 mg PO DAILY 11/30/22 11/30/22 History meclizine 25 mg chewable tablet 25 mg PO BID PRN Dizziness 11/30/22 11/30/22 History olanzapine 2.5 mg tablet 2.5 mg PO DAILY 11/30/22 11/30/22 History ondansetron HCl 8 mg tablet 8 mg PO Q8H PRN NAUSEA/VOMITING 11/30/22 11/30/22 History prochlorperazine maleate 10 mg 10 mg PO Q6H PRN NAUSEA/VOMITING 11/30/22 11/30/22 History tablet tramadol 50 mg tablet 50 - 100 mg PO TID PRN Pain 11/30/22 11/30/22 History Patient History Medical History Adrenal insufficiency Arthritis COPD (chronic obstructive pulmonary disease) Edema Hypercholesteremia Lung cancer Mass of lung Mass of right lung Metabolic brain disease Palpitations Patellofemoral instability of both knees with pain Reflex sympathetic dystrophy Spinal stenosis Surgical History Hx of right knee surgery Social History Smoking Status: Former smoker Tobacco Type: Cigarettes Cigarettes Per Day: 1; Hx Alcohol Use: No Hx Substance Use: No Preferred Language: Mohawk Communication Ability: Effective Visual Impairment: No Limitations Wool Cleaner Required: No Beliefs That Will Affect Care: None Current Living Situation: Alone Current Living Situation Comment: Lives on 1st floor of 2 story house Other Information That Helps Us Care for You: No Feels Safe at Home: Yes Safety Concerns: Feels Safe At This Time Assistive Devices: Cane and Walker Review of Systems Review of Systems: ESAS Pain 2/3 chronic Dyspnea 0/3 Nausea 0/3 Anxiety 2/3 Drowsiness 0/3 Physical Exam Constitutional: no acute distress Respiratory: normal respiratory effort; no labored breathing Cardiovascular: Rate/Rhythm: regular rate and regular rhythm Neurologic: Speech / Cognition: normal cognition Psychiatric: Affect: + anxious affect Results & Data ([facility]) Vital Signs (Past 12 Hours) Vital Signs Pulse Pulse Resp BP Pulse Ox O2 Del Method O2 Flow Rate 12/01/22 12:21 Nasal Cannula 12/01/22 12:00 86 24 94 Nasal Cannula 4 12/01/22 11:56 86 20 94 12/01/22 11:56 83/52 L 12/01/22 11:14 69 18 12/01/22 10:01 82/51 L 12/01/22 10:01 81 22 87 L 12/01/22 10:00 83 23 89 L 12/01/22 11:53 86 20 90 Nasal Cannula 4 12/01/22 09:00 75 23 93 Nasal Cannula 4 12/01/22 09:00 81/49 L 12/01/22 08:00 77 22 93 12/01/22 08:00 97/58 L 12/01/22 07:50 85/46 L 12/01/22 07:50 82 24 91 12/01/22 07:00 74 19 96 12/01/22 07:00 85/46 L 12/01/22 08:00 Oxymask 12/01/22 10:03 Nasal Cannula 12/01/22 09:00 Nasal Cannula 12/01/22 07:30 73 16 97 Oxymask 7 12/01/22 01:58 67 PG Care Time/CCT Total # of Minutes Spent Total Time Spent: 73 Total Time Spent with Patient: Total time spent is greater than 50% in coordination of care (as documented) at patient's floor/unit and/or counseling patient: [id number] goals of care, patient education and support Coding Level of Care Code 20625 INT INP/OBS CARE 2/55MIN Diagnoses Palliative care encounter Z51.5
[2022-12-01] MEDS: GABAPENTIN 100 MG CAP PO SCH (20:46)
--- NOTE | 2022-12-01 21:16 | Hospitalist Progress Note ---
Date of Service December 01, 2022 Assessment & Plan (1) Hypotension: Plan: -Admit to the ICU -The patient is currently afebrile, hypotensive, and currently stable on 11L/min on oxymask -The patient's initial workup in the ED was without an obvious source of infection, lactate elevated at 5 with repeat at 3.7 after 3L NSS bolus, found to be Covid 19 positive on full respiratory biofire -UA is currently in process along with random cortisol level -Will obtain CT of the abd/pelvis w/IV con for further evaluation as he has been constipated for a week -S/P Cefepime in the ED, will continue Cefepime and add Vancomycin and Flagyl for now until his workup is complete -Follow-up with UA which is currently in process -Will give 10 mg midodrine STAT -Will have nursing staff place Olivo cath for better I's and O's -Continue to monitor on tele and pulse oximetry -BL SCD's for DVT PPX at this time until CT of the abd/pelvis is complete ON 12/02 Patient is transferred out of the ICU. Placed on florinef, hydrocortisone, midodrine Blood pressure is better and patient is mentating. (2) COVID-19: Plan: -Found to be positive on full resp biofire obtained in the ED -S/P 40 mg IV methylprednisolone which is equivalent to 7.5 mg Dexamethasone >Will defer continued steroid treatment to the ICU at this time but the patient is currently covered today for Covid 19 pneumonia -S/P 10 mg Albuterol nebulizer treatment, continue with DuoNebs scheduled QID -Incentive spirometry, flutter therapy, robitussin for cough -Prn O2 to keep SpO2 between 88-92% (3) Lactate blood increase: Plan: -Initial lactate elevated at 5.1, down to 3.7 S/P 3L NSS bolus -Likely due to his hypotension and poor perfusion -Will order repeat lactate with reflex if still greater than 2 (4) Elevated LFTs: Plan: -AST at 49, ALT at 69, Alk phos at 109, all increased compared to 11/28/22 -Unclear etiology at this time but the differential includes the beginning of shock liver, his acute viral illness, hepatitis, or possible new mets to the liver -FU on CT of the abd/pelvis w/con for further assessment (5) Acute on chronic respiratory failure with hypoxia: Plan: -See Covid-19 (6) Non-small cell cancer of right lung: Plan: -With mets to the brain and lumbar spine -Currently receiving radiation therapy to the chest and spine with plans to start on brain mets in the near future -Currently seeing Oncology to coordinate chemotherapy but has not yet started or received a Mediport (7) Reflex sympathetic dystrophy: Plan: -Stable -Will defer continuing Gabapentin and tramadol to the ICU as he is currently unstable Admission and Anticipated Discharge Date Admission Date: November 30, 2022 Subjective Patient reports feeling better. He is not back to his baseline. Review of Systems Review of Systems: All systems reviewed & are unremarkable except as noted in HPI & below Physical Exam Physical Exam: General: In no acute distress, cachectic, the patient appears ill HEENT: Normocephalic, atraumatic, no scleral icterus, pupils around round, symmetrical, and reactive to light, dry mucus membranes, trachea midline, no thyromegaly Chest/Pulm: No respiratory distress symmetrical chest expansion no wheezing, some rhonchi Cardiac: Tachycardic rate, regular rhythm, no murmurs noted Abdomen: Negative for ascites and bruising, hyperactive bowel sounds, soft, non- tender to palpation throughout Musculoskeletal: No acute trauma, baseline spasticity of the upper and lower extremities noted Extremities: Radial, dorsalis pedis, and posterior tibial pulses are intact and symmetrical, no edema noted in the BL LE's Skin: Warm, dry, no rashes , lesions, or scars noted Neuro: Alert and oriented to person, place, month, year, and president, no focal defects, CN II-XII tested and intact, Psych: No acute distress, calm and cooperative during the exam Results & Data Results & Data ([facility]) Vital Signs (Past 12 Hours) Vital Signs Pulse Pulse Resp BP BP Pulse Ox O2 Del Method 12/01/22 15:50 80 18 93 Nasal Cannula 12/01/22 15:08 60 18 92/55 L 94 Nasal Cannula 12/01/22 12:21 Nasal Cannula 12/01/22 12:00 86 24 94 Nasal Cannula 12/01/22 11:56 86 20 94 12/01/22 11:56 83/52 L 12/01/22 11:14 69 18 12/01/22 10:01 82/51 L 12/01/22 10:01 81 22 87 L 12/01/22 10:00 83 23 89 L 12/01/22 11:53 86 20 90 Nasal Cannula 12/01/22 10:03 Nasal Cannula O2 Flow Rate 12/01/22 15:50 5 12/01/22 15:08 4 12/01/22 12:21 12/01/22 12:00 4 12/01/22 11:56 12/01/22 11:56 12/01/22 11:14 12/01/22 10:01 12/01/22 10:01 12/01/22 10:00 12/01/22 11:53 4 12/01/22 10:03 PG Care Time/CCT Total # of Minutes Spent Total Time Spent with Patient: Total time spent is greater than 50% in coordination of care (as documented) at patient's floor/unit and/or counseling patient: Coding Level of Care Code 11090 SUB INP/OBS CARE 3/50MIN Diagnoses Hypotension I95.9 COVID-19 U07.1 Lactate blood increase R79.89 Elevated LFTs R79.89 Acute on chronic respiratory failure with hypoxia J96.21 Non-small cell cancer of right lung C34.91 Reflex sympathetic dystrophy G90.50
[2022-12-02] MEDS: CEFEPIME 2,000 MG in SYRINGE 0 ML IV SCH ×3 (00:03→15:59)
[2022-12-02] MEDS: HYDROCORTISONE SOD 50 MG in SYRINGE 0 ML IV SCH ×4 (03:33→21:27)
[2022-12-02 06:42] LABS: Hematocrit (blood only) 33.3 % (42.0-52.0); Hemoglobin 11.3 g/dl (14.0-18.0); Immature Granulocytes # (auto) 0.03 K/uL (0.01-0.20); Immature Granulocytes % (auto) 0.5 %; Lymphocytes # (auto) 0.45 K/uL (1.2-3.4); Lymphocytes % (auto) 6.9 %; Mean Corpuscular Hemoglobin 29.6 pg (25.0-34.0); Mean Corpuscular Hgb Conc 33.9 g/dL (32.0-36.0); Mean Corpuscular Volume 87.2 fL (80.0-100.0); Mean Platelet Volume 8.1 fL (9.4-12.4); Monocytes # (auto) 0.56 K/uL (0.11-0.59); Monocytes % (auto) 8.6 %; Neutrophils # (auto) 5.47 K/uL (1.40-6.50); Platelet Count 138 K/uL (130-400); RDW Coefficient of Variation 15.1 % (11.5-14.5); RDW Standard Deviation 47.9 fL (36.4-46.3); Red Blood Count 3.82 M/uL (4.70-6.10); White Blood Count 6.51 K/ul (4.8-10.8)
[2022-12-02 06:56] LABS: BUN Creatinine Ratio 18.2 (10-20); Creatinine Clr Calc Pharmacy 121.5 ml/min; Est GFR (African American) 129.4 ml/min; Est GFR (Non-African American) 111.7 ml/min; Magnesium 1.9 mg/dl (1.7-2.4); Phosphorus 3.5 mg/dl (2.5-4.9); Potassium 3.3 mmol/L (3.5-5.1)
[2022-12-02] MEDS: ALBUT/IPRATROP 3MG/0.5MG NEB 3 ML VIAL NEB SCH ×4 (07:27→19:40)
[2022-12-02] MEDS: FLUDROCORTISONE ACETATE 0.1 MG TAB PO SCH (08:51)
[2022-12-02] MEDS: MIDODRINE HCL 10 MG TAB PO SCH ×3 (08:52→16:27)
[2022-12-02] MEDS: buPROPion XL 300 MG TABCR PO SCH (08:52)
--- NOTE | 2022-12-02 09:06 | Electrocardiogram Report ---
Test Reason : Blood Pressure : / mmHG Vent. Rate : 123 BPM Atrial Rate : 123 BPM P-R Int : 164 ms QRS Dur : 086 ms QT Int : 302 ms P-R-T Axes : 056 023 066 degrees QTc Int : 432 ms Poor data quality, interpretation may be adversely affected Sinus tachycardia Nonspecific ST abnormality Abnormal ECG When compared with ECG of 07-NOV-2022 14:21, No significant change Confirmed by Vincent James ([id number]) on 12/02/2022 9:06:01 AM Referred By: REFERRED SELF Confirmed By:Vincent James
--- NOTE | 2022-12-02 09:51 | XRay Report ---
XR KUB/Abdomen 1 view CLINICAL HISTORY: constipation/ abd pain TECHNIQUE: 1 view of the abdomen was obtained. Comparison: None available at the time of this dictation. FINDINGS: Lung bases are unremarkable. Degenerative changes are seen in the visualized skeleton. The bowel gas pattern is nonobstructive. A moderate amount of stool is noted within the large bowel. IMPRESSION: No acute abnormality and in particular no evidence of fecal impaction. ACT 112: Negative or not required by law. Electronically signed by: Maximino Erickson M.D. 12/02/2022 9:49 AM
[2022-12-02] MEDS ORDERED: POLYETHYLENE (MIRALAX) 17 GM PACK PO ONE (10:30)
[2022-12-02] MEDS ORDERED: POLYETHYLENE (MIRALAX) 17 GM PACK PO SCH (10:30)
[2022-12-02] MEDS: GABAPENTIN 100 MG CAP PO SCH (21:26)
[2022-12-02] MEDS: POLYETHYLENE (MIRALAX) 17 GM PACK PO SCH (21:28)
--- NOTE | 2022-12-02 21:41 | Hospitalist Progress Note ---
Date of Service December 02, 2022 Assessment & Plan (1) Hypotension: Plan: -Admit to the ICU -The patient is currently afebrile, hypotensive, and currently stable on 11L/min on oxymask -The patient's initial workup in the ED was without an obvious source of infection, lactate elevated at 5 with repeat at 3.7 after 3L NSS bolus, found to be Covid 19 positive on full respiratory biofire -UA is currently in process along with random cortisol level -Will obtain CT of the abd/pelvis w/IV con for further evaluation as he has been constipated for a week -S/P Cefepime in the ED, will continue Cefepime and add Vancomycin and Flagyl for now until his workup is complete -Follow-up with UA which is currently in process -Will give 10 mg midodrine STAT -Will have nursing staff place Olivo cath for better I's and O's -Continue to monitor on tele and pulse oximetry -BL SCD's for DVT PPX at this time until CT of the abd/pelvis is complete ON 12/01 Patient is transferred out of the ICU. Placed on florinef, hydrocortisone, midodrine Blood pressure is better and patient is mentating. On 12/02 Patient remains on med-tele. Will continue current medications, hydrocortisone, midodrine. BP is at goal. (2) COVID-19: Plan: -Found to be positive on full resp biofire obtained in the ED -S/P 40 mg IV methylprednisolone which is equivalent to 7.5 mg Dexamethasone >Will defer continued steroid treatment to the ICU at this time but the patient is currently covered today for Covid 19 pneumonia -S/P 10 mg Albuterol nebulizer treatment, continue with DuoNebs scheduled QID -Incentive spirometry, flutter therapy, robitussin for cough -Prn O2 to keep SpO2 between 88-92% (3) Lactate blood increase: Plan: -Initial lactate elevated at 5.1, down to 3.7 S/P 3L NSS bolus -Likely due to his hypotension and poor perfusion -lactic acidosis has resolved. (4) Elevated LFTs: Plan: -AST at 49, ALT at 69, Alk phos at 109, all increased compared to 11/28/22 -Unclear etiology at this time but the differential includes the beginning of shock liver, his acute viral illness, hepatitis, or possible new mets to the liver -FU on CT of the abd/pelvis w/con for further assessment -will discuss with Rad. oncology and heme/onc on Sunday. (5) Acute on chronic respiratory failure with hypoxia: Plan: -See Covid-19 (6) Non-small cell cancer of right lung: Plan: -With mets to the brain and lumbar spine -Currently receiving radiation therapy to the chest and spine with plans to start on brain mets in the near future -Currently seeing Oncology to coordinate chemotherapy but has not yet started or received a Mediport (7) Reflex sympathetic dystrophy: Plan: -Stable -Will defer continuing Gabapentin and tramadol to the ICU as he is currently unstable Admission and Anticipated Discharge Date Admission Date: November 30, 2022 Subjective Patient reports feeling better today. He has no new complaints. Review of Systems Review of Systems: All systems reviewed & are unremarkable except as noted in HPI & below Physical Exam Physical Exam: General: In no acute distress, cachectic, the patient appears ill HEENT: Normocephalic, atraumatic, no scleral icterus, pupils around round, symmetrical, and reactive to light, dry mucus membranes, trachea midline, no thyromegaly Chest/Pulm: No respiratory distress symmetrical chest expansion no wheezing, some rhonchi Cardiac: Tachycardic rate, regular rhythm, no murmurs noted Abdomen: Negative for ascites and bruising, hyperactive bowel sounds, soft, non- tender to palpation throughout Musculoskeletal: No acute trauma, baseline spasticity of the upper and lower extremities noted Extremities: Radial, dorsalis pedis, and posterior tibial pulses are intact and symmetrical, no edema noted in the BL LE's Skin: Warm, dry, no rashes , lesions, or scars noted Neuro: Alert and oriented to person, place, month, year, and president, no focal defects, CN II-XII tested and intact, Psych: No acute distress, calm and cooperative during the exam Results & Data Results & Data ([facility]) Vital Signs (Past 12 Hours) Vital Signs Temp Pulse Pulse Resp BP Pulse Ox O2 Del Method 12/02/22 20:15 36.4 C L 79 16 96/58 L 91 Nasal Cannula 12/02/22 19:41 80 18 96 Nasal Cannula 12/02/22 14:01 82 12/02/22 15:57 36.5 C 87 21 126/65 92 Nasal Cannula 12/02/22 14:47 76 18 94 Nasal Cannula 12/02/22 13:37 Nasal Cannula 12/02/22 13:13 36.4 C 92 H 18 101/59 L 94 Nasal Cannula 12/02/22 12:18 36.5 C 88 19 96/49 L 91 Nasal Cannula 12/02/22 11:30 81 24 91 Nasal Cannula O2 Flow Rate 12/02/22 20:15 4 12/02/22 19:41 4 12/02/22 14:01 12/02/22 15:57 4 12/02/22 14:47 4 12/02/22 13:37 4 12/02/22 13:13 4 12/02/22 12:18 4 12/02/22 11:30 4 PG Care Time/CCT Total # of Minutes Spent Total Time Spent with Patient: Total time spent is greater than 50% in coordination of care (as documented) at patient's floor/unit and/or counseling patient: Coding Level of Care Code 47017 SUB INP/OBS CARE 3/50MIN Diagnoses Hypotension I95.9 COVID-19 U07.1 Lactate blood increase R79.89 Elevated LFTs R79.89 Acute on chronic respiratory failure with hypoxia J96.21 Non-small cell cancer of right lung C34.91 Reflex sympathetic dystrophy G90.50
[2022-12-03] MEDS: CEFEPIME 2,000 MG in SYRINGE 0 ML IV SCH (00:01)
[2022-12-03] MEDS: HYDROCORTISONE SOD 50 MG in SYRINGE 0 ML IV SCH ×3 (03:52→16:28)
[2022-12-03 05:52] LABS: Hematocrit (blood only) 33.1 % (42.0-52.0); Hemoglobin 11.5 g/dl (14.0-18.0); Immature Granulocytes # (auto) 0.04 K/uL (0.01-0.20); Immature Granulocytes % (auto) 0.6 %; Lymphocytes # (auto) 0.37 K/uL (1.2-3.4); Lymphocytes % (auto) 5.1 %; Mean Corpuscular Hemoglobin 29.9 pg (25.0-34.0); Mean Corpuscular Hgb Conc 34.7 g/dL (32.0-36.0); Mean Corpuscular Volume 86.2 fL (80.0-100.0); Mean Platelet Volume 8.3 fL (9.4-12.4); Monocytes # (auto) 0.65 K/uL (0.11-0.59); Neutrophils # (auto) 6.18 K/uL (1.40-6.50); Neutrophils % (auto) 85.3 %; Platelet Count 149 K/uL (130-400); RDW Coefficient of Variation 15.3 % (11.5-14.5); RDW Standard Deviation 48.4 fL (36.4-46.3); Red Blood Count 3.84 M/uL (4.70-6.10); White Blood Count 7.24 K/ul (4.8-10.8)
[2022-12-03 06:12] LABS: BUN Creatinine Ratio 17.5 (10-20); Creatinine Clr Calc Pharmacy 117.2 ml/min; Est GFR (African American) 127.6 ml/min; Est GFR (Non-African American) 110.1 ml/min; Magnesium 1.9 mg/dl (1.7-2.4); Phosphorus 2.9 mg/dl (2.5-4.9); Potassium 3.7 mmol/L (3.5-5.1)
[2022-12-03] MEDS: ALBUT/IPRATROP 3MG/0.5MG NEB 3 ML VIAL NEB SCH ×4 (07:22→19:34)
[2022-12-03] MEDS: MIDODRINE HCL 10 MG TAB PO SCH ×3 (09:25→17:14)
[2022-12-03] MEDS: buPROPion XL 300 MG TABCR PO SCH (09:25)
[2022-12-03] MEDS: FLUDROCORTISONE ACETATE 0.1 MG TAB PO SCH (09:25)
[2022-12-03] MEDS: POLYETHYLENE (MIRALAX) 17 GM PACK PO SCH ×3 (09:26→21:09)
[2022-12-03] MEDS ORDERED: DOCUSATE SODIUM/SENNA 50/8.6MG TAB PO ONE (16:21)
[2022-12-03] MEDS ORDERED: HYDROCORTISONE SOD 50 MG in SYRINGE 0 ML IV SCH (16:24)
[2022-12-03] MEDS: HYDROCORTISONE SOD 25 MG in SYRINGE 0 ML IV SCH ×2 (18:15→22:25)
--- NOTE | 2022-12-03 20:27 | Hospitalist Progress Note ---
Date of Service December 03, 2022 Assessment & Plan (1) Hypotension: Plan: -Admit to the ICU -The patient is currently afebrile, hypotensive, and currently stable on 11L/min on oxymask -The patient's initial workup in the ED was without an obvious source of infection, lactate elevated at 5 with repeat at 3.7 after 3L NSS bolus, found to be Covid 19 positive on full respiratory biofire -UA is currently in process along with random cortisol level -Will obtain CT of the abd/pelvis w/IV con for further evaluation as he has been constipated for a week -S/P Cefepime in the ED, will continue Cefepime and add Vancomycin and Flagyl for now until his workup is complete -Follow-up with UA which is currently in process -Will give 10 mg midodrine STAT -Will have nursing staff place Olivo cath for better I's and O's -Continue to monitor on tele and pulse oximetry -BL SCD's for DVT PPX at this time until CT of the abd/pelvis is complete ON 12/01 Patient is transferred out of the ICU. Placed on florinef, hydrocortisone, midodrine Blood pressure is better and patient is mentating. On 12/02 Patient remains on med-tele. Will continue current medications, hydrocortisone, midodrine. BP is at goal. On 12/03 Patients remains on med tele. Blood pressure remains controlled, will titrate hydrocortisone to 25 mg Q^H BP at goal. continue miralax, but increased to TID dosing (2) COVID-19: Plan: -Found to be positive on full resp biofire obtained in the ED -S/P 40 mg IV methylprednisolone which is equivalent to 7.5 mg Dexamethasone >Will defer continued steroid treatment to the ICU at this time but the patient is currently covered today for Covid 19 pneumonia -S/P 10 mg Albuterol nebulizer treatment, continue with DuoNebs scheduled QID -Incentive spirometry, flutter therapy, robitussin for cough -Prn O2 to keep SpO2 between 88-92% (3) Lactate blood increase: Plan: -Initial lactate elevated at 5.1, down to 3.7 S/P 3L NSS bolus -Likely due to his hypotension and poor perfusion -lactic acidosis has resolved. (4) Elevated LFTs: Plan: -AST at 49, ALT at 69, Alk phos at 109, all increased compared to 11/28/22 -Unclear etiology at this time but the differential includes the beginning of shock liver, his acute viral illness, hepatitis, or possible new mets to the liver -FU on CT of the abd/pelvis w/con for further assessment -will discuss with Rad. oncology and heme/onc on Sunday. (5) Acute on chronic respiratory failure with hypoxia: Plan: -See Covid-19 (6) Non-small cell cancer of right lung: Plan: -With mets to the brain and lumbar spine -Currently receiving radiation therapy to the chest and spine with plans to start on brain mets in the near future -Currently seeing Oncology to coordinate chemotherapy but has not yet started or received a Mediport (7) Reflex sympathetic dystrophy: Plan: -Stable -Will defer continuing Gabapentin and tramadol to the ICU as he is currently unstable Admission and Anticipated Discharge Date Admission Date: November 30, 2022 Subjective 62 yo male reports having constipation.Has not had a bowel movement as of yet. Review of Systems Review of Systems: All systems reviewed & are unremarkable except as noted in HPI & below Physical Exam Physical Exam: General: In no acute distress, cachectic, the patient appears ill HEENT: Normocephalic, atraumatic, no scleral icterus, pupils around round, symmetrical, and reactive to light, dry mucus membranes, trachea midline, no thyromegaly Chest/Pulm: No respiratory distress symmetrical chest expansion no wheezing, some rhonchi Cardiac: Tachycardic rate, regular rhythm, no murmurs noted Abdomen: Negative for ascites and bruising, hyperactive bowel sounds, soft, non- tender to palpation throughout Musculoskeletal: No acute trauma, baseline spasticity of the upper and lower extremities noted Extremities: Radial, dorsalis pedis, and posterior tibial pulses are intact and symmetrical, no edema noted in the BL LE's Skin: Warm, dry, no rashes , lesions, or scars noted Neuro: Alert and oriented to person, place, month, year, and president, no focal defects, CN II-XII tested and intact, Psych: No acute distress, calm and cooperative during the exam Results & Data Results & Data ([facility]) Vital Signs (Past 12 Hours) Vital Signs Temp Pulse Pulse Pulse Resp BP Pulse Ox 12/03/22 19:35 76 18 89 L 12/03/22 17:17 36.6 C 86 19 102/58 L 92 12/03/22 16:00 66 12/03/22 15:30 88 18 93 12/03/22 12:44 36.7 C 88 19 106/61 91 12/03/22 11:23 74 18 12/03/22 10:54 O2 Del Method O2 Flow Rate FiO2 12/03/22 19:35 Nasal Cannula 5 12/03/22 17:17 Nasal Cannula 5 12/03/22 16:00 12/03/22 15:30 Nasal Cannula 3 12/03/22 12:44 Nasal Cannula 5 12/03/22 11:23 Nasal Cannula 3 12/03/22 10:54 Nasal Cannula 4 PG Care Time/CCT Total # of Minutes Spent Total Time Spent with Patient: Total time spent is greater than 50% in coordination of care (as documented) at patient's floor/unit and/or counseling patient: Coding Level of Care Code 27138 SUB INP/OBS CARE 2/35MIN Diagnoses Hypotension I95.9 COVID-19 U07.1 Lactate blood increase R79.89 Elevated LFTs R79.89 Acute on chronic respiratory failure with hypoxia J96.21 Non-small cell cancer of right lung C34.91 Reflex sympathetic dystrophy G90.50
[2022-12-03] MEDS: GABAPENTIN 100 MG CAP PO SCH (21:09)
[2022-12-04] MEDS: HYDROCORTISONE SOD 25 MG in SYRINGE 0 ML IV SCH ×3 (04:07→21:50)
[2022-12-04] MEDS: ALBUT/IPRATROP 3MG/0.5MG NEB 3 ML VIAL NEB SCH ×4 (07:08→19:19)
[2022-12-04 07:34] LABS: Hematocrit (blood only) 33.7 % (42.0-52.0); Hemoglobin 11.6 g/dl (14.0-18.0); Mean Corpuscular Hgb Conc 34.4 g/dL (32.0-36.0); Mean Corpuscular Volume 87.1 fL (80.0-100.0); Mean Platelet Volume 8.1 fL (9.4-12.4); Platelet Count 177 K/uL (130-400); RDW Coefficient of Variation 15.6 % (11.5-14.5); RDW Standard Deviation 49.2 fL (36.4-46.3); Red Blood Count 3.87 M/uL (4.70-6.10); White Blood Count 8.62 K/ul (4.8-10.8)
[2022-12-04 07:46] LABS: BUN Creatinine Ratio 15.6 (10-20); C Reactive Protein 1.38 mg/dl (0-0.5); Creatinine Clr Calc Pharmacy 106.6 ml/min; Est GFR (African American) 121.6 ml/min; Est GFR (Non-African American) 104.9 ml/min; Potassium 3.4 mmol/L (3.5-5.1)
[2022-12-04] MEDS: MIDODRINE HCL 10 MG TAB PO SCH ×3 (08:34→17:35)
[2022-12-04] MEDS: buPROPion XL 300 MG TABCR PO SCH (08:34)
[2022-12-04] MEDS: FLUDROCORTISONE ACETATE 0.1 MG TAB PO SCH (08:34)
[2022-12-04] MEDS: POLYETHYLENE (MIRALAX) 17 GM PACK PO SCH ×3 (08:52→21:38)
--- NOTE | 2022-12-04 10:34 | XRay Report ---
KUB CLINICAL HISTORY: Constipation. FINDINGS: 2 AP, portable, supine abdominal radiographs are compared to study dated 12/02/2022 and dina elated with abdominal CT dated 12/01/2022. There is mild gaseous distention of the small bowel loops w ith no radiographic evidence of obstruction. No evidence of intraperitoneal free air is seen on these supine images. There is rectosigmoid fecal retention and mild constipation. No abnormal abdominal ca lcifications are seen. Phleboliths are noted throughout the pelvis. The skeletal structures are osteo penic and appear intact. There is mild lumbosacral spondylosis. IMPRESSION: Retrosigmoid fecal retention and mild constipation. Electronically signed by: Aniket Ryan M.D. 12/04/2022 10:32 AM
[2022-12-04] MEDS ORDERED: SOD PHOSPHATE/SOD BIPHOSPHATE ENEMA 132 ML BTL PR STA (10:41)
[2022-12-04] MEDS ORDERED: traMADol HCL 50 MG TABLET PO STA ×2 (13:06→22:55)
[2022-12-04] MEDS: GABAPENTIN 100 MG CAP PO SCH (21:38)
--- NOTE | 2022-12-04 22:01 | Hospitalist Progress Note ---
Date of Service December 04, 2022 Assessment & Plan (1) Hypotension: Plan: -Admit to the ICU -The patient is currently afebrile, hypotensive, and currently stable on 11L/min on oxymask -The patient's initial workup in the ED was without an obvious source of infection, lactate elevated at 5 with repeat at 3.7 after 3L NSS bolus, found to be Covid 19 positive on full respiratory biofire -UA is currently in process along with random cortisol level -Will obtain CT of the abd/pelvis w/IV con for further evaluation as he has been constipated for a week -S/P Cefepime in the ED, will continue Cefepime and add Vancomycin and Flagyl for now until his workup is complete -Follow-up with UA which is currently in process -Will give 10 mg midodrine STAT -Will have nursing staff place Olivo cath for better I's and O's -Continue to monitor on tele and pulse oximetry -BL SCD's for DVT PPX at this time until CT of the abd/pelvis is complete ON 12/01 Patient is transferred out of the ICU. Placed on florinef, hydrocortisone, midodrine Blood pressure is better and patient is mentating. On 12/02 Patient remains on med-tele. Will continue current medications, hydrocortisone, midodrine. BP is at goal. On 12/03 Patients remains on med tele. Blood pressure remains controlled, will titrate hydrocortisone to 25 mg Q^H BP at goal. continue miralax, but increased to TID dosing 12/04 BP remains at goal. (2) COVID-19: Plan: -Found to be positive on full resp biofire obtained in the ED -S/P 40 mg IV methylprednisolone which is equivalent to 7.5 mg Dexamethasone >Will defer continued steroid treatment to the ICU at this time but the patient is currently covered today for Covid 19 pneumonia -S/P 10 mg Albuterol nebulizer treatment, continue with DuoNebs scheduled QID -Incentive spirometry, flutter therapy, robitussin for cough -Prn O2 to keep SpO2 between 88-92% (3) Lactate blood increase: Plan: -Initial lactate elevated at 5.1, down to 3.7 S/P 3L NSS bolus -Likely due to his hypotension and poor perfusion -lactic acidosis has resolved. (4) Elevated LFTs: Plan: -AST at 49, ALT at 69, Alk phos at 109, all increased compared to 11/28/22 -Unclear etiology at this time but the differential includes the beginning of shock liver, his acute viral illness, hepatitis, or possible new mets to the liver -FU on CT of the abd/pelvis w/con for further assessment -will discuss with Rad. oncology and heme/onc on Sunday. 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 Tried fleet enema and tap water enema. will repeat KUB in AM. Admission and Anticipated Discharge Date Admission Date: November 30, 2022 Subjective 62 yo male reports having signifcant abdominal pain, mainly in the lower quadrant. Patient is refusing miralax. Review of Systems Review of Systems: All systems reviewed & are unremarkable except as noted in HPI & below Physical Exam Physical Exam: General: In no acute distress, cachectic, the patient appears ill HEENT: Normocephalic, atraumatic, no scleral icterus, pupils around round, symmetrical, and reactive to light, dry mucus membranes, trachea midline, no thyromegaly Chest/Pulm: No respiratory distress symmetrical chest expansion no wheezing, some rhonchi Cardiac: Tachycardic rate, regular rhythm, no murmurs noted Abdomen: Negative for ascites and bruising, hyperactive bowel sounds, soft, non- tender to palpation throughout except for pain in lower quadrant. Musculoskeletal: No acute trauma, baseline spasticity of the upper and lower extremities noted Extremities: Radial, dorsalis pedis, and posterior tibial pulses are intact and symmetrical, no edema noted in the BL LE's Skin: Warm, dry, no rashes , lesions, or scars noted Neuro: Alert and oriented to person, place, month, year, and president, no focal defects, CN II-XII tested and intact, Psych: No acute distress, calm and cooperative during the exam Results & Data Results & Data ([facility]) Vital Signs (Past 12 Hours) Vital Signs Temp Pulse Pulse Resp BP Pulse Ox O2 Del Method 12/04/22 19:20 91 H 20 91 Nasal Cannula 12/04/22 15:02 36.6 C 92 H 18 112/60 93 Nasal Cannula 12/04/22 15:36 88 12/04/22 15:17 95 H 20 93 Nasal Cannula 12/04/22 11:35 36.6 C 94 H 18 115/55 L 91 Nasal Cannula 12/04/22 10:19 96 H 18 92 Nasal Cannula O2 Flow Rate 12/04/22 19:20 5 12/04/22 15:02 5 12/04/22 15:36 12/04/22 15:17 6 12/04/22 11:35 5 12/04/22 10:19 4 PG Care Time/CCT Total # of Minutes Spent Total Time Spent with Patient: Total time spent is greater than 50% in coordination of care (as documented) at patient's floor/unit and/or counseling patient: Coding Level of Care Code 19749 SUB INP/OBS CARE 3/50MIN Diagnoses Hypotension I95.9 COVID-19 U07.1 Lactate blood increase R79.89 Elevated LFTs R79.89 Acute on chronic respiratory failure with hypoxia J96.21 Non-small cell cancer of right lung C34.91 Reflex sympathetic dystrophy G90.50 Fecal retention K59.00 Time Spent (min) 55
[2022-12-05] MEDS ORDERED: hydrOXYzine HCl 10 MG TAB PO ONE (02:07)
--- NOTE | 2022-12-05 02:11 | Communication Note ---
Date of Service: December 05, 2022 Remains unable to pass PM. Treating abd pain and anxiety w/ tramadol 50mg x1 dose (reviewed pdmp; no significant/chronic use) and hydroxyzine 10mg x1. Cons ider disimpaction if constipation persists.
[2022-12-05] MEDS: ALBUT/IPRATROP 3MG/0.5MG NEB 3 ML VIAL NEB SCH ×4 (07:20→19:55)
[2022-12-05] MEDS: HYDROCORTISONE SOD 25 MG in SYRINGE 0 ML IV SCH ×2 (08:18→20:29)
[2022-12-05] MEDS: POLYETHYLENE (MIRALAX) 17 GM PACK PO SCH ×4 (08:19→20:55)
[2022-12-05] MEDS: FLUDROCORTISONE ACETATE 0.1 MG TAB PO SCH (08:20)
[2022-12-05] MEDS: buPROPion XL 300 MG TABCR PO SCH (08:20)
[2022-12-05] MEDS: MIDODRINE HCL 10 MG TAB PO SCH ×3 (08:20→17:31)
[2022-12-05 09:48] LABS: Hematocrit (blood only) 34.8 % (42.0-52.0); Hemoglobin 11.9 g/dl (14.0-18.0); Mean Corpuscular Hemoglobin 29.6 pg (25.0-34.0); Mean Corpuscular Hgb Conc 34.2 g/dL (32.0-36.0); Mean Corpuscular Volume 86.6 fL (80.0-100.0); Mean Platelet Volume 8.5 fL (9.4-12.4); Platelet Count 166 K/uL (130-400); RDW Coefficient of Variation 15.7 % (11.5-14.5); RDW Standard Deviation 48.9 fL (36.4-46.3); Red Blood Count 4.02 M/uL (4.70-6.10); White Blood Count 9.05 K/ul (4.8-10.8)
--- NOTE | 2022-12-05 09:51 | Gastrointestinal Consultation ---
Date of Consultation December 05, 2022 Assessment & Plan (1) Fecal retention: (2) COVID-19: Plan 1. Minimize opiate use or consider co-administration of Relistor. 2. Diet as tolerated. 3. Recommend fleet enema x2 today. 4. Await KUB as ordered. 5. If no results, again consider Relistor. Thank you for allowing us to participate in the care of this patient. If you have any questions or concerns, please do not hesitate to contact us. History of Present Illness Reason for Consultation: Fecal retention Requesting Physician: Dr. Oliva Attending Physician: Charles Oliva History of Present Illness Patient is a 62 y.o. male with a history of non-small cell cancer of the right lung with mets to the brain/lumbar spine S/P radiation therapy to the chest admitted with fevers and shortness of breath related to COVID-19 infection. GI has been consulted due to ongoing symptoms of constipation and fecal retention in the setting of poor po intake and recent Tramadol use. KUB yesterday with findings of rectosigmoid retention and mild constipation. KUB this morning is pending. Patient states he is passing small amounts of stool but is having abdominal discomfort. No rectal bleeding. Has been given MiraLAX 17 g TID with no benefit. Allergies Allergy/AdvReac Type Severity Reaction Status Date / Time tetracycline Allergy Severe Anaphylaxis Verified 11/30/22 15:31 belladonna alkaloids Allergy Intermediate Hives Verified 11/30/22 15:31 cocoa Allergy Intermediate Rash Verified 11/30/22 15:31 hydrocodone Allergy Intermediate Hives Verified 11/30/22 15:31 oxycodone Allergy Intermediate Hives Verified 11/30/22 15:31 petrolatum,white Allergy Intermediate Rash Verified 11/30/22 15:31 Home Medications Medication Instructions Recorded Confirmed Type alendronate 70 mg tablet 70 mg PO Q7D 10/30/22 11/30/22 History atorvastatin 80 mg tablet 80 mg PO QPM 10/30/22 11/30/22 History calcium carbonate 600 mg calcium 600 mg PO BID 10/30/22 11/30/22 History (1,500 mg) tablet cholecalciferol (vitamin D3) 25 25 mcg PO DAILY 10/30/22 11/30/22 History mcg (1,000 unit) capsule gabapentin 100 mg capsule 100 mg PO QPM 10/30/22 11/30/22 History meloxicam 15 mg tablet 15 mg PO DAILY 10/30/22 11/30/22 History omeprazole 40 mg capsule,delayed 40 mg PO DAILY 10/30/22 11/30/22 History release midodrine 2.5 mg tablet 5 mg PO TID@0800,1200,1700 30 days 11/06/22 11/30/22 Rx #30 tabs Oxygen Home #1 ea 11/20/22 Rx bupropion HCl 300 mg 24 hr tablet, 300 mg PO DAILY 11/30/22 11/30/22 History extended release dexamethasone 4 mg tablet 4 mg PO BID 11/30/22 11/30/22 History folic acid 1 mg tablet 1 mg PO DAILY 11/30/22 11/30/22 History meclizine 25 mg chewable tablet 25 mg PO BID PRN Dizziness 11/30/22 11/30/22 History olanzapine 2.5 mg tablet 2.5 mg PO DAILY 11/30/22 11/30/22 History ondansetron HCl 8 mg tablet 8 mg PO Q8H PRN NAUSEA/VOMITING 11/30/22 11/30/22 History prochlorperazine maleate 10 mg 10 mg PO Q6H PRN NAUSEA/VOMITING 11/30/22 11/30/22 History tablet tramadol 50 mg tablet 50 - 100 mg PO TID PRN Pain 11/30/22 11/30/22 History Patient History Medical History Adrenal insufficiency Arthritis COPD (chronic obstructive pulmonary disease) Edema Hypercholesteremia Lung cancer Mass of lung Mass of right lung Metabolic brain disease Palpitations Patellofemoral instability of both knees with pain Reflex sympathetic dystrophy Spinal stenosis Surgical History Hx of right knee surgery Social History Smoking Status: Former smoker Tobacco Type: Cigarettes Cigarettes Per Day: 1; Hx Alcohol Use: No Hx Substance Use: No Preferred Language: Mohawk Communication Ability: Effective Visual Impairment: No Limitations 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: No Beliefs That Will Affect Care: None Current Living Situation: Alone Current Living Situation Comment: Lives on 1st floor of 2 story house Feels Safe at Home: Yes Assistive Devices: Cane and Walker Review of Systems Constitutional: as per Subjective / HPI Respiratory: as per Subjective / HPI Gastrointestinal: as per Subjective / HPI Physical Exam Constitutional: + frail appearing Eyes: EOM intact bilaterally Neck: normal visual inspection Respiratory: + labored breathing Gastrointestinal (Abdomen): Inspection/Auscultation: abdomen normal to inspection and normal bowel sounds; abdomen not distended Percussion/Palpation: + abdomen tender and abdomen soft; no guarding and abdomen not rigid Skin: no jaundice Psychiatric: A+Ox3, euthymic affect Results & Data ([facility]) Vital Signs (Past 12 Hours) Vital Signs Temp Pulse Pulse Resp BP Pulse Ox O2 Del Method 12/05/22 08:20 100 H 20 93 Oxymask, High Flow Nasal Cannula 12/05/22 08:26 95 Oxymask, High Flow Nasal Cannula 12/05/22 08:08 36.5 C 97 H 20 112/71 93 Nasal Cannula, Oxymask 12/05/22 07:20 92 H 18 93 Nasal Cannula 12/05/22 06:32 36.6 C 97 H 20 105/61 90 Room Air, Nasal Cannula 12/05/22 03:40 36.4 C L 96 H 18 106/62 90 Nasal Cannula 12/04/22 22:00 Nasal Cannula 12/04/22 23:45 36.5 C 90 18 114/68 90 Nasal Cannula 12/04/22 23:09 91 H O2 Flow Rate FiO2 12/05/22 08:20 30 100 12/05/22 08:26 12/05/22 08:08 15 12/05/22 07:20 12 12/05/22 06:32 6 12/05/22 03:40 5 12/04/22 22:00 5 12/04/22 23:45 5 12/04/22 23:09 Diagnostic Findings Laboratory Results WBC 9.05 K/ul (4.8-10.8) 12/05/22 09:26 RBC 4.02 M/uL (4.70-6.10) L 12/05/22 09:26 Hgb 11.9 g/dl (14.0-18.0) L 12/05/22 09:26 POC Hgb 15.0 g/dl (14.0-18.0) 11/30/22 15:25 Hct 34.8 % (42.0-52.0) L 12/05/22 09:26 POC Hct 44 % (42-52) 11/30/22 15:25 MCV 86.6 fL (80.0-100.0) 12/05/22 09:26 MCH 29.6 pg (25.0-34.0) 12/05/22 09: MCHC 34.2 g/dL (32.0-36.0) 12/05/22 09: RDW Std Deviation 48.9 fL (36.4-46.3) H 12/05/22 09:26 RDW Coeff of Kishore 15.7 % (11.5-14.5) H 12/05/22 09:26 Plt Count 166 K/uL (130-400) 12/05/22 09: MPV 8.5 fL (9.4-12.4) L 12/05/22 09:26 Immature Gran % (Auto) 0.6 % 12/03/22 05:34 Neut % (Auto) 85.3 % 12/03/22 05:34 Lymph % (Auto) 5.1 % 12/03/22 05:34 [place] % (Auto) 9.0 % 12/03/22 05:34 Eos % (Auto) 0.0 % 12/03/22 05:34 Baso % (Auto) 0.0 % 12/03/22 05:34 Neut # (Auto) 6.18 K/uL (1.40-6.50) 12/03/22 05:34 Lymph # (Auto) 0.37 K/uL (1.2-3.4) L 12/03/22 05:34 [place] # (Auto) 0.65 K/uL (0.11-0.59) H 12/03/22 05:34 Eos # (Auto) 0.00 K/uL (0-0.50) 12/03/22 05:34 Baso # (Auto) 0.00 K/uL (0-0.2) 12/03/22 05:34 Immature Gran # (Auto) 0.04 K/uL (0.01-0.20) 12/03/22 05:34 VBG pH 7.42 (7.36-7.41) H 11/30/22 15:24 VBG pCO2 37 mmHg (38-50) L 11/30/22 15:24 VBG pO2 27 mmHg 11/30/22 15:24 VBG HCO3 24 mmol/L 11/30/22 15:24 VBG O2 Saturation < 60.0 % 11/30/22 15:24 VBG Base Excess -0.2 mEq/L 11/30/22 15:24 POC Sodium 134 mmol/L (135-144) L 11/30/22 15:25 Sodium 138 mmol/L (136-145) 12/04/22 07:02 POC Potassium 4.0 mmol/L (3.3-5.0) 11/30/22 15:25 Potassium 3.4 mmol/L (3.5-5.1) L 12/04/22 07:02 POC Chloride 99 mmol/L (101-112) L 11/30/22 15:25 Chloride 104 mmol/L (98-107) 12/04/22 07:02 Carbon Dioxide 26 mmol/L (21-32) 12/04/22 07:02 POC Total CO2 20 mmol/L (24-31) L 11/30/22 15:25 Anion Gap 8 (3-11) 12/04/22 07:02 POC Anion Gap 20.0 mmol/L (16-25) 11/30/22 15:25 POC BUN 19 mg/dl (7-18) H 11/30/22 15:25 BUN 10 mg/dl (6-23) 12/04/22 07:02 Creatinine 0.64 mg/dl (0.6-1.4) 12/04/22 07:02 POC Creatinine 0.7 mg/dl (0.6-1.3) 11/30/22 15:25 Est Cr Clr Drug Dosing 106.6 ml/min 12/04/22 07:02 Est GFR ( Amer) 121.6 ml/min 12/04/22 07:02 Est GFR (Non-Af Amer) 104.9 ml/min 12/04/22 07:02 BUN/Creatinine Ratio 15.6 (10-20) 12/04/22 07:02 Glucose 100 mg/dl (70-99(Fasting)) H 12/04/22 07:02 POC Glucose 131 mg/dl (70-99) H 12/01/22 00:04 POC Glucose (other) 109 mg/dl (70-99) H 11/30/22 15:25 Lactate 1.7 mmol/L (0.4-2.0) 12/01/22 00:05 Calcium 8.0 mg/dl (8.5-10.1) L 12/04/22 07:02 POC Ioniz Calcium Ruth Ann 1.00 mmol/l (1.12-1.32) L 11/30/22 15:25 Phosphorus 2.9 mg/dl (2.5-4.9) 12/03/22 05:34 Magnesium 1.9 mg/dl (1.7-2.4) 12/03/22 05:34 Total Bilirubin 0.4 mg/dl (0.2-1.0) 12/01/22 05:24 Direct Bilirubin 0.1 mg/dl (0-0.2) 12/01/22 05:24 AST 30 U/L (13-39) 12/01/22 05:24 ALT 46 U/L (7-52) 12/01/22 05:24 Alkaline Phosphatase 74 U/L (34-104) 12/01/22 05:24 Troponin I High Sens 9.5 pg/ml (0-20) 11/30/22 15:24 C-Reactive Protein 1.38 mg/dl (0-0.5) H 12/04/22 07:02 B-Natriuretic Peptide 80 pg/ml (0-100) 12/04/22 07:02 Total Protein 5.3 gm/dl (6.0-8.3) L D 12/01/22 05:24 Albumin 2.6 gm/dl (3.4-5.0) L 12/01/22 05:24 Procalcitonin 0.30 ng/ml (0-0.5) 11/30/22 15:26 Random Cortisol > 60.00 mcg/dl 12/03/22 10:36 Cortisol AM Sample 41.51 mcg/dl (6.2-22.6) H 12/04/22 07:02 Urine Color Dark Yellow 11/30/22 18:54 Urine Appearance Cloudy (Clear) A 11/30/22 18:54 Urine pH 5.0 (4.5-7.5) 11/30/22 18:54 Ur Specific [place] > 1.045 (1.000-1.030) H 11/30/22 18:54 Urine Protein Negative (Negative) 11/30/22 18:54 Urine Glucose (UA) Negative (Negative) 11/30/22 18:54 Urine Ketones Negative (Negative) 11/30/22 18:54 Urine Blood Negative (Negative) 11/30/22 18:54 Urine Nitrite Negative (Negative) 11/30/22 18:54 Urine Bilirubin Negative (Negative) 11/30/22 18:54 Urine Urobilinogen Negative (Negative) 11/30/22 18:54 Ur Leukocyte Esterase Negative (Negative) 11/30/22 18:54 Urine WBC (Auto) 1-5 /hpf (0-5) 11/30/22 18:54 Urine RBC (Auto) 10-30 /hpf (0-4) H 11/30/22 18:54 U Hyaline Cast (Auto) 1-5 /lpf (0-5) 11/30/22 18:54 U Epithel Cells (Auto) 20-30 /lpf (0-5) H 11/30/22 18:54 Urine Bacteria (Auto) Negative (Negative) 11/30/22 18:54 Nasal Screen MRSA (PCR) Negative (Negative) 11/30/22 20:51 Adenovirus (PCR) Not Detected (NotDetected) 11/30/22 Unknown B. pertussis DNA (PCR) Not Detected (NotDetected) 11/30/22 Unknown B.parapertussis DNA PCR Not Detected (NotDetected) 11/30/22 Unknown C. pneumoniae DNA (PCR) Not Detected (NotDetected) 11/30/22 Unknown Coronavirus OC43 (PCR) Not Detected (NotDetected) 11/30/22 Unknown Coronavirus HKU1 (PCR) Not Detected (NotDetected) 11/30/22 Unknown Coronavirus 229E (PCR) Not Detected (NotDetected) 11/30/22 Unknown SARS-CoV-2 (PCR) DETECTED (NotDetected) A* 11/30/22 Unknown Coronavirus NL63 (PCR) Not Detected (NotDetected) 11/30/22 Unknown Human Metapneumovir PCR Not Detected (NotDetected) 11/30/22 Unknown Influenza Type A (PCR) Not Detected (NotDetected) 11/30/22 Unknown Influenza Type B (PCR) Not Detected (NotDetected) 11/30/22 Unknown M. pneumoniae (PCR) Not Detected (NotDetected) 11/30/22 Unknown Parainfluenza 1 (PCR) Not Detected (NotDetected) 11/30/22 Unknown Parainfluenza 2 (PCR) Not Detected (NotDetected) 11/30/22 Unknown Parainfluenza 3 (PCR) Not Detected (NotDetected) 11/30/22 Unknown Parainfluenza 4 (PCR) Not Detected (NotDetected) 11/30/22 Unknown RSV (PCR) Not Detected (NotDetected) 11/30/22 Unknown Entero/Rhino (PCR) Not Detected (NotDetected) 11/30/22 Unknown Impressions Chest X-Ray 11/30/22 15:04 XR chest 1V portable CLINICAL HISTORY: Sepsis TECHNIQUE: Single frontal radiograph of the chest was obtained. Comparison: Comparison is made to chest radiograph 11/07/[address] radiation therapy 10/23/2022 FINDINGS: No lines and tubes are seen. Calcified aortic knob is seen. Atelectasis is seen in the right lung. Previously noted alveolar opacities appear somewhat improved however interstitial opacities remain. Right upper lobe mass is better seen on CT. IMPRESSION: Right lung interstitial opacities are seen. Overall airspace opacities are improved from prior radiograph. The left lung is clear. ACT 112: Negative or not required by law. Electronically signed by: Maximino Erickson M.D. 11/30/2022 3:16 PM Chest CTA 11/30/22 16:13 CT angio chest PE protocol CLINICAL HISTORY: hypoxic tachy sob TECHNIQUE: Multidetector row helical CT of the chest was performed with angiographic protocol. Coronal and sagittal reformations were obtained. Coronal and sagittal MIPS were obtained from the axial data set and were submitted for review. Automated dose lowering techniques and/or adjustment according to patient size were utilized for this exam. CT DOSE: 360.82 mGy.cm Comparison: Comparison is made to CT radiation therapy 10/19/2022 FINDINGS: Lungs and pleura: Marked emphysema is seen. There are numerous foci of consolidation and interstitial thickening. Previously noted right upper lung mass appears somewhat less masslike on today's exam, measuring 21 mm in craniocaudal dimension, compared to 36 mm in prior exam. There is also a 10 mm pulmonary nodule in the left lower lobe which previously measured 3 mm. There is a small right pleural effusion which may be reactive. Heart and pericardium: Heart size is normal. No pericardial effusion. Vessels: No evidence of pulmonary embolism. Ascending aorta measures 42 mm in diameter, enlarged from prior exam. Mediastinum and hugo: There is a 9 mm left lower paratracheal lymph node which was not well-seen on prior exam. Chest wall and lower neck: Unremarkable. Abdomen: There is thickening of the left adrenal gland which is similar to prior exam. Patient is status post cholecystectomy. Bones: Degenerative changes in the thoracic spine. IMPRESSION: 1. No pulmonary embolus is seen. 2. Prominent consolidation with post radiation changes. The large masslike lesion in the right upper lobe appears somewhat decreased in size from prior exam. Consolidation in the right lower lobe is unchanged as is interstitial thickening of the right lung. 3. There is a 2 mm pulmonary nodule in the left lower lobe, enlarged from prior, metastatic disease cannot be excluded. 4. New 9 mm left lower paratracheal lymph node. 5. Additional findings as above. ACT 112: Negative or not required by law. Electronically signed by: Maximino Erickson M.D. 11/30/2022 5:55 PM Abdomen/Pelvis CT 12/01/22 08:[address] WITH IV CONTRAST CT DOSE: 442.13 mGy.cm HISTORY: Follow up study in a patient with known metastatic disease and right basilar consolidation. mets, including adrenal mets? TECHNIQUE: Multiaxial CT images of the abdomen and pelvis were performed following the IV administration of 94 cc of Optiray, A dose lowering technique was utilized adhering to the principles of ALARA. COMPARISON STUDY: CTA chest of same day, MRI lumbar spine 10/30/2022, CTA chest 10/19/2022. FINDINGS: Small right pleural effusion. Reticular interstitial coarsening with intralobular septal thickening and dense airspace consolidation within the right lung base, most pronounced in the right lower lobe. Emphysema. Solid nodules within the left lung measure up to 10 mm within the left lower lobe, image 7 series 3 which has increased in size from 10/19/2022. No pneumatosis or pneumoperitoneum. Unremarkable spleen. Left adrenal metastatic lesion measuring 2.4 x 2.0 cm, previously 1.8 x 1.5 cm on the 10/19/2022 exam. Unremarkable right adrenal gland. Mildly atrophic pancreas. Cholecystectomy. Unremarkable liver. Patency of the hepatic and portal veins. Nonobstructing 3 mm calculus of the superior pole left kidney. No urolith or hydronephrosis. Excreted contrast in the collecting systems and urinary bladder with urinary bladder distention. Atherosclerosis of the aorta. 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 Prostamegaly. Pathologic periesophageal lymph nodes measure up to 1.8 x 1.2 cm. No bowel obstruction or bowel wall thickening. There is moderate colonic fecal retention. Appendix not visualized. Metastatic omental 1.6 x 1.5 cm nodule within the left midabdomen on image 214 previously measured 1.6 cm on the 11/03/2022 radiation scan. 8 mm nodule adjacent to the stomach on image 179. Unremarkable soft tissues. Degenerative changes of the spine, pelvis and hips. Unchanged superior endplate L3 compression deformity. The previously noted probable bony metastatic lesions are not well visualized. IMPRESSION: 1. Small right pleural effusion with extensive right lung base pulmonary opacities redemonstrated. There is progression of the left lower lobe pulmonary metastasis. Please refer to the chest CT of same day for additional findings. 2. Pathologic periesophageal lymph nodes with increased size of the left adrenal mass and omental nodules compatible with progressive metastatic disease. 3. 30% superior endplate compression of the L3 vertebral body is unchanged. The suspected metastatic osseous lesions described on the 10/30/2022 MRI study are not well visualized by CT. 4. No bowel obstruction or bowel wall thickening. 5. Left nephrolithiasis. ACT 112: Negative or not required by law. The above report was generated using voice recognition software. It may contain grammatical, syntax or spelling errors. Electronically signed by: Jose Miguel Tineo M.D. 12/01/2022 12:00 PM PG Care Time/CCT Total # of Minutes Spent Total Time Spent with Patient: Total time spent is greater than 50% in coordination of care (as documented) at patient's floor/unit and/or counseling patient: Coding Level of Care Code 55247 INT INP/OBS CARE 3/75MIN Diagnoses Fecal retention K59.00 COVID-19 U07.1
--- NOTE | 2022-12-05 09:55 | XRay Report ---
KUB HISTORY: rectosigmoid fecal retention COMPARISON: KUB 12/04/2022. FINDINGS: No dilated loops of small bowel to suggest a small bowel obstruction. Borderline dilated ga s-filled colon most pronounced at the sigmoid colon which measures 6 cm in diameter. This could be du e to the large amount of stool within the rectum which measures 8.5 cm in diameter. This is similar t o the prior study. No renal calculi. No ureteral calculi. No pneumoperitoneum or pneumatosis. IMPRESSION: No significant change in the distal rectosigmoid fecal retention as described above. This may account for the borderline dilated gas-filled colon. ACT 112: Negative or not required by law. Electronically signed by: Herve Jarvis M.D. 12/05/2022 9:53 AM
[2022-12-05 10:07] LABS: BUN Creatinine Ratio 21.4 (10-20); C Reactive Protein 6.5 mg/dl (0-0.5); Creatinine Clr Calc Pharmacy 118.6 ml/min; Est GFR (African American) 128.5 ml/min; Est GFR (Non-African American) 110.9 ml/min; Potassium 3.2 mmol/L (3.5-5.1)
[2022-12-05] MEDS: LACTULOSE 200GM/700ML WTR ENEMA PR ONE ×2 (14:27→18:23)
[2022-12-05] MEDS ORDERED: METHYLNALTREXONE BROMIDE 12 MG/0.6 ML VIAL SQ ONE (17:00)
[2022-12-05] MEDS ORDERED: traMADol HCL 50 MG TABLET PO STA (18:04)
[2022-12-05] MEDS ORDERED: hydrOXYzine HCl 10 MG TAB PO STA (19:58)
[2022-12-05] MEDS: GABAPENTIN 100 MG CAP PO SCH (20:29)
[2022-12-05] MEDS: OLANZAPINE 2.5 MG TAB PO SCH (20:31)
--- NOTE | 2022-12-05 22:44 | Hospitalist Progress Note ---
Date of Service December 05, 2022 Assessment & Plan (1) Fecal retention: Plan: Patient did not tolerate digital desimpaction. Tried fleet enema and tap water enema. Tried multiple attempts f digital desimpaction, and enemas. Patient has been having small BMs but KUB is still showing fecal retention. Will try a lacutlose enema and order relistor (2) Hypotension: Plan: -Admit to the ICU -The patient is currently afebrile, hypotensive, and currently stable on 11L/min on oxymask -The patient's initial workup in the ED was without an obvious source of infection, lactate elevated at 5 with repeat at 3.7 after 3L NSS bolus, found to be Covid 19 positive on full respiratory biofire -UA is currently in process along with random cortisol level -Will obtain CT of the abd/pelvis w/IV con for further evaluation as he has been constipated for a week -S/P Cefepime in the ED, will continue Cefepime and add Vancomycin and Flagyl for now until his workup is complete -Follow-up with UA which is currently in process -Will give 10 mg midodrine STAT -Will have nursing staff place Olivo cath for better I's and O's -Continue to monitor on tele and pulse oximetry -BL SCD's for DVT PPX at this time until CT of the abd/pelvis is complete ON 12/01 Patient is transferred out of the ICU. Placed on florinef, hydrocortisone, midodrine Blood pressure is better and patient is mentating. On 12/02 Patient remains on med-tele. Will continue current medications, hydrocortisone, midodrine. BP is at goal. On 12/03 Patients remains on med tele. Blood pressure remains controlled, will titrate hydrocortisone to 25 mg Q8H BP at goal. continue miralax, but increased to TID dosing 12/04 BP remains at goal. 12/05 decrease hydrocortisone to 25 mg daily This is equivalent to 6 mg of prednisone. will continue for now. (3) COVID-19: Plan: -Found to be positive on full resp biofire obtained in the ED -S/P 40 mg IV methylprednisolone which is equivalent to 7.5 mg Dexamethasone >Will defer continued steroid treatment to the ICU at this time but the patient is currently covered today for Covid 19 pneumonia -S/P 10 mg Albuterol nebulizer treatment, continue with DuoNebs scheduled QID -Incentive spirometry, flutter therapy, robitussin for cough -Prn O2 to keep SpO2 between 88-92% His oxygenation has worsened but this appears mainly due to his increased abdominal distention. Acute hypoxic respiratory failure will contiue with )@ supplementation (4) Lactate blood increase: Plan: -Initial lactate elevated at 5.1, down to 3.7 S/P 3L NSS bolus -Likely due to his hypotension and poor perfusion -lactic acidosis has resolved. (5) Elevated LFTs: Plan: -AST at 49, ALT at 69, Alk phos at 109, all increased compared to 11/28/22 -Unclear etiology at this time but the differential includes the beginning of shock liver, his acute viral illness, hepatitis, or possible new mets to the liver -FU on CT of the abd/pelvis w/con for further assessment -will discuss with Rad. oncology and heme/onc on Sunday. 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 Patient reports he has not had a large BM. He is refusing more enemas until I spoke with him. He states he is very anxious. Updated his sisters who were at bedside. Review of Systems Review of Systems: All systems reviewed & are unremarkable except as noted in HPI & below Physical Exam Physical Exam: General: In no acute distress, cachectic, the patient appears ill HEENT: Normocephalic, atraumatic, no scleral icterus, pupils around round, symmetrical, and reactive to light, dry mucus membranes, trachea midline, no thyromegaly Chest/Pulm: No respiratory distress symmetrical chest expansion no wheezing, some rhonchi Cardiac: Tachycardic rate, regular rhythm, no murmurs noted Abdomen: Negative for ascites and bruising, hyperactive bowel sounds, soft, non- tender to palpation throughout except for pain in lower quadrant. Musculoskeletal: No acute trauma, baseline spasticity of the upper and lower extremities noted Extremities: Radial, dorsalis pedis, and posterior tibial pulses are intact and symmetrical, no edema noted in the BL LE's Skin: Warm, dry, no rashes , lesions, or scars noted Neuro: Alert and oriented to person, place, month, year, and president, no focal defects, CN II-XII tested and intact, Psych: No acute distress, calm and cooperative during the exam Results & Data Results & Data ([facility]) Vital Signs (Past 12 Hours) Vital Signs Temp Pulse Pulse Resp BP Pulse Ox O2 Del Method 12/05/22 22:12 36.7 C 88 20 124/74 96 Oxymask, High Flow Nasal Cannula 12/05/22 19:57 Oxymask, High Flow Nasal Cannula 12/05/22 19:55 84 22 93 Oxymask, High Flow Nasal Cannula 12/05/22 19:30 36.6 C 88 129/79 94 Oxymask, High Flow Nasal Cannula 12/05/22 16:01 80 19 94 Oxymask, High Flow Nasal Cannula 12/05/22 14:11 87 12/05/22 14:26 36.6 C 85 20 128/75 92 Oxymask, High Flow Nasal Cannula 12/05/22 11:35 87 20 93 Oxymask, High Flow Nasal Cannula 12/05/22 11:20 36.7 C 91 H 20 121/76 95 Oxymask, High Flow Nasal Cannula O2 Flow Rate FiO2 12/05/22 22:12 12/05/22 19:57 12/05/22 19:55 30 100 12/05/22 19:30 12/05/22 16:01 30 100 12/05/22 14:11 12/05/22 14:26 12/05/22 11:35 30 100 12/05/22 11:20 PG Care Time/CCT Total # of Minutes Spent Total Time Spent with Patient: Total time spent is greater than 50% in coordination of care (as documented) at patient's floor/unit and/or counseling patient: Coding Level of Care Code 85022 SUB INP/OBS CARE 3/50MIN Diagnoses Fecal retention K59.00 Hypotension I95.9 COVID-19 U07.1 Lactate blood increase R79.89 Elevated LFTs R79.89 Acute on chronic respiratory failure with hypoxia J96.21 Non-small cell cancer of right lung C34.91 Reflex sympathetic dystrophy G90.50 Time Spent (min) 55
[2022-12-06] MEDS: traMADol HCL 50 MG TABLET PO PRN ×3 (03:39→19:57)
[2022-12-06] MEDS ORDERED: hydrOXYzine HCl 10 MG TAB PO STA (06:00)
[2022-12-06] MEDS: ALBUT/IPRATROP 3MG/0.5MG NEB 3 ML VIAL NEB SCH ×4 (07:00→19:05)
[2022-12-06 08:23] LABS: C Reactive Protein 9.47 mg/dl (0-0.5); Calcium 8.2 mg/dl (8.5-10.1); Creatinine Clr Calc Pharmacy 128.3 ml/min; Est GFR (African American) 132.5 ml/min; Est GFR (Non-African American) 114.3 ml/min; Potassium 3.4 mmol/L (3.5-5.1)
[2022-12-06 08:29] LABS: Hematocrit (blood only) 36.5 % (42.0-52.0); Hemoglobin 12.4 g/dl (14.0-18.0); Mean Corpuscular Hemoglobin 29.6 pg (25.0-34.0); Mean Corpuscular Volume 87.1 fL (80.0-100.0); Mean Platelet Volume 8.5 fL (9.4-12.4); Platelet Count 192 K/uL (130-400); RDW Coefficient of Variation 15.6 % (11.5-14.5); RDW Standard Deviation 48.8 fL (36.4-46.3); Red Blood Count 4.19 M/uL (4.70-6.10); White Blood Count 9.69 K/ul (4.8-10.8)
[2022-12-06] MEDS: MIDODRINE HCL 10 MG TAB PO SCH ×3 (09:06→17:29)
[2022-12-06] MEDS: buPROPion XL 300 MG TABCR PO SCH (09:06)
[2022-12-06] MEDS: FLUDROCORTISONE ACETATE 0.1 MG TAB PO SCH (09:07)
[2022-12-06] MEDS: POLYETHYLENE (MIRALAX) 17 GM PACK PO SCH ×3 (09:07→19:46)
[2022-12-06] MEDS: HYDROCORTISONE SOD 25 MG in SYRINGE 0 ML IV SCH ×2 (09:23→19:56)
--- NOTE | 2022-12-06 11:09 | Communication Note ---
Date of Service: December 06, 2022 Per nursing, patient has had multiple bowel movements overnight. Refused Lactulose enema.
[2022-12-06] MEDS ORDERED: dexAMETHasone 6 MG in SYRINGE 0 ML IV SCH (14:00)
--- NOTE | 2022-12-06 14:04 | XRay Report ---
KUB HISTORY: constipation COMPARISON: KUB 12/05/2022. FINDINGS: Borderline dilated gas-filled colon has slightly improved. There is again noted 8.5 cm rect al stool ball. Moderate stool seen within the descending colon and sigmoid colon. No dilated loops of small bowel identified. No renal calculi. No ureteral calculi. No pneumoperitoneum or pneumatosis. IMPRESSION: No significant change in the rectosigmoid fecal retention. ACT 112: Negative or not required by law. Electronically signed by: Herve Jarvis M.D. 12/06/2022 2:03 PM
--- NOTE | 2022-12-06 14:32 | XRay Report ---
XR chest 1V portable HISTORY: hypoxia COMPARISON: Chest 11/30/2022. FINDINGS: No pneumothorax. Volume loss, interstitial thickening, and hazy airspace opacities within t he right lung remain unchanged. The right upper lobe masslike opacity is again noted. This similar to the prior study. Emphysema. The heart is normal in size. Stable right pleural thickening/effusion. IMPRESSION: No significant change in the volume loss, interstitial thickening, hazy airspace opacities, and upper lobe lesion within the right hemithorax compared to the prior chest CT. ACT 112: Negative or not required by law. Electronically signed by: Herve Jarvis M.D. 12/06/2022 2:31 PM
[2022-12-06] MEDS ORDERED: REMDESIVIR 200 MG in SODIUM CHLORIDE 0.9% 210 ML IV STA (17:09)
[2022-12-06] MEDS: ENOXAPARIN INJ 40 MG/0.4 ML SYR SQ SCH (18:28)
[2022-12-06] MEDS: GABAPENTIN 100 MG CAP PO SCH (19:57)
[2022-12-06] MEDS: OLANZAPINE 2.5 MG TAB PO SCH (19:57)
[2022-12-06] MEDS: POTASSIUM CHLORIDE CRTAB 20 MEQ TABCR PO SCH (21:32)
[2022-12-06] MEDS: dexAMETHasone 6 MG in SYRINGE 0 ML IV SCH (21:32)
--- NOTE | 2022-12-06 22:45 | Hospitalist Progress Note ---
Date of Service December 06, 2022 Assessment & Plan (1) COVID-19: Plan: Possible Sepsis due to COVID Acute hypoxic respiratory failure -Found to be positive on full resp biofire obtained in the ED with lactic acidosis. -S/P 40 mg IV methylprednisolone which is equivalent to 7.5 mg Dexamethasone initally dexamethaxsone was deferred as patient was on hdrocortisone for BP. HOwever, as his oxygentation worsened, and CRP worsened, he was switched to decadron 6mg IV BID on 12/06 He is requiring high flow 40 liters and an oxymask. Patient will try to lay on his side. His fecal retention may also be playing arole. (2) Fecal retention: Plan: Patient has had multiple attempts to remove stool via enemas and digital desimpactions. On 12/06 another attempt was made to give patient relief via digital desimpaction. Some stool was removed, but it appears to be soft. Patient refused an enema on 12/06. The fecal collection though appears softer, and was broken up with the digital disimpaction in hopes that patient may pass this. ordered relistor earlier in hospital stay will need to reorder relistor on 11/27 (3) Hypotension: Plan: this was the main reason patient was initally admitted. -appears to have resolved. BP has improved, however now treating covid with decadron and remdesevir. will continue midodrine and fiorinef. (4) Lactate blood increase: Plan: -Initial lactate elevated at 5.1, down to 3.7 S/P 3L NSS bolus -Likely due to his hypotension and poor perfusion -lactic acidosis has resolved. (5) Elevated LFTs: Plan: -AST at 49, ALT at 69, Alk phos at 109, all increased compared to 11/28/22 -Unclear etiology at this time but the differential includes the beginning of shock liver, his acute viral illness, hepatitis, or possible new mets to the liver -FU on CT of the abd/pelvis w/con for further assessment -will discuss with Rad. oncology and heme/onc on Sunday. 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 Patient reorts he is unable to lay prone. Review of Systems Review of Systems: All systems reviewed & are unremarkable except as noted in HPI & below Physical Exam Physical Exam: General: In no acute distress, cachectic, the patient appears ill HEENT: Normocephalic, atraumatic, no scleral icterus, pupils around round, symmetrical, and reactive to light, dry mucus membranes, trachea midline, no thyromegaly Chest/Pulm: No respiratory distress symmetrical chest expansion no wheezing, some rhonchi Cardiac: Tachycardic rate, regular rhythm, no murmurs noted Abdomen: Negative for ascites and bruising, hyperactive bowel sounds, soft, non- tender to palpation throughout except for pain in lower quadrant. Musculoskeletal: No acute trauma, baseline spasticity of the upper and lower extremities noted Extremities: Radial, dorsalis pedis, and posterior tibial pulses are intact and symmetrical, no edema noted in the BL LE's Skin: Warm, dry, no rashes , lesions, or scars noted Neuro: Alert and oriented to person, place, month, year, and president, no focal defects, CN II-XII tested and intact, Psych: No acute distress, calm and cooperative during the exam Results & Data Results & Data Vital Signs (Past 12 Hours) Vital Signs Temp Pulse Pulse Resp BP Pulse Ox O2 Del Method 12/06/22 20:27 Oxymask, High Flow Nasal Cannula 12/06/22 19:37 36.6 C 75 22 116/72 94 High Flow Nasal Cannula 12/06/22 19:06 77 16 97 High Flow Nasal Cannula 12/06/22 15:04 82 12/06/22 14:50 36.7 C 92 H 18 100/62 88 L Oxymask, High Flow Nasal Cannula 12/06/22 14:15 89 18 92 Oxymask, High Flow Nasal Cannula 12/06/22 11:59 36.9 C 102 H 20 100/62 94 Oxymask, High Flow Nasal Cannula 12/06/22 10:54 88 19 88 L High Flow Nasal Cannula O2 Flow Rate FiO2 12/06/22 20:27 45 12/06/22 19:37 12/06/22 19:06 40 95 12/06/22 15:04 12/06/22 14:50 12/06/22 14:15 40 100 12/06/22 11:59 12/06/22 10:54 40 100 PG Care Time/CCT Total # of Minutes Spent Total Time Spent with Patient: Total time spent is greater than 50% in coordination of care (as documented) at patient's floor/unit and/or counseling patient: Coding Level of Care Code 34147 SUB INP/OBS CARE 3/50MIN Diagnoses COVID-19 U07.1 Fecal retention K59.00 Hypotension I95.9 Lactate blood increase R79.89 Elevated LFTs R79.89 Acute on chronic respiratory failure with hypoxia J96.21 Non-small cell cancer of right lung C34.91 Reflex sympathetic dystrophy G90.50
[2022-12-07] MEDS: ENOXAPARIN INJ 40 MG/0.4 ML SYR SQ SCH ×2 (05:13→17:36)
[2022-12-07] MEDS: ALBUT/IPRATROP 3MG/0.5MG NEB 3 ML VIAL NEB SCH ×4 (06:59→19:42)
[2022-12-07] MEDS: traMADol HCL 50 MG TABLET PO PRN ×2 (07:38→22:57)
[2022-12-07] MEDS: HYDROCORTISONE SOD 25 MG in SYRINGE 0 ML IV SCH ×2 (07:38→22:20)
[2022-12-07] MEDS: dexAMETHasone 6 MG in SYRINGE 0 ML IV SCH ×2 (07:38→22:20)
[2022-12-07] MEDS: POTASSIUM CHLORIDE CRTAB 20 MEQ TABCR PO SCH ×2 (07:38→22:22)
[2022-12-07] MEDS: buPROPion XL 300 MG TABCR PO SCH (07:39)
[2022-12-07] MEDS: FLUDROCORTISONE ACETATE 0.1 MG TAB PO SCH (07:39)
[2022-12-07] MEDS: POLYETHYLENE (MIRALAX) 17 GM PACK PO SCH ×3 (07:39→22:22)
[2022-12-07] MEDS: MIDODRINE HCL 10 MG TAB PO SCH ×3 (07:39→17:36)
--- NOTE | 2022-12-07 07:50 | Hospitalist Progress Note ---
Date of Service December 07, 2022 Assessment & Plan (1) COVID-19: Plan: Acute sepsis due to COVID high risk Acute hypoxic respiratory failure, high risk -Found to be positive on full resp biofire obtained in the ED with lactic acidosis suggesting sepsis with high risk initial hypotension, acute on chronic, moderate risk, initially treated with volume resuscitation continues midodrine and florinef -requiring significant oxygen supplementation, reinforced proning patient on high flow near maximum given significant oxygen requirements will add add gram- negative coverage due to history of COPD Previous CT angiography performed on 11 30 was negative for pulmonary embolismpatient on high-dose enoxaparin due to his COVID status -S/P 40 mg IV methylprednisolone which is equivalent to 7.5 mg Dexamethasone, oxygentation worsened, and CRP worsened, he was switched to decadron 6mg IV BID on 12/06 Remdesivir continues chronic unstable, fecal retention maybe affecting diaphragmatic excursion (2) Fecal retention: Plan: Patient has had multiple attempts to remove stool via enemas and digital desimpactions. On 12/06 another attempt was made to give patient relief via digital desimpaction. Some stool was removed, but it appears to be soft. Patient refused an enema on 12/06. The fecal collection though appears softer, and was broken up with the digital disimpaction in hopes that patient may pass this. ordered relistor (3) Elevated LFTs: Plan: -AST at 49, ALT at 69, Alk phos at 109, all increased compared to 11/28/22 -Multifactoral, differential includes the beginning of shock liver, his acute viral illness, hepatitis, or possible new mets to the liver - (4) Non-small cell cancer of right lung: Plan: -Chronic, high risk, with mets to the brain and lumbar spine -Currently receiving radiation therapy to the chest and spine with plans to start on brain mets in the near future -Currently seeing Oncology to coordinate chemotherapy but has not yet started or received a Mediport (5) Reflex sympathetic dystrophy: Plan: chroinic -Stable -continue gabapentin, may continue tramadol DVT: lovenox Admission and Anticipated Discharge Date Admission Date: November 30, 2022 Subjective Patient is in significant distress on 40 L high flow oxygen with an additional oxime mask at 10 L Physical Exam Physical Exam: Patient is in significant distress using accessory muscles of respiration and Coughing paroxysms and dyspnea resulting in hypoxia despite significant oxygen supplementation Results & Data Results & Data Vital Signs (Past 12 Hours) Vital Signs Temp Pulse Pulse Resp BP Pulse Ox O2 Del Method 12/07/22 06:05 60 12/07/22 06:59 90 18 100 Oxymask, High Flow Nasal Cannula 12/07/22 03:43 79 18 93 Oxymask, High Flow Nasal Cannula 12/07/22 03:10 98.1 F 81 18 104/65 95 Oxymask, High Flow Nasal Cannula 12/07/22 01:02 73 12/06/22 22:19 98.2 F 77 20 95/60 L 93 High Flow Nasal Cannula 12/06/22 22:53 71 18 92 High Flow Nasal Cannula 12/06/22 20:27 Oxymask, High Flow Nasal Cannula O2 Flow Rate FiO2 12/07/22 06:05 12/07/22 06:59 40 12/07/22 03:43 40 100 12/07/22 03:10 15 12/07/22 01:02 12/06/22 22:19 12/06/22 22:53 40 90 12/06/22 20:27 45 Laboratory Results Reviewed CBC Reviewed PRP C-reactive protein has reduced slightly PG Care Time/CCT Total # of Minutes Spent Total Time Spent with Patient: Total time spent is greater than 50% in coordination of care (as documented) at patient's floor/unit and/or counseling patient: Coding Level of Care Code 11709 SUB INP/OBS CARE 3/50MIN Diagnoses COVID-19 U07.1 Fecal retention K59.00 Elevated LFTs R79.89 Non-small cell cancer of right lung C34.91 Reflex sympathetic dystrophy G90.50
[2022-12-07 08:23] LABS: BUN Creatinine Ratio 32.6 (10-20); C Reactive Protein 7.3 mg/dl (0-0.5); Calcium 8.2 mg/dl (8.5-10.1); Creatinine Clr Calc Pharmacy 155.2 ml/min; Est GFR (African American) 143.2 ml/min; Est GFR (Non-African American) 123.6 ml/min; Potassium 3.6 mmol/L (3.5-5.1)
[2022-12-07 08:28] LABS: Hematocrit (blood only) 34.9 % (42.0-52.0); Hemoglobin 11.8 g/dl (14.0-18.0); Mean Corpuscular Hemoglobin 29.5 pg (25.0-34.0); Mean Corpuscular Hgb Conc 33.8 g/dL (32.0-36.0); Mean Corpuscular Volume 87.3 fL (80.0-100.0); Mean Platelet Volume 8.6 fL (9.4-12.4); Platelet Count 194 K/uL (130-400); RDW Coefficient of Variation 15.9 % (11.5-14.5); RDW Standard Deviation 50.4 fL (36.4-46.3); White Blood Count 4.39 K/ul (4.8-10.8)
[2022-12-07] MEDS: REMDESIVIR 100 MG in SODIUM CHLORIDE 0.9% 230 ML IV SCH (17:41)
[2022-12-07] MEDS: GABAPENTIN 100 MG CAP PO SCH (22:23)
[2022-12-07] MEDS: OLANZAPINE 2.5 MG TAB PO SCH (22:23)
[2022-12-08] MEDS: ENOXAPARIN INJ 40 MG/0.4 ML SYR SQ SCH ×2 (06:01→17:12)
[2022-12-08] MEDS: ALBUT/IPRATROP 3MG/0.5MG NEB 3 ML VIAL NEB SCH ×4 (07:03→19:13)
--- NOTE | 2022-12-08 08:45 | Hospitalist Progress Note ---
Date of Service December 08, 2022 Assessment & Plan (1) COVID-19: Plan: Acute sepsis due to COVID continues with high risk high risk Acute hypoxic respiratory failure, high risk -Found to be positive on full resp biofire obtained in the ED with lactic acidosis suggesting sepsis with high risk initial hypotension, acute on chronic, moderate risk, initially treated with volume resuscitation continues midodrine and florinef -requiring significant oxygen supplementation, reinforced proning patient on high flow near maximum given significant oxygen requirements will add add gram- negative coverage due to history of COPD Previous CT angiography performed on 11 30 was negative for pulmonary embolismpatient on high-dose enoxaparin due to his COVID status -S/P 40 mg IV methylprednisolone which is equivalent to 7.5 mg Dexamethasone, oxygenation worsened, and CRP worsened, he was switched to decadron 6mg IV BID on 12/06, continues on hydrocortisone for mineralocorticoid affects given concern for adrenal metastasis Remdesivir continues chronic unstable, fecal retention maybe affecting diaphragmatic excursion (2) Fecal retention: Plan: Patient has had multiple attempts to remove stool via enemas and digital disimpactions. On 12/06 another attempt was made to give patient relief via digital disimpaction. Some stool was removed, but it appears to be soft. Patient refused an enema on 12/06. Stools persistent on KUB from 06 December Given the fact that this is the patient's subjective most concerning physical complaint we and assured there is no obstruction we will use GoLytely until clear (3) Elevated LFTs: Plan: -AST at 49, ALT at 69, Alk phos at 109, all increased compared to 11/28/22 -Multifactoral, differential includes the beginning of shock liver, his acute viral illness, hepatitis, or possible new mets to the liver - (4) Non-small cell cancer of right lung: Plan: -Chronic, high risk, with mets to the brain and lumbar spine -Currently receiving radiation therapy to the chest and spine with plans to start on brain mets in the near future -Currently seeing Oncology to coordinate chemotherapy but has not yet started or received a Mediport (5) Reflex sympathetic dystrophy: Plan: chroinic -Stable -continue gabapentin, may continue tramadol DVT: lovenox Admission and Anticipated Discharge Date Admission Date: November 30, 2022 Subjective pt is somewhat improved, seems to be fixated on his bowels, is having smears at times, still requiring significant oxygen supplementation requirement Physical Exam Physical Exam: serious respiratory distress coarse breath sounds abdomen is soft, difficult to hear bowel sounds over high flow oxygen Results & Data Results & Data Vital Signs (Past 12 Hours) Vital Signs Temp Pulse Pulse Resp BP Pulse Ox O2 Del Method 12/08/22 08:26 97.7 F 87 20 106/65 88 L High Flow Nasal Cannula 12/08/22 07:04 86 22 89 L High Flow Nasal Cannula 12/08/22 03:46 97.3 F L 76 20 108/67 90 High Flow Nasal Cannula 12/08/22 02:17 74 20 96 High Flow Nasal Cannula 12/07/22 22:00 77 12/08/22 00:09 82 20 93 High Flow Nasal Cannula 12/07/22 22:54 80 102/59 L 12/07/22 22:00 97.5 F L 89 20 91/47 L 98 Oxymask, High Flow Nasal Cannula O2 Flow Rate FiO2 12/08/22 08:26 12/08/22 07:04 60 75 12/08/22 03:46 12/08/22 02:17 60 80 12/07/22 22:00 12/08/22 00:09 60 90 12/07/22 22:54 12/07/22 22:00 PG Care Time/CCT Total # of Minutes Spent Total Time Spent with Patient: Total time spent is greater than 50% in coordination of care (as documented) at patient's floor/unit and/or counseling patient: Coding Level of Care Code 58539 SUB INP/OBS CARE 3/50MIN Diagnoses COVID-19 U07.1 Fecal retention K59.00 Elevated LFTs R79.89 Non-small cell cancer of right lung C34.91 Reflex sympathetic dystrophy G90.50
[2022-12-08] MEDS: MIDODRINE HCL 10 MG TAB PO SCH ×3 (08:59→17:12)
[2022-12-08] MEDS: guaiFENesin SUGAR FREE 200 MG/10 ML UDC PO PRN (09:04)
[2022-12-08] MEDS: POLYETHYLENE (MIRALAX) 17 GM PACK PO SCH ×3 (09:05→21:50)
[2022-12-08] MEDS: HYDROCORTISONE SOD 25 MG in SYRINGE 0 ML IV SCH ×2 (09:06→21:50)
[2022-12-08] MEDS: FLUDROCORTISONE ACETATE 0.1 MG TAB PO SCH (09:07)
[2022-12-08] MEDS: buPROPion XL 300 MG TABCR PO SCH (09:07)
[2022-12-08] MEDS: dexAMETHasone 6 MG in SYRINGE 0 ML IV SCH ×2 (09:07→21:50)
[2022-12-08] MEDS: POTASSIUM CHLORIDE CRTAB 20 MEQ TABCR PO SCH ×2 (09:08→21:49)
[2022-12-08] MEDS: traMADol HCL 50 MG TABLET PO PRN (14:06)
[2022-12-08] MEDS: REMDESIVIR 100 MG in SODIUM CHLORIDE 0.9% 230 ML IV SCH (17:12)
[2022-12-08] MEDS: GABAPENTIN 100 MG CAP PO SCH (21:50)
[2022-12-08] MEDS: LAVAGE SOLUTION 4000ML PO SCH (21:50)
[2022-12-08] MEDS: OLANZAPINE 2.5 MG TAB PO SCH (21:50)
[2022-12-09] MEDS: ENOXAPARIN INJ 40 MG/0.4 ML SYR SQ SCH ×2 (06:16→16:26)
[2022-12-09] MEDS: ALBUT/IPRATROP 3MG/0.5MG NEB 3 ML VIAL NEB SCH ×4 (07:26→19:14)
[2022-12-09] MEDS: dexAMETHasone 6 MG in SYRINGE 0 ML IV SCH ×2 (09:17→19:54)
[2022-12-09] MEDS: guaiFENesin SUGAR FREE 200 MG/10 ML UDC PO PRN (09:18)
[2022-12-09] MEDS: POTASSIUM CHLORIDE CRTAB 20 MEQ TABCR PO SCH ×2 (09:18→19:53)
[2022-12-09] MEDS: traMADol HCL 50 MG TABLET PO PRN (09:18)
[2022-12-09] MEDS: FLUDROCORTISONE ACETATE 0.1 MG TAB PO SCH (09:19)
[2022-12-09] MEDS: buPROPion XL 300 MG TABCR PO SCH (09:19)
[2022-12-09] MEDS: MIDODRINE HCL 10 MG TAB PO SCH ×3 (09:19→16:26)
[2022-12-09] MEDS: LAVAGE SOLUTION 4000ML PO SCH (09:19)
[2022-12-09] MEDS ORDERED: SODIUM CHLORIDE 0.65% NA SOLN 45 ML (OCEAN) PRN (10:06)
[2022-12-09] MEDS: POLYETHYLENE (MIRALAX) 17 GM PACK PO SCH ×3 (10:10→20:07)
[2022-12-09] MEDS: FLUTICASONE PROPIONATE NA SPR 16 GM BTL SCH (12:08)
[2022-12-09] MEDS ORDERED: LORazepam 0.5 MG TAB PO PRN (14:03)
--- NOTE | 2022-12-09 14:08 | Hospitalist Progress Note ---
Date of Service December 09, 2022 Assessment & Plan (1) COVID-19: Plan: Acute sepsis due to COVID continues with high risk high risk Acute hypoxic respiratory failure, high risk -Found to be positive on full resp biofire obtained in the ED with lactic acidosis suggesting sepsis with high risk initial hypotension, acute on chronic, moderate risk, initially treated with volume resuscitation continues midodrine and florinef -requiring significant oxygen supplementation, reinforced proning patient on high flow near maximum given significant oxygen requirements will add add gram- negative coverage due to history of COPD Previous CT angiography performed on 11 30 was negative for pulmonary embolismpatient on high-dose enoxaparin due to his COVID status -S/P 40 mg IV methylprednisolone which is equivalent to 7.5 mg Dexamethasone, oxygenation worsened, and CRP worsened, he was switched to decadron 6mg IV BID on 12/06 Remdesivir continues Adding mucolytic's 1 dose of diuretic on 12/09/2022 to try to improve respiratory mechanics chronic unstable, fecal retention maybe affecting diaphragmatic excursion attempted to use GoLytely patient was only occasionally taking it Overall outlook is poor the patient likely may succumb to his respiratory failure due to multifactorial causes but underlying by pre-existing hospital condition of metastatic lung cancer with possible lymphangitic spread with concurrent COVID 19 pneumonia (2) Fecal retention: Plan: Acute on chronic unresolved patient has had multiple attempts to remove stool via enemas and digital disimpactions. On 12/06 another attempt was made to give patient relief via digital disimpaction. Some stool was removed, but it appears to be soft. Patient refused an enema on 12/06. 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 Desaturation with any movement. Continues to have various somatic complaints but when attempting to address his complaints then typically refuses therapy. 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 Physical Exam Physical Exam: Patient is in significant respiratory failure using accessory muscles of respiration he is tachypneic he speaks with pursed lipped he is on high flow nasal cannula at 60 L 100% and has variable oxygen saturations typically with minor movement is saturations are below 90% Results & Data Results & Data Vital Signs (Past 12 Hours) Vital Signs Temp Pulse Pulse Resp BP Pulse Ox Pulse Ox 12/09/22 13:40 72 26 H 89 L 12/09/22 13:38 86 L 12/09/22 12:00 97.7 F 87 18 117/45 L 93 12/09/22 11:04 68 20 96 12/09/22 10:12 12/09/22 08:16 98.1 F 90 19 113/69 12/09/22 07:43 75 12/09/22 07:26 84 20 91 12/09/22 03:00 97.7 F 79 18 110/58 L 93 12/09/22 02:31 80 22 91 Pulse Ox Pulse Ox O2 Del Method O2 Flow Rate O2 Flow Rate O2 Flow Rate O2 Flow Rate 12/09/22 13:40 High Flow Nasal Cannula 60 12/09/22 13:38 89 L 73 L 60 60 60 12/09/22 12:00 High Flow Nasal Cannula 60 12/09/22 11:04 High Flow Nasal Cannula 60 12/09/22 10:12 High Flow Nasal Cannula 12/09/22 08:16 12/09/22 07:43 12/09/22 07:26 High Flow Nasal Cannula 60 12/09/22 03:00 High Flow Nasal Cannula 60 12/09/22 02:31 High Flow Nasal Cannula 60 FiO2 12/09/22 13:40 97 12/09/22 13:38 12/09/22 12:00 12/09/22 11:04 97 12/09/22 10:12 12/09/22 08:16 12/09/22 07:43 12/09/22 07:26 100 12/09/22 03:00 12/09/22 02:31 100 PG Care Time/CCT Total # of Minutes Spent Total Time Spent with Patient: Total time spent is greater than 50% in coordination of care (as documented) at patient's floor/unit and/or counseling patient: Coding Level of Care Code 60467 SUB INP/OBS CARE 3/50MIN Diagnoses COVID-19 U07.1 Fecal retention K59.00 Elevated LFTs R79.89 Non-small cell cancer of right lung C34.91 Reflex sympathetic dystrophy G90.50
[2022-12-09] MEDS ORDERED: FUROSEMIDE INJ 20 MG/2 ML VIAL IV ONE (14:15)
[2022-12-09] MEDS: CEFEPIME 2,000 MG in SYRINGE 0 ML IV SCH ×2 (16:25→23:21)
[2022-12-09] MEDS: REMDESIVIR 100 MG in SODIUM CHLORIDE 0.9% 230 ML IV SCH (17:00)
[2022-12-09] MEDS: GABAPENTIN 100 MG CAP PO SCH (19:54)
[2022-12-09] MEDS: guaiFENesin 600 MG TABCR PO SCH (19:54)
[2022-12-09] MEDS: OLANZapine ZYDIS 5 MG ORALLY DIS. TAB PO SCH (20:07)
[2022-12-10] MEDS: CEFEPIME 2,000 MG in SYRINGE 0 ML IV SCH ×3 (05:24→21:40)
[2022-12-10] MEDS: ENOXAPARIN INJ 40 MG/0.4 ML SYR SQ SCH ×2 (05:24→16:14)
[2022-12-10] MEDS: ALBUT/IPRATROP 3MG/0.5MG NEB 3 ML VIAL NEB SCH ×4 (07:27→19:04)
[2022-12-10 07:45] LABS: Creatinine Clr Calc Pharmacy 147.1 ml/min; Est GFR (African American) 138.1 ml/min; Est GFR (Non-African American) 119.1 ml/min
[2022-12-10] MEDS: MIDODRINE HCL 10 MG TAB PO SCH ×3 (08:01→16:22)
--- NOTE | 2022-12-10 08:34 | XRay Report ---
XR chest 1V portable HISTORY: covid/lung ca progression COMPARISON: Chest 12/06/2022. FINDINGS: No pneumothorax. Volume loss, interstitial thickening, and hazy airspace opacities within t he right lung remain unchanged. The right upper lobe masslike opacity is again noted. This similar to the prior study. Emphysema. The heart is normal in size. Stable right pleural thickening/effusion. IMPRESSION: No significant change in the volume loss, interstitial thickening, hazy airspace opacities, and upper lobe lesion within the right hemithorax compared to the prior study ACT 112: Negative or not required by law. Electronically signed by: Herve Jarvis M.D. 12/10/2022 8:32 AM
[2022-12-10] MEDS: buPROPion XL 300 MG TABCR PO SCH (08:57)
[2022-12-10] MEDS: FLUDROCORTISONE ACETATE 0.1 MG TAB PO SCH (08:57)
[2022-12-10] MEDS: POTASSIUM CHLORIDE CRTAB 20 MEQ TABCR PO SCH ×2 (08:57→19:55)
[2022-12-10] MEDS: POLYETHYLENE (MIRALAX) 17 GM PACK PO SCH ×3 (08:57→19:49)
[2022-12-10] MEDS: guaiFENesin 600 MG TABCR PO SCH ×2 (08:59→19:52)
[2022-12-10] MEDS: FLUTICASONE PROPIONATE NA SPR 16 GM BTL SCH (09:00)
[2022-12-10] MEDS: dexAMETHasone 6 MG in SYRINGE 0 ML IV SCH ×2 (09:06→19:53)
--- NOTE | 2022-12-10 13:18 | Hospitalist Progress Note ---
Date of Service December 10, 2022 Assessment & Plan (1) COVID-19: Plan: Acute sepsis due to COVID continues with high risk high risk Acute hypoxic respiratory failure, secondary to lymphangitic spread of his pulmonary adenocarcinoma malignancy, high risk -Found to be positive on full resp biofire obtained in the ED with lactic acidosis suggesting sepsis with high risk sources pulmonary continues midodrine and florinef -requiring significant oxygen supplementation, patient requiring high flow oxygen with BiPAP support at times Cefepime for gram-negative coverage due to history of COPD Previous CT angiography performed on 11 30 was negative for pulmonary embolismpatient on high-dose enoxaparin due to his COVID status -Initially was administered 40 mg IV methylprednisolone which is equivalent to 7.5 mg Dexamethasone, oxygenation worsened, and CRP worsened, he was switched to decadron 6mg IV BID on 12/06 Remdesivir completed Continuing mucolytic's 1 dose of diuretic on 12/09/2022 to try to improve respiratory mechanics without really great success chronic stable, fecal retention improved after GoLytely low-dose, Overall outlook is poor the patient likely may succumb to his respiratory failure due to multifactorial causes but underlying by pre-existing hospital condition of metastatic lung cancer with possible lymphangitic spread with concurrent COVID 19 pneumonia 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 However he is not willing to talk about his progressive malignancy. He continues to show desaturation with any physical movement. 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 Physical Exam Physical Exam: Patient is in significant respiratory failure using accessory muscles of respiration he is tachypneic he speaks with pursed lipped he is on high flow nasal cannula at 60 L 100% and has variable oxygen saturations typically with minor movement is saturations are below 90% Results & Data Results & Data Vital Signs (Past 12 Hours) Vital Signs Temp Pulse Pulse Resp BP BP Pulse Ox 12/10/22 11:31 97.7 F 110 H 26 H 96/59 L 92 12/10/22 11:12 105 H 22 89 L 12/10/22 08:00 12/10/22 08:00 93 H 12/10/22 07:27 94 H 18 94 12/10/22 06:57 98.1 F 103 H 2 L 96/52 L 94 12/10/22 05:34 96 H 20 96 12/10/22 02:39 98.2 F 97 H 18 97/61 L 98 12/10/22 02:33 98 H 24 98 O2 Del Method O2 Flow Rate FiO2 12/10/22 11:31 High Flow Nasal Cannula 50 100 12/10/22 11:12 High Flow Nasal Cannula 50 100 12/10/22 08:00 Oxymask, High Flow Nasal Cannula 45 100 12/10/22 08:00 12/10/22 07:27 Oxymask 15 12/10/22 06:57 Oxymask 15 12/10/22 05:34 Oxymask 15 12/10/22 02:39 High Flow Nasal Cannula 60 90 12/10/22 02:33 High Flow Nasal Cannula 60 100 PG Care Time/CCT Total # of Minutes Spent Total Time Spent with Patient: Total time spent is greater than 50% in coordination of care (as documented) at patient's floor/unit and/or counseling patient: Coding Level of Care Code 44351 SUB INP/OBS CARE 3/50MIN Diagnoses COVID-19 U07.1 Fecal retention K59.00 Elevated LFTs R79.89 Non-small cell cancer of right lung C34.91 Reflex sympathetic dystrophy G90.50
[2022-12-10] MEDS: REMDESIVIR 100 MG in SODIUM CHLORIDE 0.9% 230 ML IV SCH (16:25)
[2022-12-10] MEDS: traMADol HCL 50 MG TABLET PO PRN (19:48)
[2022-12-10] MEDS: GABAPENTIN 100 MG CAP PO SCH (19:53)
[2022-12-10] MEDS: OLANZapine ZYDIS 5 MG ORALLY DIS. TAB PO SCH (19:54)
[2022-12-11] MEDS: ENOXAPARIN INJ 40 MG/0.4 ML SYR SQ SCH ×2 (05:44→17:16)
[2022-12-11] MEDS: CEFEPIME 2,000 MG in SYRINGE 0 ML IV SCH ×3 (05:44→23:12)
[2022-12-11] MEDS: traMADol HCL 50 MG TABLET PO PRN (05:49)
[2022-12-11] MEDS: ALBUT/IPRATROP 3MG/0.5MG NEB 3 ML VIAL NEB SCH ×4 (06:10→19:16)
[2022-12-11] MEDS: buPROPion XL 300 MG TABCR PO SCH (08:32)
[2022-12-11] MEDS: FLUDROCORTISONE ACETATE 0.1 MG TAB PO SCH (08:32)
[2022-12-11] MEDS: dexAMETHasone 6 MG in SYRINGE 0 ML IV SCH ×2 (08:32→21:15)
[2022-12-11] MEDS: FLUTICASONE PROPIONATE NA SPR 16 GM BTL SCH (08:33)
[2022-12-11] MEDS: MIDODRINE HCL 10 MG TAB PO SCH ×3 (08:33→17:15)
[2022-12-11] MEDS: guaiFENesin 600 MG TABCR PO SCH ×2 (08:33→21:14)
[2022-12-11] MEDS: POTASSIUM CHLORIDE CRTAB 20 MEQ TABCR PO SCH ×2 (08:34→21:19)
[2022-12-11] MEDS: POLYETHYLENE (MIRALAX) 17 GM PACK PO SCH ×3 (08:34→21:15)
[2022-12-11] MEDS ORDERED: ONDANSETRON INJ 2 MG/ML 2 ML VIAL IV PRN (10:42)
[2022-12-11] MEDS ORDERED: GLYCOPYRROLATE 0.2 MG/ML VIAL IV PRN (10:42)
[2022-12-11] MEDS ORDERED: ONDANSETRON 4 MG OD TAB SL PRN (10:42)
[2022-12-11] MEDS ORDERED: HALOPERIDOL LACTATE 5 MG/ML 1 ML VIAL IV PRN (10:42)
[2022-12-11] MEDS ORDERED: LORazepam 2 MG/1 ML VIAL IV PRN (10:42)
[2022-12-11] MEDS ORDERED: LORazepam 0.5 MG TAB PO PRN (10:42)
[2022-12-11] MEDS: MoRPHine SULFATE 2 MG/ML CARP IV PRN (11:26)
--- NOTE | 2022-12-11 16:26 | Palliative Care Progress Note ---
Date of Service December 11, 2022 Assessment & Plan (1) Palliative care encounter: Plan: Mr. Grijalva recalls our previous conversation last week and tells me that he has made some decisions regarding his care. He would want his two sisters, Hilda Alberts and Belinda Ruano, to be his surrogate decision makers if her were unable to make decisions for himself. He has talked with them and feels that they would know what to do. He asked about DNR and status and when that applies. I assured him that DNR applies only for cardiopulmonary arrest and does not change his current plan of care. We talked about his current plan of care and the concern that we have not been able to decrease his O2 requirement and the toll that takes on his body. He asked about what would come next and we discussed possible shift of focus to comfort and symptom management, if he were not able to improve. He tells me that he is still hopeful for a miracle. We also discussed, if a miracle did not occur, what he would want his dying time to look like. He is hopeful that he would be able to fall asleep and peacefully. We discussed medications to relieve air hunger, anxiety and other associated symptoms. At this time he does not want to focus on comfort and symptom managem ent only. I did try to call his sister, Belinda, but was unable to reach her. Admission and Anticipated Discharge Date Admission Date: November 30, 2022 Subjective Continues on maximum support high flow O2. Did not tolerate bipap per RN. He denies dyspnea at rest. Had some delirium over the weekend. Less agitated with zyprexa at HS. Review of Systems Review of Systems: ESAS Pain 0/3 Dyspnea 1/3 Nausea 0/3 Anxiety 2/3 Drowsiness 0/3 Physical Exam Constitutional: + ill appearing ENMT: Mouth: + dry oral mucous membranes Respiratory: + uses accessory muscles and + tachypneic Musculoskeletal: Extremities: + muscle atrophy Neurologic: awake; not confused Results & Data Vital Signs (Past 12 Hours) Vital Signs Temp Pulse Pulse Resp BP Pulse Ox O2 Del Method 12/11/22 15:55 99 H 18 90 High Flow Nasal Cannula 12/11/22 15:53 99 H 18 90 High Flow Nasal Cannula 12/11/22 11:31 98.1 F 108 H 20 100/74 87 L Oxymask, High Flow Nasal Cannula 12/11/22 08:00 Oxymask, High Flow Nasal Cannula 12/11/22 10:21 25 H 85 L Oxymask, High Flow Nasal Cannula 12/11/22 09:32 118 H 38 H 84 L BiPAP 12/11/22 08:59 114 H 36 H 87 L 12/11/22 07:00 98.2 F 110 H 109/64 91 Oxymask, High Flow Nasal Cannula 12/11/22 07:50 109 H 22 86 L Oxymask, High Flow Nasal Cannula 12/11/22 06:10 103 H 29 H 88 L High Flow Nasal Cannula O2 Flow Rate FiO2 12/11/22 15:55 60 100 12/11/22 15:53 60 100 12/11/22 11:31 15 12/11/22 08:00 15 100 12/11/22 10:21 60 100 12/11/22 09:32 100 12/11/22 08:59 100 12/11/22 07:00 12/11/22 07:50 60 100 12/11/22 06:10 55 100 PG Care Time/CCT Total # of Minutes Spent Total Time Spent with Patient: Total time spent is greater than 50% in coordination of care (as documented) at patient's floor/unit and/or counseling patient: Coding Level of Care Code 84146 SUB INP/OBS CARE 10/18MIN Diagnoses Palliative care encounter Z51.5
--- NOTE | 2022-12-11 17:58 | Hospitalist Progress Note ---
Date of Service December 11, 2022 Assessment & Plan (1) COVID-19: Plan: Acute sepsis due to COVID continues with high risk high risk Acute hypoxic respiratory failure, secondary to lymphangitic spread of his pulmonary adenocarcinoma malignancy, high risk -Found to be positive on full resp biofire obtained in the ED with lactic acidosis suggesting sepsis with high risk sources pulmonary continues midodrine and florinef -requiring significant oxygen supplementation, patient requiring high flow oxygen with BiPAP support at times, at times with significant desaturations. Cefepime for gram-negative coverage due to history of COPD Previous CT angiography performed on 11 30 was negative for pulmonary embolismpatient on high-dose enoxaparin due to his COVID status Remains on decadron 6mg IV BID started on 12/06 will complete 1 week and then begin de-escalating Remdesivir completed Continuing mucolytic's 1 dose of diuretic on 12/09/2022 to try to improve respiratory mechanics without really great success Given patient's respiratory distress and desaturations despite maximum oxygen supplementation even with noninvasive positive pressure ventilation we are instituting some medication as directed at reducing air hunger and anxiety such as morphine and Ativan. Patient has had a contrary effect to the Ativan and we may prefer to use some IV Haldol to help reduce anxiety and stress. chronic stable, fecal retention improved after GoLytely low-dose, Overall outlook is poor the patient likely may succumb to his respiratory failure due to multifactorial causes but underlying by pre-existing hospital condition of metastatic lung cancer with possible lymphangitic spread with concurrent COVID 19 pneumonia, per case discussion with palliative care he still hoping for a miracle and wishes to continue to focus on aggressive therapy. 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 -Currently receiving radiation therapy to the chest and spine -Currently seeing Oncology patient's functional status likely prevents any effective chemotherapy or other adjunctive therapy at this time (5) Reflex sympathetic dystrophy: Plan: chroinic -Stable -continue gabapentin, continue tramadol DVT: lovenox Admission and Anticipated Discharge Date Admission Date: November 30, 2022 Subjective Patient is in somewhat respiratory distress he is not distraught he has varied understanding about his level of mortality with regard to his metastatic lung cancer and COVID infection palliative care is involved in his care Physical Exam Physical Exam: Patient is in significant respiratory failure using accessory muscles of respiration he is tachypneic he speaks with pursed lipped he is on high flow nasal cannula at 60 L 100% and has variable oxygen saturations typically with minor movement is saturations are below 90% Results & Data Results & Data Vital Signs (Past 12 Hours) Vital Signs Temp Pulse Pulse Resp BP Pulse Ox O2 Del Method 12/11/22 16:43 97.7 F 106 H 20 96/64 L 84 L Oxymask, High Flow Nasal Cannula 12/11/22 15:55 99 H 18 90 High Flow Nasal Cannula 12/11/22 15:53 99 H 18 90 High Flow Nasal Cannula 12/11/22 11:31 98.1 F 108 H 20 100/74 87 L Oxymask, High Flow Nasal Cannula 12/11/22 08:00 Oxymask, High Flow Nasal Cannula 12/11/22 10:21 25 H 85 L Oxymask, High Flow Nasal Cannula 12/11/22 09:32 118 H 38 H 84 L BiPAP 12/11/22 08:59 114 H 36 H 87 L 12/11/22 07:00 98.2 F 110 H 109/64 91 Oxymask, High Flow Nasal Cannula 12/11/22 07:50 109 H 22 86 L Oxymask, High Flow Nasal Cannula 12/11/22 06:10 103 H 29 H 88 L High Flow Nasal Cannula O2 Flow Rate FiO2 12/11/22 16:43 60 100 12/11/22 15:55 60 100 12/11/22 15:53 60 100 12/11/22 11:31 15 12/11/22 08:00 15 100 12/11/22 10:21 60 100 12/11/22 09:32 100 12/11/22 08:59 100 12/11/22 07:00 12/11/22 07:50 60 100 12/11/22 06:10 55 100 PG Care Time/CCT Total # of Minutes Spent Total Time Spent with Patient: Total time spent is greater than 50% in coordination of care (as documented) at patient's floor/unit and/or counseling patient: Coding Level of Care Code 27427 SUB INP/OBS CARE MIN Diagnoses COVID-19 U07.1 Fecal retention K59.00 Elevated LFTs R79.89 Non-small cell cancer of right lung C34.91 Reflex sympathetic dystrophy G90.50
[2022-12-11] MEDS: OLANZapine ZYDIS 5 MG ORALLY DIS. TAB PO SCH (21:14)
[2022-12-11] MEDS: GABAPENTIN 100 MG CAP PO SCH (21:15)
[2022-12-11] MEDS: MoRPHine SULFATE 10 MG/0.5 ML UDP PO PRN (23:12)
[2022-12-12] MEDS: CEFEPIME 2,000 MG in SYRINGE 0 ML IV SCH (06:28)
[2022-12-12] MEDS: ENOXAPARIN INJ 40 MG/0.4 ML SYR SQ SCH (06:28)
[2022-12-12] MEDS: ALBUT/IPRATROP 3MG/0.5MG NEB 3 ML VIAL NEB SCH ×3 (07:01→16:16)
[2022-12-12] MEDS: MoRPHine SULFATE 10 MG/0.5 ML UDP PO PRN (08:11)
[2022-12-12] MEDS: buPROPion XL 300 MG TABCR PO SCH (08:18)
[2022-12-12] MEDS: MIDODRINE HCL 10 MG TAB PO SCH ×2 (08:19→10:02)
[2022-12-12] MEDS: guaiFENesin 600 MG TABCR PO SCH (08:20)
[2022-12-12] MEDS: FLUTICASONE PROPIONATE NA SPR 16 GM BTL SCH (08:20)
[2022-12-12] MEDS: POLYETHYLENE (MIRALAX) 17 GM PACK PO SCH (08:22)
[2022-12-12] MEDS: FLUDROCORTISONE ACETATE 0.1 MG TAB PO SCH (08:24)
[2022-12-12] MEDS: dexAMETHasone 6 MG in SYRINGE 0 ML IV SCH (08:32)
[2022-12-12] MEDS: POTASSIUM CHLORIDE CRTAB 20 MEQ TABCR PO SCH (08:32)
[2022-12-12] MEDS: MoRPHine SULFATE 2 MG/ML CARP IV PRN (09:01)
[2022-12-12] MEDS ORDERED: MoRPHine SULFATE 4 MG/ML 1 ML CARP\\VIAL IV PRN (11:09)
[2022-12-12] MEDS ORDERED: DICLOFENAC SOD 1% GEL 100 GM TUBE EXT SCH (11:15)
--- NOTE | 2022-12-12 17:16 | Discharge Summary ---
Date of Service December 12, 2022 Admission HPI Per Admitting Provider Mr. 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 In the ED the patient was found to be afebrile, with soft BP's of 94/57, and hypoxic on his baseline 3L NC. Labs were remarkable for a WBC WNL, neutrophil count of 7.21, platelets of 183, initial VBG showing a pH of 7.42, pCO2 of 37, and pO2 of 27, stable cr of 0.79 with sodium of 134, glucose of 105, AG of 10 wit bicarb of 20, initial lactate of 5.1, ionized calcium of 1.00, AST of 49, ALT of 69, alk phos of 109 (all increased since 11/28/22), procal of 0.30, and covid 19 positive. UA and random cortisol were in process at the time of the admission. Chest xray was read as "Right lung interstitial opacities are seen. Overall airspace opacities are improved from prior radiograph. The left lung is clear.". CTA of the chest was read as "1. No pulmonary embolus is seen. 2. Prominent consolidation with post radiation changes. The large masslike lesion in the right upper lobe appears somewhat decreased in size from prior exam. Consolidation in the right lower lobe is unchanged as is interstitial thickening of the right lung. 3. There is a 2 mm pulmonary nodule in the left lower lobe, enlarged from prior, metastatic disease cannot be excluded. 4. New 9 mm left lower paratracheal lymph node. 5. Additional findings as above.". In the ED the patient received an initial 2L NSS bolus and was then given a 3rd prior to admission, cefepime, albuterol, and 40 mg IV methylprednisolone. After initial treatment in the ED the patient's BP initially remained stable and his repeat lactate was noted to be 3.7. At the time of admission the patient's blood pressure began to fall with systolics in the 80's. At the time of the exam the patient was lying in bed in no acute distress but appears acutely ill. He states that last night he started to develop fevers as high as 101, chills, and increased SOB and oxygen requirements. He states that he has yet to start chemotherapy but is in the process of starting the process, he has received radiation therapy to his chest and spine. He is in the process of setting up radiation therapy for his brain metastases. He is unsure of his new medications as his sisters mainly help organize them. He denies recent sick contacts, chest pain, change in sputum production dysuria, hematuria, LE swelling and recent trauma. When asked, he states that he has not urinated since arriving to the ED around noon. He has not had a bowel movement in the past week and feels as though his abdomen is full but denies severe abdominal pain. We had another long discussion regarding code status. While he thinks his sisters will be upset with his decision he still wishes to be a DNR/DNI. However, he would want a trial of vasopressors if needed. We discussed the patient with the entry level automotive technician exceptional children teacher (Dr. Birmingham) who accepted the patient to the ICU. Please refer to Dr. Green's attestation for any changes to the treatment plan Principal Diagnosis Patient at 1234 hrs. on 12/12/22. Cause of is acute on chronic respiratory failure secondary to COVID- pneumonia superimposed on lung cancer with lymphangitic spread Discharge Exam Patient was examined and had ceased to have spontaneous respirations of breath sounds Discharge Data Allergies Allergy/AdvReac Type Severity Reaction Status Date / Time tetracycline Allergy Severe Anaphylaxis Verified 11/30/22 15:31 belladonna alkaloids Allergy Intermediate Hives Verified 11/30/22 15:31 cocoa Allergy Intermediate Rash Verified 11/30/22 15:31 hydrocodone Allergy Intermediate Hives Verified 11/30/22 15:31 oxycodone Allergy Intermediate Hives Verified 11/30/22 15:31 petrolatum,white Allergy Intermediate Rash Verified 11/30/22 15:31 Consultations 11/30/22 17:31 ED Decision to Admit Stat 11/30/22 20:43 Consult Face Burler Routine 12/01/22 08:33 Consult Palliative Care Routine 12/05/22 09:05 Consult Gastroenterology Routine Ordered Studies 11/30/22 16:13 CT angio chest PE protocol Stat 12/01/22 08:31 CT Abd and Pelvis [CT abd pelvis IV con only] Urgent Hospital Course (1) : Patient at 1234 hrs. on 12/12/2022 from acute on chronic respiratory failure secondary to COVID-pneumonia superimposed on adenocarcinoma of the lung and lymphangitic spread Remainder of the categories below are descriptions of the previous hospital stay (2) COVID-19: Acute sepsis due to COVID continues with high risk high risk Acute hypoxic respiratory failure, secondary to lymphangitic spread of his pulmonary adenocarcinoma malignancy, high risk -Found to be positive on full resp biofire obtained in the ED with lactic acidosis suggesting sepsis with high risk sources pulmonary continues midodrine and florinef -requiring significant oxygen supplementation, patient requiring high flow oxygen with BiPAP support at times, at times with significant desaturations. Cefepime for gram-negative coverage due to history of COPD Previous CT angiography performed on 3 was negative for pulmonary embolismpatient on high-dose enoxaparin due to his COVID status decadron 6mg IV BID Remdesivir completed Overall outlook is poor the patient likely may succumb to his respiratory failure due to multifactorial causes but underlying by pre-existing hospital condition of metastatic lung cancer with possible lymphangitic spread with concurrent COVID 19 pneumonia, per case discussion with palliative care he was still hoping for a miracle and wished to continue to focus on aggressive therapy. (3) Fecal retention: Acute on chronic resolved (4) Elevated LFTs: -Acute on chronic increased compared to 11/28/22 -Multifactoral, differential includes the beginning of shock liver, his acute viral illness, hepatitis, or possible new mets to the liver - (5) Non-small cell cancer of right lung: -Chronic, high risk, with mets to the brain and lumbar spine -Status post radiation therapy to the chest and spine - Oncology consult feels patient's functional status likely prevents any effective chemotherapy or other adjunctive therapy (6) Reflex sympathetic dystrophy: Total Time Total Time Spent Total Time Spent (In Minutes): It required greater than 30 minutes to prepare this patient for discharge Discharge Plan Discharge Items Patient Disposition: Discharge Diagnosis: covid pneumonia lung cancer Other Date/Time: 12/12/22 12:34 Coding Level of Care Code 67750 INP/OBS DISCH >30 MIN Diagnoses R99 COVID-19 U07.1 Fecal retention K59.00 Elevated LFTs R79.89 Non-small cell cancer of right lung C34.91 Reflex sympathetic dystrophy G90.50
== END 2022-12-12 17:27 | disposition expired | DRG 871 ==
LOC: ED 14:52 → 1E 18:49 → SUATTDRO 18:49 → 1E 20:07 → 2N 12-01 15:20 → 2S 12-09 23:44